=== PATIENT | male | born 1965 | race Caucasian/White ===

== ENCOUNTER 2024-03-28 07:55 | Emergency (ER) | payer BC, SELFPAY ==
[2024-03-28] VITALS (11 sets, daily range): BP systolic 99–143; BP diastolic 53–82; BMI 23.9
--- NOTE | 2024-03-28 08:37 | ED.GENMED ---
History of Present Illness
General
Chief Complaint: Abnormal Lab Value
Source: patient
Time Seen by Provider: 03/28/24 08:06
History of Present Illness
History of Present Illness:
58yoM with a history of hyperlipidemia and tobacco use presenting for evaluation of an abnormal outpatient lab. Patient had routine blood work 2 weeks ago and was called by his PCP yesterday regarding abnormal findings. His hemoglobin was 6.8 and
he was told to go to the ED for a blood transfusion. Patient denies any history of anemia and has never required a blood transfusion before. He denies any hematochezia or melena. His only current complaint is mild fatigue which has been ongoing
for about 1 to 2 months. He denies any shortness of breath, dizziness, syncope. He smokes 1 pack/day and drinks 2 rum and cokes daily.
Past History
Past History
ED Past Medical History: None
ED Past Surgical History: None
Social History
Tobacco: Smoker
Alcohol: Daily
Drug: None
Personal:
Living: with family
Employment: Employed
Family History
Family History: Other (Noncontributory)
Phy Exam
General Physical Exam
General Presentation: well appearing and no apparent distress
General age: appears stated age
General Skin: warm and dry
General Habitus: normal
General Mental: alert
ENT Exam
ENT Exam: normocephalic
Cardiovascular Exam
Cardiovascular Exam: regular rate/rhythm and no murmur
Pulmonary Exam
Pulmonary Exam: lungs clear, no respiratory distress, no rales, no crackles and no rhonchi
Gastrointestinal Exam
Rectal Exam: other (Small amount of mucous obtained on digital rectal exam. Hemoccult negative. )
Neurological Exam
Neurological Exam: alert
Solon Coma Scale
Eye Opening: Spontaneous
Verbal Response: Oriented
Motor Response: Obeys Commands
GCS Total Score: 15
Skin Exam
Skin Exam: normal color and warm/dry
Psychiatric Exam
Psychiatric Exam: normal mood/affect
Course
Orders/Labs/Results
Orders:
Orders
03/28/24 08:43
Chest/Abd/Pelvis w Contrast CT [CT Chest/abd/pel W Iv Cont] Urgent
Comment:
Reason For Exam: Anemia, fatigue
03/28/24 08:45
Type+Screen Urgent
Complete Blood Count/With Diff Urgent
Comprehensive Metabolic Panel Urgent
Folate Urgent
Comment: ADD ON
Haptoglobin [S] Urgent
Comment: ADD ON
Iron Urgent
LDH Urgent
Manual Differential Urgent
PTT Urgent
Prothrombin Time Urgent
Reticulocyte Count Urgent
Comment: ADD ON
Total Iron Binding Urgent
Vitamin B12 Urgent
Comment: ADD ON
03/28/24 09:22
ABO2 Urgent
BBK Wristband Number:
Associate notified that ABO2 has been ordered: [id number]
Date: 03/28/24
Time: 09:01
Customer Support Consultant ID: [id number]
03/28/24 11:09
Blood Bank Products [* Blood Bank Products] Urgent
Blood Bank Products: *Packed RBC Leuko(PRBC's)
Quantity: 1
Transfuse Today: Yes
Reason: Anemia
03/28/24 11:18
Add On- LAB Urgent
Tests Added?: LDH, reticulocyte, MINH haptoglobin, B12, folate, iron panel
Abnormal Lab Results
03/28/24
08:45
WBC 2.1 L* 10^3/uL
(4.8-10.8)
RBC 2.12 L 10^6/uL
(4.70-6.10)
Hgb 7.1 L g/dL
(13.0-18.0)
Hct 21.5 L %
(39.0-52.0)
MCV 101.4 H fL
(80.0-94.0)
MCH 33.5 H pg
(27.0-31.0)
RDW 29.7 H %
(11.5-14.5)
Abs Neuts (Manual) 1.0 L 10^3/uL
(1.4-6.5)
Segmented Neutrophils 40 L %
(42-75)
Band Neutrophils 11 H %
(0-3)
PT 16.1 H Sec
(11.4-14.6)
BUN 8 L mg/dl
(9-20)
Creatinine 0.6 L mg/dL
(0.7-1.3)
Glucose 108 H mg/dl
(70-99)
Iron 261 H ug/dl
(49-181)
% Saturation 93 H %
(20-50)
Vitamin B12 975 H pg/ml
(239-931)
Folate > 20.0 H ng/ml
(2.76-20)
Crossmatch IS Only See Detail
03/28/24 08:45
03/28/24 08:45
Vital Signs
Initial and Last Documented VS:
Initial Vital Signs
Temp Pulse Resp BP Pulse Ox
98.6 F 83 16 143/70 100
03/28/24 07:57 03/28/24 07:57 03/28/24 07:57 03/28/24 07:57 03/28/24 07:57
Last Documented Vital Signs
Temp Pulse Resp BP Pulse Ox
98.4 F 64 14 119/67 99
03/28/24 12:46 03/28/24 12:46 03/28/24 12:46 03/28/24 12:46 03/28/24 12:46
MDM/Problems Addressed
Differential Diagnosis Includes:
58yoM here for anemia (hemoglobin 6.8) seen on outpatient labs 2 weeks ago. Last hemoglobin 11.4 in June 2021. He is mostly asymptomatic other than mild fatigue. No reported melena or hematochezia. VSS. He is well appearing in no distress. Small
amount of mucous obtained on STORM which is hemoccult negative. Differential diagnosis includes but is not limited to: GI bleed, MICHELL, malignancy, myelodysplastic syndrome, anemia of chronic disease
Initial ED plan: Check CBC, CMP, coags, and type and screen.
*Critical Care Note
Total Time (30-74mins, 75-104mins- exclusive of procedures): Not Applicable
Update Note
Update Note:
Hemoglobin today is 7.1. Leukopenia also noted on labs with a WBC of 2.1. Recommended admission for further workup which patient is refusing at this time due to family obligations. I reached out to the cosmetic sales assistant biofuels production technician to try to expedite
outpatient f/u. Hematology requests LDH, reticulocyte count, haptoglobin, B12/folate, and iron studies to be added on. Fortunately, patient was able to schedule in appt with hematology in 1 week. He was given 1 unit PRBC transfusion during ED stay
which he tolerated well. ED return precautions discussed. He left in stable condition. PCP made aware of plan.
ED Attending Note
-
Portions of this chart may have been created with voice recognition software.� Occasional wrong word or��sound alike� substitutions may have occurred due to the inherent limitations of voice recognition software.
Discharge Plan
Departure
Patient Disposition: Home (Routine Discharge)
Date of Disposition: 03/28/24
Time of Disposition: 13:58
Patient with high blood pressure during this ER visit?: No
Discharge Problem:
Anemia, Leukopenia
Instructions: Anemia, Possibly From Low Iron, Adult ED
Prescriptions:
No Action
No Current Medications
0
Referrals:
Kali Mead DO [Active] -
Renea Hagen PA [Family Provider] -
Activity Restrictions/Additional Instructions:
Please follow-up with your family doctor and hematology for further testing to find out the cause of your anemia.
Return to the ER immediately with any new or worsening symptoms.
Interventions
Interventions:
*Risk Screen - Suicide Last Done: 03/28/24 07:57
*General Assessment Last Done: 03/28/24 07:57
*Neglect/Abuse Screening Last Done: 03/28/24 07:57
ED- Fall Risk Assessment Last Done: 03/28/24 08:50
*ED COVID-19 Vaccine History Last Done: 03/28/24 07:57
Discharge Date and Time
Discharge Date/Time: 03/28/24 14:39
Print Language: DUTCH
[2024-03-28 09:09] LABS: INR 1.24; PT 16.1 Sec (11.4-14.6)
[2024-03-28 09:10] LABS: APTT 33.5 Sec (23.4-35.0)
[2024-03-28 09:22] LABS: ALT (SGPT) 32 U/L (0-50); AST (SGOT) 41 U/L (17-59); Albumin 4.3 g/dl (3.5-5.0); Alkaline Phosphatase 68 U/L (38-126); Blood Urea Nitrogen 8 mg/dl (9-20); Calcium 9.4 mg/dl (8.4-10.2); Carbon Dioxide 29 mmol/L (22-30); Chloride 101 mmol/L (98-107); Estimated Creatinine Clearance > 125 ml/min; Glucose 108 mg/dl (70-99); Potassium 4.3 mmol/L (3.5-5.1); Sodium 138 mmol/L (135-145); Total Bilirubin 1.3 mg/dl (0.2-1.3); Total Protein 6.4 g/dl (6.3-8.2); eGFR > 60.00
[2024-03-28 09:32] LABS: Hematocrit 21.5 % (39.0-52.0); Hemoglobin 7.1 g/dL (13.0-18.0); Mean Corpuscular Hgb 33.5 pg (27.0-31.0); Mean Corpuscular Volume 101.4 fL (80.0-94.0); Mean Platelet Volume 10.1 fL (7.4-10.4); Platelet Count 340 10^3/uL (130-400); Red Blood Cell Count 2.12 10^6/uL (4.70-6.10); Red Cell Dist. Width 29.7 % (11.5-14.5); White Blood Cell Count 2.1 10^3/uL (4.8-10.8)
[2024-03-28 09:33] LABS: Eosinophils 4 % (0-6); Lymphocytes 41 % (20-51); Monocytes 4 % (2-9); Segmented Neutrophils 40 % (42-75)
[2024-03-28 09:34] LABS: Band Neutrophils 11 % (0-3); Normal RBC Morphology No; Platelets Checked Yes
[2024-03-28 09:35] LABS: Acanthocytes Slight; Anisocytosis 2+; Hypochromasia 2+; Macrocytosis Slight; Ovalocytes 1+; Poikilocytosis Slight; Polychromasia Slight; Total Cells Counted 100
[2024-03-28 11:50] LABS: Reticulocyte Count 0.6 % (0.4-2.8)
[2024-03-28 12:06] LABS: Iron 261 ug/dl (49-181); LDH 214 U/L (120-246)
[2024-03-28 12:16] LABS: Percent Saturation 93 % (20-50); Total Iron Binding Capacity 280 ug/dl (261-462)
[2024-03-28 13:50] LABS: Folate > 20.0 ng/ml (2.76-20); Vitamin B12 975 pg/ml (239-931)
[2024-03-30 00:43] LABS: Haptoglobin 96 mg/dL (30-200)
== END 2024-03-28 14:39 | disposition home or self-care (01) ==
LOC: EMR 07:55
PROVIDERS: Physician Assistant; EMERGENCY PHYSICIAN Emergency Medicine; FAMILY PHYSICIAN Physician Assistant Medical
DX: D64.9 Anemia, unspecified (principal); D72.819 Decreased white blood cell count, unspecified; E78.00 Pure hypercholesterolemia, unspecified; I25.10 Atherosclerotic heart disease of native coronary artery without angina pectoris; F17.210 Nicotine dependence, cigarettes, uncomplicated; Z90.49 Acquired absence of other specified parts of digestive tract
CPT/HCPCS: 99284; 71260; 74177; 80053; 82607; 82746; 83010; 83540; 83550; 83615; 85025; 85045; 85610; 85730; 86850; 86900; 86901; 86920; P9016; Q9967

== ENCOUNTER → 2024-04-19 13:02 | Outpatient (REF) | payer BC, SELFPAY | LOC: PAVMRI 13:02 | PROVIDERS: ATTENDING PHYSICIAN Internal Medicine Hematology & Oncology; FAMILY PHYSICIAN Physician Assistant Medical | DX: D61.818 Other pancytopenia (principal); E83.110 Hereditary hemochromatosis | CPT/HCPCS: 74183; A9575 ==

== ENCOUNTER → 2024-04-25 09:03 | Outpatient (REF) | payer BC, SELFPAY ==
[2024-04-25 09:31] VITALS: BP 141/69; BP_SYST 78
[2024-04-25 09:48] LABS: Hematocrit 25.3 % (39.0-52.0); Hemoglobin 8.5 g/dL (13.0-18.0); Mean Corp Hgb Conc. 33.6 g/dL (33.0-37.0); Mean Corpuscular Hgb 34.1 pg (27.0-31.0); Mean Corpuscular Volume 101.6 fL (80.0-94.0); Mean Platelet Volume 10.6 fL (7.4-10.4); Platelet Count 315 10^3/uL (130-400); Red Blood Cell Count 2.49 10^6/uL (4.70-6.10); Red Cell Dist. Width 27.4 % (11.5-14.5)
[2024-04-25] MEDS: ATIVAN 0.5 MG IV (10:15)
[2024-04-25] MEDS: NSS (PRESERVATIVE FREE) 0.25 ML IV (10:15)
[2024-04-25 10:59] LABS: Anisocytosis 2+; Band Neutrophils 2 % (0-3); Eosinophils 2 % (0-6); Hypochromasia 3+; Lymphocytes 61 % (20-51); Monocytes 2 % (2-9); Normal RBC Morphology No; Nucleated Red Blood Cells 1 (-); Platelets Checked Yes; Polychromasia 1+; Segmented Neutrophils 33 % (42-75)
[2024-04-25 11:00] LABS: Ovalocytes 1+; Target Cells FEW
[2024-04-25 11:01] LABS: Total Cells Counted 100
[2024-04-25 11:06] LABS: Absolute Neutrophils -Man Diff 0.7 10^3/uL (1.4-6.5); White Blood Cell Count 2.2 10^3/uL (4.8-10.8)
[2024-04-25 11:11] VITALS: BP 125/77; BP_SYST 82
[2024-04-25 11:27] VITALS: BP 118/84
== END ==
LOC: RADI 09:03
PROVIDERS: ATTENDING PHYSICIAN Physician Assistant; FAMILY PHYSICIAN Physician Assistant Medical; REFERRING PHYSICIAN Internal Medicine Hematology & Oncology
DX: E83.110 Hereditary hemochromatosis (principal); D46.9 Myelodysplastic syndrome, unspecified; Z01.812 Encounter for preprocedural laboratory examination; Z01.818 Encounter for other preprocedural examination
CPT/HCPCS: 88305; 88311; 88312; 36415; 38221; 77012; 85025; 88313

== ENCOUNTER 2024-05-16 09:00 | Outpatient (RCR) | payer BC, SELFPAY ==
[2024-05-16] VITALS (7 sets, daily range): BP systolic 106–124; BP diastolic 51–64
== END 2024-05-21 23:59 | disposition home or self-care (01) ==
LOC: OID 09:00
PROVIDERS: ATTENDING PHYSICIAN Internal Medicine Hematology & Oncology; FAMILY PHYSICIAN Physician Assistant Medical
DX: D61.818 Other pancytopenia (principal); E83.110 Hereditary hemochromatosis; Z77.090 Contact with and (suspected) exposure to asbestos
CPT/HCPCS: 36415; 36430; 86850; 86900; 86901; 86920; P9016

== ENCOUNTER 2024-09-18 14:50 | Outpatient (RCR) | payer BC, SELFPAY ==
[2024-09-18 15:07] LABS: % Basophils 6.4 % (0-2); % Lymphocytes 63.6 % (20.5-51.1); Absolute Basophils 0.1 10^3/uL (0-0.2); Absolute Eosinophils 0.1 10^3/uL (0-0.7); Absolute Lymphocytes 0.9 10^3/uL (1.2-3.4); Absolute Monocytes 0.1 10^3/uL (0.1-0.6); Hemoglobin 8.4 g/dL (13.0-18.0); Mean Corp Hgb Conc. 32.3 g/dL (33.0-37.0); Mean Corpuscular Hgb 33.2 pg (27.0-31.0); Mean Corpuscular Volume 102.8 fL (80.0-94.0); Mean Platelet Volume 9.8 fL (7.4-10.4); Platelet Count 324 10^3/uL (130-400); Red Blood Cell Count 2.53 10^6/uL (4.70-6.10); Red Cell Dist. Width 26.7 % (11.5-14.5)
[2024-09-18 15:10] LABS: White Blood Cell Count 1.4 10^3/uL (4.8-10.8)
[2024-09-18 15:11] LABS: Absolute Neutrophils 0.3 10^3/uL (1.4-6.5)
== END 2024-09-18 23:59 | disposition home or self-care (01) ==
LOC: OID 14:50
PROVIDERS: ATTENDING PHYSICIAN Internal Medicine Hematology & Oncology; FAMILY PHYSICIAN Physician Assistant Medical
DX: D61.818 Other pancytopenia (principal); D46.9 Myelodysplastic syndrome, unspecified (principal); E83.110 Hereditary hemochromatosis; Z77.090 Contact with and (suspected) exposure to asbestos
CPT/HCPCS: 85025

== ENCOUNTER 2024-12-05 08:16 | Outpatient (RCR) | payer BC, SELFPAY ==
[2024-11-29] VITALS (7 sets, daily range): BP systolic 93–108; BP diastolic 42–53
[2024-11-29] MEDS: TYLENOL 650 MG PO (13:31)
--- NOTE | 2024-11-29 13:39 | PTCARENOTE ---
Pt at the end of his second unit of Packed Red blood cells and his temp 99.1. Stated he feels fine. Tylenol 650 mg po given as ordered. will recheck before pt is discharged.
--- NOTE | 2024-11-29 13:55 | PTCARENOTE ---
Pt oral temp rechecked. He is now 98.6 still states he feels fine. Instructed to call MD or 911 if he has any signs or symptoms of fever, Pt verbalized understanding.
[2024-12-04 15:20] LABS: Hematocrit 22.2 % (39.0-52.0); Hemoglobin 7.1 g/dL (13.0-18.0); Mean Corp Hgb Conc. 32.0 g/dL (33.0-37.0); Mean Corpuscular Volume 94.9 fL (80.0-94.0); Nucleated Red Blood Cells % 4.9 % (-); Platelet Count 110 10^3/uL (130-400); Red Cell Dist. Width 21.9 % (11.5-14.5)
[2024-12-05 08:54] VITALS: BP 107/53
[2024-12-05 09:00] VITALS: BP 107/53
[2024-12-05 09:15] VITALS: BP 110/57
[2024-12-05 11:25] VITALS: BP 110/57
== END 2024-12-19 23:59 | disposition home or self-care (01) ==
LOC: OID 08:16
PROVIDERS: ATTENDING PHYSICIAN Internal Medicine Hematology & Oncology; FAMILY PHYSICIAN Physician Assistant Medical
DX: D46.9 Myelodysplastic syndrome, unspecified (principal)
CPT/HCPCS: 36415; 36430; 85025; 86850; 86900; 86901; 86920; P9058

== ENCOUNTER 2024-12-18 00:21 | Inpatient (IN) | payer BC, SELFPAY ==
[2024-12-17] VITALS (7 sets, daily range): BP systolic 119–144; BP diastolic 57–78; PULSE 2; BMI 21.0
[2024-12-17 19:29] LABS: Hematocrit 23.4 % (39.0-52.0); Hemoglobin 7.5 g/dL (13.0-18.0); Mean Corp Hgb Conc. 32.1 g/dL (33.0-37.0); Mean Corpuscular Volume 90.0 fL (80.0-94.0); Platelet Count 111 10^3/uL (130-400); Red Cell Dist. Width 20.7 % (11.5-14.5)
[2024-12-17 19:41] LABS: ALT (SGPT) 29 U/L (0-50); AST (SGOT) 21 U/L (17-59); Albumin 3.2 g/dl (3.5-5.0); Alkaline Phosphatase 58 U/L (38-126); Blood Urea Nitrogen 10 mg/dl (9-20); Calcium 8.3 mg/dl (8.4-10.2); Carbon Dioxide 30 mmol/L (22-30); Chloride 96 mmol/L (98-107); Glucose 127 mg/dl (70-99); Potassium 4.1 mmol/L (3.5-5.1); Sodium 128 mmol/L (135-145); Total Protein 6.3 g/dl (6.3-8.2); eGFR > 60.00
[2024-12-17 19:52] LABS: Troponin I < 0.012 ng/ml
[2024-12-17 19:56] LABS: Nucleated Red Blood Cells % 5.1 % (-)
[2024-12-17] MEDS: LASIX 40 MG IV (21:25)
--- NOTE | 2024-12-17 22:27 | ED.GENMED ---
History of Present Illness
General
Chief Complaint: Breathing Problem
Source: patient
Exam Limitations: none
Time Seen by Provider: 12/17/24 21:03
Nursing documentation reviewed up to this point in time: agreed with
History of Present Illness
History of Present Illness:
Patient with history MDS, currently receiving treatment, presents to ED secondary to sudden onset of shortness of breath, after he returned from his oncologist office. During the day, patient received injection in his stomach to boost his white
blood cell count, along with new medication called Venclexta at 11 AM. At 1:30 PM, patient received scheduled 1 unit blood transfusion. At 5 PM, patient returned to horticultural services supervisor office for scheduled blood draw. When he returned home around 6:30
PM, he became short of breath all of a sudden. Denies chest pain. Denies chest palpitations. Denies fever or chills. Denies nausea or vomiting. Denies dizziness. Denies previous history of similar symptoms.
Past History
Past History
ED Past Medical History: None
ED Past Surgical History: None
Social History
Tobacco: Smoker
Alcohol: Daily
Drug: None
Personal:
Living: with family
Employment: Employed
Family History
Family History: Other (Noncontributory)
Review of Systems
Review of Systems
Allergies reviewed?: Yes
All Other Systems: ROS reviewed and negative except as documented in HPI and ROS
Constitutional: Reports no symptoms
Respiratory: Reports cough and trouble breathing
Cardiac: Denies chest pain or palpitations
ABD/GI: Reports no symptoms
Musculoskeletal: Reports no symptoms
Skin: Reports no symptoms
Neurological: Reports no symptoms
Phy Exam
Physical Exam
Physical Exam:
Physical Exam
General: mild respiratory distress, not acutely ill. afebrile
Head: nc/at. eomi
Neck: supple. normal range of motion. no jvd
Heart: s1/s2 regular rate and rhythm
Lungs: no acute respiratory distress. diminished breath sounds bilaterally
Abdomen: normal bowel sounds. not tender.
Neuro: alert and oriented x 3. no focal neurological deficits
Skin: no rash
Psychiatric: well kept. interactive and cooperative
Extremities: no edema. no calf tenderness.
Scores
Heart Failure Risk
Heart Failure Risk Score: Not Applicable
Course
Orders/Labs/Results
Orders:
Orders
12/17/24 19:07
CR Chest - 2 Views Urgent
Comment:
Reason For Exam: shortness of breath
12/17/24 19:13
Complete Blood Count/With Diff Urgent
Comprehensive Metabolic Panel Urgent
NT-proBNP Urgent
Comment: ADD ON
Troponin I Urgent
12/17/24 21:10
Add On- LAB Urgent
Tests Added?: proBNP
12/17/24 21:11
Furosemide [Lasix] 40 mg IV NOW STA
12/17/24 21:29
CT Chest PE Study Urgent
Comment:
Reason For Exam: sob w hx MDS
12/17/24 22:22
Dexamethasone Sod Phosphate [Decadron] 10 mg IV NOW STA
12/17/24 23:21
LevoFLOXacin 500 MG/100 ML [Levaquin] 500 mg in 100 ml IV NOW
12/17/24 23:30
Apixaban [Eliquis] 5 mg PO BID
12/17/24 23:46
Lactate Level [Lactic Acid] Urgent
Blood Culture Q30M
SWAPNA Source: Blood/Venous
Specimen Description:
12/18/24 00:09
Admit/Transfer Patient As Directed
Co-Sign Provider:
Level of Care: Inpatient admission
Assign to:: Telemetry
Physician / Group: Morro
Diagnosis: Pneumonia, Neutropenia, AML, Pulmonary Lesions
Reason for Telemetry: Arrhythmia
Date to Stop Telemetry: 12/21/24
Time to Stop Telemetry: 11:00
Reason for Hospitalization: Pneumonia, Neutropenia, AML, Pulmonary Lesions
Expected length of stay greater than two midnights?: Yes
ELOS- Estimated Length of Stay in days: 3
I certify the patient meets the requirements for IP care: Yes
12/18/24 00:10
PRN Pain Medication Management As Directed
May give lesser potent ordered pain med per pt: Yes
preference::
Protocol:: Medication orders for pain may be administered in a
manner that supports deferring to patient preference
when the pt is:
- Requesting an ordered lesser potent pain medication.
Least to most potent pain medications are defined
as: acetaminophen < NSAID < tramadol < opioids
(morphine, oxycodone, hydromorphone).
- Requesting a lesser dose of the same medication IF
ORDERED.
- Requesting a less intrusive route of administration
if both routes are prescribed by the provider (PO <
IV).
12/18/24 00:11
Code Status As Directed
Resuscitation Status: Full Code
12/18/24 02:45
0.9% Sodium Chloride 1000 ml [Nss] 1,000 ml IV 100 mls/hr
Acetaminophen [Tylenol] 650 mg PO Q4HPRN PRN
Albuterol Nebs [Ventolin Nebules] 2.5 mg INH R Q4HPRN PRN
Ondansetron Injectable [Zofran] 4 mg IV Q6HPRN PRN
VANCOMYCIN Pharmacy to Dose [VANCOCIN Pharmacy to Dose] 1 each Pharmacy To Prepare [Call Pharmacy To Prepare] 0 ml IV PER PROTOCOL
12/18/24 02:45
Consult Notification Routine
Specialty to Notify: Oncology
Date consulting provider notified: 12/18/24
Time consulting provider notified: 07:36
Notified:: Provider
Comment: tt
Consult Notification Routine
Specialty to Notify: Pulmonary
Date consulting provider notified: 12/18/24
Time consulting provider notified: 07:34
Notified:: Provider
Comment: tt
ONCOLOGY CONSULT Routine
Consulting Provider: Ibrahima Magdaleno
Was physician already notified: No
Reason for consult: AML, Pneumonia
PULMONARY CONSULT Routine
Consulting Provider: Ernestina Grayson
Was physician already notified: No
Reason for consult: Pulmonary Mass Lesions
Activity As Directed
Activity Level: Ambulate
With Assistance
Bladder Scan As Directed
Follow Bladder Retention/Intermittent Cath Algorithm?: Yes
PRN if no void in __ hours: 6
Frequency: Per Retention Algorithm
If Bladder Scan Result >: 400
then:: Straight cath
I/O [Intake/ Output] As Directed
Frequency: Per unit guidelines
Precautions As Directed
Type of Precautions: Neutropenic
Straight Cath As Directed
Frequency: Per Retention Algorithm
Additional Instructions: straight cath as needed per acute urinary retention algorithm for 24 hrs
Additional Instructions: for bladder scan greater than 400 mL
Vital Signs As Directed
Frequency: Per unit guidelines
Weight As Directed
Frequency: Daily
Oxygen Therapy [O2 Therapy] [RESP] Routine
Titrate/Wean O2 to maintain O2 sat greater than (%): 94
DX Deep Vein Thrombosis Video Routine
12/18/24 03:00
Cefepime HCl [Maxipime] 2,000 mg IV Q8@0200,1000,1800
12/18/24 04:22
Basic Metabolic Panel IN AM
Complete Blood Count/No Diff IN AM
TSH Reflex To Free T4 Routine
Blood Culture Q30M
SWAPNA Source: Blood/Venous
Specimen Description:
12/18/24 Breakfast
Regular
At Your Request: Full Participation
Does patient need a safe tray?: No
12/18/24 08:00
Acyclovir [Zovirax] 400 mg PO BID
Atorvastatin [Lipitor] 10 mg PO DAILY
Pantoprazole [Protonix IV] 40 mg IV DAILY
Abnormal Lab Results
12/17/24
19:13
WBC 1.2 L* 10^3/uL
(4.8-10.8)
RBC 2.60 L 10^6/uL
(4.70-6.10)
Hgb 7.5 L g/dL
(13.0-18.0)
Hct 23.4 L %
(39.0-52.0)
MCHC 32.1 L g/dL
(33.0-37.0)
RDW 20.7 H %
(11.5-14.5)
Plt Count 111 L 10^3/uL
(130-400)
Absolute Neuts (auto) 0.4 L* 10^3/uL
(1.4-6.5)
Absolute Lymphs (auto) 0.5 L 10^3/uL
(1.2-3.4)
Immature Gran % 2.5 H %
(0-0.5)
Neutrophils % 34.0 L %
(42.2-75.2)
Monocytes % 16.1 H %
(1.7-9.3)
Sodium 128 L mmol/L
(135-145)
Chloride 96 L mmol/L
(98-107)
Creatinine 0.6 L mg/dL
(0.7-1.3)
Glucose 127 H mg/dl
(70-99)
Calcium 8.3 L mg/dl
(8.4-10.2)
Total Bilirubin 1.5 H mg/dl
(0.2-1.3)
Albumin 3.2 L g/dl
(3.5-5.0)
07/29/25 19:13
12/17/24 19:13
Vital Signs
Initial and Last Documented VS:
Initial Vital Signs
Temp Pulse Resp BP Pulse Ox
99.5 F 98 16 129/61 88
12/17/24 19:00 12/17/24 19:00 12/17/24 19:00 12/17/24 19:00 12/17/24 19:00
Last Documented Vital Signs
Temp Pulse Resp BP Pulse Ox
97.6 F 81 18 111/63 95
12/18/24 12:00 12/18/24 12:00 12/18/24 12:00 12/18/24 12:00 12/18/24 07:00
MDM/Problems Addressed
MDM/Problems Addressed:
Upon initial evaluation along with x-ray, concern for flash pulmonary edema, secondary to either drug reaction versus blood transfusion reaction. As such, patient given 40 mg Lasix and placed on BiPAP short-term, with improvement. However, in
light of sudden nature of symptoms along with underlying MDS history, decision made to obtain CT chest. CT chest reveals PE along with multifocal pneumonia. Patient remains hemodynamically stable. Patient will be started on Eliquis along with
antibiotics.
*Pulse Oximetry
SaO2: 97
Nasal Cannula flow liters per minute: 1
Oxygen Mode of Delivery: Room air
Patient hypoxic: no
*Critical Care Note
Total Time (30-74mins, 75-104mins- exclusive of procedures): Not Applicable
ED Attending Note
-
Portions of this chart may have been created with voice recognition software.� Occasional wrong word or��sound alike� substitutions may have occurred due to the inherent limitations of voice recognition software.
Discharge Plan
Departure
Patient Disposition: Admit
Date of Disposition: 12/17/24
Time of Disposition: 23:25
Admit to: Telemetry
Presentation/result/management discussed w/ accepting MD/DO: Hospitalist
Discharge Problem:
Pulmonary embolism, Pneumonia
Interventions
Interventions:
*Risk Screen - Suicide Last Done: 12/18/24 02:45
*General Assessment Last Done: 12/17/24 19:46
*Neglect/Abuse Screening Last Done: 12/17/24 19:46
*ED- Fall Risk Assessment Last Done: 12/17/24 19:46
*ED COVID-19 Vaccine History Last Done: 12/18/24 02:45
*Nursing Disposition Last Done: 12/18/24 02:38
ED-Skin Assessment Last Done: 12/17/24 19:46
ED- Pulmonary Assessment Last Done: 12/17/24 19:46
ED-EENT Assessment Last Done: 12/17/24 19:53
ED- Cardiac Assessment Last Done: 12/17/24 19:46
Discharge Date and Time
Discharge Date/Time: 12/18/24 02:38
[2024-12-17] MEDS: DECADRON 10 MG IV (22:35)
[2024-12-17] MEDS: LEVAQUIN 100 IV (23:44)
[2024-12-17] MEDS: ELIQUIS 5 MG PO (23:44)
[2024-12-18] VITALS (9 sets, daily range): BP systolic 108–126; BP diastolic 61–88; BMI 20.4
--- NOTE | 2024-12-18 00:17 | HPS.HSE ---
Family Physician
-
Family Physician: Renea Hagen
Chief Complaint
-
SOB, Chest Pain
History of Present Illness
Patient is a 59y M with PMH significant for asbestos exposure and MDS with recent transformation to AML who presents to ED complaining of chest pain and SOB. History obtained from patient and family at the bedside. Patient was reportedly
feeling fairly well yesterday. Today he was seen at the infusion center where he received two injections (azacitidine and some other). He also received a blood transfusion (? type). Patient returned home around 6 PM and then noted R lower chest
discomfort that increased and extended across his anterior chest. He complained of SOB. He presented to the ED for further evaluation.
notes that patient has had a hacking, non-productive cough for about 4-5 days. No fevers / chills. No known sick contacts.
He was found to have leukemic transformation of his MDS about one week ago. He took his first new injectable chemo and one dose of Venclexta today.
Medical History
Past Medical History
Past Medical History: Reports Other
Additional Past Medical History:
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
Asbestosis
? Prior Granulomatous Disease
Dyslipidemia
Past Surgical History: Reports Other
Additional Past Surgical History:
Appendectomy
Bone Marrow Biopsy
Social History
Tobacco: Former Smoker (Quit smoking 9 months ago. > 40 pack years total use.)
Alcohol: Former (Quit drinking 9 months ago. Prior daily use.)
Drug: None
Family History
Family History: Not pertinent
Allergies / Home Medications
Allergies reflects when Allergies were last updated in [facility].
Home Medications with original date entered in [facility]
Allergy/Medication List:
Allergies
Allergy/AdvReac Type Severity Reaction Status Date / Time
Penicillins Allergy Unknown Verified 12/17/24 19:04
Home Medications
atorvastatin 10 mg tablet 10 mg PO DAILY 04/24/24
acyclovir 400 mg tablet 400 mg PO BID 11/29/24
ondansetron HCl 4 mg tablet 4 mg PO Q8H PRN nausea 11/29/24
azacitidine 12/18/24
venetoclax 100 mg tablet (Venclexta) 400 mg PO DAILY 12/18/24
Review of Systems
-
History Source: Patient
A 12 point ROS was completed and negative except as noted: Yes
Constitutional: Reports Fever, Fatigue and Chills
EENT: Denies Sore Throat
Respiratory: Reports Cough and Trouble Breathing
Cardiac: Reports Chest Pain; Denies Diaphoresis or Palpitations
Abdomen/GI: Denies Abdominal Pain, Nausea, Vomiting or Diarrhea
: Denies Dysuria or Frequency
Musculoskeletal: Denies Joint Pain or Edema
Neurological: Denies Dizzy or Headache
Psych: Denies Depression or Anxiety
Physical Exam
Vital Signs
Vital Signs
Temp Pulse Resp BP Pulse Ox
99.9 F 95 18 123/73 97
12/17/24 23:00 12/18/24 00:00 12/18/24 00:00 12/18/24 00:00 12/17/24 22:30
Physical Exam
General: Other (Thin / cachectic 59y M in mild distress due to pain.)
HEENT: Other (Dry MM. Neck supple.)
Respiratory: Other (Coarse breath sounds anteriorly over the R lung. Decreased breath sounds posteriorly. No wheezing.)
Cardiac: S1/S2 and Regular Rhythm; No Murmur
GI: Soft, Non Tender, Non Distended and Normal Bowel Sounds
Musculoskeletal: No Clubbing, No Cyanosis and No Edema
Neuro: AO x 3
Laboratory Results
-
12/17/24 19:13
12/17/24 19:13
Laboratory Results
Lactic Acid 0.9 mmol/L (0.7-2.0) 12/17/24 23:46
Total Bilirubin 1.5 mg/dl (0.2-1.3) H 12/17/24 19:13
AST 21 U/L (17-59) 12/17/24 19:13
ALT 29 U/L (0-50) 12/17/24 19:13
Alkaline Phosphatase 58 U/L (38-126) 12/17/24 19:13
Troponin I < 0.012 ng/ml 12/17/24 19:13
Impression/Plan
-
A/P: Patient is a 59y M with PMH significant for MDS-AML who presents to ED complaining of chest pain and SOB.
RLL Pneumonia
Sepsis secondary to the above
- Admit for further evaluation and treatment.
- Patient presents with fever, leukopenia, tachycardia and tachypnea - imaging evidence for R base +/- multifocal pneumonia.
- Cover with empiric vancomycin / cefepime given neutropenia (chronic).
- Follow fever curve and monitor for clinical improvement.
- IVF support, nebs, O2, etc.
Multifocal Pulmonary Lesions
- CT done in the ED today shows numerous, bilateral, upper and lower lob pulmonary lesions.
- Lesions described as mass-like and at least one with central necrosis.
- ? atypical pneumonia appearance versus malignancy versus other.
- Pulmonary evaluation for additional recommendations.
- ? IR biopsy for further evaluation / tissue diagnosis.
Small SUZIE Pulmonary Embolism
- Doubt this is contributing overmuch to his current symptoms.
- Given initial dose of Eliquis in the ED.
- Would hold further Eliquis pending potential intervention / biopsy / etc.
- Begin IV heparin infusion without bolus in the AM - can then interrupt infusion as needed for procedures, bleeding, etc.
Hyponatremia
- ? secondary to sepsis / hypovolemia versus ADH from pulmonary process versus other.
- Check urine studies.
- IVF for sepsis overnight and follow for changes in Na level.
AML
Pancytopenia secondary to the above
- Patient with history of iron overload then MDS and now AML.
- ANC today is 400.
- Follow cell counts and transfuse if needed (CMV negative, irradiated, leukoreduced).
- Hematology / Oncology evaluation for additional recommendations.
- Hold newly initiated Venclexta for now.
DVT Prophylaxis: Eliquis +/- heparin infusion
Code Status: Full
--- NOTE | 2024-12-18 03:00 | PTCARENOTE ---
pt transferred to 4W. Pt able to stand on scale and walk to bed. Pt AAOx3, able to make needs known, safety measures in place, call fernandez within reach.
[2024-12-18] MEDS: NSS 1000 IV ×2 (03:18→18:35)
[2024-12-18] MEDS: VANCOCIN 530 MG IV (03:20)
[2024-12-18] MEDS: MAXIPIME 2000 MG IV ×3 (03:29→18:07)
[2024-12-18] MEDS: STERILE WATER FOR INJECTION 10 ML IV ×3 (03:29→18:07)
[2024-12-18 04:59] LABS: Hematocrit 21.7 % (39.0-52.0); Hemoglobin 6.9 g/dL (13.0-18.0); Mean Corp Hgb Conc. 31.8 g/dL (33.0-37.0); Mean Corpuscular Volume 88.9 fL (80.0-94.0); Platelet Count 94 10^3/uL (130-400); Red Cell Dist. Width 20.6 % (11.5-14.5)
[2024-12-18 05:02] LABS: Blood Urea Nitrogen 9 mg/dl (9-20); Calcium 8.3 mg/dl (8.4-10.2); Carbon Dioxide 29 mmol/L (22-30); Chloride 96 mmol/L (98-107); Estimated Creatinine Clearance 120 ml/min; Glucose 137 mg/dl (70-99); Potassium 4.0 mmol/L (3.5-5.1); Sodium 129 mmol/L (135-145); eGFR > 60.00
--- NOTE | 2024-12-18 05:09 | PTCARENOTE ---
Lab reported critical WBC of 0.7 and Hgb 6.9. Sales Branch Manager notified, VS obtained BP 119/62, 18, 98.2, 98% 2L O2, HR 74. PT currently resting in bed, no s/s of distress noted. Safety measures in place, call fernandez within reach.
--- NOTE | 2024-12-18 05:48 | W.PN.UPDATE ---
Update Note
Progress Note Update
Critical labs received: WBC 0.7, Hgb 6.9. Spoke with patient regarding labs and need for blood transfusion, explained risks and benefits. Patient states he has received blood before and is in agreement with receiving blood. Written consent obtained
and in chart. Ordered type and screen. Will order 1 unit PRBC (CMV negative, irradiated, leukoreduced). Repeat H&H 2 hours after transfusion completed. Oncology previously consulted.
[2024-12-18] MEDS: ZOVIRAX 400 MG PO ×2 (07:43→20:26)
[2024-12-18] MEDS: LIPITOR 10 MG PO (07:44)
[2024-12-18] MEDS: PROTONIX IV 40 MG IV (07:45)
[2024-12-18] MEDS: NSS (PRESERVATIVE FREE) 10 ML IV (07:46)
--- NOTE | 2024-12-18 08:45 | PHA.VAN.IN ---
Addendum entered and electronically signed by Stella Torres RPH 12/18/24 10:05:
MRSA screen ordered per protocol
Addendum entered and electronically signed by Stella Torres RPH 12/18/24 10:04:
Evaluated patient in conjunction with resident. Agree with assessment and plan below.
Original Note:
Assessment
- Assessment
Renal Function: Appears similar to baseline
Concomitant Antimicrobials: cefepime
AUC Dosing Plan
- Dosing Variables
Dosing Weight (kg): 65
Dosing CrCl (ml/min): 120
Vd coefficient (L/kg): 0.7
- Empiric Dosing
Initial / Loading Dose: received 1500mg load 12/18 at 0315
Maintenance Regimen: vancomycin 1250mg q12h, starting at 1800 tonight
Estimated AUC (mcg*h/mL): 573
Estimated Peak (mcg*h/mL): 38.8
Estimated Trough (mcg/ml): 13.0
Estimated Half Life (H): 6.7
due to history of AML, may have higher clearance than population-based PK model
- Monitoring
No levels ordered at this time: consider in the next few days
Pharmacokinetics Vancomycin I
- -
Patient Age: 59
Patient Sex: Male
Vancomycin Day #: 1
Indication: Neutropenic Fever
Requesting Provider: Dr. Hooker
Pertinent Antimicrobial Allergies:
penicillins -- reaction and age of onset unknown
Height / Weight:
Height 5 ft 10 in
Actual Weight 64.609 kg
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
- Vital Signs / Lab Results
Temp Pulse Resp BP Pulse Ox
98.2 F 74 18 119/62 98
12/18/24 05:12 12/18/24 05:12 12/18/24 05:12 12/18/24 05:12 12/18/24 05:12
Lab Results - Hematology
12/17/24 12/18/24
19:13 04:22
WBC 1.2 L* 0.7 L*
Lab Results - Chemistry
12/17/24 12/18/24
19:13 04:22
BUN 10 9
Creatinine 0.6 L 0.5 L
Estimated Creat Clear 120
Albumin 3.2 L
12/17/24
23:46
Lactic Acid 0.9
--- NOTE | 2024-12-18 09:11 | CON.ONC ---
Consultation
-
Date Consultation Requested: 12/18/24
Date Consultation Performed: 12/18/24
Requesting Provider: Rachael
Performing Provider: ILA
Reason for Consultation: AML
Impression
Impression
Right lower lobe/multifocal pneumonia
Multiple pulmonary lesions
Small left upper lobe pulmonary embolism
AML with pancytopenia
Plan
Plan
Supportive care with antibiotic therapy as you are doing. Agree with obtaining pulmonary consultation (currently pending) with atypical pulmonary findings which is less likely to be metastatic disease and more likely to be multifocal pneumonia.
Agree with transfusion for Hgb <7 or plt <10 K. CMV negative leukoreduced products if possible. Hold Venclexta while inpatient and also obviously hold parenteral Vidaza pending clinical improvement.
Patient History
History of Present Illness
CC: SOB, Chest Pain
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 He was treated with Vidaza and Venclexta and a few hours later at home noted R lower chest discomfort and SOB. He presented to the ED for
further evaluation. There was an associated dry, hacking nonproductive cough without fevers and chills. He received a PRBC transfusion this week as well. A blood transfusion is being ordered for later today for Hgb = 6.9. In ER imaging evidence
for R base +/- multifocal pneumonia as well as numerous, bilateral, upper and lower lob pulmonary lesions.
Past-Medical/Surgical History
PMH:
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
Asbestosis
? Prior Granulomatous Disease
Dyslipidemia
PSH:
Appendectomy
Social History
Tobacco: Former Smoker (Quit smoking 9 months ago. > 40 pack years total use.)
Alcohol: Former (Quit drinking 9 months ago. Prior daily use.)
Drug: None
Family History
Family History: Not pertinent
Patient Medication
�Medication �Instructions �Recorded �Confirmed �Last Taken �Type
atorvastatin 10 mg tablet 10 mg PO DAILY 04/24/24 12/18/24 12/05/24 History
acyclovir 400 mg tablet 400 mg PO BID 11/29/24 12/18/24 12/05/24 History
ondansetron HCl 4 mg tablet 4 mg PO Q8H PRN nausea 11/29/24 12/18/24 Unknown History
azacitidine 12/18/24 Unknown History
venetoclax 100 mg tablet 400 mg PO DAILY 12/18/24 12/18/24 Unknown History
(Venclexta)
Active Medications
Generic Name Dose Route Start Last Admin
Trade Name Freq PRN Reason Stop Dose Admin
Acetaminophen 650 mg 12/18/24 02:45
Acetaminophen 325 Mg Tablet PO 01/15/25 02:44
Q4HPRN PRN
Mild Pain / Temp > 101
Acyclovir Sodium 400 mg 12/18/24 08:00 12/18/24 07:43
Acyclovir Sodium 200 Mg Capsule PO 01/15/25 07:59 400 mg
BID VALERIA Administration
Albuterol Sulfate 2.5 mg 12/18/24 02:45
Albuterol Nebs 2.5 Mg/3 Ml Ampul INH
R Q4HPRN PRN
SOB
Protocol
Atorvastatin Calcium 10 mg 12/18/24 08:00 12/18/24 07:44
Atorvastatin (Lipitor) 10 Mg Tablet PO 01/15/25 07:59 10 mg
DAILY VALERIA Administration
Cefepime HCl 2,000 mg 12/18/24 03:00 12/18/24 03:29
Cefepime Hcl 2,000 Mg/12.5 Ml Vial IV 2,000 mg
Q8@0200,1000,1800 VALERIA Administration
Vancomycin HCl 1 each/ Device 0 mls @ 0 mls/hr 12/18/24 02:45
IV
PER PROTOCOL VALERIA
As Directed
Sodium Chloride 1,000 mls @ 100 mls/hr 12/18/24 02:45 12/18/24 03:18
Nss IV 1,000 mls
.Q10H VALERIA Administration
Ondansetron HCl 4 mg 12/18/24 02:45
Ondansetron 4 Mg/2 Ml Vial IV 01/15/25 02:44
Q6HPRN PRN
nausea and vomiting
Pantoprazole Sodium 40 mg 12/18/24 08:00 12/18/24 07:45
Pantoprazole Sodium 40 Mg/10 Ml Vial IV 01/15/25 07:59 40 mg
DAILY VALERIA Administration
Sodium Chloride 0 flush 12/18/24 03:00
Sodium Chloride 0.9% (Flush) Syringe IV 01/15/25 02:59
PER PROTOCOL VALERIA
Sodium Chloride 10 ml 12/18/24 08:00 12/18/24 07:46
Sodium Chloride 0.9% (Preservative Free) 10 Ml Vial IV 01/15/25 07:59 10 ml
DAILY VALERIA Administration
Sterile Water 10 ml 12/18/24 03:00 12/18/24 03:29
Sterile Water For Injection 10 Ml Vial IV 01/15/25 02:59 10 ml
Q8@0200,1000,1800 VALERIA Administration
Physical Exam
-
General: Well Developed, Well Nourished and No Apparent Distress
HEENT: Negative Jaundice
Cardiology: Normal Sinus Rhythm, S1 and S2
Pulmonary: Clear
GI: Soft
Extremities: No C/C/E
Hematologic / Lymphatic: No Lymphadenopathy
Labs
Lab Results
WBC 0.7 10^3/uL (4.8-10.8) L* 12/18/24 04:22
RBC 2.44 10^6/uL (4.70-6.10) L 12/18/24 04:22
Hgb 6.9 g/dL (13.0-18.0) L* 12/18/24 04:22
Hct 21.7 % (39.0-52.0) L 12/18/24 04:22
MCV 88.9 fL (80.0-94.0) 12/18/24 04:22
MCH 28.3 pg (27.0-31.0) 12/18/24 04:22
MCHC 31.8 g/dL (33.0-37.0) L 12/18/24 04:22
RDW 20.6 % (11.5-14.5) H 12/18/24 04:22
Plt Count 94 10^3/uL (130-400) L 12/18/24 04:22
MPV Not Reportable 12/18/24 04:22
Abs Immat Gran (auto) 0.0 10^3/uL (0-0.05) 12/17/24 19:13
Absolute Neuts (auto) 0.4 10^3/uL (1.4-6.5) L* 12/17/24 19:13
Absolute Lymphs (auto) 0.5 10^3/uL (1.2-3.4) L 12/17/24 19:13
Absolute Monos (auto) 0.2 10^3/uL (0.1-0.6) 12/17/24 19:13
Absolute Eos (auto) 0.1 10^3/uL (0-0.7) 12/17/24 19:13
Absolute Basos (auto) 0.0 10^3/uL (0-0.2) 12/17/24 19:13
Immature Gran % 2.5 % (0-0.5) H 12/17/24 19:13
Neutrophils % 34.0 % (42.2-75.2) L 12/17/24 19:13
Lymphocytes % 40.7 % (20.5-51.1) 12/17/24 19:13
Monocytes % 16.1 % (1.7-9.3) H 12/17/24 19:13
Eosinophils % 5.9 % (0-6) 12/17/24 19:13
Basophils % 0.8 % (0-2) 12/17/24 19:13
Creatinine 0.5 mg/dL (0.7-1.3) L 12/18/24 04:22
Vital Signs
Vital Signs
Temp Pulse Resp BP Pulse Ox
98.2 F 74 18 119/62 98
12/18/24 05:12 12/18/24 05:12 12/18/24 05:12 12/18/24 05:12 12/18/24 05:12
--- NOTE | 2024-12-18 14:09 | CON.PUL ---
Consultation
Consultation Request
Date/Time Consultation Requested: 12/18/2024
Date/Time Consultation Performed: 12/18/2024
Requesting Provider: Dr. Hooker
Performing Provider: Dr. Janes Feng
Reason for Consultation: Abnormal CT chest
Medical History
-
History of Present Illness:
59-year-old man with past medical history significant for asbestos exposure, MDS with transformation to AML presented with chest pain and shortness of breath.
Currently on Azacitidine infusions. Last infusion prior to admission. Presented to the emergency room complaining of right lower chest discomfort radiated to the anterior chest. Complain also shortness of breath.
Apparently also has been having nonproductive hacking cough for the last 4 to 5 days. No reports of fevers or chills. No hemoptysis. No sick contacts.
His MDS converted to AML in the last few weeks.
Past Medical History
Past Medical History: Other ( See assessment and plan)
Social History
Tobacco: Former Smoker (Quit smoking 9 months ago 40+ pack year history)
Alcohol: Former (Quit drinking 9 months ago, prior daily use.)
Drug: None
Family History
Family History: Reviewed & Not Pertinent
Allergies / Home Medications
Allergies
Allergy/AdvReac Type Severity Reaction Status Date / Time
Penicillins Allergy Unknown Verified 12/17/24 19:04
Home Medications
�Medication �Instructions �Recorded �Confirmed �Last Taken �Type
atorvastatin 10 mg tablet 10 mg PO DAILY 04/24/24 12/18/24 12/05/24 History
acyclovir 400 mg tablet 400 mg PO BID 11/29/24 12/18/24 12/05/24 History
ondansetron HCl 4 mg tablet 4 mg PO Q8H PRN nausea 11/29/24 12/18/24 Unknown History
azacitidine 12/18/24 Unknown History
venetoclax 100 mg tablet 400 mg PO DAILY 12/18/24 12/18/24 Unknown History
(Venclexta)
Review of Systems
-
History Source: Patient
All other systems: Negative unless noted
Vitals / Labs / Diagnostic Testing
Vital Signs
Temp Pulse Resp BP Pulse Ox
97.6 F 81 18 111/63 95
12/18/24 12:00 12/18/24 12:00 12/18/24 12:00 12/18/24 12:00 12/18/24 07:00
Lab Data
12/18/24 04:22
12/18/24 04:22
Microbiology
12/18/24 11:39 Sputum Respiratory Culture - Final
12/18/24 11:39 Sputum Gram Stain - Final
12/18/24 10:35 Nose Nasal Screen MRSA (PCR) - Final
MRSA not detected - performed by PCR methodology.
Diagnostic Testing:
Physical Exam
-
HEENT: Normocephalic
Cardiovascular: S1/S2
Respiratory: Non-Labored Respirations
GI: Soft and Non Distended
Neurology: Awake and AO x 3
Skin: Warm
General: Comfortable
Assessment
-
59-year-old man with past medical history noted. Admitted with chest pain not feeling well for the last several days. Patient reported cough with minimal phlegm production, 20 pound weight loss over the last several weeks due to poor appetite.
Developed mucositis with chemotherapy. CT chest demonstrated multifocal masslike opacities. We were consulted for evaluation of abnormal CT chest.
Abnormal CT chest:
CT chest reviewed 12/18/2024: bilateral masslike opacities-small pleural effusions. No mediastinal lymph nodes.
Changes are new compared to March 2024.
MDS with AML conversion
Pancytopenia ANC less than 500
Small left upper lobe pulmonary embolism-unclear significance.
Conditions present prior admission:
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
Newly initiated Venclexta for now.
History of asbestos exposure
Possible prior granulomatous disease
Dyslipidemia
Former smoker
Former daily drinker-40+ pack year history of smoking
Assessment and plan:
Imaging of the chest reviewed in detail: patient had multifocal pneumonia which are new compared to March 2025.
At that time there is no evidence for pulmonary nodules only pleural plaques suggestive of prior asbestos exposure.
Patient is immunosuppressed with pancytopenia/neutropenia-s/p recent chemorx.
Suspect infectious etiology, lesions were not present back in March 2024.Less likely malignant.
Including bacterial/fungal(such Aspergillus).
-
Sputum culture was contaminant, will repeat
Patient is at risk for Aspergillus infection-will obtain serology Fungitell-jesúsed
Broad-spectrum antibiotic cefepime/vancomycin
Follow cultures
-
Agree with heparin drip for now, hold on biopsy given risk of bleeding.
If there is no improvement with antibiotics may need to consider percutaneous biopsy of one of the lung lesions.
This will be an ongoing discussion
Infectious disease may be helpful if all cultures remain negative
-
Pancytopenia:
Immunosuppression on hold
Follow CBC
Transfuse as necessary
-
Started on heparin drip for tiny pulmonary embolism. Suspect clinically insignificant-suspect unrelated to clinical situation.
Follow PTT
Monitor for bleeding
-
Weight loss-20 pounds over the last several weeks. Patient stated he developed mucositis on chemotherapy.
-
High risk situation.
Will follow
--- NOTE | 2024-12-18 14:29 | CON.ID ---
Consultation
-
Date/Time Consultation Requested: December 18, 2024 1351
Date/Time Consultation Performed: December 18, 2024 1430
Requesting Provider: Dr. Bushra Patel
Performing Provider: Dr. Yulissa Campos
Reason for Consultation: Neutropenic fever
Chief Complaint / Past History
Chief Complaint
Chest pain and shortness of breath
History of Present Illness
59-year-old male with history of MDS which recently transformed to AML who presented to the ED yesterday due to shortness of breath and lower chest pain after chemo transfusion. Patient was diagnosed with MDS by bone marrow biopsy in April
2023, and he was placed on Vidaza. However patient developed persistent neutropenia again and recently diagnosed with AML transformation from MDS about a week ago. In preparation for stem cell transplant at [facility], he received venetoclax along with
Vidaza yesterday. However few hours later, he developed acute shortness of breath and lower chest pain which brought him to the ER. He reports no fevers or chills at home. He does have dry cough for the past 5 days. The ER temperature 100.7,
absolute neutrophil count 400. Chest x-ray showed bilateral multi focal parenchymal opacities. Chest CT showed very small embolism in the left upper lobe, bilateral multi focal round masslike opacities both in the upper and lower lobes, 1 lesions
in the right lower lobe has central lucency suggestive of central necrosis. He is currently on cefepime and vancomycin. Shortness of breath improving today. He submitted sputum sample yesterday which was not acceptable. Patient reports weight
loss from poor appetite. No diarrhea. He tends to be constipated. No urine symptoms. No rash. Denies aspiration. He wears dentures. 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 Denies history of pneumonia
or lung disease in the past. He quit smoking and drinking approximately 9 months ago when diagnosed with MDS.
Past History
Additional Past Medical History:
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
Dyslipidemia
Asbestosis
Hx of tobacco and alcohol use disorder
Appendectomy
Allergy History:
Penicillins Allergy (Verified 12/17/24 19:04)
Unknown
Medications Reviewed: Yes
Current Antibiotics:
Vancomycin
Cefepime
Social History
Tobacco: Former Smoker (Quit 9 months ago)
Alcohol: Former (Quit 9 months ago)
Drug: None
Family History
Family History: Not Pertinent
Review of Systems
Review of Systems
General: Change in Appetite; Negative Fever or Chills
HEENT: Negative Sinus Problems or Headache
Cardiovascular: Negative Edema
Respiratory: Dyspnea and Cough; Negative Sputum Production
Gasteroenterology: Weight Loss; Negative Nausea, Vomiting or Diarrhea
Genital / Urological: Negative Dysuria or Flank Pain
Endocrine: Weakness
Skin / Hair / Nails: Negative Rash
Neurological: Negative Dizziness
All systems: All other systems were reviewed and were negative
Vital Signs
Temp Pulse Resp BP Pulse Ox
97.6 F 81 18 111/63 95
12/18/24 12:00 12/18/24 12:00 12/18/24 12:00 12/18/24 12:00 12/18/24 07:00
Selected Entries
12/17/24
19:54
Temp 100.7 F H
Physical Exam
Physical Exam
Constitutional: Comfortable
Head: Other (No frontal or maxillary sinus tenderness)
Eyes: No Conjunctival Hemorrhage and Sclera Anicteric
Oral: Other (Upper and lower dentures in place)
Cardiovascular: Regular Rate and S1/S2
Pulmonary: Clear and Non Labored
Gastrointestinal: Soft, Non Tender, Non Distended and Normal Bowel Sounds
Genito-Urinary: Negative CVA Tenderness
Extremities: Negative Edema
Neurological: AO x 3
Lab / Diagnostic Study Results
12/18/24 04:22
12/18/24 04:22
Abs Immat Gran (auto) 0.0 10^3/uL (0-0.05) 12/17/24 19:13
Absolute Neuts (auto) 0.4 10^3/uL (1.4-6.5) L* 12/17/24 19:13
Absolute Lymphs (auto) 0.5 10^3/uL (1.2-3.4) L 12/17/24 19:13
Absolute Monos (auto) 0.2 10^3/uL (0.1-0.6) 12/17/24 19:13
Absolute Basos (auto) 0.0 10^3/uL (0-0.2) 12/17/24 19:13
Immature Gran % 2.5 % (0-0.5) H 12/17/24 19:13
Neutrophils % 34.0 % (42.2-75.2) L 12/17/24 19:13
Lymphocytes % 40.7 % (20.5-51.1) 12/17/24 19:13
Monocytes % 16.1 % (1.7-9.3) H 12/17/24 19:13
Eosinophils % 5.9 % (0-6) 12/17/24 19:13
Basophils % 0.8 % (0-2) 12/17/24 19:13
Lactic Acid 0.9 mmol/L (0.7-2.0) 12/17/24 23:46
Microbiology Results
Micro:
12/18/24 11:39 Respiratory Culture - Final
Sputum Gram Stain - Final
12/18/24 10:35 Nasal Screen MRSA (PCR) - Final
Nose MRSA not detected - performed by PCR methodology.
12/18/24 04:22 Blood Culture - Pending
Blood/Venous
12/17/24 23:46 Blood Culture - Pending
Blood/Venous
12/17/[address]: Small embolism in the left upper lobe proximal apical segmental pulmonary artery. No evidence of right ventricular heart strain. Posterior right costophrenic angle pneumonia and atelectasis. Multifocal rounded masslike opacities
are demonstrated in the upper and lower lobes, bilaterally. Differential includes metastatic disease versus multifocal pneumonia. One of the lesions in the right lower lobe has central lucency, suggesting central necrosis.
12/17/24 CXR: Bilateral multifocal indistinct localized and confluent parenchymal opacities. Possible considerations include multifocal pneumonia versus indistinct pulmonary masses, such as metastatic disease. No pneumothorax. No pleural effusion
appreciated. Calcified pleural plaque at diaphragmatic margins. Normal heart size. No vascular congestion or congestive heart failure.
Assessment / Plan
# Multifocal pulmonary mass-like opacities, 1 with central necrosis
# Fever x 1
# Prolonged neutropenia
# Recent dx AML transformation from MDS
# Previous granulomatous disease in lungs, by CT
- Suspect fungal pneumonia - likely Aspergillosis
- Pulm holding off on bronchoscopy due to high risk bleeding.
- Ordered serum Aspergillus galactomannan antigen - although low sensitivity and specificity for aspergillus
- Pulm ordered beta-d glucan assay (fungitell) - even lower sensitivity and specificity for aspergillus
- Can try sputum culture again.
- Can continue cefepime for now.
- MRSA screen neg. Can dc Vancomycin.
- No need for anaerobic coverage as suspicion for abscess is zero, especially pt is edentulous.
Lung lesions can cavitate in setting of aspergillosis as well as certain bacterial infections (Staph, Pseudomonas), other than TB.
- Ideally, prefer definitive diagnosis of invasive aspergillosis or other fungus to optimize antifungal therapy. Antifungal treatment is prolonged over 4-6 months plus multiple side effects and drug-drug interactions.
--- NOTE | 2024-12-18 16:18 | CM ---
Patient seen at bedside with physicians on and patient . Patient stated that he lives in a 2 story home with no DME. Patient indicated that patient was [facility] and needed slow questions due to inability to comprehend quickly. Patient PCP
is Dr. Renea Hagen and he uses the [facility] on [address] in [place]. Patient is off of O2 at this time and stated that he has no DME at home. Patient indicated that he has concerns about his bills but his indicated that they do not have a
computer. CM offered phone number and patient indicated that he would follow up with it. Patient for further work up per physicians. Current discharge needs pending medical treatment plan. CM will continue to follow for discharge planning needs.
Plan;SNF vs home with VN; following medical treatment plan/ watch for therapy needs.
--- NOTE | 2024-12-18 16:30 | W.PN.HOSP.TC ---
Addendum entered and electronically signed by Darlene Cano MD 12/18/24 19:18:
I saw and evaluated the patient independently. I reviewed the resident�s note and agree with findings and plan as documented by Dr. Patel.
GENERAL: well developed, well nourished, male in no apparent distress
HEENT: NC/AT
HEART: regular rate and rhythm, +S1, +S2
LUNGS : rhonchi clears with coughing bilaterally
ABDOM: soft, nontender, nondistended, + bowel sounds
EXT: no cyanosis, clubbing, or edema
NEUROLOGIC: grossly intact
Sepsis secondary to right lower lobe pneumonia with pancytopenia--Chest CT revealed multifocal round masslike opacities in upper and lower lobes. 1 in the right lower lobe has a small central lucent focus suspicious for central necrosis. Mild
bilateral pleural thickening and mild scattered calcified pleural plaque noted as well--follow cultures--cont cefepime/acyclovir--apprec ID--suspicion for aspergillosis--Beta D glucan assay pending
Small left upper lobe pulmonary embolism--would hold on Eliquis--start IV heparin--Heparin drip per heme/onc and pulm okay for anti-coagulation considering possible upcoming procedure
Multifocal pulmonary lesions--IR and pulm consult for possible biopsy--Pulm suspects infx etiology rather than malignant and opts for medical management. If no improvement will consider biopsy.
Hyponatremia--128>129 on NS--Cont fluids
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
chemo infusion as well)
Mild gaseous thickening along esophagus--Mild esophageal wall thickening on CT--Consider GI consult --Pantoprazole 40mg IV
HLD--Cont statin
code status--Full Code
DVT - heparin drip
Original Note:
Today's Communication/Plan
-
Heparin ggt
1 unit packed RBC
Cont cefepime, cultures pending
Assessment / Plan
Assessment / Plan
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
Sepsis secondary to right lower lobe pneumonia
-- Febrile, leukopenia, tachycardia and tachypnea
--Chest CT revealed multifocal round masslike opacities in upper and lower lobes. 1 in the right lower lobe has a small central lucent focus suspicious for central necrosis. Mild bilateral pleural thickening and mild scattered calcified pleural
plaque noted as well.
-- Status post 1 dose Levaquin and 1 dose vancomycin in ED later transition to cefepime
-- Infectious disease consulted and they suspect fungal pneumonia, likely aspergillosis
-- Sputum culture (-), Beta D glucan assay pending, blood cultures pending
-- Continue cefepime per ID and acyclovir (prophylactic outpatient med)
-- Preference for definitive diagnosis of aspergillosis or other fungus before starting antifungal per ID
--Fluids
Small left upper lobe pulmonary embolism
--s/p 1 dose of 5mg Eliquis
--Heparin drip per heme/onc and pulm okay for anti-coagulation considering possible upcoming procedure
Multifocal pulmonary lesions
--IR and pulm consult for possible biopsy
--Pulm suspects infx etiology rather than malignant and opts for medical management. If no improvement will consider biopsy.
Hyponatremia
-128>129 on NS
--Cont fluids
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
Pancytopenia
Neutropenia
--Heme/onc appreciated
--Cont to hold chemotherapy meds
--Transfuse for hg <7 and plt < 10 unless active bleeding then for <50
--s/p 1 unit Blood (one day of admission during outpatient chemo infusion as well)
--No clinical signs of active bleed
--Monitor CBC
Mild gaseous thickening along esophagus
Mild esophageal wall thickening on CT
--Consider GI consult
--Pantoprazole 40mg IV
HLD
--Cont statin
Full Code
DVT - heparin drip
Anticipated Discharge: > 48 hours
Subjective/Interval History
-
Date of Service: December 18, 2024
Overall feeling okay. Has a slight cough with some phlegm.
Objective Data
-
Labs:
Laboratory Results
12/18/24 12/18/24
04:22 16:30
WBC 0.7 L* Pending
Hgb 6.9 L* Pending
Hct 21.7 L Pending
Plt Count 94 L Pending
Sodium 129 L
Potassium 4.0
Chloride 96 L
Carbon Dioxide 29
BUN 9
Creatinine 0.5 L
Glucose 137 H
Calcium 8.3 L
Vital Signs:
Vital Signs
Temp Pulse Resp BP Pulse Ox
98.2 F 79 18 116/61 95
12/18/24 15:17 12/18/24 15:17 12/18/24 15:17 12/18/24 15:17 12/18/24 15:17
I&O
12/17/24 12/18/24 12/19/24
06:59 06:59 06:59
Intake Total 480 / 480
Output Total 900 / 900
Balance -420 / -420
Review of Systems
-
History Source: Patient
Constitutional: Reports Fever (Last night)
Respiratory: Reports Cough and Pleurisy
Cardiac: Reports No Symptoms
Abdomen/GI: Reports No Symptoms
Genitourinary: Reports No Symptoms
Skin: Reports No Symptoms
Neuro: Reports No Symptoms
Allergy / Immunology: Reports No Symptoms
Physical Exam
-
General: No Apparent Distress, Comfortable and Appears Chronically Ill
HEENT: Normocephalic
Respiratory: Rhonchi and Crackles (Bilateral bases)
Cardiac: Regular Rhythm and S1/S2
GI: Soft, Nontender, Nondistended and Normal Bowel Sounds
Musculoskeletal: No Cyanosis and No Edema
Skin: Warm and Dry
Neuro: AO x 3
Psych: Calm
--- NOTE | 2024-12-18 16:31 | CM ---
atient seen at bedside with physicians on and patient . Patient stated that they live in a 2 story home with no DME. Patient PCP is Dr. Renea Hagen and he uses [facility] on [address] in [place]. Patient is off of O2 at this time and
stated that he has no DME at home. Patient for further work up per physicians. Current discharge needs pending medical treatment plan. CM will continue to follow for discharge planning needs.
Plan;SNF vs home with VN; following medical treatment plan/ watch for therapy needs.
[2024-12-18 17:48] LABS: APTT 56.4 Sec (23.4-35.0)
[2024-12-18] MEDS: HEPARIN 25000 UNITS/250 ML IV (18:18)
[2024-12-18 18:23] LABS: Hematocrit 24.9 % (39.0-52.0); Hemoglobin 7.9 g/dL (13.0-18.0); Mean Corp Hgb Conc. 31.7 g/dL (33.0-37.0); Mean Corpuscular Volume 89.9 fL (80.0-94.0); Nucleated Red Blood Cells % 6.3 % (-); Platelet Count 103 10^3/uL (130-400); Red Cell Dist. Width 19.2 % (11.5-14.5)
[2024-12-18 19:46] LABS: LDH 335 U/L (120-246)
[2024-12-18 21:03] LABS: Urine Character Clear (Clear)
[2024-12-19 00:42] LABS: APTT 91.4 Sec (23.4-35.0)
[2024-12-19] MEDS: STERILE WATER FOR INJECTION 10 ML IV ×3 (02:05→17:17)
[2024-12-19] MEDS: MAXIPIME 2000 MG IV ×3 (02:05→17:17)
[2024-12-19 03:10] VITALS: BP 122/58
[2024-12-19] MEDS: NSS 1000 IV ×2 (04:46→10:54)
[2024-12-19 06:00] VITALS: BMI 21.2
[2024-12-19 07:00] VITALS: BP 120/63
[2024-12-19 07:54] LABS: APTT 84.9 Sec (23.4-35.0)
[2024-12-19 08:28] LABS: Hematocrit 26.0 % (39.0-52.0); Hemoglobin 8.4 g/dL (13.0-18.0); Mean Corp Hgb Conc. 32.3 g/dL (33.0-37.0); Mean Corpuscular Volume 90.3 fL (80.0-94.0); Platelet Count 90 10^3/uL (130-400); Red Cell Dist. Width 19.1 % (11.5-14.5)
[2024-12-19] MEDS: ZOVIRAX 400 MG PO ×2 (08:31→19:39)
[2024-12-19] MEDS: PROTONIX IV 40 MG IV (08:32)
[2024-12-19] MEDS: LIPITOR 10 MG PO (08:32)
[2024-12-19] MEDS: NSS (PRESERVATIVE FREE) 10 ML IV (08:32)
--- NOTE | 2024-12-19 08:32 | W.PN.ONC2 ---
Addendum entered and electronically signed by FLORI Wlilingham 12/19/24 15:44:
Discussed case with ROQUE Miller heme malignancy and Dr. Magdaleno-will continue induction therapy for AML while concurrently treating infections and provide transfusion support prn for cytopenias with curative intent and eventual transplant
Venetoclax ramp up 100mg day 1 (pt took at home prior to admission), 200mg day 2 (ordered today), 400mg daily day 3-21
Vidaza 75mg/m2 138mg subcutaneously daily x 7 days -Day 1&2 administered outpatient 12/16-12/17, day 3-7 ordered for inpatient administration through [facility] once chemotherapy nurse is staffed
Discussed with primary service, pharmacy and nursing pharmaceutical compounding supervisor via tiger text.
Original Note:
Documented by User: FLORI Willingham 12/19/24 11:17
Today's Communication / Plan
-
transfuse prn, CMV, irradiated products
neutropenic precautions
ID to consider antifungal to treat suspected aspirgillus
DOAC at discharge
I will reach out to ROQUE Miller to coordinate AML management
Impression
Impression
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
pancytopenia secondary to leukemia
PNA-neutropenic
bilateral masslike opacities-small pleural effusions -new compared to Mar 2024 -former smoker, asbestos exposure
Small left upper lobe pulmonary embolism
Plan
Plan
heparin gtt to DOAC at discharge
transfuse platelets <10, <20 if febrile, <50 if bleeding or pre-procedure
CMV negative, irradiated products since transplant candidate
Pt may benefit from continued Venclexta/ Vidaza induction for new AML while hospitalized and treat infections concurrently. High risk fungal infection due to AML, consider at least vori/posi ppx while awaiting galactomannan, Beta-D glucan. If vori
is started, I will dose reduce Venclexta with interaction
continue viral ppx
trend uric acid/LDH
f/u galactomannan, Beta-D glucan
on cefepime and IV vanco
ID and pulmonary following
Subjective/Objective
Subjective
no new complaints
afebrile
Vital Signs:
Vital Signs
Temp Pulse Resp BP Pulse Ox
98.5 F 75 16 120/63 96
12/19/24 07:00 12/19/24 07:00 12/19/24 07:00 12/19/24 07:00 12/19/24 07:00
Lab Results:
Laboratory Data
WBC 1.0 10^3/uL (4.8-10.8) L* 12/19/24 07:24
Hgb 8.4 g/dL (13.0-18.0) L 12/19/24 07:24
Plt Count 90 10^3/uL (130-400) L 12/19/24 07:24
APTT 84.9 Sec (23.4-35.0) H 12/19/24 07:24
eGFR > 60.00 12/18/24 04:22
Physical Exam
HEENT: Moist Mucous Membranes; No Jaundice
Pulmonary: Other (unlabored)
GI: Soft
Extremities: Pulses Present
Neuro: Non Focal

Documented by User: Ibrahima Magdaleno MD 12/19/24 12:03
Plan
Plan
heparin gtt to DOAC at discharge
transfuse platelets <10, <20 if febrile, <50 if bleeding or pre-procedure
CMV negative, irradiated products since transplant candidate
Pt may benefit from continued Venclexta/ Vidaza induction for new AML while hospitalized and treat infections concurrently. High risk fungal infection due to AML, consider at least vori/posi ppx while awaiting galactomannan, Beta-D glucan. If vori
is started, I will dose reduce Venclexta with interaction
continue viral ppx
trend uric acid/LDH
f/u galactomannan, Beta-D glucan
on cefepime and IV vanco
ID and pulmonary following
Hematology Addendum:
Patient seen and evaluated and agree w/ PULMONOLOGY TECHNICIAN note and plan as outlined
-AML - vidaza/ venclexta as per Dr. Mead and Dr. Lopez at [facility]
-pancytopenia - counts stable today
-pneumonia - antibiotics as per pulmonary and ID following
-pulmonary opacities - unclear etiology - fungal? - will defer to pulmonary/ ID as to potential role for addition of anti-fungal therapy
Will continue to follow with you
[2024-12-19 09:54] LABS: Anisocytosis 1+; Hypochromasia 1+; Normal RBC Morphology No; Ovalocytes Slight; Platelets Checked Yes; Polychromasia Slight; Total Cells Counted 100
[2024-12-19 09:55] LABS: Absolute Neutrophils -Man Diff 0.3 10^3/uL (1.4-6.5)
[2024-12-19 10:02] LABS: ALT (SGPT) 38 U/L (0-50); AST (SGOT) 40 U/L (17-59); Albumin 2.8 g/dl (3.5-5.0); Alkaline Phosphatase 75 U/L (38-126); Blood Urea Nitrogen 9 mg/dl (9-20); Calcium 7.9 mg/dl (8.4-10.2); Carbon Dioxide 29 mmol/L (22-30); Chloride 104 mmol/L (98-107); Estimated Creatinine Clearance 124 ml/min; Glucose 99 mg/dl (70-99); Potassium 4.7 mmol/L (3.5-5.1); Sodium 134 mmol/L (135-145); Total Protein 5.7 g/dl (6.3-8.2); eGFR > 60.00
[2024-12-19 10:12] LABS: LDH 405 U/L (120-246)
--- NOTE | 2024-12-19 10:41 | W.PN.HOSP.TC ---
Addendum entered and electronically signed by Darlene Cano MD 12/19/24 14:08:
I saw and evaluated the patient independently. I reviewed the resident�s note and agree with findings and plan as documented by Dr. Patel.
GENERAL: well developed, well nourished, male in no apparent distress
HEENT: NC/AT
HEART: regular rate and rhythm, +S1, +S2
LUNGS : rhonchi clears with coughing bilaterally
ABDOM: soft, nontender, nondistended, + bowel sounds
EXT: no cyanosis, clubbing, or edema
NEUROLOGIC: grossly intact
Sepsis secondary to right lower lobe pneumonia with pancytopenia (concern for fungal PNA per ID)--Chest CT revealed multifocal round masslike opacities in upper and lower lobes. 1 in the right lower lobe has a small central lucent focus suspicious
for central necrosis. Mild bilateral pleural thickening and mild scattered calcified pleural plaque noted as well--follow cultures--cont cefepime/acyclovir--apprec ID--Beta D glucan assay pending
Small left upper lobe pulmonary embolism--would hold on Eliquis (CM will need to starr)--cont IV heparin--Heparin drip per heme/onc and pulm okay for anti-coagulation considering possible upcoming procedure
Multifocal pulmonary lesions--IR and pulm consult for possible biopsy--Pulm suspects infx etiology rather than malignant and opts for medical management. If no improvement will consider biopsy.
Hyponatremia--128>129 on NS--Cont fluids --improved to 134
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
chemo infusion as well)
Mild gaseous thickening along esophagus--Mild esophageal wall thickening on CT--Consider GI consult --Pantoprazole 40mg IV
HLD--Cont statin
code status--Full Code
DVT - heparin drip
Original Note:
Today's Communication/Plan
-
Cont antibiotics
await ID and pulm recommendations
Assessment / Plan
Assessment / Plan
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
Sepsis secondary to right lower lobe pneumonia
-- Febrile, leukopenia, tachycardia and tachypnea
--Chest CT revealed multifocal round masslike opacities in upper and lower lobes. 1 in the right lower lobe has a small central lucent focus suspicious for central necrosis. Mild bilateral pleural thickening and mild scattered calcified pleural
plaque noted as well.
-- Status post 1 dose Levaquin and 1 dose vancomycin in ED later transition to cefepime
-- Infectious disease consulted and they suspect fungal pneumonia, likely aspergillosis
-- Sputum culture (-), Prelim blood cultures (-), Beta D glucan assay pending
-- Continue cefepime per ID and acyclovir (prophylactic outpatient med)
-- Preference for definitive diagnosis of aspergillosis or other fungus before starting antifungal per ID
-- Fluids
Small left upper lobe pulmonary embolism
--s/p 1 dose of 5mg Eliquis
--Heparin drip per heme/onc and pulm okay for anti-coagulation considering possible upcoming procedure
--Once decided there will be no procedures, heme/onc okay with transition to eliquis upon discharge
Multifocal pulmonary lesions
--IR and pulm consult for possible biopsy
--Pulm suspects infx etiology rather than malignant and opts for medical management. If no improvement will consider biopsy.
Hyponatremia
-128>129 >134 on NS
--Cont fluids
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
Pancytopenia
Severe neutropenia (ab neut 0.3)
--Heme/onc appreciated
--Cont to hold chemotherapy meds
--Transfuse for hg <7 and plt < 10 unless active bleeding then for <50
--s/p 1 unit Blood (one day of admission during outpatient chemo infusion as well)
--No clinical signs of active bleed - indirect bilirubin low making hemolysis unlikely
--Monitor CBC
Mild gaseous thickening along esophagus
Mild esophageal wall thickening on CT
--Likely secondary to mucositis which he endorsed having prior to hospitalization
--Currently denies any hx GERD, difficulties swallowing, pain with swallowing, oral ulcers he is away of, btu does have a lot of mucous production secondary to infx vs mucositis?
--Pantoprazole 40mg IV
HLD
--Cont statin
Full Code
DVT - heparin drip
Anticipated Discharge: > 48 hours
Subjective/Interval History
-
Date of Service: December 19, 2024
Continuation of slight cough producing white phlegm. Fatigued, but otherwise no complaints.
Objective Data
-
Labs:
Laboratory Results
12/19/24 12/19/24
00:23 07:24
WBC 1.0 L*
Hgb 8.4 L
Hct 26.0 L
Plt Count 90 L
APTT 91.4 H 84.9 H
Sodium 134 L
Potassium 4.7
Chloride 104
Carbon Dioxide 29
BUN 9
Creatinine 0.5 L
Glucose 99
Calcium 7.9 L
Total Bilirubin 0.5 D
AST 40
ALT 38
Alkaline Phosphatase 75
Vital Signs:
Vital Signs
Temp Pulse Resp BP Pulse Ox
98.5 F 75 16 120/63 96
12/19/24 07:00 12/19/24 07:00 12/19/24 07:00 12/19/24 07:00 12/19/24 09:12
I&O
07/3012/19/24 12/20/24
06:59 06:59 06:59
Intake Total 480 / 480 3060 / 3060
Output Total 900 / 900
Balance -420 / -420 0 / 306
Review of Systems
-
History Source: Patient
Constitutional: Reports No Symptoms
Respiratory: Reports Cough and Pleurisy
Cardiac: Reports No Symptoms
Abdomen/GI: Reports No Symptoms
Genitourinary: Reports No Symptoms
Neuro: Reports No Symptoms
Physical Exam
-
General: No Apparent Distress and Comfortable
HEENT: Normocephalic
Respiratory: Rhonchi
Cardiac: Regular Rhythm and S1/S2
GI: Soft, Nontender, Nondistended and Normal Bowel Sounds
Musculoskeletal: No Cyanosis and No Edema
Skin: Warm and Dry
Neuro: AO x 3
Psych: Calm
--- NOTE | 2024-12-19 12:29 | W.PN.ID1 ---
Date of Service
Date of Service: December 19, 2024
Today's Communication
Check procalcitonin in am.
Assessment / Plan
# Multifocal pulmonary mass-like opacities, 1 with central necrosis
# Fever x 1, resolved
# Prolonged neutropenia
# Recent dx AML transformation from MDS
# Previous granulomatous disease in lungs, by CT
- Suspect fungal pneumonia - likely Aspergillosis
- Pulm holding off on bronchoscopy due to high risk bleeding.
- serum Aspergillus galactomannan antigen pending - although low sensitivity and specificity for aspergillus
- beta-d glucan assay ([employer]) pending- even lower sensitivity and specificity for aspergillus
- Ideally, prefer definitive diagnosis of pulmonary masses - which may impact stem cell transplant candidacy.
- Check procalcitonin in am to rule out bacterial PNA.
- Can continue cefepime for now.
Chief Complaint
-: Pneumonia
Subjective / Review of Systems
Cough stable - unable to produce sputum.
SOB resolved. Pleuritic pain better.
Vital Signs / Physical Exam
Vital Signs
Vital Signs
Temp Pulse Resp BP Pulse Ox
98.5 F 75 16 120/63 96
12/19/24 07:00 12/19/24 07:00 12/19/24 07:00 12/19/24 07:00 12/19/24 09:12
Physical Exam
Constitutional: No Acute Distress
Cardiovascular: Regular Rate and S1/S2
Pulmonary: Clear
Gastrointestinal: Soft, Non Tender and Non Distended
Neurological: AO x 3
Objective Data
Lab Data
Lab Results
12/19/24 07:24
12/19/24 07:24
APTT 84.9 Sec (23.4-35.0) H 12/19/24 07:24
Estimated Creat Clear 124 ml/min 12/19/24 07:24
Lactic Acid 0.9 mmol/L (0.7-2.0) 12/17/24 23:46
Total Bilirubin 0.5 mg/dl (0.2-1.3) D 12/19/24 07:24
AST 40 U/L (17-59) 12/19/24 07:24
ALT 38 U/L (0-50) 12/19/24 07:24
Alkaline Phosphatase 75 U/L (38-126) 12/19/24 07:24
Most recent labs reviewed.
Micro Results:
12/18/24 04:22 Blood Culture - Preliminary
Blood/Venous No Growth in 24 hours- Final report to follow
12/17/24 23:46 Blood Culture - Preliminary
Blood/Venous No Growth in 24 hours- Final report to follow
12/18/24 11:39 Respiratory Culture - Final
Sputum Gram Stain - Final
12/18/24 10:35 Nasal Screen MRSA (PCR) - Final
Nose MRSA not detected - performed by PCR methodology.
12/17/[address]: Small embolism in the left upper lobe proximal apical segmental pulmonary artery. No evidence of right ventricular heart strain. Posterior right costophrenic angle pneumonia and atelectasis. Multifocal rounded masslike opacities
are demonstrated in the upper and lower lobes, bilaterally. Differential includes metastatic disease versus multifocal pneumonia. One of the lesions in the right lower lobe has central lucency, suggesting central necrosis.
12/17/24 CXR: Bilateral multifocal indistinct localized and confluent parenchymal opacities. Possible considerations include multifocal pneumonia versus indistinct pulmonary masses, such as metastatic disease. No pneumothorax. No pleural effusion
appreciated. Calcified pleural plaque at diaphragmatic margins. Normal heart size. No vascular congestion or congestive heart failure.
--- NOTE | 2024-12-19 14:39 | W.PN.PUL3 ---
Today's Communication / Plan
-
Interventional radiology consultation for possibly percutaneous biopsy rule out fungal pneumonia
Continue cefepime
Follow cultures.
Assessment
-
59-year-old man with past medical history noted. Admitted with chest pain not feeling well for the last several days. Patient reported cough with minimal phlegm production, 20 pound weight loss over the last several weeks due to poor appetite.
Developed mucositis with chemotherapy. CT chest demonstrated multifocal masslike opacities. We were consulted for evaluation of abnormal CT chest.
Abnormal CT chest:
CT chest reviewed 12/18/2024: bilateral masslike opacities-small pleural effusions. No mediastinal lymph nodes.
Changes are new compared to March 2024.
MDS with AML conversion
Pancytopenia ANC less than 500
Small left upper lobe pulmonary embolism-unclear significance.
Conditions present prior admission:
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
Newly initiated Venclexta for now.
History of asbestos exposure
Possible prior granulomatous disease
Dyslipidemia
Former smoker
Former daily drinker-40+ pack year history of smoking
Assessment and plan:
Imaging of the chest reviewed in detail: patient had multifocal pneumonia which are new compared to March 2024.
At that time there is no evidence for pulmonary nodules only pleural plaques suggestive of prior asbestos exposure.
Patient is immunosuppressed with pancytopenia/neutropenia-s/p recent chemorx.
Suspect infectious etiology, lesions were not present back in March 2024.Less likely malignant.
Including bacterial/fungal(such Aspergillus).
-
Sputum culture was contaminant, will repeat
Patient is at risk for Aspergillus infection-will obtain serology [id number].
Broad-spectrum antibiotic cefepime
Vancomycin discontinued.
Follow cultures
Infectious disease consulted. Also suspect opportunistic infection such as fungal/Aspergillus.
Platelet has been stable.
For definitive diagnosis recommend percutaneous biopsy. Will consult interventional radiology.
-
Agree with heparin drip for now-small pulmonary embolism.
Given small burden pulmonary embolism okay to have interruption of anticoagulation for biopsy if necessary.
-
Pancytopenia:
Immunosuppression on hold
Follow CBC platelet count 90,000. Stable..
Transfuse as necessary
-
Started on heparin drip for tiny pulmonary embolism. Suspect clinically insignificant-suspect unrelated to clinical situation.
Follow PTT
Monitor for bleeding
-
Weight loss-20 pounds over the last several weeks. Patient stated he developed mucositis on chemotherapy.
-
High risk situation.
updated by Dr. Feng at the bedside 12/19/2024
Will follow
Subjective Data
-
Date of Service:
Date of Service: December 19, 2024
Chief Complaint: Pulmonary Follow Up (Bilateral pneumonia)
Subjective:
Patient offers no new complaints
Denies hemoptysis or significant phlegm production
Review of Systems
General: Fever (n)
Cardiopulmonary: Dyspnea (None at rest), Cough and Sputum Production (No significant)
GI: Abdominal Pain (n) and Nausea (n)
Neuro: Headache (n)
Objective Data
Data Reviewed
Vital Signs / I&O / Oxygen:
Vital Signs
Temp Pulse Resp BP Pulse Ox
98.5 F 75 16 120/63 96
12/19/24 07:00 12/19/24 07:00 12/19/24 07:00 12/19/24 07:00 12/19/24 09:12
Intake and Output
12/18/24 12/19/24 12/20/24
06:59 06:59 06:59
Intake Total 480 / 480 3060 / 3060
Output Total 900 / 900
Balance -420 / -420 3060 / 3060
SaO2 96
Nasal Cannula flow liters per 2
minute
Physical Exam
General: Comfortable
HEENT: Normocephalic
Cardiovascular: S1-S2
Respiratory: Clear and Non-Labored Respirations
GI: Soft and Non Distended
Skin: Warm
Labs/Micro/Reports
Lab Data
12/19/24 07:24
12/19/24 07:24
Laboratory Results
12/18/24 12/19/24 12/19/24
17:28 00:23 07:24
APTT 56.4 H 91.4 H 84.9 H
Microbiology
12/18/24 04:22 Blood/Venous Blood Culture - Preliminary
No Growth in 24 hours- Final report to follow
12/17/24 23:46 Blood/Venous Blood Culture - Preliminary
No Growth in 24 hours- Final report to follow
12/18/24 11:39 Sputum Respiratory Culture - Final
12/18/24 11:39 Sputum Gram Stain - Final
12/18/24 10:35 Nose Nasal Screen MRSA (PCR) - Final
MRSA not detected - performed by PCR methodology.
[2024-12-19 15:10] VITALS: BP 122/58
[2024-12-19] MEDS: HEPARIN 25000 UNITS/250 ML IV (15:25)
--- NOTE | 2024-12-19 16:37 | CM ---
Patient seen at bedside with physician. Patient plan is home with no needs and no longer on O2. CM will continue to follow for discharge planning needs.
Plan; home with no needs; will starr eliquis
[2024-12-19] MEDS: NON-FORMULARY ITEM 200 MG PO (17:16)
[2024-12-19] MEDS: COLACE 100 MG PO (19:39)
[2024-12-19 23:00] VITALS: BP 123/61
[2024-12-20] MEDS: MAXIPIME 2000 MG IV (03:02)
[2024-12-20] MEDS: STERILE WATER FOR INJECTION 10 ML IV (03:03)
[2024-12-20 04:34] VITALS: BMI 20.8
[2024-12-20 07:00] VITALS: BP 111/57
[2024-12-20] MEDS: ZOFRAN 8 MG PO (08:30)
[2024-12-20] MEDS: COLACE 100 MG PO ×2 (08:30→20:39)
[2024-12-20] MEDS: PROTONIX IV 40 MG IV (08:30)
[2024-12-20] MEDS: MIRALAX 17 GRAMS PO (08:30)
[2024-12-20] MEDS: ZOVIRAX 400 MG PO ×2 (08:30→20:40)
[2024-12-20] MEDS: NSS (PRESERVATIVE FREE) 10 ML IV (08:30)
[2024-12-20] MEDS: LIPITOR 10 MG PO (08:30)
[2024-12-20] MEDS: VIDAZA 2.76 MG SC ×2 (09:00→09:03)
--- NOTE | 2024-12-20 09:15 | PTCARENOTE ---
Vidaza administered to patient. pt tolerated injections well, went over possible side effects. vss, chemotherapy precautions maintained, will continue to monitor.
[2024-12-20 09:22] LABS: Hematocrit 26.6 % (39.0-52.0); Hemoglobin 8.4 g/dL (13.0-18.0); Mean Corp Hgb Conc. 31.6 g/dL (33.0-37.0); Mean Corpuscular Volume 91.1 fL (80.0-94.0); Platelet Count 97 10^3/uL (130-400); Red Cell Dist. Width 18.8 % (11.5-14.5)
[2024-12-20 09:31] LABS: APTT 87.6 Sec (23.4-35.0)
[2024-12-20 09:45] LABS: Anisocytosis Slight; Normal RBC Morphology No; Platelets Checked Yes; Polychromasia Slight
[2024-12-20 09:46] LABS: Total Cells Counted 100
[2024-12-20 09:48] LABS: Absolute Neutrophils -Man Diff 0.2 10^3/uL (1.4-6.5)
[2024-12-20 09:56] LABS: Procalcitonin 0.09 ng/ml (0.0-0.25)
[2024-12-20 10:11] LABS: Blood Urea Nitrogen 10 mg/dl (9-20); Calcium 8.4 mg/dl (8.4-10.2); Carbon Dioxide 30 mmol/L (22-30); Chloride 98 mmol/L (98-107); Estimated Creatinine Clearance 122 ml/min; Glucose 120 mg/dl (70-99); LDH 413 U/L (120-246); Potassium 3.9 mmol/L (3.5-5.1); Sodium 132 mmol/L (135-145); Uric Acid 2.8 mg/dl (3.5-8.5); eGFR > 60.00
[2024-12-20] MEDS: MAXIPIME IV (10:29)
[2024-12-20] MEDS: STERILE WATER FOR INJECTION IV (11:11)
[2024-12-20] MEDS: HEPARIN 25000 UNITS/250 ML IV (12:26)
--- NOTE | 2024-12-20 12:28 | W.PN.ONC ---
Today's Communication / Plan
-
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 John NEVAREZ oncologist
high risk for fungal infection due to AML - pulmonary and ID following
follow CBC - transfuse prn
Impression
Impression
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
pancytopenia secondary to leukemia
PNA-neutropenic
bilateral masslike opacities-small pleural effusions -new compared to Mar 2024 -former smoker, asbestos exposure
Small left upper lobe pulmonary embolism
Plan
Plan
heparin gtt to DOAC at discharge
transfuse platelets <10, <20 if febrile, <50 if bleeding or pre-procedure
CMV negative, irradiated products since transplant candidate
will continue Venclexta/ Vidaza induction for new AML while hospitalized and treat infections concurrently - as per Dr. John NEVAREZ oncologist
high risk for fungal infection due to AML - pulmonary and ID following
if vori is started -Venclexta will need to be dose reduced with interaction
continue viral ppx
trend uric acid/LDH
allopurinol
f/u galactomannan, Beta-D glucan
on cefepime and IV vanco
Will continue to follow with you
Subjective/Objective
Subjective/Objective
afebrile, feels slightly better, no SOB or chest pain
Vital Signs:
Vital Signs
Temp Pulse Resp BP Pulse Ox
97.7 F 80 20 111/57 96
12/20/24 07:00 12/20/24 07:00 12/20/24 07:00 12/20/24 07:00 12/20/24 07:00
Lab Results:
Laboratory Data
WBC 0.9 10^3/uL (4.8-10.8) L* 12/20/24 09:03
Hgb 8.4 g/dL (13.0-18.0) L 12/20/24 09:03
Plt Count 97 10^3/uL (130-400) L 12/20/24 09:
APTT 87.6 Sec (23.4-35.0) H 12/20/24 09:03
eGFR > 60.00 12/20/24 09:03
Exam: unchagned
--- NOTE | 2024-12-20 13:16 | W.PN.PUL3 ---
Today's Communication / Plan
-
Percutaneous by for percutaneous lung biopsy
Daily CBC
Per oncology induction chemotherapy will continue while hospitalized and treating infection
Continue antibiotics
Follow cultures
Assessment
-
59-year-old man with past medical history noted. Admitted with chest pain not feeling well for the last several days. Patient reported cough with minimal phlegm production, 20 pound weight loss over the last several weeks due to poor appetite.
Developed mucositis with chemotherapy. CT chest demonstrated multifocal masslike opacities. We were consulted for evaluation of abnormal CT chest.
Abnormal CT chest:
CT chest reviewed 12/18/2024: bilateral masslike opacities-small pleural effusions. No mediastinal lymph nodes.
Changes are new compared to March 2024.
MDS with AML conversion
Pancytopenia ANC less than 500
Small left upper lobe pulmonary embolism-unclear significance.
Conditions present prior admission:
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
Newly initiated Venclexta for now.
History of asbestos exposure
Possible prior granulomatous disease
Dyslipidemia
Former smoker
Former daily drinker-40+ pack year history of smoking
Assessment and plan:
Imaging of the chest reviewed in detail: patient had multifocal pneumonia which are new compared to March 2024.
At that time there is no evidence for pulmonary nodules only pleural plaques suggestive of prior asbestos exposure.
Patient is immunosuppressed with pancytopenia/neutropenia-s/p recent chemorx.
Suspect infectious etiology, lesions were not present back in March 2024.Less likely malignant.
Including bacterial/fungal(such Aspergillus).
-
Sputum culture was contaminant, will repeat-pending.
Patient is at risk for Aspergillus infection-will obtain serology [id number].
Broad-spectrum antibiotic cefepime
Vancomycin discontinued.
Follow cultures
Infectious disease consulted. Also suspect opportunistic infection such as fungal/Aspergillus.
Platelet has been stable.
I consulted interventional radiology. Case discussed. Percutaneous biopsy pending. Rule out invasive fungal infection.
-
Agree with heparin drip for now-small pulmonary embolism.
Follow-up PTT.
-
Oncology correspondence reviewed: Venclexta/ Vidaza induction for new AML while hospitalized and treat infections concurrently - as per Dr. John NEVAREZ oncologist
Pancytopenia:
Immunosuppression on hold
Follow CBC platelet count 90,000.
Transfuse as necessary
-
Weight loss-20 pounds over the last several weeks. Patient stated he developed mucositis on chemotherapy.
-
High risk situation.
updated by Dr. Feng at the bedside 12/19/2024
Will follow
Subjective Data
-
Date of Service:
Date of Service: December 20, 2024
Chief Complaint: Pulmonary Follow Up (Bilateral pneumonia)
Subjective:
No new complaints
Continues to have poor appetite
Denies hemoptysis or phlegm production
Denies chest pain
Review of Systems
Cardiopulmonary: Dyspnea (n)
GI: Abdominal Pain (n)
Objective Data
Data Reviewed
Vital Signs / I&O / Oxygen:
Vital Signs
Temp Pulse Resp BP Pulse Ox
97.7 F 80 20 111/57 96
12/20/24 07:00 12/20/24 07:00 12/20/24 07:00 12/20/24 07:00 12/20/24 07:00
Intake and Output
12/19/24 12/20/24 12/21/24
06:59 06:59 06:59
Intake Total 3060 / 3060 880 / 880
Output Total 400 / 400
Balance 3060 / 3060 480 / 480
SaO2 96
Nasal Cannula flow liters per 2
minute
Physical Exam
General: Comfortable
HEENT: Normocephalic
Cardiovascular: S1-S2
Respiratory: Clear and Non-Labored Respirations
GI: Soft and Non Distended
Skin: Warm
Labs/Micro/Reports
Lab Data
12/20/24 09:03
12/20/24 09:03
Laboratory Results
12/20/24
09:03
APTT 87.6 H
Microbiology
12/18/24 04:22 Blood/Venous Blood Culture - Preliminary
No Growth in 48 hours- Final report to follow
12/17/24 23:46 Blood/Venous Blood Culture - Preliminary
No Growth in 48 hours- Final report to follow
12/18/24 11:39 Sputum Respiratory Culture - Final
12/18/24 11:39 Sputum Gram Stain - Final
12/18/24 10:35 Nose Nasal Screen MRSA (PCR) - Final
MRSA not detected - performed by PCR methodology.
--- NOTE | 2024-12-20 13:50 | W.PN.ID1 ---
Date of Service
Date of Service: December 20, 2024
Today's Communication
Dc cefepime. Lung biopsy.
Assessment / Plan
# Multifocal pulmonary mass-like opacities, 1 with central necrosis
# Fever x 1, resolved
# Prolonged neutropenia
# Recent dx AML transformation from MDS
# Previous granulomatous disease in lungs, by CT
- Procalcitonin normal -> rules out bacterial PNA -> dc cefepime.
- Suspect fungal pneumonia - likely Aspergillosis
- serum Aspergillus galactomannan antigen pending - although low sensitivity and specificity for aspergillus
- beta-d glucan assay ([employer]) pending- even lower sensitivity and specificity for aspergillus
- For IR lung biopsy today.
I placed orders for fungal smear/cx, AFB s,ear/cx, tissue aerobic culture and cytology.
- After biopsy, can start empiric Voriconazole 200mg po bid
Chief Complaint
-: Pneumonia
Subjective / Review of Systems
Waiting for lung biopsy. No new complaints.
Vital Signs / Physical Exam
Vital Signs
Vital Signs
Temp Pulse Resp BP Pulse Ox
97.7 F 80 20 111/57 96
12/20/24 07:00 12/20/24 07:00 12/20/24 07:00 12/20/24 07:00 12/20/24 07:00
Physical Exam
Constitutional: No Acute Distress
Cardiovascular: Regular Rate and S1/S2
Pulmonary: Clear
Gastrointestinal: Soft, Non Tender and Non Distended
Neurological: AO x 3
Objective Data
Lab Data
Lab Results
12/20/24 09:03
12/20/24 09:03
APTT 87.6 Sec (23.4-35.0) H 12/20/24 09:03
Estimated Creat Clear 122 ml/min 12/20/24 09:03
Lactic Acid 0.9 mmol/L (0.7-2.0) 12/17/24 23:46
Total Bilirubin 0.5 mg/dl (0.2-1.3) D 12/19/24 07:24
AST 40 U/L (17-59) 12/19/24 07:24
ALT 38 U/L (0-50) 12/19/24 07:24
Alkaline Phosphatase 75 U/L (38-126) 12/19/24 07:24
Most recent labs reviewed.
Micro Results:
12/18/24 04:22 Blood Culture - Preliminary
Blood/Venous No Growth in 48 hours- Final report to follow
12/17/24 23:46 Blood Culture - Preliminary
Blood/Venous No Growth in 48 hours- Final report to follow
12/18/24 11:39 Respiratory Culture - Final
Sputum Gram Stain - Final
12/18/24 10:35 Nasal Screen MRSA (PCR) - Final
Nose MRSA not detected - performed by PCR methodology.
12/17/[address]: Small embolism in the left upper lobe proximal apical segmental pulmonary artery. No evidence of right ventricular heart strain. Posterior right costophrenic angle pneumonia and atelectasis. Multifocal rounded masslike opacities
are demonstrated in the upper and lower lobes, bilaterally. Differential includes metastatic disease versus multifocal pneumonia. One of the lesions in the right lower lobe has central lucency, suggesting central necrosis.
12/17/24 CXR: Bilateral multifocal indistinct localized and confluent parenchymal opacities. Possible considerations include multifocal pneumonia versus indistinct pulmonary masses, such as metastatic disease. No pneumothorax. No pleural effusion
appreciated. Calcified pleural plaque at diaphragmatic margins. Normal heart size. No vascular congestion or congestive heart failure.
Care Review
Plan reviewed with: Physician (Dr. Feng)
--- NOTE | 2024-12-20 14:25 | W.PN.HOSP.TC ---
Addendum entered and electronically signed by Darlene Cano MD 12/20/24 15:51:
I saw and evaluated the patient independently. I reviewed the resident�s note and agree with findings and plan as documented by Dr. Patel.
GENERAL: well developed, well nourished, male in no apparent distress
HEENT: NC/AT
HEART: regular rate and rhythm, +S1, +S2
LUNGS : rhonchi clears with coughing bilaterally
ABDOM: soft, nontender, nondistended, + bowel sounds
EXT: no cyanosis, clubbing, or edema
NEUROLOGIC: grossly intact
Sepsis secondary to right lower lobe pneumonia with pancytopenia (concern for fungal PNA per ID)--Chest CT revealed multifocal round masslike opacities in upper and lower lobes. One in the right lower lobe has a small central lucent focus
suspicious for central necrosis. Mild bilateral pleural thickening and mild scattered calcified pleural plaque noted as well--follow cultures--cont cefepime/acyclovir--apprec ID--Beta D glucan assay pending --cefepime d/c'd since procal neg
Small left upper lobe pulmonary embolism--would hold on Eliquis (CM will need to starr)--cont IV heparin--Heparin drip per heme/onc and pulm okay for anti-coagulation considering possible upcoming procedure
Multifocal pulmonary lesions--IR and pulm consult for biopsy--Pulm suspects infx etiology rather than malignant and opts for medical management. If no improvement will consider biopsy.
Hyponatremia--128>129 on NS--Cont fluids --improved to 134
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
chemo infusion as well)--starting allopurinol to prevent tumor lysis--trend uric acid and LDH
Mild gaseous thickening along esophagus--Mild esophageal wall thickening on CT--stopped Pantoprazole
HLD--Cont statin
code status--Full Code
DVT - heparin drip
Original Note:
Today's Communication/Plan
-
IR biopsy pending to rule out fungal infx
d/c cefepime per ID as procal (-)
start chemo per heme/onc trending uric acid and LDH for tumor lysis syndrome
start allopurinole
Assessment / Plan
Assessment / Plan
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
Pancytopenia
Severe neutropenia (ab neut 0.3)
--Heme/onc appreciated
--Decided to start Venclexta/Vidaza induction for new AML while hospitalized and treat infections concurrently per Dr. John NEVAREZ oncologist in hopes of future curative transplant
--Trend uric acid and LDH monitoring for tumor lysis syndrome
--Start allopurinol
--Transfuse for hg <7 and plt < 10 unless active bleeding then for <50
--s/p 1 unit Blood (one day of admission during outpatient chemo infusion as well)
--No clinical signs of active bleed
--Monitor CBC
Sepsis secondary to right lower lobe pneumonia
-- Febrile, leukopenia, tachycardia and tachypnea
--Chest CT revealed multifocal round masslike opacities in upper and lower lobes. 1 in the right lower lobe has a small central lucent focus suspicious for central necrosis. Mild bilateral pleural thickening and mild scattered calcified pleural
plaque noted as well.
-- Status post 1 dose Levaquin and 1 dose vancomycin in ED later transition to cefepime
-- Infectious disease consulted and they suspect fungal pneumonia, likely aspergillosis - procal (-) so d/c cefepime as likely not bacterial
-- fungal smear/cx, AFB s,ear/cx, tissue aerobic culture and cytology pending
-- Sputum culture (-), Prelim blood cultures (-), Beta D glucan assay pending
-- Can start voriconazole 200mg BID after biopsy
Small left upper lobe pulmonary embolism
--s/p 1 dose of 5mg Eliquis
--Heparin drip per heme/onc and pulm okay for anti-coagulation considering possible upcoming procedure
Multifocal pulmonary lesions
--IR and pulm consult for possible biopsy
--Pulm suspects infx etiology rather than malignant and opts for medical management -> Plan for biopsy today per IR to rule out invasive fungal infection
Hyponatremia
--today 132
--Monitor
Mucositis
--Mild gaseous thickening along esophagus, Mild esophageal wall thickening on CT
--As needed Magic mouthwash
HLD
--Cont statin
Full Code
DVT - heparin drip
Anticipated Discharge: > 48 hours
Subjective/Interval History
-
Date of Service: December 20, 2024
Feels like his chest discomfort with deep breaths is improving. Less phlegm production.
Objective Data
-
Labs:
Laboratory Results
12/20/24
09:03
WBC 0.9 L*
Hgb 8.4 L
Hct 26.6 L
Plt Count 97 L
APTT 87.6 H
Sodium 132 L
Potassium 3.9
Chloride 98
Carbon Dioxide 30
BUN 10
Creatinine 0.5 L
Glucose 120 H
Calcium 8.4
Vital Signs:
Vital Signs
Temp Pulse Resp BP Pulse Ox
97.7 F 80 20 111/57 96
12/20/24 07:00 12/20/24 07:00 12/20/24 07:00 12/20/24 07:00 12/20/24 07:00
I&O
12/19/24 12/20/24 12/21/24
06:59 06:59 06:59
Intake Total 3060 / 3060 880 / 880
Output Total 400 / 400
Balance 3060 / 3060 480 / 480
Review of Systems
-
History Source: Patient
Respiratory: Reports Cough and Pleurisy
Cardiac: Reports No Symptoms
Abdomen/GI: Reports No Symptoms
Genitourinary: Reports No Symptoms
Neuro: Reports No Symptoms
Physical Exam
-
General: No Apparent Distress and Comfortable
HEENT: Normocephalic and Other (Mucositis)
Respiratory: Rhonchi
Cardiac: Regular Rhythm and S1/S2
GI: Soft, Nontender, Nondistended and Normal Bowel Sounds
Musculoskeletal: No Cyanosis and No Edema
Skin: Warm and Dry
Neuro: AO x 3
Psych: Calm
[2024-12-20 15:00] VITALS: BP 122/63
--- NOTE | 2024-12-20 15:01 | CM ---
Patient seen at bedside with physicians on . Patient is for treatment through weekend. Patient plan is for discharge home with VN. CM will continue to follow for discharge planning needs.
Plan; patient will need cost of eliquis and referral for VN pending patient functional needs at time of d/c
[2024-12-20] MEDS: ZYLOPRIM 300 MG PO (15:34)
[2024-12-20] MEDS: MAGIC OR MIRACLE MOUTHWASH 5 ML PO (15:35)
[2024-12-20] MEDS: NON-FORMULARY ITEM 400 MG PO (17:32)
[2024-12-20 19:00] VITALS: BP 116/67
[2024-12-20 23:00] VITALS: BP 123/60
[2024-12-21 03:00] VITALS: BP 126/65
[2024-12-21 04:02] VITALS: BMI 20.7
[2024-12-21 07:00] VITALS: BP 107/54
[2024-12-21] MEDS: ZOVIRAX 400 MG PO ×2 (08:46→20:31)
[2024-12-21] MEDS: COLACE 100 MG PO ×2 (08:46→20:31)
[2024-12-21] MEDS: LIPITOR 10 MG PO (08:46)
[2024-12-21] MEDS: ZYLOPRIM 300 MG PO (08:47)
[2024-12-21] MEDS: MIRALAX 17 GRAMS PO (08:47)
[2024-12-21] MEDS: NSS (PRESERVATIVE FREE) IV (08:48)
[2024-12-21] MEDS: ZOFRAN 8 MG PO (09:08)
[2024-12-21] MEDS: HEPARIN 25000 UNITS/250 ML IV (09:12)
[2024-12-21 09:27] LABS: APTT 116.8 Sec (23.4-35.0)
[2024-12-21 09:49] LABS: Blood Urea Nitrogen 9 mg/dl (9-20); Calcium 8.6 mg/dl (8.4-10.2); Carbon Dioxide 33 mmol/L (22-30); Chloride 97 mmol/L (98-107); Estimated Creatinine Clearance 121 ml/min; Glucose 98 mg/dl (70-99); LDH 434 U/L (120-246); Potassium 4.0 mmol/L (3.5-5.1); Sodium 131 mmol/L (135-145); Uric Acid 2.1 mg/dl (3.5-8.5); eGFR > 60.00
[2024-12-21] MEDS: VIDAZA 2.76 MG SC ×2 (10:05→10:08)
[2024-12-21 12:02] LABS: Hematocrit 25.9 % (39.0-52.0); Hemoglobin 8.2 g/dL (13.0-18.0); Mean Corp Hgb Conc. 31.7 g/dL (33.0-37.0); Mean Corpuscular Volume 90.9 fL (80.0-94.0); Nucleated Red Blood Cells % 2.5 % (-); Platelet Count 94 10^3/uL (130-400); Red Cell Dist. Width 18.5 % (11.5-14.5)
[2024-12-21 12:06] LABS: Absolute Neutrophils -Man Diff 0.2 10^3/uL (1.4-6.5); Platelets Checked Yes
[2024-12-21 12:07] LABS: Anisocytosis Slight; Normal RBC Morphology No; Total Cells Counted 100
--- NOTE | 2024-12-21 12:18 | W.PN.PUL3 ---
Addendum entered and electronically signed by Ernestina Grayson DO 12/21/24 14:57:
Total time spent on this consultation/encounter __50__ minutes which includes review of history, physical exam, medications, laboratory data, personal review of imaging, extensive review of outpatient records, discussion with care team and
respiratory therapy.
Original Note:
Today's Communication / Plan
-
Biopsy delayed until Monday
Repeat CT chest in AM to see if any nodules have changed/planning for Monday
ID following, continue on/off treatment
No sputum production, last submission was inadequate
Continue supportive care for now
Assessment
-
59-year-old man with past medical history noted. Admitted with chest pain not feeling well for the last several days. Patient reported cough with minimal phlegm production, 20 pound weight loss over the last several weeks due to poor appetite.
Developed mucositis with chemotherapy. CT chest demonstrated multifocal masslike opacities. We were consulted for evaluation of abnormal CT chest.
Abnormal CT chest
Bilateral masslike opacities
Small pleural effusions
MDS with AML conversion
Pancytopenia ANC less than 500
Small left upper lobe pulmonary embolism-unclear significance.
Conditions present prior admission:
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
Newly initiated Venclexta for now.
History of asbestos exposure
Possible prior granulomatous disease
Dyslipidemia
Former smoker
Former daily drinker-40+ pack year history of smoking
Assessment and plan:
Stable on RA
No respiratory complaints of SOB/cough
Imaging of the chest reviewed in detail: patient had multifocal pneumonia which are new compared to March 2024.
At that time there is no evidence for pulmonary nodules only pleural plaques suggestive of prior asbestos exposure.
Patient is immunosuppressed with pancytopenia/neutropenia-s/p recent chemorx.
Suspect infectious etiology, lesions were not present back in March 2024.Less likely malignant.
Including bacterial/fungal(such Aspergillus).
-
Sputum culture was contaminant, will repeat-pending.
Patient is at risk for Aspergillus infection-will obtain fvymfhwm-[id number].
Broad-spectrum antibiotic cefepime
Vancomycin discontinued.
Follow cultures
Infectious disease consulted. Also suspect opportunistic infection such as fungal/Aspergillus.
Platelet has been stable.
I consulted interventional radiology. Case discussed.
Percutaneous biopsy pending. Rule out invasive fungal infection.
Likely to be monday
Given time frame, will obtain repeat CT in AM
-
Agree with heparin drip for now-small pulmonary embolism.
Follow-up PTT.
-
Oncology correspondence reviewed: Venclexta/ Vidaza induction for new AML while hospitalized and treat infections concurrently - as per Dr. John NEVAREZ oncologist
Pancytopenia: Immunosuppression on hold
Follow CBC platelet count 90,000.
Transfuse as necessary
-
Weight loss-20 pounds over the last several weeks. Patient stated he developed mucositis on chemotherapy.
-
High risk situation.
updated by Dr. Feng at the bedside 12/19/2024
Will follow
Subjective Data
-
Date of Service:
Date of Service: December 21, 2024
Chief Complaint: Pulmonary Follow Up (Bilateral pneumonia)
Subjective:
Stable, no acute events ON
No new complaints
Ambulating, no issues
Objective Data
Data Reviewed
Vital Signs / I&O / Oxygen:
Vital Signs
Temp Pulse Resp BP Pulse Ox
97.9 F 74 20 107/54 94
12/21/24 07:00 12/21/24 07:00 12/21/24 07:00 12/21/24 07:00 12/21/24 07:00
Intake and Output
12/20/24 12/21/24 12/22/24
06:59 06:59 06:59
Intake Total 880 / 880 150 / 150
Output Total 400 / 400 400 / 400
Balance 480 / 480 -250 / -250
SaO2 94
Nasal Cannula flow liters per 2
minute
Physical Exam
General: Comfortable, Good Appetite and Other (Thin appearing)
HEENT: Normocephalic, Anicteric and Moist Mucous Membranes
Cardiovascular: S1-S2 and Regular Rhythm
Respiratory: Clear and Non-Labored Respirations
GI: Soft, Non Distended and Non Tender
Neurology: Awake, Alert, Oriented and No Motor Deficits
Skin: Warm, Dry and Good Color
Labs/Micro/Reports
Lab Data
12/21/24 08:43
12/21/24 08:43
Laboratory Results
12/21/24
08:43
APTT 116.8 H
Microbiology
12/18/24 04:22 Blood/Venous Blood Culture - Preliminary
No Growth in 72 hours- Final report to follow
12/17/24 23:46 Blood/Venous Blood Culture - Preliminary
No Growth in 72 hours- Final report to follow
12/18/24 11:39 Sputum Respiratory Culture - Final
12/18/24 11:39 Sputum Gram Stain - Final
12/18/24 10:35 Nose Nasal Screen MRSA (PCR) - Final
MRSA not detected - performed by PCR methodology.
--- NOTE | 2024-12-21 12:23 | W.PN.HOSP.TC ---
Addendum entered and electronically signed by Darlene Cano MD 12/21/24 12:37:
I saw and evaluated the patient independently. I reviewed the resident�s note and agree with findings and plan as documented by Dr. Patel.
GENERAL: well developed, well nourished, male in no apparent distress
HEENT: NC/AT
HEART: regular rate and rhythm, +S1, +S2
LUNGS : rhonchi clears with coughing bilaterally
ABDOM: soft, nontender, nondistended, + bowel sounds
EXT: no cyanosis, clubbing, or edema
NEUROLOGIC: grossly intact
Sepsis secondary to right lower lobe pneumonia with pancytopenia (concern for fungal PNA per ID)--Chest CT revealed multifocal round masslike opacities in upper and lower lobes. One in the right lower lobe has a small central lucent focus
suspicious for central necrosis. Mild bilateral pleural thickening and mild scattered calcified pleural plaque noted as well--follow cultures--cont acyclovir--apprec ID--Beta D glucan assay pending --cefepime d/c'd since procal neg
Small left upper lobe pulmonary embolism--would hold on Eliquis (CM will need to starr)--cont IV heparin--Heparin drip per heme/onc and pulm okay for anti-coagulation considering possible upcoming procedure
Multifocal pulmonary lesions--had group text with pulm, heme/onc, ID, and IR in regards to lung biopsy--despite order, IR had no knowledge and cannot do until Monday--cont IV heparin until then and cannot start voriconazole until after biopsy
Hyponatremia--128>129 on NS--Cont fluids --improved to 134 but drifting down again--back to 131
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
outpatient chemo infusion as well)--starting allopurinol to prevent tumor lysis--trend uric acid and LDH
Mild gaseous thickening along esophagus--Mild esophageal wall thickening on CT--stopped Pantoprazole
HLD--Cont statin
code status--Full Code
DVT - heparin drip
Original Note:
Today's Communication/Plan
-
Plan for biopsy on Monday
Continue heparin drip and acyclovir
d/c tele
Assessment / Plan
Assessment / Plan
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
Pancytopenia
Severe neutropenia (ab neut 0.3)
--Heme/onc appreciated
--Decided to start venetoclax and azacitidine induction for new AML while hospitalized and treat infections concurrently per Dr. Jonh NEVAREZ oncologist in hopes of future curative transplant
--Trend uric acid and LDH monitoring for tumor lysis syndrome - currently stable
--Start allopurinol
--Transfuse for hg <7 and plt < 10 unless active bleeding then for <50
--s/p 1 unit Blood (one day of admission during outpatient chemo infusion as well)
--No clinical signs of active bleed
--Monitor CBC
Sepsis secondary to right lower lobe pneumonia
-- Febrile, leukopenia, tachycardia and tachypnea
--Chest CT revealed multifocal round masslike opacities in upper and lower lobes. 1 in the right lower lobe has a small central lucent focus suspicious for central necrosis. Mild bilateral pleural thickening and mild scattered calcified pleural
plaque noted as well.
-- Infectious disease consulted and they suspect fungal pneumonia, likely aspergillosis - procal (-) so d/c cefepime as likely not bacterial
-- fungal smear/cx, AFB s,ear/cx, tissue aerobic culture and cytology pending
-- Sputum culture (-), Prelim blood cultures (-), Beta D glucan assay pending
-- Can start voriconazole 200mg BID after biopsy
Small left upper lobe pulmonary embolism
--s/p 1 dose of 5mg Eliquis
--Heparin drip per heme/onc and pulm okay for anti-coagulation, Transition to Eliquis after biopsy.
--d/c tele
Multifocal pulmonary lesions
--IR and pulm consult for possible biopsy
--Pulm suspects infx etiology rather than malignant and opts for medical management -> Plan for biopsy 12/23
Hyponatremia
--today 131
--Monitor
Mucositis
--Mild gaseous thickening along esophagus, Mild esophageal wall thickening on CT
--As needed Magic mouthwash
HLD
--Cont statin
Full Code
DVT - heparin drip
Anticipated Discharge: > 48 hours
Subjective/Interval History
-
Date of Service: December 21, 2024
No new complaints. Had a BM yesterday.
Objective Data
-
Labs:
Laboratory Results
12/21/24 12/21/24
08:43 15:00
WBC 0.8 L*
Hgb 8.2 L
Hct 25.9 L
Plt Count 94 L
APTT 116.8 H Pending
Sodium 131 L
Potassium 4.0
Chloride 97 L
Carbon Dioxide 33 H
BUN 9
Creatinine 0.5 L
Glucose 98
Calcium 8.6
Vital Signs:
Vital Signs
Temp Pulse Resp BP Pulse Ox
97.9 F 74 20 107/54 94
12/21/24 07:00 12/21/24 07:00 12/21/24 07:00 12/21/24 07:00 12/21/24 07:00
I&O
12/20/24 12/21/24 12/22/24
06:59 06:59 06:59
Intake Total 880 / 880 150 / 150
Output Total 400 / 400 400 / 400
Balance 480 / 480 -250 / -250
Review of Systems
-
History Source: Patient
Constitutional: Reports No Symptoms
EENT: Reports No Symptoms Reported
Respiratory: Reports Cough and Pleurisy
Cardiac: Reports No Symptoms
Abdomen/GI: Reports No Symptoms
Neuro: Reports No Symptoms
Physical Exam
-
General: No Apparent Distress and Comfortable
HEENT: Normocephalic
Respiratory: Rhonchi
Cardiac: Regular Rhythm and S1/S2
GI: Soft, Nontender, Nondistended and Normal Bowel Sounds
Musculoskeletal: No Cyanosis and No Edema
Skin: Warm and Dry
Neuro: AO x 3
Psych: Calm
--- NOTE | 2024-12-21 13:31 | W.PN.ONC ---
Today's Communication / Plan
-
vidaza/venclexta induction
follow CBC
lung lesions - w/u as per ID/ pulmonary - for percutaneous biopsy to evaluate for possible fungal etiology
antimicrobial therapy as per ID
Impression
Impression
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
pancytopenia secondary to leukemia
PNA-neutropenic
bilateral masslike opacities-small pleural effusions -new compared to Mar 2024 -former smoker, asbestos exposure
Small left upper lobe pulmonary embolism
Plan
Plan
heparin gtt to DOAC at discharge
transfuse platelets <10, <20 if febrile, <50 if bleeding or pre-procedure
CMV negative, irradiated products since transplant candidate
will continue Venclexta/ Vidaza induction for new AML while hospitalized and treat infections concurrently - as per Dr. Lopez - [facility] oncologist
high risk for fungal infection due to AML - pulmonary and ID following - considering percutaneous biopsy
if vori is started -Venclexta will need to be dose reduced with interaction
continue viral ppx
trend uric acid/LDH
allopurinol
f/u galactomannan, Beta-D glucan
antibiotics as per ID
Will continue to follow with you
Subjective/Objective
Subjective/Objective
feels decent, no fevers, no SOB at rest
Vital Signs:
Vital Signs
Temp Pulse Resp BP Pulse Ox
97.9 F 74 20 107/54 94
12/21/24 07:00 12/21/24 07:00 12/21/24 07:00 12/21/24 07:00 12/21/24 07:00
Lab Results:
Laboratory Data
WBC 0.8 10^3/uL (4.8-10.8) L* 12/21/24 08:43
Hgb 8.2 g/dL (13.0-18.0) L 12/21/24 08:43
Plt Count 94 10^3/uL (130-400) L 12/21/24 08:43
APTT 116.8 Sec (23.4-35.0) H 12/21/24 08:43
eGFR > 60.00 12/21/24 08:43
Exam: unchanged
[2024-12-21 15:00] VITALS: BP 110/63
[2024-12-21 15:46] LABS: APTT 103.4 Sec (23.4-35.0)
[2024-12-21] MEDS: NON-FORMULARY ITEM 400 MG PO (17:42)
[2024-12-21 21:44] LABS: APTT 94.9 Sec (23.4-35.0)
[2024-12-21 23:00] VITALS: BP 111/63
[2024-12-22 04:24] VITALS: BMI 20.4
[2024-12-22 07:00] VITALS: BP 111/54
[2024-12-22] MEDS: MIRALAX 17 GRAMS PO (08:10)
[2024-12-22] MEDS: ZOVIRAX 400 MG PO ×2 (08:10→19:59)
[2024-12-22] MEDS: ZYLOPRIM 300 MG PO (08:10)
[2024-12-22] MEDS: COLACE 100 MG PO ×2 (08:10→19:59)
[2024-12-22] MEDS: LIPITOR 10 MG PO (08:10)
[2024-12-22] MEDS: ZOFRAN 8 MG PO (08:11)
[2024-12-22] MEDS: NSS (PRESERVATIVE FREE) IV (08:13)
[2024-12-22 08:55] LABS: APTT 106.7 Sec (23.4-35.0)
[2024-12-22 09:06] LABS: Blood Urea Nitrogen 9 mg/dl (9-20); Calcium 8.7 mg/dl (8.4-10.2); Carbon Dioxide 29 mmol/L (22-30); Chloride 97 mmol/L (98-107); Estimated Creatinine Clearance 119 ml/min; Glucose 96 mg/dl (70-99); Hematocrit 23.4 % (39.0-52.0); Hemoglobin 7.4 g/dL (13.0-18.0); LDH 414 U/L (120-246); Mean Corp Hgb Conc. 31.6 g/dL (33.0-37.0); Mean Corpuscular Volume 90.7 fL (80.0-94.0); Nucleated Red Blood Cells % 3.8 % (-); Platelet Count 78 10^3/uL (130-400); Potassium 3.9 mmol/L (3.5-5.1); Red Cell Dist. Width 18.2 % (11.5-14.5); Sodium 131 mmol/L (135-145); Uric Acid 1.9 mg/dl (3.5-8.5); eGFR > 60.00
[2024-12-22] MEDS: VIDAZA 2.76 MG SC ×2 (09:09→09:10)
[2024-12-22] MEDS: HEPARIN 25000 UNITS/250 ML IV (09:20)
[2024-12-22] MEDS: MAGIC OR MIRACLE MOUTHWASH 5 ML PO (10:55)
--- NOTE | 2024-12-22 13:43 | W.PN.PUL3 ---
Today's Communication / Plan
-
Remains stable on RA, no new complaints
Repeat CT showing some nodules are diminishing in size, central cavitation noted in some
Proceed with IR biopsy tomorrow 12/23
NPO after MN, hold heparin
Assessment
-
59-year-old man with past medical history noted. Admitted with chest pain not feeling well for the last several days. Patient reported cough with minimal phlegm production, 20 pound weight loss over the last several weeks due to poor appetite.
Developed mucositis with chemotherapy. CT chest demonstrated multifocal masslike opacities. We were consulted for evaluation of abnormal CT chest.
Abnormal CT chest
Bilateral masslike opacities
Small pleural effusions
MDS with AML conversion
Pancytopenia ANC less than 500
Small left upper lobe pulmonary embolism-unclear significance.
Conditions present prior admission:
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
Newly initiated Venclexta for now.
History of asbestos exposure
Possible prior granulomatous disease
Dyslipidemia
Former smoker
Former daily drinker-40+ pack year history of smoking
Assessment and plan:
Stable on RA
No respiratory complaints of SOB/cough
Imaging of the chest reviewed in detail: patient had multifocal pneumonia which are new compared to March 2024.
At that time there is no evidence for pulmonary nodules only pleural plaques suggestive of prior asbestos exposure.
Patient is immunosuppressed with pancytopenia/neutropenia-s/p recent chemorx.
Suspect infectious etiology, lesions were not present back in March 2024.Less likely malignant.
Including bacterial/fungal(such Aspergillus).
Sputum culture was contaminant, not productive
Patient is at risk for/suspect opportunistic infection such as fungal/Aspergillus.
Broad-spectrum antibiotic cefepime
Vancomycin discontinued.
Infectious disease consulted.
Platelet has been stable.
I consulted interventional radiology. Case discussed.
Percutaneous biopsy pending. Rule out invasive fungal infection.
Given time frame, will obtain repeat CT-- 12/22 obtained, most lesions are diminishing in size
Some lower lobe lesions have more central cavitations--would still pursue biopsy 12/23 given findings
-
Agree with heparin drip for now-small pulmonary embolism.
Follow-up PTT.
-
Oncology correspondence reviewed: Venclexta/ Vidaza induction for new AML while hospitalized and treat infections concurrently - as per Dr. John NEVAREZ oncologist
Pancytopenia: Immunosuppression on hold
Follow CBC platelet count 90,000.
Transfuse as necessary
-
Weight loss-20 pounds over the last several weeks. Patient stated he developed mucositis on chemotherapy.
-
High risk situation.
updated by Dr. Feng at the bedside 12/19/2024
Will follow
Total time spent on this consultation/encounter __50__ minutes which includes review of history, physical exam, medications, laboratory data, personal review of imaging, extensive review of outpatient records, discussion with care team and
respiratory therapy.
Subjective Data
-
Date of Service:
Date of Service: December 22, 2024
Chief Complaint: Pulmonary Follow Up (Bilateral pneumonia)
Subjective:
No new complaints, stable on RA
Objective Data
Data Reviewed
Vital Signs / I&O / Oxygen:
Vital Signs
Temp Pulse Resp BP Pulse Ox
98.1 F 82 12 111/54 100
12/22/24 07:00 12/22/24 07:00 12/22/24 07:00 12/22/24 07:00 12/22/24 07:00
Intake and Output
12/21/24 12/22/24 12/23/24
06:59 06:59 06:59
Intake Total 150 / 150 375 / 375
Output Total 400 / 400
Balance -250 / -250 375 / 375
SaO2 100
Nasal Cannula flow liters per 2
minute
Physical Exam
General: Comfortable, Good Appetite and Other (Thin appearing)
HEENT: Normocephalic, Anicteric and Moist Mucous Membranes
Cardiovascular: S1-S2 and Regular Rhythm
Respiratory: Clear and Non-Labored Respirations
GI: Soft, Non Distended and Non Tender
Neurology: Awake, Alert, Oriented and No Motor Deficits
Skin: Warm, Dry and Good Color
Labs/Micro/Reports
Lab Data
12/22/24 07:49
12/22/24 07:49
Laboratory Results
12/21/24 12/21/24 12/22/24
15:27 21:25 07:49
APTT 103.4 H 94.9 H 106.7 H
Microbiology
12/18/24 04:22 Blood/Venous Blood Culture - Preliminary
No Growth in 4 days- Final report to follow
12/17/24 23:46 Blood/Venous Blood Culture - Preliminary
No Growth in 4 days- Final report to follow
[2024-12-22] MEDS: MYCELEX TROCHE 10 MG PO ×3 (14:17→22:02)
--- NOTE | 2024-12-22 14:56 | W.PN.HOSP.TC ---
Addendum entered and electronically signed by Darlene Cano MD 12/22/24 15:34:
I saw and evaluated the patient independently. I reviewed the resident�s note and agree with findings and plan as documented by Dr. Patel.
GENERAL: well developed, well nourished, male in no apparent distress
HEENT: NC/AT-- + thrush noted on soft palate, posterior throat
HEART: regular rate and rhythm, +S1, +S2
LUNGS : rhonchi clears with coughing bilaterally
ABDOM: soft, nontender, nondistended, + bowel sounds
EXT: no cyanosis, clubbing, or edema
NEUROLOGIC: grossly intact
Sepsis secondary to right lower lobe pneumonia with pancytopenia (concern for fungal PNA per ID)--Chest CT revealed multifocal round masslike opacities in upper and lower lobes. One in the right lower lobe has a small central lucent focus
suspicious for central necrosis. Mild bilateral pleural thickening and mild scattered calcified pleural plaque noted as well--follow cultures--cont acyclovir--apprec ID--Beta D glucan assay pending --cefepime d/c'd since procal neg
Small left upper lobe pulmonary embolism--would hold on Eliquis (CM will need to starr)--cont IV heparin--Heparin drip per heme/onc and pulm okay for anti-coagulation considering possible upcoming procedure--hold IV heparin prior to lung nodule
biopsy
Multifocal pulmonary lesions--had group text with pulm, heme/onc, ID, and IR in regards to lung biopsy--despite order, IR had no knowledge and cannot do until Monday--cont IV heparin until then and cannot start voriconazole until after biopsy
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
infusion as well)--starting allopurinol to prevent tumor lysis--trend uric acid and LDH
Mild gaseous thickening along esophagus--Mild esophageal wall thickening on CT--stopped Pantoprazole
HLD--Cont statin
code status--Full Code
DVT - heparin drip
Original Note:
Today's Communication/Plan
-
Continue chemotherapy treatment per heme-onc
Repeat CT today
Start Mycelex for thrush
Assessment / Plan
Assessment / Plan
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
Pancytopenia
Severe neutropenia (ab neut 0.2)
--Heme/onc appreciated
--Decided to start venetoclax and azacitidine induction for new AML while hospitalized and treat infections concurrently per Dr. John NEVAREZ oncologist in hopes of future curative transplant
--Trend uric acid and LDH monitoring for tumor lysis syndrome - currently stable - on allopurinol
--Hemoglobin and platelets are downtrending
--Transfuse for hg <7 and plt < 10 unless active bleeding then for <50
--s/p 1 unit Blood (one day of admission during outpatient chemo infusion as well)
--No clinical signs of active bleed
--Monitor CBC
Sepsis secondary to right lower lobe pneumonia
-- Febrile, leukopenia, tachycardia and tachypnea
--Chest CT revealed multifocal round masslike opacities in upper and lower lobes. 1 in the right lower lobe has a small central lucent focus suspicious for central necrosis. Mild bilateral pleural thickening and mild scattered calcified pleural
plaque noted as well.
-- Infectious disease consulted and they suspect fungal pneumonia, likely aspergillosis
-- fungal smear/cx, AFB s,ear/cx, tissue aerobic culture and cytology pending
-- Sputum culture (-), Prelim blood cultures (-), Beta D glucan assay pending
-- Can start voriconazole 200mg BID after biopsy
Small left upper lobe pulmonary embolism
--s/p 1 dose of 5mg Eliquis
--Heparin drip per heme/onc and pulm okay for anti-coagulation, Transition to Eliquis after biopsy.
--d/c tele
Multifocal pulmonary lesions
--IR and pulm consult for possible biopsy
--Pulm suspects infx etiology rather than malignant and opts for medical management -> Plan for biopsy 12/23
--repeat chest CT today for updated imaging for biopsy
Hyponatremia
--today 131
--Monitor
Mucositis
--Mild gaseous thickening along esophagus, Mild esophageal wall thickening on CT
--As needed Magic mouthwash
Thrush
--mycelex
HLD
--Cont statin
Full Code
DVT - heparin drip
Anticipated Discharge: > 48 hours
Subjective/Interval History
-
Date of Service: December 22, 2024
Increased sore throat from yesterday. Oral thrush noted on physical exam.
Objective Data
-
Labs:
Laboratory Results
12/22/24
07:49
WBC 0.5 L*
Hgb 7.4 L
Hct 23.4 L
Plt Count 78 L
APTT 106.7 H
Sodium 131 L
Potassium 3.9
Chloride 97 L
Carbon Dioxide 29
BUN 9
Creatinine 0.5 L
Glucose 96
Calcium 8.7
Vital Signs:
Vital Signs
Temp Pulse Resp BP Pulse Ox
98.1 F 82 12 111/54 100
12/22/24 07:00 12/22/24 07:00 12/22/24 07:00 12/22/24 07:00 12/22/24 07:00
I&O
12/21/24 12/22/24 12/23/24
06:59 06:59 06:59
Intake Total 150 / 150 375 / 375
Output Total 400 / 400
Balance -250 / -250 375 / 375
Review of Systems
-
History Source: Patient
EENT: Reports Sore Throat
Respiratory: Reports Cough and Pleurisy
Cardiac: Reports No Symptoms
Abdomen/GI: Reports No Symptoms and Other (Pain at injection sites)
Skin: Reports No Symptoms
Neuro: Reports No Symptoms
Physical Exam
-
General: No Apparent Distress and Comfortable
HEENT: Normocephalic and Thrush
Respiratory: Rhonchi
Cardiac: Regular Rhythm and S1/S2
GI: Soft, Nondistended, Normal Bowel Sounds and Tender (Tender at injection sites, but otherwise nontender)
Musculoskeletal: No Cyanosis and No Edema
Skin: Warm and Dry
Neuro: AO x 3
Psych: Calm
[2024-12-22 15:00] VITALS: BP 112/60
--- NOTE | 2024-12-22 15:26 | CM ---
CM reviewed chart, consult received for starr check of Eliquis. CM spoke with patients pharmacy- Eliquis covered fully. CM will continue to follow for all discharge planing.
Plan; home, watch for VN needs
[2024-12-22] MEDS: NON-FORMULARY ITEM 400 MG PO (16:51)
[2024-12-22 23:23] VITALS: BP 112/62
[2024-12-23] VITALS (12 sets, daily range): BP systolic 83–129; BP diastolic 58–70; BMI 20.1
[2024-12-23 06:45] LABS: APTT 57.7 Sec (23.4-35.0)
--- NOTE | 2024-12-23 06:48 | W.PN.ONC2 ---
Today's Communication / Plan
-
daily CBC with diff
neutropenic precautions
transfuse prn
continue Venclexta
Impression
Impression
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
pancytopenia secondary to leukemia
PNA-neutropenic
bilateral masslike opacities-small pleural effusions -new compared to Mar 2024 -former smoker, asbestos exposure
Small left upper lobe pulmonary embolism
Plan
Plan
heparin gtt to DOAC at discharge
transfuse platelets <10, <20 if febrile, <50 if bleeding or pre-procedure
CMV negative, irradiated products since transplant candidate
will continue Venclexta/ Vidaza induction for new AML while hospitalized and treat infections concurrently - as per Dr. Lopez - [facility] oncologist
symptoms support with antiemetics prn
bowel regimen prn constipation
high risk for fungal infection due to AML - pulmonary and ID following - considering percutaneous biopsy
if vori is started -Venclexta will need to be dose reduced with interaction
continue viral ppx
trend uric acid/LDH, allopurinol -no evidence TLS
f/u galactomannan, Beta-D glucan
antibiotics as per ID
hyponatremia
Will continue to follow with you
Subjective/Objective
Subjective
sore throat, using lozenges
Tmax 100.2F 12/21
denies pain or bleeding
ambulating
Vital Signs:
Vital Signs
Temp Pulse Resp BP Pulse Ox
97.8 F 87 18 112/62 100
12/22/24 23:23 12/22/24 23:23 12/22/24 23:23 12/22/24 23:23 12/22/24 23:23
Lab Results:
Laboratory Data
WBC 0.5 10^3/uL (4.8-10.8) L* 12/22/24 07:49
Hgb 7.4 g/dL (13.0-18.0) L 12/22/24 07:49
Plt Count 78 10^3/uL (130-400) L 12/22/24 07:49
APTT 106.7 Sec (23.4-35.0) H 12/22/24 07:49
eGFR > 60.00 12/22/24 07:49
Physical Exam
HEENT: Moist Mucous Membranes; No Jaundice
Pulmonary: Other (unlabored)
GI: Soft and Other (tender to palpate at ab injection sites)
Extremities: Pulses Present; No Edema
Orders
Orders
Orders From Last 24 Hours
12/22/24 07:49
BMP [Basic Metabolic Panel] IN AM
CBC/With Diff [Complete Blood Count/With Diff] IN AM
LDH IN AM
Uric Acid IN AM
12/22/24 08:30
Ondansetron HCl [Zofran] 8 mg PO ONCE ONE
12/22/24 09:00
Azacitidine [Vidaza] 69 mg Syringe [Syringe Non-Pump] 0 ml SC Q5M
12/23/24 06:23
CBC/With Diff [Complete Blood Count/With Diff] IN AM
Comprehensive Metabolic Panel Routine
Direct Bilirubin Routine
LDH IN AM
Uric Acid IN AM
12/24/24 06:00
BMP [Basic Metabolic Panel] IN AM
CBC/With Diff [Complete Blood Count/With Diff] IN AM
LDH IN AM
Uric Acid IN AM
12/25/24 06:00
BMP [Basic Metabolic Panel] IN AM
CBC/With Diff [Complete Blood Count/With Diff] IN AM
LDH IN AM
Uric Acid IN AM
[2024-12-23 06:53] LABS: Hematocrit 22.3 % (39.0-52.0); Hemoglobin 7.0 g/dL (13.0-18.0); Mean Corp Hgb Conc. 31.4 g/dL (33.0-37.0); Mean Corpuscular Volume 91.0 fL (80.0-94.0); Platelet Count 72 10^3/uL (130-400); Red Cell Dist. Width 18.2 % (11.5-14.5)
[2024-12-23 06:59] LABS: ALT (SGPT) 25 U/L (0-50); AST (SGOT) 20 U/L (17-59); Albumin 3.0 g/dl (3.5-5.0); Alkaline Phosphatase 66 U/L (38-126); Blood Urea Nitrogen 9 mg/dl (9-20); Calcium 8.8 mg/dl (8.4-10.2); Carbon Dioxide 29 mmol/L (22-30); Chloride 98 mmol/L (98-107); Estimated Creatinine Clearance 119 ml/min; Glucose 99 mg/dl (70-99); LDH 363 U/L (120-246); Potassium 4.4 mmol/L (3.5-5.1); Sodium 130 mmol/L (135-145); Total Protein 6.1 g/dl (6.3-8.2); Uric Acid 1.5 mg/dl (3.5-8.5); eGFR > 60.00
[2024-12-23] MEDS: ZOVIRAX 400 MG PO ×2 (07:23→20:16)
[2024-12-23] MEDS: ZYLOPRIM 300 MG PO (07:23)
[2024-12-23] MEDS: MIRALAX 17 GRAMS PO (07:23)
[2024-12-23] MEDS: NSS (PRESERVATIVE FREE) 10 ML IV (07:24)
[2024-12-23] MEDS: LIPITOR 10 MG PO (07:24)
[2024-12-23] MEDS: MYCELEX TROCHE 10 MG PO ×4 (07:24→22:12)
[2024-12-23] MEDS: COLACE 100 MG PO ×2 (07:24→20:16)
[2024-12-23] MEDS: MAGIC OR MIRACLE MOUTHWASH 5 ML PO ×2 (07:25→11:27)
[2024-12-23 07:51] LABS: Anisocytosis 1+; Hypochromasia 1+; Normal RBC Morphology No; Ovalocytes 1+; Platelets Checked Yes; Polychromasia 1+
[2024-12-23 07:52] LABS: Total Cells Counted 100
[2024-12-23 07:53] LABS: Absolute Neutrophils -Man Diff 0.2 10^3/uL (1.4-6.5)
[2024-12-23] MEDS: ZOFRAN 8 MG PO (08:59)
[2024-12-23] MEDS: VIDAZA 2.76 MG SC ×2 (09:12)
--- NOTE | 2024-12-23 09:41 | W.PN.PUL.V3 ---
Today's Communication / Plan
-
IR biopsy
Antibiotics/antifungals, etc. per infectious disease and depending on biopsy results
Assessment
-
59-year-old man with past medical history noted. Admitted with chest pain not feeling well for the last several days. Patient reported cough with minimal phlegm production, 20 pound weight loss over the last several weeks due to poor appetite.
Developed mucositis with chemotherapy. CT chest demonstrated multifocal masslike opacities. We were consulted for evaluation of abnormal CT chest.
Abnormal CT chest
Bilateral masslike opacities
Small pleural effusions
MDS with AML conversion
Pancytopenia ANC less than 500
Small left upper lobe pulmonary embolism-unclear significance.
Conditions present prior admission:
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
Newly initiated Venclexta for now.
History of asbestos exposure
Possible prior granulomatous disease
Dyslipidemia
Former smoker
Former daily drinker-40+ pack year history of smoking
Plan
Respiratory status relatively stable
Supplemental oxygen weaned to room air
Nebulizers if needed-currently not bronchospastic
Aspiration precautions
CT chest 12/22/2024-bilateral nodular pulmonary parenchymal opacifications at least 3 of which show increased central cavitation compared to CT 12/17/2024, with differential including septic pulmonary emboli, atypical infections, Bandar's, and less
likely cavitary metastatic disease-abnormalities are new compared to March 2024
Patient is immunosuppressed with pancytopenia/neutropenia-s/p recent chemorx.
Suspect infectious etiology, lesions were not present back in March 2024.Less likely malignant.
Including bacterial/fungal(such Aspergillus).
Sputum culture was contaminant, not productive
Patient is at risk for/suspect opportunistic infection such as fungal/Aspergillus.
Initially on broad-spectrum antibiotics vancomycin and cefepime-both had been discontinued-observe off antibiotics
Infectious disease following-correspondence reviewed
Platelet has been stable.
Pulmonary consulted interventional radiology and the case was discussed
Percutaneous biopsy pending. Rule out invasive fungal infection.
Given time frame, will obtain repeat CT-- 12/22 obtained, most lesions are diminishing in size
Some lower lobe lesions have more central cavitations--would still pursue biopsy 12/23 given findings
Heparin drip continues for small pulmonary emboli
Follow-up PTT.
Oncology correspondence reviewed: Venclexta/ Vidaza induction for new AML while hospitalized and treat infections concurrently - as per Dr. John NEVAREZ oncologist
Pancytopenia: Immunosuppression on hold
Follow CBC platelet count 90,000.
Transfuse as necessary
Weight loss-20 pounds over the last several weeks. Patient stated he developed mucositis on chemotherapy.
DVT prophylaxis on heparin
Nutrition
Early mobilization
Outpatient pulmonary [facility]. Jimenez
Subjective Data
-
Date of Service:
Date of Service: December 23, 2024
Chief Complaint: Pulmonary Follow Up (Bilateral pneumonia) and Dyspnea Follow Up
Subjective:
Overall feels significantly improved, no shortness of breath, nonproductive cough, no chest pain, hemoptysis, abdominal pain, decreased appetite reported
Review of Systems
General: Other (Per HPI)
Objective Data
Data Reviewed
Vital Signs / I&O:
Vital Signs
Temp Pulse Resp BP Pulse Ox
98.2 F 84 18 113/67 99
12/23/24 07:00 12/23/24 07:00 12/23/24 07:00 12/23/24 07:00 12/23/24 07:00
Intake and Output
12/22/24 12/23/24 12/24/24
06:59 06:59 06:59
Intake Total 375 / 375 480 / 480 480 / 480
Output Total 450 / 450
Balance 375 / 375 30 / 30 480 / 480
SaO2: 99
Nasal Cannula flow liters per minute: 2
Physical Exam
General: Respiratory Distress (n), Comfortable, Good Appetite and Other (Thin appearing)
HEENT: Normocephalic, Anicteric and Moist Mucous Membranes
Cardiovascular: Regular Rhythm
Respiratory: Wheeze (n), Crackles ( rare basilar greater than right), Non-Labored Respirations, Accessory Resp Muscle Use (n) and Stridor
GI: Soft, Non Distended and Non Tender
Neurology: Awake, Alert and No Motor Deficits
Skin: Warm, Good Color, Cyanosis (n), Jaundice (n) and Rash (n)
Labs/Micro/Reports
Lab Data
12/23/24 06:23
12/23/24 06:23
Laboratory Results
12/23/24 12/23/24
09:31
PT Cancelled
INR Cancelled
APTT 57.7 H
Microbiology
12/18/24 04:22 Blood/Venous Blood Culture - Final
No Growth - Final Report
12/17/24 23:46 Blood/Venous Blood Culture - Final
No Growth - Final Report
[2024-12-23 09:56] LABS: INR 1.30; PT 16.4 Sec (11.4-14.6)
--- NOTE | 2024-12-23 11:54 | W.PN.ID1 ---
Date of Service
Date of Service: December 23, 2024
Today's Communication
Lung biopsy today.
Assessment / Plan
# Multifocal pulmonary mass-like opacities, 1 with central necrosis
# Fever x 1, resolved
# Prolonged neutropenia
# Recent dx AML transformation from MDS
# Previous granulomatous disease in lungs, by CT
- Procalcitonin normal -> rules out bacterial PNA -> dc'd cefepime.
- Suspect fungal pneumonia - likely Aspergillosis
- serum Aspergillus galactomannan antigen: negative (sensitivity low)
- beta-d glucan assay (fungitell): negative (sensitivity low)
- For IR lung biopsy today.
Placed orders for fungal smear/cx, AFB s,ear/cx, tissue aerobic culture and cytology.
- After biopsy, can start empiric Voriconazole 200mg po bid pending data.
Chief Complaint
-: Pneumonia
Subjective / Review of Systems
Feels hungry, npo for lung biopsy.
No cough today.
Vital Signs / Physical Exam
Vital Signs
Vital Signs
Temp Pulse Resp BP Pulse Ox
98.2 F 84 18 113/67 99
12/23/24 07:00 12/23/24 07:00 12/23/24 07:00 12/23/24 07:00 12/23/24 09:41
Physical Exam
Constitutional: No Acute Distress
Cardiovascular: Regular Rate and S1/S2
Pulmonary: Clear
Gastrointestinal: Soft, Non Tender and Non Distended
Neurological: AO x 3
Objective Data
Lab Data
Lab Results
12/23/24 06:23
12/23/24 06:23
PT Cancelled 12/23/24 09:31
INR Cancelled 12/23/24 09:31
APTT 57.7 Sec (23.4-35.0) H 12/23/24 06:23
Estimated Creat Clear 119 ml/min 12/23/24 06:23
Lactic Acid 0.9 mmol/L (0.7-2.0) 12/17/24 23:46
Total Bilirubin 1.0 mg/dl (0.2-1.3) 12/23/24 06:23
AST 20 U/L (17-59) 12/23/24 06:23
ALT 25 U/L (0-50) 12/23/24 06:23
Alkaline Phosphatase 66 U/L (38-126) 12/23/24 06:23
Most recent labs reviewed.
Micro Results:
12/18/24 04:22 Blood Culture - Final
Blood/Venous No Growth - Final Report
12/17/24 23:46 Blood Culture - Final
Blood/Venous No Growth - Final Report
12/18/24 11:39 Respiratory Culture - Final
Sputum Gram Stain - Final
12/18/24 10:35 Nasal Screen MRSA (PCR) - Final
Nose MRSA not detected - performed by PCR methodology.
12/17/[address]: Small embolism in the left upper lobe proximal apical segmental pulmonary artery. No evidence of right ventricular heart strain. Posterior right costophrenic angle pneumonia and atelectasis. Multifocal rounded masslike opacities
are demonstrated in the upper and lower lobes, bilaterally. Differential includes metastatic disease versus multifocal pneumonia. One of the lesions in the right lower lobe has central lucency, suggesting central necrosis.
12/17/24 CXR: Bilateral multifocal indistinct localized and confluent parenchymal opacities. Possible considerations include multifocal pneumonia versus indistinct pulmonary masses, such as metastatic disease. No pneumothorax. No pleural effusion
appreciated. Calcified pleural plaque at diaphragmatic margins. Normal heart size. No vascular congestion or congestive heart failure.
--- NOTE | 2024-12-23 12:05 | W.PN.HOSP.TC ---
Today's Communication/Plan
-
- awaiting lung biopsy
Assessment / Plan
Assessment / Plan
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
Pancytopenia
Severe neutropenia (ab neut 0.2)
-Heme/onc following
-continue venetoclax and azacitidine induction for new AML while hospitalized as per Dr. John NEVAREZ oncologist in hopes of future curative transplant
-Uric acid level 1.5 downtrending from 1.9, continue allopurinol
-Hemoglobin is 7.0 today, 1 unit cmv negative irradiated blood given, no clinical signs of active bleed
-Transfuse for hg <7 and plt < 10 unless active bleeding then for <50
-Monitor CBC
- continue on acyclovir to prevent opportunistic infections
2. Sepsis secondary to right lower lobe pneumonia (resolved)
Multifocal pulmonary lesions
-Febrile, leukopenia, tachycardia and tachypnea on admission
-Chest CT revealed multifocal round masslike opacities in upper and lower lobes. 1 in the right lower lobe has a small central lucent focus suspicious for central necrosis. Mild bilateral pleural thickening and mild scattered calcified pleural
plaque noted as well.
-Infectious disease consulted and they suspect fungal pneumonia, likely aspergillosis
-fungal smear/cx, AFB s,ear/cx, tissue aerobic culture and cytology pending
-Sputum culture (-), Prelim blood cultures (-), Beta D glucan assay pending
- Scheduled for lung biopsy today via IR
-Can start voriconazole 200mg BID after biopsy
3. left upper lobe pulmonary embolism
-Heparin drip per heme/onc and pulm okay for anti-coagulation, Transition to Eliquis after biopsy.
4. Hyponatremia
-today 130, trending down from 131 yesterday, patient is currently on fluids
- urine sodium less than 20, urine osmolality more than 100, and serum sodium of 130 indicate hypovolemic hyponatremia
-Monitor
5. Mucositis
- As needed Magic mouthwash
6. Thrush
-mycelex
7. HLD
- continue on atorvastatin 10 mg
Full Code
DVT - heparin drip
Anticipated Discharge: 24 - 48 hours
Subjective/Interval History
-
Date of Service: December 23, 2024
Patient is a 59-year-old male, with a history of myelodysplastic syndrome with transformation to AML currently receiving treatment with Venclexta and azacitidine, presents to the emergency department with shortness of breath/chest pain/nonproductive
cough/weight loss. Initial labs showed hemoglobin of 7.5 and (then on the second of admission showed 6.9 for which she received 1 unit of blood), WBC of 1.2. Patient also met sepsis criteria on admission, source of infection was suspected
suspected to be right lower lobe pneumonia, cefepime was started however Pro-Shiraz was negative so decided is not a bacterial cause and discontinued. Initial imaging included chest x-ray which showed possible multifocal pneumonia versus pulmonary
masses which could be metastatic disease. Chest CT revealed multifocal round masslike opacities 1 in the right lower lobe with small central lucent focus suspicious for central necrosis. Pulmonology and infectious disease were both consulted and
think it is an infectious disease most likely aspergillosis. Planning to get tissue culture via biopsy by interventional radiology, we will do it today.
Oncology consulted and decided to start Venclexta and azacitidine induction for new AML as per Dr. Viveros suggestion who is an oncologist at [facility] in hopes of future curative transplant.
Small left upper lobe pulmonary embolism detected so heparin drip was started per heme-onc.
Today no fever/chills/nausea/vomiting/dizziness/palpitations/syncope/shortness of breath.
Objective Data
-
Labs:
Laboratory Results
12/23/24 12/23/24
06:23 09:31
WBC 0.5 L*
Hgb 7.0 L
Hct 22.3 L
Plt Count 72 L
PT 16.4 H Cancelled
INR 1.30 Cancelled
APTT 57.7 H
Sodium 130 L
Potassium 4.4
Chloride 98
Carbon Dioxide 29
BUN 9
Creatinine 0.5 L
Glucose 99
Calcium 8.8
Total Bilirubin 1.0
AST 20
ALT 25
Alkaline Phosphatase 66
Vital Signs:
Vital Signs
Temp Pulse Resp BP Pulse Ox
98.2 F 84 18 113/67 99
12/23/24 07:00 12/23/24 07:00 12/23/24 07:00 12/23/24 07:00 12/23/24 09:41
I&O
12/22/24 12/23/24 12/24/24
06:59 06:59 06:59
Intake Total 375 / 375 480 / 480 480 / 480
Output Total 450 / 450
Balance 375 / 375 30 / 30 480 / 480
Review of Systems
-
History Source: Patient
EENT: Reports No Symptoms Reported
Respiratory: Reports Cough and Pleurisy
Cardiac: Reports No Symptoms
Abdomen/GI: Reports No Symptoms and Other (Pain at injection sites)
Skin: Reports No Symptoms
Neuro: Reports No Symptoms
Physical Exam
-
General: No Apparent Distress and Comfortable
HEENT: Normocephalic
Respiratory: Rhonchi (heard bilaterally)
Cardiac: Regular Rhythm and S1/S2
GI: Soft, Nondistended, Normal Bowel Sounds and Tender (Tender at injection sites, but otherwise nontender)
Musculoskeletal: No Clubbing, No Cyanosis and No Edema
Skin: Warm and Dry
Neuro: Awake, Alert, Oriented and AO x 3
Psych: Calm
Data Reviewed
-
CT Scan: Report Reviewed by me and Discussed with Physician
Labs: Labs Reviewed by me and Discussed with Physician
--- NOTE | 2024-12-23 12:25 | W.PN.UPDATE ---
Update Note
Progress Note Update
I saw and evaluated the patient. I reviewed the resident�s note and agree with findings and plan as documented in the resident�s note.
No new complaints.
Gen: NAD, Awake and alert
Eyes: EOMI, PERRLA, no scleral icterus.
Neck: supple.
CV: RRR, +S1/S2, no m/r/g.
Resp: CTAB, no rales, wheezes, or rhonchi.
Abd: +BS, soft, NT, ND
Skin: No rashes.
Neuro: CN 2-12 intact, non-focal.
Psych: Normal mood and affect.
CT chest 12/22/24: Bilateral nodular pulmonary parenchymal opacities, at least 3 of which show increased central cavitation compared to the chest CT from 12/17/2024. Potential considerations would include septic pulmonary emboli, atypical infection,
Bandar's granulomatosis, probably less likely cavitary metastases but not excluded.
Sepsis:
-due to RLL PNA
-procal NEG, bacterial PNA has been ruled out (Cefepime stopped)
-serum Aspergillus galactomannan antigen and Beta-D glucan assay both NEG (but both with low sensitivity)
-concern for fungal pneumonia as per ID, for lung Bx today (fungal smear/Cx, AFB smear/Cx, tissue aerobic culture, and cytology ordered by ID) followed by initiation of Voriconazole 200mg PO BID
MDS s/p transformation to AML:
-ONC following
-with pancytopenia/neutropenia
-cont inpt chemo with Venclexta/Vidaza
-cont Acyclovir
Small SUZIE PE:
-cont heparin gtt
-will resume Eliquis post-lung Bx
Hyponatremia:
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
-initiate FR
Other problems:
Mild gaseous thickening along esophagus: PPI stopped
HLD: cont statin
FULL/heparin gtt
[2024-12-23] MEDS: MYCELEX TROCHE PO (16:17)
[2024-12-23] MEDS: NON-FORMULARY ITEM 400 MG PO (19:27)
--- NOTE | 2024-12-23 19:35 | W.PN.UPDATE ---
Update Note
Progress Note Update
started patient on voriconazole 200 mg bid Empiric treatment as per ID recc. Also started patient on eliquis 10 mg bid for 7 days, as patients heparin drip was dc'd today.
[2024-12-23] MEDS: VFEND 200 MG PO (20:16)
[2024-12-23] MEDS: ELIQUIS 10 MG PO (20:16)
[2024-12-24 06:00] VITALS: BMI 20.1
[2024-12-24] MEDS: MYCELEX TROCHE 10 MG PO ×5 (07:35→20:04)
[2024-12-24] MEDS: COLACE 100 MG PO ×2 (07:35→20:04)
[2024-12-24] MEDS: ELIQUIS 10 MG PO (07:35)
[2024-12-24] MEDS: ZOVIRAX 400 MG PO ×2 (07:35→20:04)
[2024-12-24] MEDS: ZYLOPRIM 300 MG PO (07:35)
[2024-12-24] MEDS: MIRALAX 17 GRAMS PO (07:35)
[2024-12-24] MEDS: LIPITOR 10 MG PO (07:36)
[2024-12-24 07:49] LABS: Hematocrit 26.5 % (39.0-52.0); Hemoglobin 8.4 g/dL (13.0-18.0); Mean Corp Hgb Conc. 31.7 g/dL (33.0-37.0); Mean Corpuscular Volume 91.1 fL (80.0-94.0); Nucleated Red Blood Cells % 0 % (-); Platelet Count 75 10^3/uL (130-400); Red Cell Dist. Width 17.7 % (11.5-14.5)
[2024-12-24 07:56] VITALS: BP 115/66
--- NOTE | 2024-12-24 08:20 | W.PN.ONC2 ---
Today's Communication / Plan
-
daily CBC with diff
neutropenic precautions
transfuse prn
continue Venclexta
follow lung cultures
Impression
Impression
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
pancytopenia secondary to leukemia
PNA, galactomannan, Beta-D glucan. S/P lung bx 12/20
bilateral masslike opacities-small pleural effusions -new compared to Mar 2024 -former smoker, asbestos exposure
Small left upper lobe pulmonary embolism
Plan
Plan
heparin gtt to DOAC at discharge
transfuse platelets <10, <20 if febrile, <50 if bleeding or pre-procedure
CMV negative, irradiated products since transplant candidate
will continue Venclexta/ Vidaza induction for new AML while hospitalized and treat infections concurrently - as per Dr. Lopez [facility] oncologist
symptoms support with antiemetics prn
if vori is started -Venclexta will need to be dose reduced with interaction
continue viral ppx
trend uric acid/LDH, allopurinol -no evidence TLS
antibiotics as per ID
follow lung cultures
hyponatremia
Will continue to follow with you
Subjective/Objective
Subjective
no new complaints
denies bleeding
Vital Signs:
Vital Signs
Temp Pulse Resp BP Pulse Ox
98.5 F 83 18 115/66 98
12/24/24 07:56 12/24/24 07:56 12/24/24 07:56 12/24/24 07:56 12/24/24 07:56
Lab Results:
Laboratory Data
WBC 0.4 10^3/uL (4.8-10.8) L* 12/24/24 07:09
Hgb 8.4 g/dL (13.0-18.0) L 12/24/24 07:09
Plt Count 75 10^3/uL (130-400) L 12/24/24 07:09
PT Cancelled 12/23/24 09:31
INR Cancelled 12/23/24 09:31
APTT 57.7 Sec (23.4-35.0) H 12/23/24 06:23
eGFR > 60.00 12/23/24 06:23
Physical Exam
HEENT: No Jaundice
Pulmonary: Other (unlabored)
GI: Soft
Extremities: Pulses Present
Orders
Orders
Orders From Last 24 Hours
12/23/24 08:30
Ondansetron HCl [Zofran] 8 mg PO ONCE ONE
12/23/24 09:00
Azacitidine [Vidaza] 69 mg Syringe [Syringe Non-Pump] 0 ml SC Q5M
12/24/24 07:09
BMP [Basic Metabolic Panel] IN AM
CBC/With Diff [Complete Blood Count/With Diff] IN AM
LDH IN AM
Uric Acid IN AM
12/24/24 08:30
Ondansetron HCl [Zofran] 8 mg PO ONCE ONE
12/24/24 09:00
Azacitidine [Vidaza] 69 mg Syringe [Syringe Non-Pump] 0 ml SC Q5M
12/25/24 06:00
BMP [Basic Metabolic Panel] IN AM
CBC/With Diff [Complete Blood Count/With Diff] IN AM
LDH IN AM
Uric Acid IN AM
[2024-12-24 08:23] LABS: Blood Urea Nitrogen 10 mg/dl (9-20); Calcium 8.8 mg/dl (8.4-10.2); Carbon Dioxide 30 mmol/L (22-30); Chloride 98 mmol/L (98-107); Estimated Creatinine Clearance 118 ml/min; Glucose 99 mg/dl (70-99); LDH 380 U/L (120-246); Potassium 4.4 mmol/L (3.5-5.1); Sodium 130 mmol/L (135-145); Uric Acid 1.7 mg/dl (3.5-8.5); eGFR > 60.00
--- NOTE | 2024-12-24 08:58 | W.PN.PUL.V3 ---
Today's Communication / Plan
-
Heparin converted to Eliquis
Await CT needle biopsy results
Empiric voriconazole initiated
Outpatient radiographic follow-up
Outpatient pulmonary follow-up
Assessment
-
59-year-old man with past medical history noted. Admitted with chest pain not feeling well for the last several days. Patient reported cough with minimal phlegm production, 20 pound weight loss over the last several weeks due to poor appetite.
Developed mucositis with chemotherapy. CT chest demonstrated multifocal masslike opacities. We were consulted for evaluation of abnormal CT chest.
Abnormal CT chest
Bilateral masslike opacities
Status post CT needle lung biopsy-right upper lobe
Small pleural effusions
MDS with AML conversion-venetoclax and azacitidine induction for new AML while hospitalized as per Dr. John NEVAREZ oncologist in hopes of future curative transplant
Pancytopenia ANC less than 500
Small left upper lobe pulmonary embolism-unclear significance.
Conditions present prior admission:
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
Newly initiated Venclexta for now.
History of asbestos exposure
Possible prior granulomatous disease
Dyslipidemia
Former smoker
Former daily drinker-40+ pack year history of smoking
Plan
Respiratory status relatively stable
Supplemental oxygen weaned to room air
Nebulizers if needed-currently not bronchospastic
Aspiration precautions
CT chest 12/22/2024-bilateral nodular pulmonary parenchymal opacifications at least 3 of which show increased central cavitation compared to CT 12/17/2024, with differential including septic pulmonary emboli, atypical infections, Bandar's, and less
likely cavitary metastatic disease-abnormalities are new compared to March 2024
Patient is immunosuppressed with pancytopenia/neutropenia-s/p recent chemorx.
Suspect infectious etiology, lesions were not present back in March 2024.Less likely malignant.
Including bacterial/fungal(such Aspergillus).
Sputum culture was contaminant, not productive
Patient is at risk for/suspect opportunistic infection such as fungal/Aspergillus.
Initially on broad-spectrum antibiotics vancomycin and cefepime-both had been discontinued-observe off antibiotics
Infectious disease following-correspondence reviewed
Serum Aspergillus galactomannan antigen and Beta-D glucan assay both negative-negative but both with low sensitivity
Voriconazole rems once daily empirically start by infectious disease
Platelet has been stable.
Pulmonary consulted interventional radiology and the case was discussed
Percutaneous biopsy 12/23/2024 [id number]-[id number]-ovri out invasive fungal infection.
Repeat CT chest 12/22/2024 -some lower lobe lesions have more central cavitations--would still pursue biopsy 12/23 given findings
Heparin drip continues for small pulmonary emboli-convert to Eliquis-started 12/23/24
Follow-up PTT.
Oncology correspondence reviewed: Venclexta/ Vidaza induction for new AML while hospitalized and treat infections concurrently - as per Dr. Lopez - [facility] oncologist
Pancytopenia: Immunosuppression on hold
Follow CBC platelet count 90,000.
Transfuse as necessary
Weight loss-20 pounds over the last several weeks. Patient stated he developed mucositis on chemotherapy.
DVT prophylaxis on heparin
Nutrition
Early mobilization
Outpatient pulmonary typxnm-xd-Hg. Jimenez
Subjective Data
-
Date of Service:
Date of Service: December 24, 2024
Chief Complaint: Pulmonary Follow Up (Bilateral pneumonia) and Dyspnea Follow Up
Subjective:
No complaints of worsening shortness of breath, has a nonproductive cough, no chest pain or abdominal pain
Review of Systems
General: Other (Per HPI)
Objective Data
Data Reviewed
Vital Signs / I&O:
Vital Signs
Temp Pulse Resp BP Pulse Ox
98.5 F 83 18 115/66 98
12/24/24 07:56 12/24/24 07:56 12/24/24 07:56 12/24/24 07:56 12/24/24 07:56
Intake and Output
12/23/24 12/24/24 12/25/24
06:59 06:59 06:59
Intake Total 480 / 480 1829
Output Total 450 / 450
Balance 1829
SaO2: 98
Nasal Cannula flow liters per minute: 2
Physical Exam
General: Respiratory Distress (n), Comfortable, Good Appetite and Other (Thin appearing)
HEENT: Normocephalic, Anicteric and Moist Mucous Membranes
Cardiovascular: Regular Rhythm
Respiratory: Wheeze (n), Crackles ( rare basilar greater than right), Non-Labored Respirations, Accessory Resp Muscle Use (n) and Stridor
GI: Soft, Non Distended and Non Tender
Neurology: Awake, Alert and No Motor Deficits
Skin: Warm, Good Color, Cyanosis (n), Jaundice (n) and Rash (n)
Labs/Micro/Reports
Lab Data
12/24/24 07:09
12/24/24 07:09
Laboratory Results
12/23/24 12/23/24
06:23 09:31
PT 16.4 H Cancelled
INR 1.30 Cancelled
Microbiology
12/23/24 12:29 Lung - Right Gram Stain - Preliminary
12/23/24 12:27 Lung - Right Fungal Culture - Preliminary
Culture in progress.
Positive cultures are reported as soon as detected.
Final report to follow in four to five weeks.
12/18/24 04:22 Blood/Venous Blood Culture - Final
No Growth - Final Report
12/17/24 23:46 Blood/Venous Blood Culture - Final
No Growth - Final Report
[2024-12-24] MEDS: ZOFRAN 8 MG PO (09:28)
[2024-12-24] MEDS: VIDAZA 2.76 MG SC ×2 (09:29→09:30)
--- NOTE | 2024-12-24 10:22 | W.PN.UPDATE ---
Update Note
Progress Note Update
I saw and evaluated the patient. I reviewed the resident�s note and agree with findings and plan as documented in the resident�s note.
No new complaints. Denies CP/SOB.
Gen: NAD, Awake and alert
Eyes: EOMI, PERRLA, no scleral icterus.
Neck: supple.
CV: remains RRR, +S1/S2, no m/r/g.
Resp: CTAB anteriorly, no rales, wheezes, or rhonchi.
Abd: remains +BS, soft, NT, ND
Skin: No rashes.
Neuro: CN 2-12 intact, non-focal.
Psych: Normal mood and affect.
12/23/24 12:29 Lung - Right Gram Stain - Preliminary
12/23/24 12:27 Lung - Right Fungal Culture - Preliminary
Culture in progress.
Positive cultures are reported as soon as detected.
Final report to follow in four to five weeks.
12/18/24 04:22 Blood/Venous Blood Culture - Final
No Growth - Final Report
12/17/24 23:46 Blood/Venous Blood Culture - Final
No Growth - Final Report
12/18/24 11:39 Sputum Respiratory Culture - Final
12/18/24 11:39 Sputum Gram Stain - Final
12/18/24 10:35 Nose Nasal Screen MRSA (PCR) - Final
MRSA not detected - performed by PCR methodology.
CT chest 12/22/24: Bilateral nodular pulmonary parenchymal opacities, at least 3 of which show increased central cavitation compared to the chest CT from 12/17/2024. Potential considerations would include septic pulmonary emboli, atypical infection,
Bandar's granulomatosis, probably less likely cavitary metastases but not excluded.
Sepsis:
-due to RLL PNA
-procal NEG, bacterial PNA has been ruled out (Cefepime stopped)
-serum Aspergillus galactomannan antigen and Beta-D glucan assay both NEG (but both with low sensitivity)
-concern for fungal pneumonia as per ID, s/p R lung Bx 12/23/24 (fungal smear/Cx, AFB smear/Cx, tissue aerobic culture, and cytology ordered by ID, follow)
-empiric Voriconazole 200mg PO BID started 12/23/24PM
MDS s/p transformation to AML:
-ONC following
-with pancytopenia/neutropenia
-cont inpt chemo with Venclexta/Vidaza
-cont Acyclovir
-afebrile
Small SUZIE PE:
-was on heparin gtt, now transitioned to Eliquis
Hyponatremia:
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
-initiate FR
Other problems:
Mild gaseous thickening along esophagus: PPI stopped
HLD: cont statin
FULL/eliquis
--- NOTE | 2024-12-24 10:23 | W.PN.HOSP.TC ---
Today's Communication/Plan
-
- await results of tissue biopsy
Assessment / Plan
Assessment / Plan
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
Pancytopenia
Severe neutropenia (ab neut 0.2)
-Heme/onc following
-continue venetoclax and azacitidine induction for new AML while hospitalized as per Dr. John NEVAREZ oncologist in hopes of future curative transplant
-Uric acid level 1.7, continue allopurinol
-Hemoglobin is 8.4 today, s/p 1 unit of cmv negative irradiated blood, no clinical signs of an acute bleed
-Transfuse for hg <7 and plt < 10 unless active bleeding then for <50
-Monitor CBC
- continue on acyclovir to prevent opportunistic infections
- Today patients absolute neutrophil count is 0.1, he is afebrile/no signs of early infection/ on chemotherapy, already on acyclovir for ppx, so continue to observe but start antibiotics if patients temperature goes above 100.4.
2. Sepsis secondary to right lower lobe pneumonia (resolved)
Multifocal pulmonary lesions
-Febrile, leukopenia, tachycardia and tachypnea on admission
-Chest CT revealed multifocal round masslike opacities in upper and lower lobes. 1 in the right lower lobe has a small central lucent focus suspicious for central necrosis. Mild bilateral pleural thickening and mild scattered calcified pleural
plaque noted as well.
-Infectious disease consulted and they suspect fungal pneumonia, likely aspergillosis
-fungal smear/cx, AFB s,ear/cx, tissue aerobic culture and cytology pending
-Sputum culture (-), Prelim blood cultures (-), Beta D glucan assay pending
- Lung biopsy done yesterday, results pending
-Started on empiric voriconazole 200mg BID after biopsy
3. left upper lobe pulmonary embolism
-Heparin drip dc'd, patient started on Eliquis 10 mg BID for 7 days, then 5 mg bid daily thereafter
4. Hyponatremia
-today 130, trending down from 131 yesterday, patient is currently on fluids
- urine sodium less than 20, urine osmolality more than 100, and serum sodium of 130 indicate hypovolemic hyponatremia
-Monitor
5. Mucositis
- As needed Magic mouthwash
6. Thrush
-mycelex
7. HLD
- continue on atorvastatin 10 mg
Full Code
DVT - heparin drip
Anticipated Discharge: 24 - 48 hours
Subjective/Interval History
-
Date of Service: December 24, 2024
overnight events- Changed patients heparin to 10 mg eliquid BID for 7 days, then 5 mg bid thereafter daily. Also started patient on voriconazole as per ID's recc.
No fatigue, fever, chills, nausea, vomiting, diarrhea, abdominal pain.
Objective Data
-
Labs:
Laboratory Results
12/24/24
07:09
WBC 0.4 L*
Hgb 8.4 L
Hct 26.5 L
Plt Count 75 L
Sodium 130 L
Potassium 4.4
Chloride 98
Carbon Dioxide 30
BUN 10
Creatinine 0.6 L
Glucose 99
Calcium 8.8
Vital Signs:
Vital Signs
Temp Pulse Resp BP Pulse Ox
98.5 F 83 18 115/66 98
12/24/24 07:56 12/24/24 07:56 12/24/24 07:56 12/24/24 07:56 12/24/24 08:58
I&O
12/23/24 12/24/24 12/25/24
06:59 06:59 06:59
Intake Total 480 / 480 1829
Output Total 450 / 450
Balance 1829
Review of Systems
-
History Source: Patient
EENT: Reports No Symptoms Reported
Respiratory: Reports Cough and Pleurisy
Cardiac: Reports No Symptoms
Abdomen/GI: Reports No Symptoms and Other (Pain at injection sites)
Skin: Reports No Symptoms
Neuro: Reports No Symptoms
Physical Exam
-
General: No Apparent Distress and Comfortable
HEENT: Normocephalic
Respiratory: Clear to Auscultation
Cardiac: Regular Rhythm and S1/S2
GI: Soft, Nondistended, Normal Bowel Sounds and Tender (Tender at injection sites, but otherwise nontender)
Musculoskeletal: No Clubbing, No Cyanosis and No Edema
Skin: Warm and Dry
Neuro: Awake, Alert, Oriented and AO x 3
Psych: Calm
Data Reviewed
-
Labs: Labs Reviewed by me and Discussed with Physician
[2024-12-24] MEDS: VFEND 200 MG PO ×2 (11:02→20:04)
--- NOTE | 2024-12-24 11:32 | W.PN.ID1 ---
Date of Service
Date of Service: December 24, 2024
Today's Communication
See below.
Assessment / Plan
# Multifocal pulmonary mass-like opacities, 1 with central necrosis
# Fever x 1, resolved
# Prolonged neutropenia
# Recent dx AML transformation from MDS
# Previous granulomatous disease in lungs, by CT
- Procalcitonin normal -> rules out bacterial PNA -> dc'd cefepime.
- Suspect fungal pneumonia - likely Aspergillosis
- serum Aspergillus galactomannan antigen: negative (sensitivity low)
- beta-d glucan assay (fungitell): negative (sensitivity low)
- 12/23/24 s/p IR lung biopsy
- Fungal smear/cx, AFB s,ear/cx, tissue aerobic culture and cytology all pending
- Continue empiric Voriconazole 200mg po bid.
- From ID standpoint can dc home with 1 months supply of Voriconazole while awaiting results. If fungal cx neg, will dc antifungal.
Discussed potential side effects with voriconazole.
- Consider prophylactic levofloxacin due to prolonged neutropenia.
Chief Complaint
-: Pneumonia
Subjective / Review of Systems
Feels well today. Tolerating voriconazole.
Vital Signs / Physical Exam
Vital Signs
Vital Signs
Temp Pulse Resp BP Pulse Ox
98.5 F 83 18 115/66 98
12/24/24 07:56 12/24/24 07:56 12/24/24 07:56 12/24/24 07:56 12/24/24 08:58
Physical Exam
Constitutional: No Acute Distress and Comfortable
Pulmonary: Clear
Gastrointestinal: Soft, Non Tender, Non Distended and Normal Bowel Sounds
Extremities: Negative Edema
Neurological: AO x 3
Objective Data
Lab Data
Lab Results
12/24/24 07:09
12/24/24 07:09
PT Cancelled 12/23/24 09:31
INR Cancelled 12/23/24 09:31
APTT 57.7 Sec (23.4-35.0) H 12/23/24 06:23
Estimated Creat Clear 118 ml/min 12/24/24 07:09
Lactic Acid 0.9 mmol/L (0.7-2.0) 12/17/24 23:46
Total Bilirubin 1.0 mg/dl (0.2-1.3) 12/23/24 06:23
AST 20 U/L (17-59) 12/23/24 06:23
ALT 25 U/L (0-50) 12/23/24 06:23
Alkaline Phosphatase 66 U/L (38-126) 12/23/24 06:23
Most recent labs reviewed.
Micro Results:
12/23/24 12:29 Tissue Culture - Preliminary
Lung - Right No Growth After 18-24 Hours
Gram Stain - Preliminary
12/23/24 12:27 Fungal Smear - Pending
Lung - Right Fungal Culture - Preliminary
Culture in progress.
Positive cultures are reported as soon as detected.
Final report to follow in four to five weeks.
12/20/24 12:28 Acid Fast Bacilli Smear - Pending
Lung - Right Acid Fast Bacilli Culture - Pending
12/18/24 04:22 Blood Culture - Final
Blood/Venous No Growth - Final Report
12/17/24 23:46 Blood Culture - Final
Blood/Venous No Growth - Final Report
12/18/24 11:39 Respiratory Culture - Final
Sputum Gram Stain - Final
12/18/24 10:35 Nasal Screen MRSA (PCR) - Final
Nose MRSA not detected - performed by PCR methodology.
12/17/[address]: Small embolism in the left upper lobe proximal apical segmental pulmonary artery. No evidence of right ventricular heart strain. Posterior right costophrenic angle pneumonia and atelectasis. Multifocal rounded masslike opacities
are demonstrated in the upper and lower lobes, bilaterally. Differential includes metastatic disease versus multifocal pneumonia. One of the lesions in the right lower lobe has central lucency, suggesting central necrosis.
12/17/24 CXR: Bilateral multifocal indistinct localized and confluent parenchymal opacities. Possible considerations include multifocal pneumonia versus indistinct pulmonary masses, such as metastatic disease. No pneumothorax. No pleural effusion
appreciated. Calcified pleural plaque at diaphragmatic margins. Normal heart size. No vascular congestion or congestive heart failure.
[2024-12-24 15:38] VITALS: BP 114/62
[2024-12-24] MEDS: NON-FORMULARY ITEM 400 MG PO (16:51)
[2024-12-24] MEDS: ELIQUIS PO ×2 (20:04→20:18)
--- NOTE | 2024-12-24 20:20 | PTCARENOTE ---
Pt states he bit the inside of his mouth on the R side and has gone through multiple gauze pads to try and control the bleeding. Approx 10 bloody gauze pads noted in trash. Jhonny RACECOURSE BARRIER ATTENDANT made aware and also made aware that pt is on eliquis and is due for
a dose at this time. Jhonny PANTOJA states to hold eliquis dose, have pt place gauze and not remove it, keep HOB elevated, and place ice to side of pt's face.
--- NOTE | 2024-12-24 22:21 | W.PN.UPDATE ---
Update Note
Progress Note Update
Patient found to have bitten his cheek earlier this shift with profuse bleeding noted. Held Eliquis, HOB elevated, Ice pack applied, gauze pads in mouth to hold pressure. Bleeding has slowed considerably. Downgraded diet to clear liquids for now.
[2024-12-24 23:05] VITALS: BP 111/63
[2024-12-25 06:00] VITALS: BMI 19.4
[2024-12-25 07:48] VITALS: BP 109/62
[2024-12-25] MEDS: COLACE 100 MG PO (07:55)
[2024-12-25] MEDS: LIPITOR 10 MG PO (07:56)
[2024-12-25] MEDS: MYCELEX TROCHE 10 MG PO ×2 (07:56→12:01)
[2024-12-25] MEDS: ZYLOPRIM 300 MG PO (07:56)
[2024-12-25] MEDS: MIRALAX 17 GRAMS PO (07:57)
[2024-12-25] MEDS: ZOVIRAX 400 MG PO (07:57)
[2024-12-25] MEDS: VFEND 200 MG PO (07:57)
--- NOTE | 2024-12-25 08:26 | W.PN.PUL.V3 ---
Today's Communication / Plan
-
.
Oxygen weaning.
Increase activity.
Antibiotics and antifungals per infectious disease.
CT needle lung biopsy- micro and pathology-pending
Stable for proposed discharge from a pulmonary perspective.
Reviewed with nursing
Assessment
-
59-year-old man with past medical history noted. Admitted with chest pain not feeling well for the last several days. Patient reported cough with minimal phlegm production, 20 pound weight loss over the last several weeks due to poor appetite.
Developed mucositis with chemotherapy. CT chest demonstrated multifocal masslike opacities. We were consulted for evaluation of abnormal CT chest.
Abnormal CT chest
Bilateral masslike opacities
Status post CT needle lung biopsy-right upper lobe
Small pleural effusions
MDS with AML conversion-venetoclax and azacitidine induction for new AML while hospitalized as per Dr. John NEVAREZ oncologist in hopes of future curative transplant
Pancytopenia ANC less than 500
Small left upper lobe pulmonary embolism-unclear significance.
Conditions present prior admission:
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
Newly initiated Venclexta for now.
History of asbestos exposure
Possible prior granulomatous disease
Dyslipidemia
Former smoker
Former daily drinker-40+ pack year history of smoking
Plan
Respiratory status continues to be stable
Supplemental oxygen weaned to room air now
Nebulizers if needed-currently not bronchospastic
Aspiration precautions
CT chest 12/22/2024-bilateral nodular pulmonary parenchymal opacifications at least 3 of which show increased central cavitation compared to CT 12/17/2024, with differential including septic pulmonary emboli, atypical infections, Bandar's, and less
likely cavitary metastatic disease-abnormalities are new compared to March 2024
Patient is immunosuppressed with pancytopenia/neutropenia-s/p recent chemorx.
Suspect infectious etiology, lesions were not present back in March 2024.Less likely malignant.
Including bacterial/fungal(such Aspergillus).
Sputum culture was contaminant, not productive
Patient is at risk for/suspect opportunistic infection such as fungal/Aspergillus..
Needle biopsy of the lungs-AFB, fungal stains and cultures pending, tissue, no growth after 48 hours, pathology pending
Initially on broad-spectrum antibiotics vancomycin and cefepime-both had been discontinued-observe off antibiotics
Infectious disease following-correspondence reviewed
Serum Aspergillus galactomannan antigen and Beta-D glucan assay both negative-negative but both with low sensitivity
Voriconazole rems once daily empirically start by infectious disease
Platelet has been stable.
Pulmonary consulted interventional radiology and the case was discussed
Percutaneous biopsy 12/23/2024 glvrhlocl-spihtps-noks out invasive fungal infection.
Repeat CT chest 12/22/2024 -some lower lobe lesions have more central cavitations--would still pursue biopsy 12/23 given findings
Heparin drip continues for small pulmonary emboli-convert to Eliquis-started 12/23/24
Follow-up PTT.
Oncology correspondence reviewed: Venclexta/ Vidaza induction for new AML while hospitalized and treat infections concurrently - as per Dr. John NEVAREZ oncologist
Pancytopenia: Immunosuppression on hold
Follow CBC platelet count 90,000.
Transfuse as necessary
Weight loss-20 pounds over the last several weeks. Patient stated he developed mucositis on chemotherapy.
DVT prophylaxis on heparin
Nutrition
Early mobilization..
Reviewed with nursing
Stable for discharge from a pulmonary perspective
Outpatient pulmonary uzayat-ii-Xn. Jimenez
Subjective Data
-
Date of Service:
Date of Service: December 25, 2024
Chief Complaint: Pulmonary Follow Up (Bilateral pneumonia) and Dyspnea Follow Up
Subjective:
No complaints shortness of breath, productive cough, chest congestion, anxious for discharge
Review of Systems
General: Other ( per HPI)
Objective Data
Data Reviewed
Vital Signs / I&O:
Vital Signs
Temp Pulse Resp BP Pulse Ox
98.9 F 76 16 109/62 99
12/25/24 07:48 12/25/24 07:48 12/25/24 07:48 12/25/24 07:48 12/25/24 07:48
Intake and Output
12/24/24 12/25/24 12/26/24
06:59 06:59 06:59
Intake Total 0 / 0 960 / 960 480 / 480
Output Total 375 / 375
Balance 1830 / 1830 960 / 960 105 / 105
SaO2: 99
Nasal Cannula flow liters per minute: 2
Physical Exam
General: Respiratory Distress (n), Comfortable, Good Appetite and Other (Thin appearing)
HEENT: Normocephalic, Anicteric and Moist Mucous Membranes
Cardiovascular: Regular Rhythm
Respiratory: Wheeze (n), Crackles ( rare basilar greater than right), Non-Labored Respirations, Accessory Resp Muscle Use (n) and Stridor
GI: Soft, Non Distended and Non Tender
Neurology: Awake, Alert and No Motor Deficits
Skin: Warm, Good Color, Cyanosis (n), Jaundice (n) and Rash (n)
Labs/Micro/Reports
Microbiology
12/23/24 12:29 Lung - Right Tissue Culture - Preliminary
No Growth After 18-24 Hours
12/23/24 12:29 Lung - Right Gram Stain - Preliminary
12/23/24 12:27 Lung - Right Fungal Culture - Preliminary
Culture in progress.
Positive cultures are reported as soon as detected.
Final report to follow in four to five weeks.
12/18/24 04:22 Blood/Venous Blood Culture - Final
No Growth - Final Report
12/17/24 23:46 Blood/Venous Blood Culture - Final
No Growth - Final Report
--- NOTE | 2024-12-25 08:58 | W.PN.ONC2 ---
Today's Communication / Plan
-
discharge planning
anti-infectives per ID
continue Venclexta dose reduced while on vori reviewed with pt and daughter at bedside
Updates provided and questions answered to daughter at bedside
Impression
Impression
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
pancytopenia secondary to leukemia
PNA, galactomannan, Beta-D glucan. S/P lung bx 12/20
bilateral masslike opacities-small pleural effusions -new compared to Mar 2024 -former smoker, asbestos exposure
Small left upper lobe pulmonary embolism
Plan
Plan
heparin gtt transitioned to DOAC 12/24
transfuse platelets <10, <20 if febrile, <50 if bleeding or pre-procedure
CMV negative, irradiated products since transplant candidate
will continue Venclexta/ Vidaza induction for new AML while hospitalized and treat infections concurrently - as per Dr. Lopez - [facility] oncologist -vidaza C3D1-7 completed 12/24
Venclexta dose reduced to 100mg daily due to strong CYP3A inhibitor when given concurrently with voriconazole. 21 day cycle started 12/16- discussed dosing & duration with pharmacy via [employer]
follow lung cultures -voriconazole started 12/23
continue viral ppx
trend uric acid/LDH, allopurinol -no evidence TLS
antibiotics as per ID
Subjective/Objective
Subjective
no new complaints
using ondansetron for nausea
using mirlax daily
ambulating
eager for discharge
Vital Signs:
Vital Signs
Temp Pulse Resp BP Pulse Ox
98.9 F 76 16 109/62 99
12/25/24 07:48 12/25/24 07:48 12/25/24 07:48 12/25/24 07:48 12/25/24 08:26
Lab Results:
Laboratory Data
WBC 0.4 10^3/uL (4.8-10.8) L* 12/24/24 07:09
Hgb 8.4 g/dL (13.0-18.0) L 12/24/24 07:09
Plt Count 75 10^3/uL (130-400) L 12/24/24 07:09
PT Cancelled 12/23/24 09:31
INR Cancelled 12/23/24 09:31
APTT 57.7 Sec (23.4-35.0) H 12/23/24 06:23
eGFR > 60.00 12/24/24 07:09
Physical Exam
HEENT: Moist Mucous Membranes; No Jaundice
Cardiology: Normal Sinus Rhythm
Pulmonary: Other (unlabored)
GI: Soft
Extremities: Pulses Present; No Edema
Orders
Orders
Orders From Last 24 Hours
12/24/24 08:30
Ondansetron HCl [Zofran] 8 mg PO ONCE ONE
12/24/24 09:00
Azacitidine [Vidaza] 69 mg Syringe [Syringe Non-Pump] 0 ml SC Q5M
12/25/24 08:10
BMP [Basic Metabolic Panel] IN AM
CBC/With Diff [Complete Blood Count/With Diff] IN AM
LDH IN AM
Uric Acid IN AM
[2024-12-25 09:00] LABS: Blood Urea Nitrogen 8 mg/dl (9-20); Calcium 8.7 mg/dl (8.4-10.2); Carbon Dioxide 28 mmol/L (22-30); Chloride 97 mmol/L (98-107); Estimated Creatinine Clearance 114 ml/min; Glucose 95 mg/dl (70-99); Potassium 4.2 mmol/L (3.5-5.1); Sodium 131 mmol/L (135-145); eGFR > 60.00
[2024-12-25 09:01] LABS: Hematocrit 26.4 % (39.0-52.0); Hemoglobin 8.2 g/dL (13.0-18.0); Mean Corp Hgb Conc. 31.1 g/dL (33.0-37.0); Mean Corpuscular Volume 92.0 fL (80.0-94.0); Nucleated Red Blood Cells % 5.0 % (-); Red Cell Dist. Width 17.7 % (11.5-14.5)
[2024-12-25 09:09] LABS: Platelet Count 87 10^3/uL (130-400)
[2024-12-25 09:25] LABS: LDH 385 U/L (120-246); Uric Acid 1.9 mg/dl (3.5-8.5)
--- NOTE | 2024-12-25 10:21 | W.PN.UPDATE ---
Addendum entered and electronically signed by Walter Juárez MD 12/25/24 11:20:
Total time spent on d/c = 33 min. This included today's physical exam, progress note, review of laboratory and diagnostic data, preparation of discharge documents and prescriptions, and discussions about the pt's hospital course and discharge plan
with the patient and other medical technologist involved in the patient's care.
Original Note:
Update Note
Progress Note Update
I saw and evaluated the patient. I reviewed the resident�s note and agree with findings and plan as documented in the resident�s note.
No new complaints. Denies CP/SOB.
Gen: NAD, Awake and alert
Eyes: EOMI, PERRLA, no scleral icterus.
ENMT: R check with 0.5cm area of dried blood c/w mucosal trauma due to bite
Neck: supple.
CV: continues to remain RRR, +S1/S2, no m/r/g.
Resp: CTAB, no rales, wheezes, or rhonchi.
Abd: continues to remain +BS, soft, NT, ND
Skin: No rashes.
Neuro: CN 2-12 intact, non-focal.
Psych: Normal mood and affect.
12/23/24 12:29 Lung - Right Tissue Culture - Preliminary
No Growth After 18-24 Hours
12/23/24 12:29 Lung - Right Gram Stain - Preliminary
12/23/24 12:27 Lung - Right Fungal Culture - Preliminary
Culture in progress.
Positive cultures are reported as soon as detected.
Final report to follow in four to five weeks.
12/18/24 04:22 Blood/Venous Blood Culture - Final
No Growth - Final Report
12/17/24 23:46 Blood/Venous Blood Culture - Final
No Growth - Final Report
12/18/24 11:39 Sputum Respiratory Culture - Final
12/18/24 11:39 Sputum Gram Stain - Final
12/18/24 10:35 Nose Nasal Screen MRSA (PCR) - Final
MRSA not detected - performed by PCR methodology.
CT chest 12/22/24: Bilateral nodular pulmonary parenchymal opacities, at least 3 of which show increased central cavitation compared to the chest CT from 12/17/2024. Potential considerations would include septic pulmonary emboli, atypical infection,
Bandar's granulomatosis, probably less likely cavitary metastases but not excluded.
Sepsis:
-due to RLL PNA
-procal NEG, bacterial PNA has been ruled out (Cefepime stopped)
-serum Aspergillus galactomannan antigen and Beta-D glucan assay both NEG (but both with low sensitivity)
-concern for fungal pneumonia as per ID, s/p R lung Bx 12/23/24 (fungal smear/Cx, AFB smear/Cx, tissue aerobic culture, and cytology ordered by ID, follow)
-empiric Voriconazole 200mg PO BID started 12/23/24PM
MDS s/p transformation to AML:
-ONC following
-with pancytopenia/neutropenia
-s/p inpt chemo with Venclexta/Vidaza
-cont Acyclovir
-afebrile
-with prolonged neutropenia the question was raised about prophylactic Levaquin with Dr. Campos over [employer] this AM. Dr. Campos is deferring to ONC considering the voriconazole and Levaquin together can cause QTc prolongation.. Personally,
considering the patient is afebrile and without evidence of systemic bacterial infection, I would avoid prophylactic Levaquin at this time due to the risk of QTc prolongation.
Small SUZIE PE:
-was on heparin gtt, now transitioned to Eliquis
-Eliquis held last night as pt bit his R cheek which was bleeding. Resume Eliquis this AM.
Hyponatremia:
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
-cont FR
Other problems:
Mild gaseous thickening along esophagus: PPI stopped
HLD: cont statin
FULL/eliquis
Total time spent on d/c = 34 min. This included today's physical exam, progress note, review of laboratory and diagnostic data, preparation of discharge documents and prescriptions, and discussions about the pt's hospital course and discharge plan
with the patient and other medical technologist involved in the patient's care.
--- NOTE | 2024-12-25 11:11 | W.PN.ID1 ---
Date of Service
Date of Service: December 25, 2024
Today's Communication
From ID standpoint, OK dc home.
See below.
Assessment / Plan
# Multifocal pulmonary mass-like opacities, 1 with central necrosis
# Fever x 1, resolved
# Prolonged neutropenia
# Recent dx AML transformation from MDS
# Previous granulomatous disease in lungs, by CT
- Procalcitonin normal -> rules out bacterial PNA -> dc'd cefepime.
- Suspect fungal pneumonia - likely Aspergillosis
- serum Aspergillus galactomannan antigen: negative (sensitivity low)
- beta-d glucan assay (fungitell): negative (sensitivity low)
- 12/23/24 s/p IR lung biopsy
- Aerobic cx neg to date
- Fungal smear/cx, AFB smear/cx, and cytology all pending
- Continue empiric Voriconazole 200mg po bid.
- From ID standpoint can dc home with prescription for 1 month supply of Voriconazole while awaiting results. If fungal cx neg, will dc antifungal.
Discussed potential side effects with voriconazole.
- Continue ppx acyclovir.
- Discussed with Hem/Onc, no need for levofloxacin ppx at this time.
Chief Complaint
-: Pneumonia
Subjective / Review of Systems
Feels well. Wants to go home.
Vital Signs / Physical Exam
Vital Signs
Vital Signs
Temp Pulse Resp BP Pulse Ox
98.9 F 76 16 109/62 99
12/25/24 07:48 12/25/24 07:48 12/25/24 07:48 12/25/24 07:48 12/25/24 08:26
Physical Exam
Constitutional: No Acute Distress and Comfortable
Cardiovascular: Regular Rate and S1/S2
Pulmonary: Clear
Gastrointestinal: Soft, Non Tender, Non Distended and Normal Bowel Sounds
Extremities: Negative Edema
Neurological: AO x 3
Objective Data
Lab Data
Lab Results
12/25/24 08:10
12/25/24 08:10
PT Cancelled 12/23/24 09:31
INR Cancelled 12/23/24 09:31
APTT 57.7 Sec (23.4-35.0) H 12/23/24 06:23
Estimated Creat Clear 114 ml/min 12/25/24 08:10
Lactic Acid 0.9 mmol/L (0.7-2.0) 12/17/24 23:46
Total Bilirubin 1.0 mg/dl (0.2-1.3) 12/23/24 06:23
AST 20 U/L (17-59) 12/23/24 06:23
ALT 25 U/L (0-50) 12/23/24 06:23
Alkaline Phosphatase 66 U/L (38-126) 12/23/24 06:23
Most recent labs reviewed.
Micro Results:
12/23/24 12:29 Tissue Culture - Preliminary
Lung - Right No Growth After 18-24 Hours
Gram Stain - Preliminary
12/23/24 12:27 Fungal Smear - Pending
Lung - Right Fungal Culture - Preliminary
Culture in progress.
Positive cultures are reported as soon as detected.
Final report to follow in four to five weeks.
12/20/24 12:28 Acid Fast Bacilli Smear - Pending
Lung - Right Acid Fast Bacilli Culture - Pending
12/18/24 04:22 Blood Culture - Final
Blood/Venous No Growth - Final Report
12/17/24 23:46 Blood Culture - Final
Blood/Venous No Growth - Final Report
12/18/24 11:39 Respiratory Culture - Final
Sputum Gram Stain - Final
12/18/24 10:35 Nasal Screen MRSA (PCR) - Final
Nose MRSA not detected - performed by PCR methodology.
7/29/[address]: Small embolism in the left upper lobe proximal apical segmental pulmonary artery. No evidence of right ventricular heart strain. Posterior right costophrenic angle pneumonia and atelectasis. Multifocal rounded masslike opacities
are demonstrated in the upper and lower lobes, bilaterally. Differential includes metastatic disease versus multifocal pneumonia. One of the lesions in the right lower lobe has central lucency, suggesting central necrosis.
12/17/24 CXR: Bilateral multifocal indistinct localized and confluent parenchymal opacities. Possible considerations include multifocal pneumonia versus indistinct pulmonary masses, such as metastatic disease. No pneumothorax. No pleural effusion
appreciated. Calcified pleural plaque at diaphragmatic margins. Normal heart size. No vascular congestion or congestive heart failure.
Care Review
Plan reviewed with: Physician (Paris Daniel) and Other Provider
Total Time Spent with Patient (in minutes): FLORI Kee
[2024-12-25 12:00] VITALS: BP 105/63
[2024-12-25] MEDS: ELIQUIS 10 MG PO (12:01)
--- NOTE | 2024-12-25 12:21 | CM ---
Addendum entered by Yolis Mane 12/25/24 13:31:
per nursing, patient's daughter provided transport home; no needs
Addendum entered by Yolis Mane 12/25/24 13:21:
Patient was discharged home by nursing.
CM contacted the pharmacy and requested that they attempt to obtain the voriconazole from another pharmacy.
Original Note:
Resident requested cost of prescription, voriconazole; Parish Nurse spoke with pharmacy; they reported that there is no out of pocket cost for the patient; however, the drug is a special order and they will not be able to dispense until tomorrow
after 6:00 PM. Physician was notified
--- NOTE | 2024-12-25 12:37 | W.DCSUMMARY ---
Discharge Summary
Discharge Data
Date of Admission: 12/18/24
Date of Discharge: 12/25/24
-
Pending Results: Yes
Additional Pending Results:
Patient's fungal culture lung biopsy results
Other pending tests include AFB smear and culture, tissue aerobic culture, cytology.
Hospital Course
Discharging Physician : Dr. Walter Juárez and Dr.Jitesh Toledo
Disposition : Home
Primary care physician : Dr. Renea Hagen
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
mucositis, thrush
Chronic Discharge diagnosis : Hyperlipidemia
Hospital Course : 59-year-old man with past medical history noted. Admitted with chest pain not feeling well for the last several days. Patient reported cough with minimal phlegm production, 20 pound weight loss over the last several weeks due to
poor appetite. Developed mucositis with chemotherapy. CT chest demonstrated multifocal masslike opacities.
Problem #1---> sepsis due to right lower lung pneumonia:
- Patient presented to the ED with sepsis criteria which included being febrile, leukopenia, tachycardia and tachypneic. Chest x-ray showed multifocal pneumonia versus pulmonary masses which could be metastatic disease. Chest CT revealed
multifocal round masslike opacities in the upper and lower lobes. 1 in the right lower lobe has a small central lucent focus suspicious for central necrosis. Mild bilateral pleural thickening and mild scattered calcified pleural plaque.
Procalcitonin was negative so bacterial cause of right lower lung pneumonia was ruled out. Blood cultures were negative. Pulmonology was consulted along with infectious disease, they believe source of sepsis is a fungal etiology most likely
aspergillosis. Patient then had a lung biopsy on 12/23/24 with fungal cultures are still pending. Serum Aspergillus galactomannan antigen and beta D glucan assay both negative however these are low sensitivity infectious disease also added in
voriconazole 200 mg twice daily as empiric therapy before fungal culture results return, to be taken on discharge for period of 1 month. Patient is advised to continue home acyclovir prophylaxis on discharge to prevent opportunistic infection.
Other pending tests include AFB smear and culture, tissue aerobic culture, cytology. patient is stable on discharge with normal vitals. CBC in 1 week with PCP.
Problem #2---> myelodysplastic syndrome transformation to acute myeloid leukemia:
- on treatment with home doses of Venclexta and azacitidine and presented to the emergency department with shortness of breath, chest pain, nonproductive cough, weight loss. Initial labs showed hemoglobin of 7.5 which trended down to 6.9 on the
second day for which she received a unit of blood. Hemoglobin on discharge was 8.2. And he had a WBC of 1.2 which on discharge was 0.4. His absolute neutrophil count on admission was 0.2 and on discharge 0.1. Physical examination revealed no
abnormalities. Oncology was consulted and decided to continue the patient's at home dosage of Venclexta and azacitidine (which was later discontinued). They also decided to continue acyclovir for viral prophylaxis due to his immunocompromise
state. Later on in the course of the hospital stay, his Venclexta was reduced from 400 mg to 100 mg as the original of Venclexta could potentially interact with voriconazole 200 mg twice daily that was prescribed for by infectious disease for
potential Aspergillus infection of the lung. He has a follow-up with Dr. Mead his oncologist on 12/31/2024, who will further evaluate his medication management.
Problem #3 ---> small left upper lobe pulmonary embolism:
- Patient is stable and vitals are normal. Patient was transitioned off heparin after his biopsy and placed on Eliquis 10 Mg twice daily for 7 days and then 5 Mg twice daily thereafter for 3 months to be continued on discharge.
Problem #4---> hyponatremia:
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 Continue fluid restriction. Instructions given to patient. Sodium on discharge was 131 and patient was asymptomatic. CMP in 1 week with PCP.
Problem #5---> hyperlipidemia:
- Continue atorvastatin 10 mg on discharge.
Problem #6----> mucositis/thrush:
- Resolved. Used Magic mouthwash and Mycelex during course of hospital stay.
Problem #7---> hyperuricemia:
- Continue on allopurinol. Uric acid level on discharge is 1.9. Most likely from high cell turnover from acute myeloid leukemia. No flank pain, no decreased urine output, no elevated creatinine, no arrhythmias, no muscle cramps. CMP with PCP in
1 week
Important imaging findings :
12/17/2024 chest x-ray:
FINDINGS/impression:
Bilateral multifocal indistinct localized and confluent parenchymal opacities. Possible considerations include multifocal pneumonia versus indistinct pulmonary masses, such as metastatic disease. No pneumothorax. No pleural effusion appreciated.
Calcified pleural plaque at diaphragmatic margins. Normal heart size. No vascular congestion or congestive heart failure.
Chest CT 12/17/2024:
IMPRESSION:
Small embolism in the left upper lobe proximal apical segmental pulmonary artery. No evidence of right ventricular heart strain.
Significant respiratory motion degradation in the left lower lobe beyond the lobar pulmonary artery; nondiagnostic beyond the left lower lobe lobar pulmonary artery.
Pulmonary artery branching order level of the most proximal pulmonary embolism: Left upper lobe proximal apical segmental pulmonary artery.
Hilar and mediastinal adenopathy.
Trace right pleural effusion. Pleural thickening and calcified pleural plaque formation.
Posterior right costophrenic angle pneumonia and atelectasis. Minor atelectasis in the dependent posterior left costophrenic angle.
Multifocal rounded masslike opacities are demonstrated in the upper and lower lobes, bilaterally. Differential includes metastatic disease versus multifocal pneumonia. One of the lesions in the right lower lobe has central lucency, suggesting
central necrosis.
Incidental note is made of mild gaseous distention along the entire course of the thoracic esophagus. There is also the suggestion of diffuse mild esophageal wall thickening. Clinical correlation recommended to determine esophageal dysmotility
and/or infectious or inflammatory process.
Chest CT 12/22/2024:
IMPRESSION:
Bilateral nodular pulmonary parenchymal opacities, at least 3 of which show increased central cavitation compared to the chest CT from 12/17/2024. Potential considerations would include septic pulmonary emboli, atypical infection, Bandar's
granulomatosis, probably less likely cavitary metastases but not excluded.
Chest x-ray 12/23/24:
IMPRESSION:
Prior right-sided lung biopsy without evidence of pneumothorax.
Stable appearance of the multifocal opacities.
Procedure findings :
Lung biopsy CT 12/23/24:
IMPRESSION: Technically successful CT guided biopsy right upper lobe nodule as described.
Discharge Plan
-
Patient Disposition: Home (Routine Discharge)
Discharge Diagnosis/Procedures: MDS s/p transformation to AML, Small left upper lobe PE, Hyponatremia, sepsis (resolved), oral thrush (resolved), hyperlipidemia
Condition: Fair
Diet: Regular
Activity: As tolerated
Driving Restrictions: As prior to admission
Bathing Restrictions: None
Blood Work: CMP in 1 week with PCP
CBC in 1 week with PCP
Others Tests: Lung biopsy fungal culture results still pending
Referrals:
Kali Mead DO [Active, Hematology / Oncology] - in less than 1 week
Renea Hagen PA [Family Provider, Family Practice] - in less than 1 week
Janes Grace MD [Active, Pulmonary Medicine] - in one to two weeks
Yulissa Campos MD [Active, Infectious Diseases] - in three to four weeks
Additional Discharge Medication Instructions: Eliquis - Take 10 mg (two tablets) BID (twice a day) for the next 6 days. Then 5 mg ( one tablet) BID ( twice a day) for 3 months.
Voriconazole 200 mg ( 1 tablet) twice a day
He is to take 100 mg once a day of venetoclax rather than 400 mg which he is previously taking. This was done because of potential interaction with voriconazole. Has oncologist appointment with Dr eMad on 12/31/24.
Did not continue Azacytidine and Venetoclax ( he has medications at home). will see Dr. Mead his oncologist on 12/31/24, who will decide on further medication management.
Prescriptions:
New
allopurinol 300 mg Tablet
300 mg PO DAILY Qty: 30 0RF
voriconazole 200 mg Tablet
200 mg PO BID Qty: 60 0RF
Eliquis 5 mg tablet
5 mg PO BID Qty: 73 0RF
Rx Instructions:
10mg BID for 13 doses then 5mg BID thereafter
Continued
atorvastatin 10 mg Tablet
10 mg PO DAILY
ondansetron HCl 4 mg Tablet
4 mg PO Q8H PRN (Reason: nausea)
acyclovir 400 mg Tablet
400 mg PO BID
Held
Venclexta 100 mg Tablet
400 mg PO DAILY
Hold Instructions: Resume on 12/31/24. Has a follow up with Dr. Mead, his oncologist who will prescribe his cancer medications.
azacitidine
Hold Instructions: Resume on 12/31/24. Patient has an appointment with Dr. Mead, oncologist who will decide on further medical management.
Discharge Orders:
Discharge Patient (As Directed); Ordered 12/25/24
Ordered By: Walter Juárez
Discharge Date and Time
Discharge Date/Time: 12/25/24 13:10
Print Language: DANISH
--- NOTE | 2024-12-25 12:43 | W.PN.HOSP.TC ---
Today's Communication/Plan
-
- follow up dr black oncologist on 12/31/24
- Follow up culture results from biopsy
Assessment / Plan
Assessment / Plan
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
Pancytopenia
Severe neutropenia (ab neut 0.2)
-Heme/onc following
-continue venetoclax iinduction for new AML while hospitalized as per Dr. John NEVAREZ oncologist in hopes of future curative transplant
-Uric acid level 1.9, continue allopurinol
-Hemoglobin is 8.2 today, s/p 1 unit of cmv negative irradiated blood, no clinical signs of an acute bleed
-Transfuse for hg <7 and plt < 10 unless active bleeding then for <50
-Monitor CBC
- continue on acyclovir to prevent opportunistic infections
- Today patients absolute neutrophil count is 0.1, he is afebrile/no signs of early infection/ on chemotherapy, already on acyclovir for ppx, so continue to observe but start antibiotics if patients temperature goes above 100.4.
2. Sepsis secondary to right lower lobe pneumonia (resolved)
Multifocal pulmonary lesions
-Febrile, leukopenia, tachycardia and tachypnea on admission
-Chest CT revealed multifocal round masslike opacities in upper and lower lobes. 1 in the right lower lobe has a small central lucent focus suspicious for central necrosis. Mild bilateral pleural thickening and mild scattered calcified pleural
plaque noted as well.
-Infectious disease consulted and they suspect fungal pneumonia, likely aspergillosis
-fungal smear/cx, AFB s,ear/cx, tissue aerobic culture and cytology pending
-Sputum culture (-), Prelim blood cultures (-), Beta D glucan assay pending
- Lung biopsy fungal cultures pending
-Started on empiric voriconazole 200mg BID after biopsy
- Will avoid ppx levaquin as it could interact with voriconazole.
3. left upper lobe pulmonary embolism
-patient re-started on Eliquis 10 mg BID for 7 days, then 5 mg bid daily thereafter
4. Hyponatremia
-today 130, trending down from 131 yesterday, patient is currently on fluids
- urine sodium less than 20, urine osmolality more than 100, and serum sodium of 130 indicate hypovolemic hyponatremia
-Monitor
5. Mucositis
- As needed Magic mouthwash
6. Thrush
-mycelex
7. HLD
- continue on atorvastatin 10 mg
Full Code
DVT - heparin drip
Anticipated Discharge: 24 - 48 hours
Subjective/Interval History
-
Date of Service: December 25, 2024
Patient had a mild bleed for accidentally biting his cheek. overnight team held [employer].
Today there is a small healed wound on right cheek with no bleeding.
No fatigue, fever, chills, nausea, vomiting, diarrhea, abdominal pain.
Objective Data
-
Labs:
Laboratory Results
12/25/24
08:10
WBC 0.4 L*
Hgb 8.2 L
Hct 26.4 L
Plt Count 87 L
Sodium 131 L
Potassium 4.2
Chloride 97 L
Carbon Dioxide 28
BUN 8 L
Creatinine 0.6 L
Glucose 95
Calcium 8.7
Vital Signs:
Vital Signs
Temp Pulse Resp BP Pulse Ox
98.9 F 76 16 109/62 99
12/25/24 07:48 12/25/24 07:48 12/25/24 07:48 12/25/24 07:48 12/25/24 08:26
I&O
12/24/24 12/25/24 12/26/24
06:59 06:59 06:59
Intake Total 1829 960 / 960 480 / 480
Output Total 375 / 375
Balance 1829 960 / 960 105 / 105
Review of Systems
-
History Source: Patient
EENT: Reports No Symptoms Reported
Respiratory: Reports Cough and Pleurisy
Cardiac: Reports No Symptoms
Abdomen/GI: Reports No Symptoms and Other (Pain at injection sites)
Skin: Reports No Symptoms
Neuro: Reports No Symptoms
Physical Exam
-
General: No Apparent Distress and Comfortable
HEENT: Normocephalic
Respiratory: Clear to Auscultation
Cardiac: Regular Rhythm and S1/S2
GI: Soft, Nondistended, Normal Bowel Sounds and Tender (Tender at injection sites, but otherwise nontender)
Musculoskeletal: No Clubbing, No Cyanosis and No Edema
Skin: Warm and Dry
Neuro: Awake, Alert, Oriented and AO x 3
Psych: Calm
Data Reviewed
-
Labs: Labs Reviewed by me and Discussed with Physician
== END 2024-12-25 13:10 | disposition home or self-care (01) | DRG 871 ==
LOC: 4 WEST ACU 00:21
PROVIDERS: Emergency Medicine; Internal Medicine; Nurse Practitioner Acute Care; Radiology Vascular & Interventional Radiology; ADMITTING PHYSICIAN Hospitalist; ATTENDING PHYSICIAN Internal Medicine; CONSULT PHYSICIAN Internal Medicine Infectious Disease; EMERGENCY PHYSICIAN Emergency Medicine; FAMILY PHYSICIAN Physician Assistant Medical; OTHER PHYSICIAN Internal Medicine Critical Care Medicine; OTHER PHYSICIAN Internal Medicine Hematology & Oncology
PROC: 5A09357 Assistance with Respiratory Ventilation, Less than 24 Consecutive Hours, Continuous Positive Airway Pressure (ICD-10-PCS; 2024-12-17)
PROC: 30233N1 Transfusion of Nonautologous Red Blood Cells into Peripheral Vein, Percutaneous Approach (ICD-10-PCS; 2024-12-18)
PROC: 0BBC3ZX Excision of Right Upper Lung Lobe, Percutaneous Approach, Diagnostic (ICD-10-PCS; 2024-12-23)
DX: A41.9 Sepsis, unspecified organism (principal); I26.99 Other pulmonary embolism without acute cor pulmonale; J18.9 Pneumonia, unspecified organism; C92.00 Acute myeloblastic leukemia, not having achieved remission; D61.818 Other pancytopenia; E22.2 Syndrome of inappropriate secretion of antidiuretic hormone; D84.9 Immunodeficiency, unspecified; J98.11 Atelectasis; B37.0 Candidal stomatitis; D70.9 Neutropenia, unspecified; K12.30 Oral mucositis (ulcerative), unspecified; B37.9 Candidiasis, unspecified; E78.5 Hyperlipidemia, unspecified; Z79.01 Long term (current) use of anticoagulants; Z77.090 Contact with and (suspected) exposure to asbestos; Z87.891 Personal history of nicotine dependence; R50.81 Fever presenting with conditions classified elsewhere; Z79.899 Other long term (current) drug therapy
CPT/HCPCS: 32408; 71045; 71046; 71250; 71275; 80048; 80053; 81003; 82248; 83605; 83615; 83880; 83935; 84100; 84145; 84300; 84443; 84484; 84550; 85025; 85027; 85610; 85730; 86850; 86900; 86901; 86920; 87015; 87040; 87070; 87102; 87116; 87176; 87205; 87206; 87641; 88305; 88333; 88341; 88342; 94660; 96365; 96375; 99152; 99153; 99285; P9058; Q9967

== ENCOUNTER 2025-01-01 10:38 | Inpatient (IN) | payer BC, SELFPAY ==
[2025-01-01] VITALS (49 sets, daily range): BP systolic 82–138; BP diastolic 43–103; BMI 20.6; BMI 20.5
--- NOTE | 2025-01-01 08:19 | ED.GENMED ---
History of Present Illness
General
Chief Complaint: Change in Mental Status
Source: patient, records, family and ambulance crew
Exam Limitations: none
Time Seen by Provider: 01/01/25 08:09
Nursing documentation reviewed up to this point in time: agreed with
History of Present Illness
History of Present Illness:
59-year-old male with a past medical history of AML, recently diagnosed PE on Eliquis who presents to the emergency department via EMS from home for evaluation of a change in mental status. Patient was notably just admitted to this hospital 12/18
until 12/25�was admitted for sepsis secondary to right lower lung pneumonia and during that hospitalization was also noted to have small PE and started on Eliquis. He was seen by infectious disease and there was a question of whether his pneumonia
could be fungal and he was discharged on antifungal (fungal cultures pending but thus far negative). He had his medications adjusted by oncology (Venclexta and azacitidine). Patient is moderately confused and a very poor historian on initial
presentation�while he is attempting to answer questions frequently making confused statements and reliability is unclear. According to his who I spoke to he had been at his mental baseline since discharge. Yesterday had an appointment with
Dr. Mead for follow-up and seems to be doing well. He has been complaining of some calf pain for the past few days initially in the left and now in both calves and was supposed to get an ultrasound apparently to evaluate for DVT. She says that
last night patient had a low-grade fever which she treated with Tylenol. He had a restless night and around 5 AM noted that patient was confused and EMS was ultimately called to bring him to the hospital. On ROS with she notes that he did
have an episode of loose stools and vomiting yesterday, has had some sores in his mouth that have been oozing blood since discharge which she attributed to Eliquis. He has had a mild consistent cough but this is not unusual for him, has smoking
history. On arrival here patient denies any specific symptoms although again he does seem to be markedly confused. He had a bowel movement shortly after arrival noted to have bright red blood mixed in�when asked about rectal bleeding says
that he does occasionally have bleeding from hemorrhoids.
Past History
Past History
ED Past Medical History: None
ED Past Surgical History: None
Social History
Tobacco: Smoker
Alcohol: Daily
Drug: None
Personal:
Living: with family
Employment: Employed
Family History
Family History: Other (Noncontributory)
Review of Systems
Review of Systems
Unable to obtain full review of systems at this time due to: other (Mental status changes)
Other source history: family
All Other Systems: Not applicable
Phy Exam
Physical Exam
Physical Exam:
General: Awake, alert, confused but attempts to answer questions
Head: Normocephalic, atraumatic
Eyes: Conjunctiva normal, EOMI, pupils equal round reactive to light bilaterally
Throat: Airway intact, somewhat dry mucous membranes
Neck: Trachea midline, supple without meningismus
Lungs: Clear to auscultation bilaterally, no wheezing, rales, rhonchi
Heart: Tachycardia with regular rhythm, no murmurs, gallops, or rubs
Abd: Soft, non distended, no apparent tenderness
Neuro: Cranial nerves grossly intact, moving all extremities equally without gross motor or sensory deficit
Skin: no rash, very warm to the touch, no rash noted
Extremities: Warm and well-perfused with good pulses throughout
Scores
Heart Failure Risk
Heart Failure Risk Score: Not Applicable
Heart Score for Chest Pain Patients
STEMI patient?: Not applicable
Withdrawal Assessment of Alcohol
Withdrawal Assessment Completed?: Not applicable
Sepsis
Sepsis Screening
Sepsis Assessment: Sepsis
Sepsis Screen
Sepsis Screen: Sepsis
Date: 01/01/25
Time: 09:12
Course
Orders/Labs/Results
Orders:
Orders
01/01/25 08:10
Electrocardiogram (*1) Urgent
Reason for Study: Tachycardia
CT Head W/o Iv Contrast Urgent
Comment:
Reason For Exam: confusion
EKG- Treatment ONCE
01/01/25 08:11
0.9% Sodium Chloride 1000 ml [Nss] 1,000 ml IV BOLUS
Acetaminophen [Tylenol/Feverall] 650 mg RECTAL NOW STA
CR Chest Portable - 1 View Urgent
Comment:
Reason For Exam: fever
Reason Study Needs to be Portable: Unable to Transport
01/01/25 08:16
CPK [Creatine Phosphokinase] Urgent
Complete Blood Count/With Diff Urgent
Comprehensive Metabolic Panel Urgent
Lipase Urgent
PTT Urgent
Prothrombin Time Urgent
TSH Reflex To Free T4 Urgent
Blood Culture Q30M
SWAPNA Source: Blood/Venous
Specimen Description:
01/01/25 08:17
Type+Screen Urgent
COVID-19 Antigen Urgent
Source: Nasal Swab
Lactate Level [Lactic Acid] Urgent
Blood Culture Q30M
SWAPNA Source: Blood/Venous
Specimen Description:
Influenza A+B Rapid Molecular Urgent
SWAPNA Source: Nasal Swab
Specimen Description:
Acetaminophen 1000MG/100Ml [Ofirmev] 1,000 mg in 100 ml IV ONCE
Acetaminophen IV Indication:: ED Narcotic Naive Pt-ONCE
01/01/25 08:23
CT Chest/abd/pel W Iv Cont Urgent
Reason For Exam: sepsis,cough
US Periph Venous LOWER Ext Je Urgent
Comment:
Reason For Exam: b/l calf pain, recent PE
01/01/25 08:30
Cefepime HCl [Maxipime] 2,000 mg IV NOW STA
01/01/25 08:31
Urinalysis Reflex To Culture Urgent
Date Specimen was Collected: 01/01/25
Time Specimen was Collected: 08:29
Urine Microscopic Reflex Cult Urgent
01/01/25 08:48
Sputum Culture [Respiratory Culture/Gram Stain] Urgent
SWAPNA Source: Sputum
Specimen Description:
Urine Culture Urgent
SWAPNA Source: Urine
Specimen Description:
01/01/25 08:55
0.9% Sodium Chloride 1000 ml [Nss] 1,000 ml IV BOLUS
01/01/25 08:57
[facility] Hostler Consult Urgent
Consulting Provider: Jose Luis Leone
Was physician already notified: Yes
01/01/25 09:03
INFECTIOUS DISEASE CONSULT Urgent
Consulting Provider: Yulissa Campos
Was physician already notified: Yes
01/01/25 09:04
Vancomycin [Vancocin] 1,500 mg 0.9% Sodium Chloride 500 ml [Nss] 500 ml IV NOW
01/01/25 09:08
Blood Bank Products [* Blood Bank Products] Urgent
Blood Bank Products: RBC Leuko CMV Neg Irr
Quantity: 1
Transfuse Today: Yes
Reason: Anemia
Abnormal Lab Results
01/01/25 01/01/25 01/01/25
08:16 08:17 08:31
WBC 0.3 L* 10^3/uL
(4.8-10.8)
RBC 2.31 L 10^6/uL
(4.70-6.10)
Hgb 6.6 L* g/dL
(13.0-18.0)
Hct 20.1 L* %
(39.0-52.0)
MCHC 32.8 L g/dL
(33.0-37.0)
RDW 17.5 H %
(11.5-14.5)
Plt Count 63 L 10^3/uL
(130-400)
Absolute Neuts (auto) 0.1 L* 10^3/uL
(1.4-6.5)
Absolute Lymphs (auto) 0.1 L 10^3/uL
(1.2-3.4)
Immature Gran % 11.1 H %
(0-0.5)
Neutrophils % 26.0 L %
(42.2-75.2)
Monocytes % 18.5 H %
(1.7-9.3)
PT 31.5 H Sec
(11.4-14.6)
APTT 50.4 H Sec
(23.4-35.0)
BUN 21 H mg/dl
(9-20)
Lactic Acid 4.8 H* mmol/L
(0.7-2.0)
Total Bilirubin 2.0 H mg/dl
(0.2-1.3)
AST 229 H U/L
(17-59)
Total Protein 5.6 L g/dl
(6.3-8.2)
Albumin 2.8 L g/dl
(3.5-5.0)
Ur Occult Blood Reflex 4+ A
(Negative)
Urine Urobilinogen 3+ A
(Neg - 1+)
Urine Albumin (Reflex) 3+ A
(Neg - Trace)
01/01/25 08:16
01/01/25 08:16
Vital Signs
Initial and Last Documented VS:
Initial Vital Signs
Temp Pulse Resp BP Pulse Ox
40.9 C H 147 22 133/73 96
01/01/25 07:42 01/01/25 07:42 01/01/25 07:42 01/01/25 07:42 01/01/25 07:42
Last Documented Vital Signs
Temp Pulse Resp BP Pulse Ox
40.9 C H 127 37 138/88 96
01/01/25 07:42 01/01/25 09:00 01/01/25 09:00 01/01/25 08:10 01/01/25 08:23
MDM/Problems Addressed
Differential Diagnosis Includes:
Pneumonia, UTI, intra-abdominal infection, bacteremia, fungemia, meningitis, viral infection
MDM/Problems Addressed:
59-year-old male with pancytopenia in the setting of AML, recent admission for pneumonia and PE returns to the emergency room with a change in mental status. On arrival noted to have very high fever greater than 105 �F, marked tachycardia, mild to
moderate tachypnea. Normotensive, no hypoxia. Physical exam as above. Placed bilateral large-bore IVs labs sent off including CBC, CMP, CPK, thyroid studies, lactate and blood cultures, coags and type and screen (blood noted in stool on arrival).
Will obtain an EKG. Stat portable chest x-ray. Plan to send for CT head, chest/abdomen/pelvis. Initiate fluid resuscitation. Empiric broad-spectrum antibiotics. Fever control with Tylenol. Plan for admission pending initial evaluation and
resuscitation. Discussed with ID for consultation regarding initiation of antifungals or antivirals given recent admission with sepsis and at least some concern for fungal pneumonia during prior hospitalization.
Case reviewed with infectious disease�continue broad-spectrum antibiotics but no need for further antifungals/antivirals for now. Awaiting rest of workup.
Initial labs reviewed: CBC shows pancytopenia with neutropenia ANC 100, anemia hemoglobin 6.6, thrombocytopenia platelet count 63; renal function acceptable�sending for CT chest/abdomen/pelvis. Broad-spectrum antimicrobials already initiated and
cultures sent off. Will transfuse PRBCs due to anemia. Difficult case as with acute on chronic anemia in the setting of AML and pancytopenia and some blood noted in his stool on arrival while on Eliquis question whether he should be reversed on
anticoagulation but given his recent PE would likely hold off on full reversal of his anticoagulant given only small amount of blood noted in stool. Will hold anticoagulant for now, transfuse PRBCs if increased bleeding noted will proceed with
anticoagulant reversal. I did discuss with the hotel receptionist to consult on this patient--agreed on holding off on anticoagulation reversal for now.
Lab called back patient's lactate at 4.8. Blood pressure remains in normal range but he does have altered mentation. 30 cc/kg bolus of fluids ordered (2 L ordered, patient is 65 kg). Continue to monitor. Did discuss case with hospitalist to
facilitate admission pending imaging.
Chronic conditions affecting care:
AML
*Radiology
Radiology exam reviewed: preliminary read by ED provider
*Pulse Oximetry
SaO2: 96
Oxygen Mode of Delivery: Room air
Patient hypoxic: no (96%)
*EKG
Interpreted by ED Provider?: Yes
Heart Rate: 137
Rate: tachycardiac
Rhythm: sinus
[place]: normal axis
Interval: normal interval
QRS Pattern: normal QRS
Ischemia: non-specific ST changes
*Critical Care Note
Total Time (30-74mins, 75-104mins- exclusive of procedures): 34
comment:
Critical care statement: A total of 34 minutes of critical care time was provided for this patient. This includes management of unstable vital signs, evaluation of the patient at bedside, frequent reassessment, discussion with
consultants/hospitalist, and review of pertinent medical records. This time was separate from time utilized to perform any aforementioned documented procedures
Data Reviewed
Review of Other/Old Records Reveals: Labs, Records and Discharge Summary
Source: patient, records, family and ambulance crew
Prescriptions/Medications Considered But Not Given:
Considered anticoagulant reversal
Patient Management
Discussion with other providers: Hospitalist (Discussed with hospitalist) and Care Navigator (Discussed with infectious disease, discussed with hotel receptionist)
Escalation/DeEscalation of care consider admission/obs:
Admission indicated
ED Attending Note
-
Portions of this chart may have been created with voice recognition software.� Occasional wrong word or��sound alike� substitutions may have occurred due to the inherent limitations of voice recognition software.
Discharge Plan
Departure
Patient Disposition: Admit
Date of Disposition: 01/01/25
Time of Disposition: 09:10
Admit to doctor: Rachael
Presentation/result/management discussed w/ accepting MD/DO: Hospitalist
Discharge Problem:
Neutropenic fever, Sepsis, GI bleeding, Acute on chronic anemia
Prescriptions:
No Action
atorvastatin 10 mg Tablet
10 mg PO QPM
ondansetron HCl 4 mg Tablet
4 mg PO Q8HPRN PRN (Reason: nausea)
acyclovir 400 mg Tablet
400 mg PO BID
allopurinol 300 mg Tablet
300 mg PO DAILY Qty: 30 0RF
voriconazole 200 mg Tablet
200 mg PO BID Qty: 60 0RF
Eliquis 5 mg tablet
5 mg PO BID Qty: 73 0RF
Rx Instructions:
10mg BID for 13 doses unit 12/31/24 then 5mg BID thereafter
acetaminophen [Tylenol] 325 mg Tablet
650 mg PO Q6HPRN PRN (Reason: fever)
Venclexta 100 mg Tablet
100 mg PO DAILY
Interventions
Interventions:
*Risk Screen - Suicide Last Done: 01/01/25 07:42
*General Assessment Last Done: 01/01/25 07:42
*Neglect/Abuse Screening Last Done: 01/01/25 07:42
*ED- Fall Risk Assessment Last Done: 01/01/25 07:42
*ED COVID-19 Vaccine History Last Done: 01/01/25 07:42
ED- Neurological Assessment Last Done: 01/01/25 07:42
ED- Cardiac Assessment Last Done: 01/01/25 07:42
ED Swallowing Screen Last Done: 01/01/25 09:08
Discharge Date and Time
Print Language: LATVIAN
[2025-01-01] MEDS: NSS 1000 IV ×5 (08:23→23:24)
[2025-01-01] MEDS: OFIRMEV 100 IV ×2 (08:24→12:32)
[2025-01-01 08:38] LABS: INR 3.00; PT 31.5 Sec (11.4-14.6)
[2025-01-01 08:39] LABS: APTT 50.4 Sec (23.4-35.0)
[2025-01-01 08:44] LABS: COVID-19 Antigen Negative (Negative)
[2025-01-01 08:48] LABS: AST (SGOT) 229 U/L (17-59); Albumin 2.8 g/dl (3.5-5.0); Blood Urea Nitrogen 21 mg/dl (9-20); Carbon Dioxide 22 mmol/L (22-30); Estimated Creatinine Clearance 90 ml/min; Total Protein 5.6 g/dl (6.3-8.2); eGFR > 60.00
[2025-01-01 08:49] LABS: Hematocrit 20.1 % (39.0-52.0); Hemoglobin 6.6 g/dL (13.0-18.0); Mean Corp Hgb Conc. 32.8 g/dL (33.0-37.0); Mean Corpuscular Volume 87.0 fL (80.0-94.0); Nucleated Red Blood Cells % 14.8 % (-); Platelet Count 63 10^3/uL (130-400); Red Cell Dist. Width 17.5 % (11.5-14.5)
[2025-01-01 09:03] LABS: Urine Character Clear (Clear)
[2025-01-01 09:07] LABS: Urine Squamous Cell 0-2 /LPF (Few)
[2025-01-01 09:11] LABS: Urine Red Blood Cell 0-2 /HPF (0-2)
[2025-01-01] MEDS: MAXIPIME 2000 MG IV (09:30)
[2025-01-01] MEDS: VANCOCIN 530 MG IV (09:48)
[2025-01-01 10:06] LABS: ALT (SGPT) 53 U/L (0-50); Alkaline Phosphatase 55 U/L (38-126); Calcium 7.1 mg/dl (8.4-10.2); Chloride 88 mmol/L (98-107); Glucose 103 mg/dl (70-99); Lipase 38 U/L (23-300); Potassium 4.4 mmol/L (3.5-5.1); Sodium 118 mmol/L (135-145)
[2025-01-01 10:38] LABS: Magnesium 1.9 mg/dl (1.6-2.3)
--- NOTE | 2025-01-01 11:19 | PHA.VAN.IN ---
Assessment
- Assessment
Renal Function: Appears similar to baseline (SCR slightly elevated)
AUC Dosing Plan
- Dosing Variables
Dosing Weight (kg): 65
Dosing CrCl (ml/min): 90
Vd coefficient (L/kg): 0.7
- Empiric Dosing
Initial / Loading Dose: 1500mg - 01/01 09:48
Maintenance Regimen: Vanc 1000mg Q12H starting at 1800
Estimated AUC (mcg*h/mL): 578
Estimated Peak (mcg*h/mL): 36
Estimated Trough (mcg/ml): 15
Estimated Half Life (H): 8.8
Initiating with regimen that predicts on higher side because expect SCR to decrease / CrCl to increase based on prior admission
Additionally, patients with cancer may have increased vancomycin clearance (Pharmacotherapy. 2019;40(12):5092-9451)
- Monitoring
No levels ordered at this time: consider levels in next few days; follow renal function
MRSA Screen: Ordered per protocol
Pharmacokinetics Vancomycin I
- -
Patient Age: 59
Patient Sex: Male
Vancomycin Day #: 1
Indication: Neutropenic Fever
Requesting Provider: Dr. Adeline Toledo (resident)
Pertinent Antimicrobial Allergies:
penicillins - unknown
Height / Weight:
Height 5 ft 10 in
Actual Weight 64.7 kg
Pertinent Past Medical History: AML
- Vital Signs / Lab Results
Temp Pulse Resp BP Pulse Ox
98.7 F 126 24 106/57 98
01/01/25 11:18 01/01/25 10:30 01/01/25 10:30 01/01/25 10:21 01/01/25 10:15
Lab Results - Hematology
01/01/25
08:16
WBC 0.3 L*
Lab Results - Chemistry
01/01/25
08:16
BUN 21 H
Creatinine 0.8
Estimated Creat Clear 90
Albumin 2.8 L
01/01/25
08:17
Lactic Acid 4.8 H*
Lab Results - Urine
01/01/25
08:31
Urine Nitrite (Reflex) Negative
Leukocyte Esterase Rfl Negative
Urine WBC (Reflex) 3-5
Ur Squamous Epith Cells 0-2
Microbiology Results
01/01/25 08:17 Influenza Types A & B (ISIAH) - Final
Nasal Swab Negative for Influenza A & B, NAAT
Negative results must be combined with clinical observations
and patient history.
Nucleic Acid Amplification test (NAAT)performed on the
[employer] platform.
--- NOTE | 2025-01-01 11:30 | W.CON.NEPH ---
Consultation
-
Date/Time Consultation Requested: 01/01/25 1025
Date/Time Consultation Performed: 01/01/25 1330
Requesting Provider: Darlene Mayen
Performing Provider: Caty Moralez
Reason for Consultation: Hyponatremia
Medical History
-
Chief Complaint: AMS, fever 105
History of Present Illness:
59-year-old gentleman with history of MDS, progressed to AML on Venetoclax, recent diagnosis of pulmonary embolism in November and started on Eliquis, also treated for ?fungal PNA on Voriconazole who presented to the emergency room for change in mental
status acutely. Per family pt since discharge was doing fine and had visit with Dr Mead Onc yesterday. After retuning pt had vomited once. He was irritable through the night and this morning found him completely altered and weak hence brought
to the hospital. Patient quite delirious during my evaluation and unable to provide any meaningful history. His temp noted 105.7 in ER and tachy, sepsis hence received 2lit of NS. Labs noted pancytopenia hb 6.6, WBC 0.3, plt 63. Sodium at 118, L
acid 4.8, CK 6417. his baseline was low 130 range. He supposed to be on FR however he reportedly not following according to the and his solute intake is poor too. does not report any cough, chills, diarrhea, chr cough no change. She
reports a known history of hemorrhoids and occasional small-volume blood per rectum. Patient has been on chemotherapy for AML and reportedly last dose about 2 weeks ago. Patient has prior history of alcoholism and heavy smoking which he stopped
about 8 to 9 months ago and currently not actively drinking per patient's . nephrology consulted for hyponatremia. Most of the history from chart and at bedside. CT head neg and CT chest/A/P still shows cavitary PNA.
Past Medical History
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
Asbestosis
? Prior Granulomatous Disease
Dyslipidemia
Past Surgical History: Other (Appendectomy Bone Marrow Biopsy)
Social History
Tobacco: Former Smoker (quit 9m ago)
Alcohol: Former (quit 9m ago)
Drug: None
Personal:
Living: With Family
Family History
Family History: Not Pertinent
Allergies / Home Medications
Allergy/AdvReac Type Severity Reaction Status Date / Time
Penicillins Allergy Unknown Verified 12/17/24 19:04
�Medication �Instructions �Recorded �Confirmed �Type
atorvastatin 10 mg tablet 10 mg PO QPM High Cholesterol 04/24/24 01/01/25 History
acyclovir 400 mg tablet 400 mg PO BID Infection 11/29/24 01/01/25 History
ondansetron HCl 4 mg tablet 4 mg PO Q8HPRN PRN nausea 11/29/24 01/01/25 History
allopurinol 300 mg tablet 300 mg PO DAILY elevated uric acid 12/25/24 01/01/25 Rx
#30 tabs
apixaban 5 mg tablet (Eliquis) 5 mg PO BID #73 tabs 12/25/24 01/01/25 Rx
voriconazole 200 mg tablet 200 mg PO BID anti fungal #60 tabs 12/25/24 01/01/25 Rx
acetaminophen 325 mg tablet 650 mg PO Q6HPRN PRN fever 01/01/25 01/01/25 History
(Tylenol)
venetoclax 100 mg tablet 100 mg PO DAILY 01/01/25 01/01/25 History
(Venclexta)
Review of Systems
-
Unable to obtain full review of systems at this time due to: Acuity
Physical Exam
Vital Signs
Vital Signs
Temp Pulse Resp BP Pulse Ox
98.7 F 126 24 106/57 98
01/01/25 11:18 01/01/25 10:30 01/01/25 10:30 01/01/25 10:21 01/01/25 10:15
Lab Results
WBC 0.3 10^3/uL (4.8-10.8) L* 01/01/25 08:16
RBC 2.31 10^6/uL (4.70-6.10) L 01/01/25 08:16
Hgb 6.6 g/dL (13.0-18.0) L* 01/01/25 08:16
Hct 20.1 % (39.0-52.0) L* 01/01/25 08:16
Plt Count 63 10^3/uL (130-400) L 01/01/25 08:16
eGFR > 60.00 01/01/25 08:16
Albumin 2.8 g/dl (3.5-5.0) L 01/01/25 08:16
Physical Exam
General: Awake, No Distress and Nontoxic
HEENT: Anicteric, Conjunctivae Clear and Neck Supple
Respiratory: Clear, Normal Excursion and Nonlabored Respirations
Cardiac: S1/S2 (tachy)
Breast: Deferred by me
Abdomen: Soft, Nontender and Nondistended
Musculoskeletal: No Cyanosis and No Edema
Skin: No Rash
Neuro: Nonfocal/Grossly Intact
Data Reviewed
-
Labs: Labs Reviewed by me and Discussed with Patient
Assessment/Plan
-
IMP:
Neutropenic fever with severe sepsis and lactic acidosis
Acute on chronic Hyponatremia
Acute metabolic encephalopathy/ delirium
Rhabdomyolysis
Pancytopenia
Bilateral pulmonary nodular opacities, some cavitary
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
SUZIE PE, diagnosed 11/2024
HLD
Hyponatremia
Elevated LFTs
Plan:
A/w AMS, fever-sepsis
Acute on chr hyponatremia-suspect multifactorial
underlying SIADH , high free water intake+sepsis
U osmo 449, U na low 13
given sepsis would lean towards isotonic fluids to stabilize hemodynamically
cont to follow sodium Q4h, goal of correction 6-8mes/day
strict FR when diet resumed
if sodium worsens likely add HTS, could try bolus 50cc if needed
Bp soft, pressors if needed
mild rhabdo-follow trend
cr seem stable at 0.8
abx per primary , pending cultures, neutropenic fever
transfusion for anemia
d/w at bedside and nursing
CC time spent 40min
[2025-01-01 11:50] LABS: B.E. -2.3 mmol/L; HCO3 19.9 mmol/L (21-28); O2 Saturation % 96.5 % (94-98); PCO2 25 mmHg (35-48); PO2 66 mmHg (83-108)
--- NOTE | 2025-01-01 12:00 | PTCARENOTE ---
Pt rec'd from ED in to ICU 3366, pulled over to bed, restless confused, picking at lines and wires, very difficult to reorient. Pt tachycardic in 130s, BPs stable, hyperthermic -see flowsheet. Plan discussed with Andres Navarro and [place].
arrived at bedside, admission questions answered with her assistance. Pt follows with Dr. Mead as well as oncologist at [facility]. Pt is on chemo- not sure of names of medication, states his last dose of the oral chemo was yesterday. She stated he
also takes and IV infusion weekly which was administered last Monday. Pt's lab results reviewed, neutropenia noted. Placed on chemo and neutropenic precautions. Labs and blood cultures drawn and sent, ABG sent. Orders received and carried out. See
flowsheet for further documentation. Safe environment / bed alarm continues.
[2025-01-01] MEDS: ATIVAN 1 MG IV (12:05)
[2025-01-01] MEDS: VALIUM INJECTION 2.5 MG IV (12:27)
[2025-01-01 12:37] LABS: Blood Urea Nitrogen 20 mg/dl (9-20); Calcium 6.7 mg/dl (8.4-10.2); Carbon Dioxide 22 mmol/L (22-30); Chloride 91 mmol/L (98-107); Estimated Creatinine Clearance 103 ml/min; Glucose 101 mg/dl (70-99); Magnesium 1.7 mg/dl (1.6-2.3); Potassium 4.1 mmol/L (3.5-5.1); Sodium 118 mmol/L (135-145); Uric Acid 2.7 mg/dl (3.5-8.5); eGFR > 60.00
--- NOTE | 2025-01-01 12:43 | PTCARENOTE ---
Per Dr. Leone, [facility] ordered and administered simutaneously with blood for temp 102.2 prior to starting transfusion.
--- NOTE | 2025-01-01 12:50 | CON.INTV ---
Addendum entered and electronically signed by Jose Luis Leone MD 01/01/25 13:20:
#. Elevated CK, Rhabdomyolysis.
- s/p 30 ml/kg IVF in ED
- Repeat Sodium unchanged at 118. Initiate aggressive hydration, NS @ 150 ml per hour
- BMP q4h
Original Note:
Consultation
Consultation Request
Date/Time Consultation Requested: 01/01/2025
Date/Time Consultation Performed: 01/01/2025
Medical History
-
Chief Complaint: Confusion, fever.
History of Present Illness:
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 Patient quite delirious during my
evaluation and unable to provide any meaningful history. Information mostly obtained from patient's at bedside as well as review of records. Reportedly over the last 24 hours patient has been slightly getting more confused and noted
fever last night and this morning he appeared to be very confused. She does not report any cough, chills, vomiting diarrhea, hemoptysis or hematemesis. She reports a known history of hemorrhoids and occasional small-volume blood per rectum. No
lucy bloody diarrhea reported. No sick contacts reported. Patient has been on chemotherapy for AML and reportedly last dose about 2 weeks ago. Patient has prior history of alcoholism and heavy smoking which he stopped about 8 to 9 months ago and
currently not actively drinking per patient's . In the emergency room patient was noted to be septic with elevated lactate, neutropenia, high-grade fever. Patient was given 30 mL/kg fluid resuscitation and was started on broad-spectrum
antibiotics. In view of tachycardia, encephalopathy, elevated lactate, patient was admitted to ICU and stone cleaner consultation was requested for further input.
Past Medical History
Past Medical History: Reports Other
Additional Past Medical History:
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
Asbestosis
? Prior Granulomatous Disease
Dyslipidemia
Past Surgical History: Reports Other
Additional Past Surgical History:
Appendectomy
Bone Marrow Biopsy
Social History
Tobacco: Former Smoker (Quit smoking 9 months ago. > 40 pack years total use.)
Alcohol: Former (Quit drinking 9 months ago. Prior daily use.)
Drug: None
Family History
Family History: Not pertinent
Allergies / Home Medications
Allergies / Home Medications
Allergies
Allergy/AdvReac Type Severity Reaction Status Date / Time
Penicillins Allergy Unknown Verified 12/17/24 19:04
Home Medications
�Medication �Instructions �Recorded �Confirmed �Last Taken �Type
atorvastatin 10 mg tablet 10 mg PO QPM High Cholesterol 04/24/24 01/01/25 12/31/24 History
acyclovir 400 mg tablet 400 mg PO BID Infection 11/29/24 01/01/25 12/31/24 History
ondansetron HCl 4 mg tablet 4 mg PO Q8HPRN PRN nausea 11/29/24 01/01/25 Unknown History
allopurinol 300 mg tablet 300 mg PO DAILY elevated uric acid 12/25/24 01/01/25 12/31/24 Rx
#30 tabs
apixaban 5 mg tablet (Eliquis) 5 mg PO BID #73 tabs 12/25/24 01/01/25 12/31/24 Rx
voriconazole 200 mg tablet 200 mg PO BID anti fungal #60 tabs 12/25/24 01/01/25 12/31/24 Rx
acetaminophen 325 mg tablet 650 mg PO Q6HPRN PRN fever 01/01/25 01/01/25 12/31/24 History
(Tylenol)
venetoclax 100 mg tablet 100 mg PO DAILY 01/01/25 01/01/25 12/31/24 History
(Venclexta)
Review of Systems
-
Unable to Obtain full review of systems at this time due to: Other (Patient quite confused)
Vitals / Labs / Diagnostic Testing
Vital Signs
Temp Pulse Resp BP Pulse Ox
102.2 F H 149 35 101/61 99
01/01/25 12:22 01/01/25 12:22 01/01/25 12:22 01/01/25 12:22 01/01/25 12:22
Lab Data
01/01/25 08:16
Laboratory Results
01/01/25 01/01/25
08:16 11:34
PT 31.5 H
INR 3.00
APTT 50.4 H
pH 7.51 H
pCO2 25 L
pO2 66 L
HCO3 19.9 L
O2 Delivery Level
Microbiology
01/01/25 08:17 Nasal Swab Influenza Types A & B (ISIAH) - Final
Negative for Influenza A & B, NAAT
Negative results must be combined with clinical observations
and patient history.
Nucleic Acid Amplification test (NAAT)performed on the
[employer] platform.
Diagnostic Testing:
Physical Exam
-
HEENT: Normocephalic
Cardiovascular: S1/S2
Respiratory: Clear
GI: Soft
Neurology: Awake, Alert and Other (Very confused, intermittently agitated, pulling on tubes and lines)
Skin: Warm
General: Comfortable
Assessment
-
#1. Neutropenic fever with severe sepsis and lactic acidosis
- 30 mL/kg IV fluid resuscitation in the emergency room
- Continue broad-spectrum antibiotics, vancomycin and cefepime. Resume acyclovir. Fungal cultures have stayed negative, may hold voriconazole, await ID service recommendations
- Infectious disease and oncology consultation
- CT chest abdomen pelvis reviewed no significant acute change compared to last imaging
- Check serial lactate
- ABG suggestive of respiratory alkalosis, related to patient's agitation and hyperventilation
- Admission lactate 4.8, improving with volume resuscitation, most recent 2.8
#2. Hyponatremia
- Suspect hypovolemic hyponatremia considering decreased chloride as well as urine sodium of 13
- Status post IV fluid resuscitation in the emergency room, hold off maintenance fluids for now
- BMP every 4 hours and adjust IV fluids accordingly
- Nephrology service has been consulted
#3. Acute metabolic encephalopathy/hyperactive delirium
- Patient quite agitated in the ICU pulling on tubes, required restraints.
- As needed Ativan stat given in view of excessive agitation, tachycardia and hyperventilation
- Likely multifactorial etiology, fever, sepsis, ICU admission likely all contributing. CT head otherwise unremarkable
- Patient is not lethargic rather has hyperactive delirious state. ?Medication induced.
- Prior history of alcoholism, reportedly sober since last many months. Empiric thiamine high-dose
- Presentation does not appear to be typical of meningitis however if workup stays negative, we will consider lumbar puncture. Patient has been on Eliquis so unable to perform lumbar puncture right now.
#4. Bilateral pulmonary nodular opacities, some cavitary
- Differential diagnosis include infection, inflammation like GPA versus malignancy
- S/p IR guided biopsy 12/2024, pathology results are pending
- Cultures have stayed negative in the past
- Continue broad-spectrum antibiotic, await final pathology results
- Check ANCA in a.m.
- Prior history of asbestos exposure however would not explain parenchymal nodules. Suspected prior granulomatous disease.
- History of [id number] smoking history, no formal diagnosis of COPD or asthma.
- Patient unlikely to tolerate bronchoscopy and BAL with conscious sedation. If however patient deteriorates will have a low threshold to proceed with bronchoscopy and BAL to rule out any infectious etiology.
#5. 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
- Has been on chemotherapy, follows up with [facility] and [facility]
- Oncology consult
#6. SUZIE PE, diagnosed 11/2024
- Hemodynamically stable, not hypoxic, no large PE noted on the CT with contrast performed today
- Patient has been anticoagulated with Eliquis, having some mild hemorrhoidal bleeding and also noted to be anemic, hold anticoagulation for now
- If patient stays stable overnight will start heparin drip and monitor for any signs symptom of bleeding. If unable to tolerate anticoagulation will need to consider IVC filter placement
Other medical diagnoses:
- Mucositis
- H/o Thrush
DVT prophylaxis, SCDs for now. Hold Eliquis in view of anemia and mild hematochezia.
Critical Care time 65 mins -- The patient is admitted for acute critical illness for the treatment of vital organ failure and/or prevention of further life-threatening conditions. Total care includes time spent in review of history, physical exam,
medications, hemodynamic/ventilator parameters, laboratory data, imaging and discussion with house staff, pharmacy, respiratory therapy, turret lathe machinist, and nursing.
Discussed with patient's .
Data:
US LE 12/2024: No DVT noted
CT C/A/P 12/2024: Bilateral pulmonary nodular parenchymal opacities again seen some of which with central cavitation and overall prominence of the pulmonary interstitium again seen, somewhat similar to prior study with at least one new subcentimeter
opacity in the right upper lobe. Again, some of several differential diagnostic possibilities again include atypical infection, septic pulmonary emboli, Bandar's granulomatosis and less likely metastases.
Small anterior pericardial effusion.
Fluid-filled dilated stomach and fluid-filled thoracic esophagus.
Fluid-filled loops of small bowel, nonspecific, cannot exclude enteritis.
--- NOTE | 2025-01-01 13:33 | CON.ID ---
Consultation
-
Date/Time Consultation Requested: January 01, 2025 0903
Date/Time Consultation Performed: January 01, 2025 1335
Requesting Provider: Dr. Ryne Smith
Performing Provider: Dr. Yulissa Campos
Reason for Consultation: Neutropenic fever
Chief Complaint / Past History
Chief Complaint
Change in mental status
History of Present Illness
History obtained from patient's at bedside. 59-year-old male with history of MDS which recently transformed to AML on tx, who presented to the ED today due to change in mental status. He was recently hospitalized 12/18 - 12/25 with SOB and
cough. CT showed small PE and bilateral nodular pulmonary opacities, some with cavitation. Procalcitonin negative. Aspergillosis suspected. On December 22, he underwent CT-guided lung biopsy, started empiric voriconazole while awaiting results.
Venetoclax dose decreased while on Voriconazole. DC'd home on 12/25. Per he was doing well at home, eating, no significant cough except for his smokers chronic cough. On Monday he was complaining of left calf pain then subsequently right calf
pain. No leg swelling. His oncologist ordered venous ultrasound. Last night patient had low-grade fever for which she gave him Tylenol. He had 1 episode of vomiting. No significant diarrhea. Last night he was thirsty and drank a lot of fluid.
During the night patient was very restless. His then noted patient was confused. She therefore brought him to the ER this morning. Temperature was 105.7. ANC 100. Sodium 118, lactic acid 4.8, LFT's slightly elevated, CK 10,144. CT C/A/P
stable lung findings of bilateral nodular pulm opacities. He is currently on Vanco, cefepime. Per , no JIN/neck stiffness. No ill contacts. He stayed home most of the time.
Past History
Additional Past Medical History:
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
Dyslipidemia
Asbestosis
Hx of tobacco and alcohol use disorder
Appendectomy
Allergy History:
Penicillins Allergy (Verified 12/17/24 19:04)
Unknown
Medications Reviewed: Yes
Current Antibiotics:
Vancomycin
Cefepime
Social History
Tobacco: Former Smoker (Quit 9 months ago)
Alcohol: Former (Quit 9 months ago)
Drug: None
Personal:
Family History
Family History: Not Pertinent
Review of Systems
Review of Systems
Unable to obtain due to change in mental status
Vital Signs
Temp Pulse Resp BP Pulse Ox
102.2 F H 141 38 104/85 100
01/01/25 12:22 01/01/25 13:00 01/01/25 13:00 01/01/25 13:00 01/01/25 12:45
Selected Entries
01/01/25
07:42
Temp 105.7 F H
Physical Exam
Physical Exam
Constitutional: Acutely Ill
Head: Other (No frontal or maxillary sinus tenderness)
Eyes: No Conjunctival Hemorrhage and Other (Sclera mild icterus)
Cardiovascular: S1/S2 (Tachycardia)
Pulmonary: Clear
Gastrointestinal: Soft, Non Tender, Non Distended and Normal Bowel Sounds
Extremities: Other (Left calf tenderness without erythema or induration); Negative Edema or Erythema
Skin: Negative Rash
Neurological: Negative Meningeal Signs
Psychological: Confused
Lab / Diagnostic Study Results
01/01/25 08:16
Abs Immat Gran (auto) 0.0 10^3/uL (0-0.05) 01/01/25 08:16
Absolute Neuts (auto) 0.1 10^3/uL (1.4-6.5) L* 01/01/25 08:16
Absolute Lymphs (auto) 0.1 10^3/uL (1.2-3.4) L 01/01/25 08:16
Absolute Monos (auto) 0.1 10^3/uL (0.1-0.6) 01/01/25 08:16
Absolute Basos (auto) 0.0 10^3/uL (0-0.2) 01/01/25 08:16
Immature Gran % 11.1 % (0-0.5) H 01/01/25 08:16
Neutrophils % 26.0 % (42.2-75.2) L 01/01/25 08:16
Lymphocytes % 44.4 % (20.5-51.1) 01/01/25 08:16
Monocytes % 18.5 % (1.7-9.3) H 01/01/25 08:16
Eosinophils % 0.0 % (0-6) 01/01/25 08:16
Basophils % 0.0 % (0-2) 01/01/25 08:16
PT 31.5 Sec (11.4-14.6) H 01/01/25 08:16
INR 3.00 01/01/25 08:16
Lactic Acid 2.8 mmol/L (0.7-2.0) H 01/01/25 11:26
Ur Squamous Epith Cells 0-2 /LPF (Few) 01/01/25 08:31
Microbiology Results
Micro:
01/01/25 12:41 Blood Culture - Pending
Blood/Venous
01/01/25 11:44 Blood Culture - Pending
Blood/Venous
01/01/25 08:31 Urine Culture - Pending
Urine
01/01/25 08:17 Influenza Types A & B (ISIAH) - Final
Nasal Swab Negative for Influenza A & B, NAAT
Negative results must be combined with clinical observations
and patient history.
Nucleic Acid Amplification test (NAAT)performed on the
[employer] platform.
01/01/25 08:17 Blood Culture - Pending
Blood/Venous
01/01/25 08:16 Blood Culture - Pending
Blood/Venous
01/01/25 CT C/A/P: Bilateral pulmonary nodular parenchymal opacities again seen some of which with central cavitation and overall prominence of the pulmonary interstitium again seen, somewhat similar to prior study with at least one new
subcentimeter opacity in the right upper lobe. Again, some of several differential diagnostic possibilities again include atypical infection, septic pulmonary emboli, Bandar's granulomatosis and less likely metastases. Small anterior pericardial
effusion. Fluid-filled dilated stomach and fluid-filled thoracic esophagus. Fluid-filled loops of small bowel, nonspecific, cannot exclude enteritis.
01/01/[address]: No acute intracranial abnormality.
Assessment / Plan
# Severe rhabdomyolysis
# Calf pain
# Severe hyponatremia
# Lactic acidosis
# Change in mental status, due to rhabo and hyponatremia
# Fever
# Bilateral pulm nodular opacities
# Prolonged neutropenia adn pancytopenia from AML
# AML, currently on Venetoclax
- Suspect rhabdomyolysis due to recent voriconazole/atorvastatin combo
- Discontinue further voriconazole. Hold statin.
- Appreciate nephrology managing rhabdomyolysis and hyponatremia.
- Fever possibly due to rhabdo. However need infectious disease workup.
Await blood cultures.
Replace cefepime with meropenem. Continue IV vancomycin for now.
- Spoke to pathology regarding December 22 lung biopsy result. Specimen has been sent to [place].
Lung biopsy cultures negative for bacteria; AFB and fungal cultures negative to date.
- Trend temperature, CK, electrolytes.
- Patient critically ill in ICU.
Care Review
Plan reviewed with: Physician (Drs. Smith, Paris)
--- NOTE | 2025-01-01 14:29 | HPS.HSE ---
Addendum entered and electronically signed by Darlene Cano MD 01/01/25 15:56:
I personally performed a history and physical exam of the patient and discussed management with the resident. I reviewed the resident's note and agree with the documented findings and plan of care HPI/CC.
GENERAL: critically ill male restless, confused
HEENT: NC/AT--dry mucus membranes--no signs of thrush
HEART: regular rate and rhythm, +S1, +S2, tachycardic
LUNGS : clear to auscultation bilaterally
ABDOM: soft, nontender, nondistended, + bowel sounds
EXT: no cyanosis, clubbing, or edema--very tender to touch calves bilaterally
NEUROLOGIC: fidgety
Severe sepsis due to neutropenic fever with confusion and lactic acidosis--was here last admission with presumed fungal PNA--still neutropenic--would vann culture--must keep in mind possibility of meningitis/encephalitis with severe
immunosuppression--apprec ID, straight cutter machine--ABG shows resp compensation for metabolic acidosis--trending lactates--s/p 300ml/kg sepsis fluid bolus dosing--cont IVF--agree with broad coverage of vanco/cefepime--ID to further delineated ABX--acyclovir
added for prophylaxis (CT chest abdomen pelvis reviewed no significant acute change compared to last imaging. Chest xray showed Widespread bilateral prominence of the pulmonary interstitium and some minimal bilateral nodular opacities similar to
findings on recent Chest CT)--low threshold to start pressors if needed
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
irradiated, leukocyte reduced pRBC--eliquis on hold
Rhabdomyolysis (CPK 10, 144)--Elevated CPK most likely due to statin/voriconazole combo--bilateral leg tenderness--trend CPK--apprec renal--consideration for bicarb but will defer to renal
Severe hypovolemic Hyponatremia (level 118)--SIADH with increased free water intake per pt , plus sepsis--apprec renal--may need 3% NaCL--frequent BMP
Hypocalcemia--would replete
Tumor lysis prevention (not hyperuricemia, in fact, uric acid has been low all along)--cont allopurinol--trend LDH and uric acid--on most recent discharge, patients uric acid level was 1.9, today his uric acid level is 2.7.
Recent left upper lobe PE--hold on Eliquis for now--ronn if MS does not improve and LP or other procedure needed
Hyperlipidemia-- Hold statins due to increased AST/ALT
code status--Full code
DVT proph --SCD's as US neg for DVT
Total Critical Care Time 60 minutes. I was immediately available to the patient and staff. I personally examined, reviewed labs, diagnostic images/reports, interpretations, treatment plans, discussed patient care with other providers and family
or caregivers (if patient is unable to make decisions), entered orders as appropriate and documented the medical record.
Original Note:
Family Physician
-
Family Physician: Renea Hagen
Chief Complaint
-
Lethargy, weakness, altered mental status
History of Present Illness
Patient is a 59-year-old gentleman with history of MDS, progressed to AML, recent diagnosis of pulmonary embolism about a month ago on Eliquis , hyperlipidemia, hyperuricemia secondary to tumour lysis syndrome who presented to the emergency room for
an acute change in mental status, fever, chills, confusion since 5 am this morning. Since his discharge from the hospital on last admission, he has been at baseline. She does not report any cough vomiting diarrhea, hemoptysis or hematemesis. No
lucy bloody diarrhea reported. No sick contacts reported.
Patient has been on Venclexta and azacitidine therapy for AML and reportedly last dose about 2 weeks ago. Patient last saw Dr. Mead his oncologist yesterday who suggested he stay on same dose of Venclexta that he was discharged on from previous
admission.
Patient has prior history of alcoholism and heavy smoking which he stopped about 8 to 9 months ago and currently not actively drinking per patient's .
In the emergency room patient vitals were HR- 125, RR- 30, Temp- 105, and BP 131/74. His labs on admission were wbc of 0.2, hemoglobin of 6.6, absolute neutrophil count of 0.1, platelet count of 63, sodium 118, lactic acid of 4.8, creatinine of 0.8.
Chest CT, head CT, xray, and EKG ordered. Cultures ordered and fluid with lactated ringers started. IV push Cefepime ordered as well.
Medical History
Past Medical History
Past Medical History: Reports Other
Additional Past Medical History:
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
Asbestosis
Dyslipidemia
Past Surgical History: Reports Other
Additional Past Surgical History:
Appendectomy
Bone Marrow Biopsy
Social History
Tobacco: Former Smoker (Quit smoking 9 months ago. > 40 pack years total use.)
Alcohol: Former (Quit drinking 9 months ago. Prior daily use.)
Drug: None
Personal:
Living: With Family
Family History
Family History: Not pertinent
Allergies / Home Medications
Allergies reflects when Allergies were last updated in [facility].
Home Medications with original date entered in [facility]
Allergy/Medication List:
Allergies
Allergy/AdvReac Type Severity Reaction Status Date / Time
Penicillins Allergy Unknown Verified 12/17/24 19:04
Home Medications
atorvastatin 10 mg tablet 10 mg PO QPM High Cholesterol 04/24/24
acyclovir 400 mg tablet 400 mg PO BID Infection 11/29/24
ondansetron HCl 4 mg tablet 4 mg PO Q8HPRN PRN nausea 11/29/24
allopurinol 300 mg tablet 300 mg PO DAILY elevated uric acid #30 tabs 12/25/24
apixaban 5 mg tablet (Eliquis) 5 mg PO BID #73 tabs 08/06/25
voriconazole 200 mg tablet 200 mg PO BID anti fungal #60 tabs 12/25/24
acetaminophen 325 mg tablet (Tylenol) 650 mg PO Q6HPRN PRN fever 01/01/25
venetoclax 100 mg tablet (Venclexta) 100 mg PO DAILY 01/01/25
Review of Systems
-
History Source: Patient
Constitutional: Reports Fever and Fatigue
Abdomen/GI: Reports Nausea
Neurological: Reports Dizzy and Headache
Physical Exam
Vital Signs
Vital Signs
Temp Pulse Resp BP Pulse Ox
102.2 F H 136 44 90/74 99
01/01/25 12:22 01/01/25 14:16 01/01/25 14:16 01/01/25 14:16 01/01/25 14:16
Physical Exam
General: Appears Chronically Ill
Respiratory: Clear
Cardiac: Tachycardia
GI: Soft, Non Tender, Non Distended and Normal Bowel Sounds
Musculoskeletal: No Clubbing, No Edema and Other (Bilateral lower extremity calf tenderness)
Neuro: Awake and Alert
Psych: Confused
Laboratory Results
-
01/01/25 08:16
Laboratory Results
PT 31.5 Sec (11.4-14.6) H 01/01/25 08:16
INR 3.00 01/01/25 08:16
APTT 50.4 Sec (23.4-35.0) H 01/01/25 08:16
pH 7.51 (7.35-7.45) H 01/01/25 11:34
pCO2 25 mmHg (35-48) L 01/01/25 11:34
pO2 66 mmHg (83-108) L 01/01/25 11:34
HCO3 19.9 mmol/L (21-28) L 01/01/25 11:34
Lactic Acid 2.8 mmol/L (0.7-2.0) H 01/01/25 11:26
Total Bilirubin 2.0 mg/dl (0.2-1.3) H 01/01/25 08:16
AST 229 U/L (17-59) H 01/01/25 08:16
ALT 53 U/L (0-50) H 01/01/25 08:16
Alkaline Phosphatase 55 U/L (38-126) 01/01/25 08:16
Lipase 38 U/L (23-300) 01/01/25 08:16
Data Reviewed
-
Diagnostic Radiology: Report Reviewed by me and Discussed with Physician
CT Scan: Report Reviewed by me and Discussed with Physician
Lab Data: Labs Reviewed by me and Discussed with Physician
Impression/Plan
-
Severe sepsis due to neutropenic fever:
- patient is acutely confused, lethargic, weak, with fever and chills
- 2 of the 4 sepsis criteria were met on SIRS.
- Lactate on admission was 4.8 trending down to 2.8 most recent. Continue IV infusion.
- Infectious disease and oncology were consulted
- 30 mL/kg IV fluid resuscitation in the emergency room, then normal saline continuous infusion.
- Blood cultures and urine cultures ordered to check for the source of infection.
- Continue vancomycin and Empiric cefepime IV until cultures result.
- Continued Acyclovir as per ID recommendations. Awaiting ID's recc on continuing his Voriconazole.
- CT chest abdomen pelvis reviewed no significant acute change compared to last imaging. Chest xray showed Widespread bilateral prominence of the pulmonary interstitium and some minimal bilateral nodular opacities similar to findings on recent Chest
CT.
- ABG suggestive of respiratory alkalosis
- Neurochecks ordered
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
Acute anemia in the setting on his AML
Pancytopenia:
- Oncology consulted
- held patients Venclexta for now, awaiting recc from oncology
- continue patient on empiric antibiotics, and status post 1 unit of blood.
- Patient hgb is 6.6, ordered typing/screening, transfused 1 unit of Leukocyte reduced CMV irradiated blood, trend CBC.
- Held eliquis
Elevated CPK most likely due to rhabdomyolysis caused by sepsis:
- CPK is >10,000 ( 5x the upper limit of normal)
- on physical exam, patient states he has bilateral lower extremity muscle tenderness in his legs. Tenderness to palpation on physical examination.
- Urine analysis positive for blood but not RBC's.
- Initiated aggressive fluid therapy.
Severe hypovolemic Hyponatremia (level 118):
- Consulted nephrology
- patient is confused, disoriented, and weak.
- Multifactorial due to underlying SIADH, high free water intake and sepsis.
- Suspect hypovolemic hyponatremia with urine sodium of 13 and normal urine osmololaity
- Trend BMP every 4 hours and adjust IV fluids accordingly
Hyperuricemia possibly due to tumour lysis syndrome:
- on most recent discharge, patients uric acid level was 1.9, today his uric acid level is 2.7.
- Potential causes could be tumour lysis syndrome vs cell breakdown in sepsis/rhabdo
- Currently on aggressive treatment with IV fluids
- Will trend uric acid level. if it keeps increasing will consider the use of rasburicase.
SUZIE PE:
- Diagnosed on previous admission and patient was started on heparin 5 mg bid
- Patients vitals are stable, CT chest with contrast negative for PE
- Holding Eliquis due to bleeding risk
- Placed on SCD's as DVT ppx in the ICU
Hyperlipidemia:
- Hold statins due to increased AST/ALT
Full code
DVT ppx: SCD's
--- NOTE | 2025-01-01 14:47 | PTCARENOTE ---
Addendum entered by Marylu Mtz RN 01/01/25 19:34:
Pt had not voided independently despite feeling fullness in bladder, unable to urinate in urinal or condom catheter. Bladder scanned for >[address] Leone notified, orders rec'd to place garcia.
Original Note:
16 fr garcia placed for critical I+O's . Pt tolerated well. Immediate return of 600 ml mary alice urine.
[2025-01-01] MEDS: OFIRMEV 50 IV (15:27)
--- NOTE | 2025-01-01 15:32 | PTCARENOTE ---
Temp rising to 104....IV Acetaminophen ordered, per Dr. Leone, give half dose. See MAR for documentation. Cooling blanket ordered-goal temp of 100.4 ordered.
--- NOTE | 2025-01-01 15:37 | PTCARENOTE ---
Addendum entered by Marylu Mtz RN 01/01/25 19:36:
3% NaCl administered at 17:17.
Original Note:
IVF increased to 200 ml/hr, 3% NaCl ordered per Dr. Montez at this time.
--- NOTE | 2025-01-01 16:09 | PTCARENOTE ---
Pt placed on cooling blanket -core temp initially 104.6 measured by thermister garcia.
[2025-01-01 16:28] LABS: Blood Urea Nitrogen 22 mg/dl (9-20); Calcium 6.6 mg/dl (8.4-10.2); Carbon Dioxide 22 mmol/L (22-30); Chloride 92 mmol/L (98-107); Estimated Creatinine Clearance 72 ml/min; Glucose 92 mg/dl (70-99); Potassium 4.2 mmol/L (3.5-5.1); Sodium 119 mmol/L (135-145); eGFR > 60.00
--- NOTE | 2025-01-01 16:37 | CM ---
Patient seen at bedside in ED with physicians and patient . Patient stated that they live in a 2 story home with no DME. Patient PCP is Dr. Renea Hagen and he uses the [facility] on [address] in [place]. Patient is off of O2 at this time and stated
that he has a walker now at home. Patient for further work up per physicians. Current discharge needs pending medical treatment plan. CM will continue to follow for discharge planning needs.
Plan;SNF vs home with VN; following medical treatment plan/ watch for therapy needs.
[2025-01-01] MEDS: SODIUM CHLORIDE 3% 100 IV (17:17)
[2025-01-01] MEDS: THIAMINE INJECTION 255 MG IV ×2 (17:47→23:13)
[2025-01-01] MEDS: STERILE WATER FOR INJECTION 10 ML IV ×2 (17:49→23:13)
[2025-01-01] MEDS: MERREM 500 MG IV ×2 (17:49→23:13)
[2025-01-01] MEDS: VANCOCIN 200 IV (17:55)
--- NOTE | 2025-01-01 20:00 | PTCARENOTE ---
assumed care, pt disoriented x3, confused and restless, not following commands, PERRLA 5, BOO, B/L wrist restraints, Sinus tach 140's, weak radials, doppler pedals, lungs clear, Tachypneic SpO2 95%, BSx4 NPO, thermistor garcia mary alice output, Cooling
blanket per worklist pt febrile, LE mottled and cool, 18GLAC, 20G L wrist, 20G RFA, NS 200ml, labs sent, safe environment maintained, bed alarm applied, otherwise refer to documentation.
[2025-01-01] MEDS: VALIUM INJECTION 5 MG IV (20:16)
[2025-01-01 20:21] LABS: Urine Character Slightly Cloudy (Clear)
[2025-01-01 20:27] LABS: Hematocrit 18.7 % (39.0-52.0); Hemoglobin 6.4 g/dL (13.0-18.0); Mean Corp Hgb Conc. 34.2 g/dL (33.0-37.0); Mean Corpuscular Volume 83.5 fL (80.0-94.0); Platelet Count 17 10^3/uL (130-400); Red Cell Dist. Width 17.2 % (11.5-14.5)
[2025-01-01 20:36] LABS: Urine Squamous Cell 0-2 /LPF (Few)
[2025-01-01 21:08] LABS: Blood Urea Nitrogen 23 mg/dl (9-20); Calcium 5.9 mg/dl (8.4-10.2); Carbon Dioxide 19 mmol/L (22-30); Chloride 99 mmol/L (98-107); Estimated Creatinine Clearance 72 ml/min; Glucose 79 mg/dl (70-99); Potassium 4.1 mmol/L (3.5-5.1); Sodium 121 mmol/L (135-145); eGFR > 60.00
[2025-01-01] MEDS: CALCIUM GLUCONATE 290 MG IV (21:43)
[2025-01-01 22:09] LABS: B.E. -5.5 mmol/L; HCO3 20.1 mmol/L (21-28); O2 Saturation % 12.5 % (94-98); PCO2 39 mmHg (35-48)
[2025-01-01 22:11] LABS: PO2 10 mmHg (83-108)
[2025-01-02] VITALS (68 sets, daily range): BP systolic 76–118; BP diastolic 52–81; BMI 22.4
[2025-01-02] MEDS: FLEXBUMIN 100 IV (00:42)
--- NOTE | 2025-01-02 01:05 | PTCARENOTE ---
systems reviewed, received Valium pt became increasingly restless, pt lifting both arms in restraints, when called he favors his right side, grunting and not following commands, STEAM TENDER made aware no new orders at this time, Hgb 6.4 1 unit of blood
given, pt received albumin and calcium was repleted, pt remains tachycardic and tachypneic, BP's have become soft and STEAM TENDER made aware, other blackwood refer to documentation.
[2025-01-02] MEDS: MORPHINE SULFATE 1 MG IV (01:36)
[2025-01-02 02:57] LABS: Venous Blood Gas B.E. -9.3 mmol/L (-4 to +4); Venous Blood Gas O2 Sat % 99.1 %
[2025-01-02 03:36] LABS: ALT (SGPT) 61 U/L (0-50); AST (SGOT) 375 U/L (17-59); Albumin 1.9 g/dl (3.5-5.0); Alkaline Phosphatase 32 U/L (38-126); Blood Urea Nitrogen 17 mg/dl (9-20); Calcium 5.7 mg/dl (8.4-10.2); Carbon Dioxide 18 mmol/L (22-30); Chloride 106 mmol/L (98-107); Estimated Creatinine Clearance 90 ml/min; Glucose 60 mg/dl (70-99); Potassium 3.1 mmol/L (3.5-5.1); Sodium 129 mmol/L (135-145); Total Protein 4.0 g/dl (6.3-8.2); eGFR > 60.00
[2025-01-02 03:46] LABS: Hematocrit 17.8 % (39.0-52.0); Hemoglobin 6.1 g/dL (13.0-18.0); Mean Corp Hgb Conc. 34.3 g/dL (33.0-37.0); Mean Corpuscular Volume 84.4 fL (80.0-94.0); Nucleated Red Blood Cells % 0 % (-); Platelet Count 11 10^3/uL (130-400); Red Cell Dist. Width 16.5 % (11.5-14.5)
[2025-01-02] MEDS: DEXTROSE 50% SYRINGE 25 GRAMS IV (03:59)
[2025-01-02 04:14] LABS: INR 2.85; PT 30.3 Sec (11.4-14.6)
[2025-01-02 04:15] LABS: APTT 54.2 Sec (23.4-35.0)
[2025-01-02] MEDS: KCL 270 MEQ IV (04:16)
[2025-01-02] MEDS: CALCIUM GLUCONATE 290 MG IV (04:16)
[2025-01-02 04:43] LABS: Glucose - Point of Care 77 mg/dl (70-99)
--- NOTE | 2025-01-02 05:32 | PTCARENOTE ---
systems reviewed, Hgb 6.4 2 units and 1 unit of FFP ordered, currently infusing the first unit, K and Ca2+ repleted, NRB on unable to obtained a accurate SpO2, GB 60 from morning labs, 1/2 amp of dextrose given, 15 min recheck BG 77, protocol
followed, otherwise refer to documentation
--- NOTE | 2025-01-02 05:39 | PTCARENOTE ---
systems reviewed, Hgb 6.1 2 units of PRBC and 1 unit of FFP ordered, currently infusing the first unit, K and Ca2+ repleted, NRB on unable to obtained a accurate SpO2, GB 60 from morning labs, 1/2 amp of dextrose given, 15 min recheck BG 77,
protocol followed, otherwise refer to documentation
[2025-01-02] MEDS: NSS 1000 IV (05:49)
[2025-01-02 06:17] LABS: Fibrinogen 591 MG/DL (199-459)
[2025-01-02 06:37] LABS: Glucose - Point of Care 88 mg/dl (70-99)
[2025-01-02] MEDS: AQUAMEPHYTON 51 MG IV (06:39)
[2025-01-02] MEDS: VANCOCIN 200 IV ×2 (06:39→18:13)
[2025-01-02] MEDS: STERILE WATER FOR INJECTION 10 ML IV (06:40)
[2025-01-02] MEDS: MERREM 500 MG IV (06:40)
--- NOTE | 2025-01-02 07:15 | PTCARENOTE ---
Pt rec'd from nightshift RN at change of shift, unit of FFP finished by night RN on walking rounds, platelets requested from blood bank and administered- please see TAR for all documentation. Pt remains unresponsive, minimal w/d to pain. Afebrile
per temp sensing garcia catheter at this time. Pt tachypneic in the 40s, unable to obtain consistent pleth at this time, pt's legs mottled up to thighs. Tachycardic in 130s, BPs remain soft but stable with MAP>65. Dr. Leone arrived to bedside,
hospitalist and resident also in room, decision made to intubate pt immediately for airway protection. Pt intubated with 8.0 endotracheal tube; after xray, adjusted to 24 -placement was confirmed. After platelet infusion was completed, Dr. Leone
placed right subclavian triple lumen central line, (confirmed by xray) as well as right radial arterial line. Central line leveled and zeroed, all ports patent and secured, labs drawn and sent per orders. Plan discussed with all members of care
team, pts was called to room and updated by physicians. Safe environment continues, b/l soft wrist restraints in place for safety. Emotional support provided to , questions answered.
--- NOTE | 2025-01-02 08:21 | CON.ONC ---
Consultation
-
Date Consultation Requested: 01/01/25
Date Consultation Performed: 01/02/25
Requesting Provider: Dr.Jitesh Toledo
Performing Provider: Dr.Mitchell Mead
Reason for Consultation: MDS
Impression
Impression
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
Neutropenic fever with sepsis and lactic acidosis
Rhabdomyolysis
Recent PE
Severe hyponatremia
Bilateral pulmonary nodular opacities
Plan
Plan
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
#Neutropenic fever with sepsis and lactic acidosis
#Acute metabolic encephalopathy
#Hyponatremia
- CT Chest/Abd/Pelvis: Bilateral pulmonary nodular parenchymal opacities again seen, Fluid-filled loops of small bowel, nonspecific, limited study as a result of lack of oral contrast
- Continue supportive, ventilator care
- Blood cx with strep pneumoniae, antibiotics as per ID
- S/p IR guided biopsy 12/2024, pathology results are pending
- If further transfusions need, advise CMV neg, irradiated and leukocyte reduced as transplant candidate
- follow CBC and temperature curve
- Resume Venetoclex 100mg once able to tolerate PO
Patient History
History of Present Illness
This is a 59-year-old male patient with past medical history of secondary AML transformed from previous MDS presented to ED for concerns of fever and AMS. History obtained mainly from chart review and nursing as patient with altered mental
status. He had a recent admission to the hospital from 12/18-12/25/24 for shortness of breath and suspected fungal pneumonia. His states that he has been doing well since discharge until yesterday when she had noticed that he had started to
have a low-grade fever. She had given him Tylenol and during the night, she had noticed he started to appear very confused. She therefore had brought him to the ER where he was found to be septic with tachycardia, a fever of 105.7, ANC 800, CK
10,144 hello and sodium 118. Due to hypoxic respiratory failure, patient is currently connected to ventilator in the ICU. He also has received CMV neg, irradiated leukocyte reduced pRBC due to acute anemia.
He has been receiving Venetoclax and Vidaza outpatient for MDS and AML.
Past-Medical/Surgical History
PMH:
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
Asbestosis
Dyslipidemia
PSH:
Appendectomy
Social History:
Tobacco: Former Smoker (Quit smoking 9 months ago. > 40 pack years total use.)
Alcohol: Former (Quit drinking 9 months ago. Prior daily use.)
Family History: Not pertinent
Patient Medication
�Medication �Instructions �Recorded �Confirmed �Last Taken �Type
atorvastatin 10 mg tablet 10 mg PO QPM High Cholesterol 04/24/24 01/01/25 12/31/24 History
acyclovir 400 mg tablet 400 mg PO BID Infection 11/29/24 01/01/25 12/31/24 History
ondansetron HCl 4 mg tablet 4 mg PO Q8HPRN PRN nausea 11/29/24 01/01/25 Unknown History
allopurinol 300 mg tablet 300 mg PO DAILY elevated uric acid 12/25/24 01/01/25 12/31/24 Rx
#30 tabs
apixaban 5 mg tablet (Eliquis) 5 mg PO BID #73 tabs 12/25/24 01/01/25 12/31/24 Rx
voriconazole 200 mg tablet 200 mg PO BID anti fungal #60 tabs 12/25/24 01/01/25 12/31/24 Rx
acetaminophen 325 mg tablet 650 mg PO Q6HPRN PRN fever 01/01/25 01/01/25 12/31/24 History
(Tylenol)
venetoclax 100 mg tablet 100 mg PO DAILY Cancer 01/01/25 01/01/25 12/31/24 History
(Venclexta)
Active Medications
Generic Name Dose Route Start Last Admin
Trade Name Freq PRN Reason Stop Dose Admin
Acetaminophen 650 mg 01/01/25 10:57
Acetaminophen 325 Mg Tablet PO 01/29/25 10:56
Q6HPRN PRN
fever
Acyclovir Sodium 400 mg 01/01/25 12:00 01/01/25 20:16
Acyclovir Sodium 200 Mg Capsule PO 01/11/25 11:59 Not Given
BID VALERIA
Albuterol/Ipratropium 3 ml 01/01/25 13:12
Ipratropium 0.5/Albuterol 3 Mg (3 Ml Ampul) INH
R Q4HPRN PRN
Shortness of breath
Protocol
Fentanyl Citrate 50 mcg 01/02/25 07:52
Fentanyl (50 Mcg/Ml) 100 Mcg/2 Ml Ampul IV 01/16/25 07:51
[id number] PRN
see protocol
Protocol
Vancomycin HCl 1 gram in 200 mls @ 200 mls/hr 01/01/25 18:00 01/02/25 06:39
Vancocin IV 200 mls
Q12H VALERIA Administration
Protocol
Thiamine HCl 500 mg/ Sodium 255 mls @ 255 mls/hr 01/01/25 16:00 01/01/25 23:13
Chloride IV 01/29/25 15:59 255 mls
Q8 VALERIA Administration
Sodium Chloride 1,000 mls @ 200 mls/hr 01/01/25 13:30 01/02/25 05:49
Nss IV 1,000 mls
.Q5H VALERIA Administration
Acetaminophen 1,000 mg in 100 mls @ 400 mls/hr 01/01/25 15:22 01/01/25 15:27
Ofirmev IV 01/02/25 15:21 50 mls
Q6HPRN PRN Administration
Fever
Protocol
Phenylephrine HCl 50 mg in 250 mls @ 0 mls/hr 01/02/25 01:00
Isael-Synephrine IV
PER PROTOCOL VALERIA
Protocol
Per Protocol
Propofol 1,000,000 mcg in 100 mls @ 0 mls/hr 01/02/25 08:00
Diprivan IV
PER PROTOCOL VALERIA
Protocol
Per Protocol
Fentanyl Citrate 1,000 mcg in 100 mls @ 0 mls/hr 01/02/25 08:00
Sublimaze IV
PER PROTOCOL VALERIA
Protocol
Per Protocol
Meropenem 500 mg 01/01/25 18:00 01/02/25 06:40
Meropenem 500 Mg/10 Ml Vial IV 500 mg
Q6H VALERIA Administration
Morphine Sulfate 1 mg 01/02/25 01:22 01/02/25 01:36
Morphine 2 Mg/Ml Syringe IV 01/16/25 01:21 1 mg
Q4HPRN PRN Administration
moderate to severe pain/SOB
Polyethylene Glycol 17 grams 01/03/25 08:00
Polyethylene Glycol Powder 17 Grams Packet TUBE 01/31/25 07:59
DAILY VALERIA
Sterile Water 10 ml 01/01/25 18:00 01/02/25 06:40
Sterile Water For Injection 10 Ml Vial IV 01/29/25 17:59 10 ml
Q6H VALERIA Administration
Review of Systems
-
Unable to obtain full review of systems at this time due to: Patient Intubation
Physical Exam
-
General: Fever and Appears Chronically Ill
Cardiology: S1 and S2
Pulmonary: Clear
GI: Soft
Skin: Warm and Dry
Labs
Lab Results
WBC 0.1 10^3/uL (4.8-10.8) L* 01/02/25 02:44
RBC 2.11 10^6/uL (4.70-6.10) L 01/02/25 02:44
Hgb 6.1 g/dL (13.0-18.0) L* 01/02/25 02:44
Hct 17.8 % (39.0-52.0) L* 01/02/25 02:44
MCV 84.4 fL (80.0-94.0) 01/02/25 02:44
MCH 28.9 pg (27.0-31.0) 01/02/25 02:44
MCHC 34.3 g/dL (33.0-37.0) 01/02/25 02:44
RDW 16.5 % (11.5-14.5) H 01/02/25 02:44
Plt Count 11 10^3/uL (130-400) L* D 01/02/25 02:44
MPV fL (7.4-10.4) 01/02/25 02:44
Abs Immat Gran (auto) 0.0 10^3/uL (0-0.05) 01/02/25 02:44
Absolute Neuts (auto) 0.0 10^3/uL (1.4-6.5) L* 01/02/25 02:44
Absolute Lymphs (auto) 0.1 10^3/uL (1.2-3.4) L 01/02/25 02:44
Absolute Monos (auto) 0.0 10^3/uL (0.1-0.6) L 01/02/25 02:44
Absolute Eos (auto) 0.0 10^3/uL (0-0.7) 01/02/25 02:44
Absolute Basos (auto) 0.0 10^3/uL (0-0.2) 01/02/25 02:44
Immature Gran % 15.4 % (0-0.5) H 01/02/25 02:44
Neutrophils % 30.7 % (42.2-75.2) L 01/02/25 02:44
Lymphocytes % 38.5 % (20.5-51.1) 01/02/25 02:44
Monocytes % 15.4 % (1.7-9.3) H 01/02/25 02:44
Eosinophils % 0.0 % (0-6) 01/02/25 02:44
Basophils % 0.0 % (0-2) 01/02/25 02:44
Creatinine 0.8 mg/dL (0.7-1.3) 01/02/25 02:44
Creatinine Cancelled 01/02/25 02:44
Vital Signs
Vital Signs
Temp Pulse Resp BP Pulse Ox
100.5 F H 133 20 104/74 100
01/02/25 08:05 01/02/25 08:05 01/02/25 08:05 01/02/25 08:05 01/02/25 08:00
--- NOTE | 2025-01-02 08:49 | OR.RPT ---
Operative Report
Operative Report
Rapid sequence intubation
Indication. Hypoxic respiratory failure, shock. Patient saturating around 84% on nonrebreather. Obtunded, unable to protect airway
Pre-medications: None
Patient was placed in Supine position. Nonrebreather was used to preoxygenate, subsequently [id number] ventilation was applied. Patient cold with livedo reticularis, unable to get pulse oximetry readings reliably. 20 mg of Etomidate was given
as an induction agent followed by 70 mg of Rocuronium as paralytic. GlideScope was used, blade size #3, grade 1 view of vocal cords was obtained and ET tube, 8.0, was advanced under direct visualization without any difficulty. Color change was
confirmed and patient was bagged until saturations were 96%%. Subsequently patient was connected to ventilator. Bilateral good air entry noted. Tube was secured at 22 cm at the teeth, later advanced to 24 after reviewing CXR. Patient tolerated
the procedure well. Hemodynamically patient stayed stable throughout the procedure.
Time spent: 25 min
No. of attempts: 1
Complications: None
Date of Service: 01/02/2025
--- NOTE | 2025-01-02 08:50 | W.PN.ID1 ---
Addendum entered and electronically signed by Yulissa Campos MD 01/02/25 12:59:
Examined BLE. Violaceous livedo reticularis resolving. However, there is now maculopapular rash on right knee and left thigh.
Unlikely adverse reaction to antibiotics as he tolerated cephalosporin and Vanco in the past. Will continue to monitor for now.
Original Note:
Date of Service
Date of Service: January 02, 2025
Today's Communication
See below.
Assessment / Plan
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
# Invasive Strep pneumoniae bacteremia
# Severe sepsis.
.Fever persists
# Severe rhabdomyolysis
# Severe hyponatremia
# Change in mental status continues to decline
. 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
. 01/02 intubated for airway protection
# Recent findings of bilateral pulm nodular opacities, some with central cavitation
. 12/23 CT guided lung biopsy cultures negative for bacteria; AFB and fungal cultures negative to date.
Path pending - specimen has been sent to [facility] pathologist
- Now suspect rhabdomyolysis triggered by infection and less likely voriconazole/atorvastatin combo
- Replace meropenem with ceftriaxone 2g IV q12 and continue Vancomycin; covering for possible PLEATER HAND Strep pneumo infection.
Unsafe for LP with severe thrombocytopenia
- Follow repeat blood cx's.
- nephrology managing rhabdomyolysis and hyponatremia.
- Trend temperature, CK, electrolytes.
- Patient critically ill in ICU.
- Prognosis guarded
Chief Complaint
-: Clinical Sepsis and Bacteremia
Subjective / Review of Systems
Pt obtunded this am. Now intubated.
Vital Signs / Physical Exam
Vital Signs
Vital Signs
Temp Pulse Resp BP Pulse Ox
100.5 F H 133 20 104/74 100
01/02/25 08:05 01/02/25 08:05 01/02/25 08:05 01/02/25 08:05 01/02/25 08:00
Selected Entries
01/02/25
03:08
Temp 101.4 F H
Selected Entries
01/01/25
23:03
Temp 101.5 F H
Physical Exam
Constitutional: Acutely Ill
Eyes: Other (sclera mild icterus)
Cardiovascular: S1/S2 (tachycardic)
Pulmonary: Clear
Gastrointestinal: Soft, Non Tender, Non Distended and Normal Bowel Sounds
Extremities: Cyanosis (toes); Negative Edema
Skin: Other (Violaceous livedo reticularis bilateral LE to penis)
Neurological: Other (sedated)
Lines: Port (RCW no erythema)
Objective Data
Lab Data
PT 30.3 Sec (11.4-14.6) H 01/02/25 03:56
INR 2.85 01/02/25 03:56
APTT 54.2 Sec (23.4-35.0) H 01/02/25 03:56
Estimated Creat Clear 90 ml/min 01/02/25 02:44
Estimated Creat Clear Cancelled 01/02/25 02:44
Lactic Acid 1.8 mmol/L (0.7-2.0) 01/02/25 02:44
Total Bilirubin 2.3 mg/dl (0.2-1.3) H 01/02/25 02:44
AST 375 U/L (17-59) H 01/02/25 02:44
ALT 61 U/L (0-50) H 01/02/25 02:44
Alkaline Phosphatase 32 U/L (38-126) L 01/02/25 02:44
Most recent labs reviewed.
Micro Results:
01/01/25 08:17 Blood Culture - Preliminary
Blood/Venous Streptococcus pneumoniae
Gram Stain - Final
01/01/25 08:16 Blood Culture - Preliminary
Blood/Venous Positive culture in progress
Gram Stain - Final
01/01/25 20:00 Urine Culture - Pending
Urine
01/01/25 17:32 MRSA Screen - Pending
Nose
01/01/25 12:41 Blood Culture - Pending
Blood/Venous
01/01/25 11:44 Blood Culture - Pending
Blood/Venous
01/01/25 08:31 Urine Culture - Pending
Urine
01/01/25 08:17 Influenza Types A & B (ISIAH) - Final
Nasal Swab Negative for Influenza A & B, NAAT
Negative results must be combined with clinical observations
and patient history.
Nucleic Acid Amplification test (NAAT)performed on the
[employer] platform.
01/01/25 CT C/A/P: Bilateral pulmonary nodular parenchymal opacities again seen some of which with central cavitation and overall prominence of the pulmonary interstitium again seen, somewhat similar to prior study with at least one new
subcentimeter opacity in the right upper lobe. Again, some of several differential diagnostic possibilities again include atypical infection, septic pulmonary emboli, Bandar's granulomatosis and less likely metastases. Small anterior pericardial
effusion. Fluid-filled dilated stomach and fluid-filled thoracic esophagus. Fluid-filled loops of small bowel, nonspecific, cannot exclude enteritis.
01/01/[address]: No acute intracranial abnormality.
Care Review
Plan reviewed with: Nurse (Marylu) and Physician (Dr. Leone)
Total Time Spent with Patient (in minutes): 40
Critical care time.
--- NOTE | 2025-01-02 08:52 | OR.RPT ---
Operative Report
Operative Report
Right Radial Arterial catheter placement
Informed consent was obtained from patient's spouse via phonoe. Patient in septic shock on pressor therapy and needs invasive blood pressure monitoring, frequent blood draws for ABG.
Bedside ultrasound was used to confirm patency of right radial artery. Under sterile condition area was subsequently cleaned and a drape was placed. Under direct ultrasound visualization,, radial artery was cannulated. Once blood was noted in the
chamber guidewire was advanced. Arterial catheter was subsequently advanced over the guidewire, and then guidewire was removed. Pressure tubing was subsequently attached to the catheter and arterial waveform was noted on the monitor. Subsequently
a dressing was placed.
Complications: None
Blood loss: < 1 ml
Patient tolerated procedure well.
Date of service: 01/02/2025
--- NOTE | 2025-01-02 08:53 | OR.RPT ---
Operative Report
Operative Report
Right subclavian central venous catheter placement
Informed consent was obtained from patient's spouse via phone. Patient in septic shock on pressor therapy and needs central line access.
Bedside ultrasound was used to confirm patency of right subclavian vein. Under sterile condition area was subsequently cleaned and a full body drape was placed. 2 mL of lidocaine was injected locally for local anesthesia. Under sterile condition
and with an ultrasound probe in place, real-time long axis visualization and cannulation of subclavian vein was performed until blood was aspirated. Syringe was then detached and guidewire was advanced without any resistance. With guidewire in
place, needle was withdrawn. Ultrasound was used again to confirm positioning of guidewire inside the vein lumen. A small catrina was placed at the skin level and a dilator was placed to about 50% of its length. Dilator was removed and a central
line catheter was threaded over the guidewire. Once catheter inserted guidewire was removed. Caps were placed on all 3 ports of central line. Sterile flushes were used to confirm withdrawal of blood and easy flushing of all 3 ports. Central
catheter was then sutured to skin and dressing was placed. Normal lung sliding noted on POCUS.
Complications: None.
Blood loss: 1-2 ml
Patient tolerated procedure well.
Date of service: 01/02/2025
--- NOTE | 2025-01-02 08:53 | CM ---
Addendum entered by Chani Cavanaugh 01/02/25 14:01:
Patient seen at bedside and she is in process of contacting family at vacation in [place]. CM will continue to follow for discharge planning needs.
Original Note:
Patient moved to ICU and intubated per physicians this am. CM will continue to follow for discharge planning needs.
Plan; pending medical treatment plan
[2025-01-02] MEDS: THIAMINE INJECTION 255 MG IV ×3 (09:34→23:04)
[2025-01-02 09:41] LABS: B.E. -7.7 mmol/L; HCO3 19.6 mmol/L (21-28); O2 Saturation % 100.0 % (94-98); PCO2 48 mmHg (35-48); PO2 399 mmHg (83-108)
[2025-01-02 09:51] LABS: Hematocrit 23.2 % (39.0-52.0); Hemoglobin 7.8 g/dL (13.0-18.0); Mean Corp Hgb Conc. 33.6 g/dL (33.0-37.0); Mean Corpuscular Volume 85.3 fL (80.0-94.0); Nucleated Red Blood Cells % 0 % (-); Platelet Count 15 10^3/uL (130-400); Red Cell Dist. Width 16.4 % (11.5-14.5)
[2025-01-02 09:53] LABS: CKMB 8.7 ng/ml (0.0-3.4)
[2025-01-02 09:58] LABS: Triglycerides 93 mg/dl (10-149)
[2025-01-02] MEDS: SUBLIMAZE 50 MCG IV ×5 (10:07→23:48)
--- NOTE | 2025-01-02 10:09 | PTCARENOTE ---
PRN Fent bolus given for vent dysynchrony per orders.
[2025-01-02 10:11] LABS: ALT (SGPT) 78 U/L (0-50); AST (SGOT) 360 U/L (17-59); Albumin 2.4 g/dl (3.5-5.0); Alkaline Phosphatase 41 U/L (38-126); Blood Urea Nitrogen 16 mg/dl (9-20); Calcium 7.5 mg/dl (8.4-10.2); Carbon Dioxide 22 mmol/L (22-30); Chloride 103 mmol/L (98-107); Estimated Creatinine Clearance 112 ml/min; Glucose 104 mg/dl (70-99); Potassium 4.5 mmol/L (3.5-5.1); Sodium 128 mmol/L (135-145); Total Protein 4.7 g/dl (6.3-8.2); eGFR > 60.00
[2025-01-02 10:21] LABS: Blood Urea Nitrogen 17 mg/dl (9-20); Calcium 7.6 mg/dl (8.4-10.2); Carbon Dioxide 21 mmol/L (22-30); Chloride 104 mmol/L (98-107); Estimated Creatinine Clearance > 125 ml/min; Glucose 103 mg/dl (70-99); LDH 452 U/L (120-246); Potassium 4.5 mmol/L (3.5-5.1); Sodium 128 mmol/L (135-145); eGFR > 60.00
--- NOTE | 2025-01-02 10:27 | W.PN.NEPH.PH ---
Today's Communication / Plan
-
see plan
change IVF to D51/2NS
Assessment/Plan
-
IMP:
Neutropenic fever with severe sepsis and lactic acidosis
Acute on chronic Hyponatremia
Acute metabolic encephalopathy/ delirium
Rhabdomyolysis
Pancytopenia
Bilateral pulmonary nodular opacities, some cavitary
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
SUZIE PE, diagnosed 11/2024
HLD
Hyponatremia
Elevated LFTs
Plan:
A/w AMS, fever-sepsis
Acute on chr hyponatremia-suspect multifactorial
underlying SIADH , high free water intake+sepsis
U osmo 449, U na low 13
sodium at 128 this am -acceptable correction
to avoid rapid correction change iVF to 1/2 NS
cont to follow sodium Q4h, goal of correction 6-8meq/day
titrate pressors to keep MAP>65
mild rhabdo-improving
cr seem stable at 0.7
hypocalcemia-keep prn IV riders, check I marisol
mild hypoglycemia-ok to add D5 into IVF
now intubated this am as he remains obtunded
abx per ID- strep pneumo bacteremia, neutropenic fever
prn transfusion for anemia, monitor thrombocytopenia
d/w ICU and nursing
CC time spent 31min
-
-
Date of Service: January 02, 2025
CC / HPI / ROS
-
Chief Complaint:
Hypoantremia
History of Present Illness:
sodium at 128 this am
intubated this am for AMS and hypoxia
cr normal, k normal
marisol improving to 7.5
hb better at 7.8 post PRBC
plt low 15, WBC low 0.1
still with fever, now on phenylephrine for hypotension post intubation
Review of Systems:
intubated, not responding
non oliguric with garcia, wt is up
Labs
-
Labs:
WBC 0.1 10^3/uL (4.8-10.8) L* 01/02/25 09:22
RBC 2.72 10^6/uL (4.70-6.10) L 01/02/25 09:22
Hgb 7.8 g/dL (13.0-18.0) L D 01/02/25 09:22
Hct 23.2 % (39.0-52.0) L 01/02/25 09:22
Plt Count 15 10^3/uL (130-400) L* D 01/02/25 09:22
Sodium 128 mmol/L (135-145) L 01/02/25 09:23
Sodium 128 mmol/L (135-145) L 01/02/25 09:23
Potassium 4.5 mmol/L (3.5-5.1) 01/02/25 09:23
Potassium 4.5 mmol/L (3.5-5.1) D 01/02/25 09:23
Chloride 103 mmol/L (98-107) 01/02/25 09:23
Chloride 104 mmol/L (98-107) 01/02/25 09:23
Carbon Dioxide 21 mmol/L (22-30) L 01/02/25 09:23
Carbon Dioxide 22 mmol/L (22-30) 01/02/25 09:23
BUN 16 mg/dl (9-20) 01/02/25 09:23
BUN 17 mg/dl (9-20) 01/02/25 09:23
Creatinine 0.6 mg/dL (0.7-1.3) L 01/02/25 09:23
Creatinine 0.7 mg/dL (0.7-1.3) 01/02/25 09:23
eGFR > 60.00 01/02/25 09:23
eGFR > 60.00 01/02/25 09:23
Glucose 103 mg/dl (70-99) H 01/02/25 09:23
Glucose 104 mg/dl (70-99) H 01/02/25 09:23
Calcium 7.5 mg/dl (8.4-10.2) L 01/02/25 09:23
Calcium 7.6 mg/dl (8.4-10.2) L D 01/02/25 09:23
Phosphorus 2.6 mg/dl (2.5-4.5) 01/01/25 11:26
Albumin 2.4 g/dl (3.5-5.0) L 01/02/25 09:23
Physical Exam
-
Vital Signs:
Vital Signs
Temp Pulse Resp BP Pulse Ox
100.9 F H 128 21 99/64 100
01/02/25 09:00 01/02/25 09:30 01/02/25 09:30 01/02/25 09:30 01/02/25 10:06
Cardiovascular:: Regular rate and rhythm (tachy)
Respiratory:: Bilateral: Coarse
Lung Excursion:: Abnormal
Abdomen:: Nontender and Soft
Extremity Edema:: None: Bilateral:
Garcia Catheter: Yes
Other Findings::
livido reticularis noted in LEs
--- NOTE | 2025-01-02 10:31 | PHA.VAN.FU ---
Vancomycin Assessment / Plan
- Assessment
Renal Function: Stable
WBC's are: Stable
Neutropenia: ANC = 0
In the past 24 hrs, patient has been: Febrile
Concomitant Antimicrobials: ceftriaxone; chronic acyclovir
- Dosing Plan
Continue: Vanc 1000mg Q12H
- Monitoring Plan
No level(s) ordered at this time: consider levels in next few days
- Follow Up
Pharmacy will continue to follow.
Vancomycin Follow UP
- -
Patient Age: 59
Patient Sex: Male
Vancomycin Day #: 2
Indication: Neutropenic Fever
Requesting Provider: Dr. Adeline Toledo (resident)
Pertinent Antimicrobial Allergies:
penicillins - unknown
Height / Weight:
Height 5 ft 10 in
Actual Weight 70.7 kg
Pertinent Past Medical History: AML
- Vital Signs / Lab Results
Temp Pulse Resp BP Pulse Ox
100.9 F H 128 21 99/64 100
01/02/25 09:00 01/02/25 09:30 01/02/25 09:30 01/02/25 09:30 01/02/25 10:06
Lab Results - Hematology
01/01/25 01/01/25 01/02/25
08:16 20:00 02:44
WBC 0.3 L* 0.1 L* 0.1 L*
01/02/25
09:22
WBC 0.1 L*
Lab Results - Chemistry
01/01/25 01/01/25 01/01/25
08:16 11:26 15:57
BUN 21 H 20 22 H
Creatinine 0.8 0.7 1.0
Estimated Creat Clear 90 103 72
Albumin 2.8 L
01/01/25 01/02/25 01/02/25
20:00 02:44 02:44
BUN 23 H 17 Cancelled
Creatinine 1.0 0.8
Estimated Creat Clear 72
Albumin
01/02/25 01/02/25 01/02/25
02:44 02:44 09:23
BUN 17
Creatinine Cancelled
Estimated Creat Clear 90 Cancelled
Albumin 1.9 L
01/02/25 01/02/25 01/02/25
09:23 09:23 09:23
BUN 16
Creatinine 0.6 L 0.7
Estimated Creat Clear > 125 112
Albumin 2.4 L
01/01/25 01/01/25 01/01/25
08:17 11:26 15:57
Lactic Acid 4.8 H* 2.8 H 2.2 H
01/01/25 01/02/25
20:00 02:44
Lactic Acid 2.3 H 1.8
Lab Results - Urine
01/01/25
20:00
Urine Nitrite (Reflex) Negative
Leukocyte Esterase Rfl Negative
Ur Squamous Epith Cells 0-2
Microbiology Results
01/01/25 08:31 Urine Culture - Final
Urine NO GROWTH
01/01/25 08:17 Blood Culture - Preliminary
Blood/Venous Streptococcus pneumoniae
Gram Stain - Final
01/01/25 08:16 Blood Culture - Preliminary
Blood/Venous Positive culture in progress
Gram Stain - Final
01/01/25 08:17 Influenza Types A & B (ISIAH) - Final
Nasal Swab Negative for Influenza A & B, NAAT
Negative results must be combined with clinical observations
and patient history.
Nucleic Acid Amplification test (NAAT)performed on the
[employer] platform.
--- NOTE | 2025-01-02 11:13 | PTCARENOTE ---
Phenylephrine weaned down for MAP 97, please see flowsheet.
--- NOTE | 2025-01-02 11:23 | PTCARENOTE ---
IVF order changed to D5 1/2 NaCL @ 150/hr. No DDAVP to be given as per Dr. Montez. Per Dr. Leone, hold off on giving 2nd unit PRBCs at this time.
[2025-01-02] MEDS: D5/0.45%NACL 1000 IV (11:32)
[2025-01-02] MEDS: ROCEPHIN 2000 MG IV ×2 (11:33→22:18)
[2025-01-02] MEDS: STERILE WATER FOR INJECTION 20 ML IV ×2 (11:33→22:18)
[2025-01-02] MEDS: NSS IV (11:39)
--- NOTE | 2025-01-02 12:20 | W.PN.HOSP.TC ---
Addendum entered and electronically signed by Darlene Cano MD 01/02/25 14:34:
forgot to add critical care time
Total Critical Care Time 40 minutes. I was immediately available to the patient and staff. I personally examined, reviewed labs, diagnostic images/reports, interpretations, treatment plans, discussed patient care with other providers and family
or caregivers (if patient is unable to make decisions), entered orders as appropriate and documented the medical record.
Addendum entered and electronically signed by Darlene Cano MD 01/02/25 14:33:
I saw and evaluated the patient independently. I reviewed the resident�s note and agree with findings and plan as documented by Dr. Toledo.
GENERAL: critically ill male obtunded and now intubated
HEENT: NC/AT--intubated
HEART: regular rate and rhythm, +S1, +S2, tachycardic
LUNGS : clear to auscultation bilaterally
ABDOM: soft, nontender, nondistended, + bowel sounds
EXT: no cyanosis, clubbing, or edema--mottled LE edema
NEUROLOGIC: obtunded
: garcia
intubated 01/02
A-line 01/02
septic shock with Strep pneumoniae bacteremia due to neutropenic fever with toxic metabolic encephalopathy and lactic acidosis--was here last admission with presumed fungal PNA--still neutropenic---must keep in mind possibility of
meningitis/encephalitis with severe immunosuppression--apprec ID, staking technician---trending lactates--s/p 30ml/kg sepsis fluid bolus dosing--cont IVF, pressors started--agree with broad coverage of vanco/ceftriaxone/acyclovir (change to IV as no oral
access)--ID to further delineate ABX--urgent echo to eval for endocarditis--repeat blood cultures until clear
acute hypoxemic resp failure with toxic metabolic encephalopathy--intubated this AM--apprec staking technician--supportive care--head CT with evolving cerebellar CVA per radiology--consult neuro--urgent Echo to eval for endocarditis
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
irradiated, leukocyte reduced pRBC--eliquis on hold
Rhabdomyolysis (CPK 10,144 down to 8K)--Elevated CPK most likely due to statin/voriconazole combo--bilateral leg tenderness, US neg for DVT--trend CPK--apprec renal--IVF to D5 1/2 NSS per renal
Severe hypovolemic Hyponatremia (level 118)--SIADH with increased free water intake per pt , plus sepsis--apprec renal--IVF changing to D5 1/2NSS
Hypocalcemia--would replete
Tumor lysis prevention (not hyperuricemia, in fact, uric acid has been low all along)--cont allopurinol--trend LDH and uric acid--on most recent discharge, patients uric acid level was 1.9, today his uric acid level is 2.7.
Recent left upper lobe PE--hold on Eliquis for now--ronn if MS does not improve and LP or other procedure needed
Hyperlipidemia-- Hold statins due to increased AST/ALT
code status--Full code
DVT proph --SCD's as US neg for DVT
prognosis guarded at best--advised pt to notify family of critical situation
Original Note:
Today's Communication/Plan
-
- trend labs
- Await cultures
Assessment / Plan
Assessment / Plan
Septic shock due to strep pneumo bacteremia in the setting of neutropenic fever
Acute hypoxemic respiratory failure:
- patient is acutely confused, lethargic, weak, with fever and chills on admission, 2 of the 4 sepsis criteria were met on SIRS.30 mL/kg IV fluid resuscitation in the emergency room, then normal saline continuous infusion.
- Lactic acid on admission was 4.8 trending down to 1.8 most recent. Continue to trend lactic acid.
- Infectious disease and oncology were consulted
- Today patient was awake but not alert or oriented, tachypneic, tachycardic, febrile, and with mottling on bilateral lower extremities. He meets the 3 criteria for septic shock.
- patient was intubated today by staking technician with an arterial catheter. restraints were ordered.
- First blood culture shows streptococcus pneumoniae, and urine cultures negative ( less likely a genitourinary source of sepsis), tracheal culture this morning pending. Continue ceftriaxone to cover most gram positives and gram negatives, and
Vancomycin to be continued for MRSA
- Continued Acyclovir as per ID recommendations. Consulted ID regarding further medication management for a potential fungal source of sepsis. Was on meropenem but that dc'd.
- Continue Iv fluids
- Patient on propofol and fentanyl for sedation and pain control.
- echocardiogram ordered to check for a septic source from bacteria in the heart valves such as in bacterial endocarditis.
- Chest x rays ordered. Bilateral interstitial and possible alveolar opacities, edema versus pneumonia most likely. We are covering with both meropenem and vancomycin.
- Continue to trend lactic acid,
- Also suspect there could be a hemolytic components to his shock due to stagnant hemoglobin levels despite multiple blood tranfusions, a elevated bilirubin, and decreased platelet count. Have consulted with heme/onc. Ordered LDH levels.
- Will consider a lumbar puncture to rule out sepsis source from CSF. He is on empiric antibiotics. however, he is not hemodynamically stable yet and has altered consciousness.
- Head Ct ordered, shows crescentic area of decreased attenuation in the the right cerebellum, possibly non hemorrhagic evolving mass/ infarct. DD is septic emboli vs hypoperfusion from sepsis. will need MRI for better clarity
- Trend CPK, CMP, CBC, lactic acid, uric acid check LDH
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
Acute anemia in the setting on his AML
Pancytopenia:
- Oncology consulted
- held patients Venclexta for now, awaiting recc from oncology
- Patient has had 4 units of cmv negative irradiated leukoreduced blood
- Patient hgb is 7.8 today after 4 total units of blood since admission
- Held eliquis
Elevated CPK most likely due to rhabdomyolysis caused by sepsis:
- on physical exam, patient states he has bilateral lower extremity muscle tenderness in his legs. Tenderness to palpation on physical examination.
- Urine analysis positive for blood but not RBC's.
- Initiated aggressive fluid therapy.
- CPK is 8,800 trending down, continue iv fluid therapy
Severe hypovolemic Hyponatremia :
- Consulted nephrology
- patient is confused, disoriented, and weak.
- Multifactorial due to underlying SIADH, high free water intake and sepsis.
- Suspect hypovolemic hyponatremia with urine sodium of 13 and normal urine osmololaity
- Trend BMP every 4 hours and adjust IV fluids accordingly
- Today levels are 128, continue to trend BMP
Tumour lysis prevention:
- on most recent discharge, patients uric acid level was 1.9, today his uric acid level is 2.7.
- trend LDH and uric acid level
SUZIE PE:
- Diagnosed on previous admission and patient was started on heparin 5 mg bid
- Patients vitals are stable, CT chest with contrast negative for PE
- Holding Eliquis due to bleeding risk
- Placed on SCD's as DVT ppx in the ICU
Hyperlipidemia:
- Hold statins due to increased AST/ALT
Full code
DVT ppx: SCD's
Anticipated Discharge: 24 - 48 hours
Subjective/Interval History
-
Date of Service: January 02, 2025
On examination of patient today, he was not alert, oriented. Patient appeared confused. There was also skin mottling on bilateral lower extremities. Patient was then promptly intubated.
Objective Data
-
Labs:
Laboratory Results
01/02/25 01/02/25 01/02/25
02:44 02:44 02:44
WBC 0.1 L*
Hgb 6.1 L*
Hct 17.8 L*
Plt Count 11 L* D
PT
INR
APTT
HCO3
Sodium 129 L D Cancelled
Potassium 3.1 L Cancelled
Chloride 106
Carbon Dioxide
BUN
Creatinine
Glucose
Calcium
Total Bilirubin
AST
ALT
Alkaline Phosphatase
01/02/25 01/02/25 01/02/25
02:44 02:44 02:44
WBC
Hgb
Hct
Plt Count
PT
INR
APTT
HCO3
Sodium
Potassium
Chloride Cancelled
Carbon Dioxide 18 L Cancelled
BUN 17 Cancelled
Creatinine 0.8
Glucose
Calcium
Total Bilirubin
AST
ALT
Alkaline Phosphatase
01/02/25 01/02/25 01/02/25
02:44 02:44 02:44
WBC
Hgb
Hct
Plt Count
PT
INR
APTT
HCO3
Sodium
Potassium
Chloride
Carbon Dioxide
BUN
Creatinine Cancelled
Glucose 60 L Cancelled
Calcium 5.7 L* Cancelled
Total Bilirubin 2.3 H
AST 375 H
ALT 61 H
Alkaline Phosphatase 32 L
01/02/25 01/02/25 01/02/25
03:56 07:56 09:22
WBC 0.1 L*
Hgb 7.8 L D
Hct 23.2 L
Plt Count 15 L* D
PT 30.3 H
INR 2.85
APTT 54.2 H
HCO3 Pending 19.6 L
Sodium
Potassium
Chloride
Carbon Dioxide
BUN
Creatinine
Glucose
Calcium
Total Bilirubin
AST
ALT
Alkaline Phosphatase
01/02/25 01/02/25 01/02/25
09:23 09:23 09:23
WBC
Hgb
Hct
Plt Count
PT
INR
APTT
HCO3
Sodium 128 L 128 L
Potassium 4.5 D 4.5
Chloride 104
Carbon Dioxide
BUN
Creatinine
Glucose
Calcium
Total Bilirubin
AST
ALT
Alkaline Phosphatase
01/02/25 01/02/25 01/02/25
09:23 09:23 09:23
WBC
Hgb
Hct
Plt Count
PT
INR
APTT
HCO3
Sodium
Potassium
Chloride 103
Carbon Dioxide 21 L 22
BUN 17 16
Creatinine 0.6 L
Glucose
Calcium
Total Bilirubin
AST
ALT
Alkaline Phosphatase
01/02/25 01/02/25 01/02/25
09:23 09:23 09:23
WBC
Hgb
Hct
Plt Count
PT
INR
APTT
HCO3
Sodium
Potassium
Chloride
Carbon Dioxide
BUN
Creatinine 0.7
Glucose 103 H 104 H
Calcium 7.6 L D 7.5 L
Total Bilirubin 3.4 H
AST 360 H
ALT 78 H
Alkaline Phosphatase 41
01/02/25 01/02/25 01/02/25
13:00 13:30 13:30
WBC
Hgb
Hct
Plt Count
PT
INR
APTT
HCO3 Pending
Sodium Cancelled Cancelled Pending
Potassium Cancelled Cancelled
Chloride Cancelled
Carbon Dioxide Cancelled
BUN Cancelled
Creatinine Cancelled
Glucose Cancelled
Calcium Cancelled
Total Bilirubin
AST
ALT
Alkaline Phosphatase
01/02/25 01/02/25 01/02/25
13:30 13:30 13:30
WBC
Hgb
Hct
Plt Count
PT
INR
APTT
HCO3
Sodium
Potassium Pending
Chloride Cancelled Pending
Carbon Dioxide Cancelled Pending
BUN Cancelled
Creatinine
Glucose
Calcium
Total Bilirubin
AST
ALT
Alkaline Phosphatase
01/02/25 01/02/25 01/02/25
13:30 13:30 13:30
WBC
Hgb
Hct
Plt Count
PT
INR
APTT
HCO3
Sodium
Potassium
Chloride
Carbon Dioxide
BUN Pending
Creatinine Cancelled Pending
Glucose Cancelled Pending
Calcium Cancelled
Total Bilirubin
AST
ALT
Alkaline Phosphatase
01/02/25 01/02/25 01/02/25
13:30 16:00 17:00
WBC
Hgb
Hct
Plt Count
PT
INR
APTT
HCO3
Sodium Cancelled Cancelled
Potassium Cancelled Cancelled
Chloride Cancelled Cancelled
Carbon Dioxide Cancelled Cancelled
BUN Cancelled Cancelled
Creatinine Cancelled Cancelled
Glucose Cancelled Cancelled
Calcium Pending Cancelled Cancelled
Total Bilirubin
AST
ALT
Alkaline Phosphatase
01/02/25 01/02/25 01/02/25
17:30 20:00 21:00
WBC
Hgb
Hct
Plt Count
PT
INR
APTT
HCO3
Sodium Pending Cancelled Cancelled
Potassium Pending Cancelled Cancelled
Chloride Pending Cancelled Cancelled
Carbon Dioxide Pending Cancelled Cancelled
BUN Pending Cancelled Cancelled
Creatinine Pending Cancelled Cancelled
Glucose Pending Cancelled Cancelled
Calcium Pending Cancelled Cancelled
Total Bilirubin
AST
ALT
Alkaline Phosphatase
01/02/25
21:30
WBC
Hgb
Hct
Plt Count
PT
INR
APTT
HCO3
Sodium Pending
Potassium Pending
Chloride Pending
Carbon Dioxide Pending
BUN Pending
Creatinine Pending
Glucose Pending
Calcium Pending
Total Bilirubin
AST
ALT
Alkaline Phosphatase
Vital Signs:
Vital Signs
Temp Pulse Resp BP Pulse Ox
99.7 F 128 21 99/64 100
01/02/25 10:00 01/02/25 09:30 01/02/25 09:30 01/02/25 09:30 01/02/25 10:06
I&O
01/01/25 01/02/25 01/03/25
06:59 06:59 06:59
Intake Total 6070.0 / 6337.5 1554.0 / 1554.0
Output Total 2090 / 2315 655 / 655
Balance 3980.0 / 4022.5 899.0 / 899.0
Review of Systems
-
Unable to obtain full review of systems at this time due to: Patient Intubation
Physical Exam
-
General: Appears in Distress
Respiratory: Clear to Auscultation
Cardiac: Tachycardic
GI: Soft, Nontender, Nondistended and Normal Bowel Sounds
Genito-urinary: Garcia
Skin: Dry and Other (mottling is present on bilateral lower extremities)
Neuro: Awake
Data Reviewed
-
Diagnostic Radiology: Report Reviewed by me and Discussed with Physician
Labs: Labs Reviewed by me and Discussed with Physician
--- NOTE | 2025-01-02 13:35 | W.PN.INTV ---
Today's Communication / Plan
Recommendations
- Rapid sequence intubation, continue mechanical ventilation, change vent settings to 500/25/100%/5.
- Serial ABG
- Titrate pressors to keep MAP above 65
- Serial CBC, transfuse as needed to keep hemoglobin above 7, keep platelets above 10,000 unless signs of bleeding noted
- Neurology consult
- Guarded prognosis
Assessment
-
#1. Septic shock with gram-positive bacteremia with neutropenia and lactic acidosis
- 30 mL/kg IV fluid resuscitation in the emergency room
- Continue broad-spectrum antibiotics, vancomycin and cefepime. Resumed acyclovir. Fungal cultures have stayed negative, off voriconazole now
- Infectious disease and oncology consultation
- CT chest abdomen pelvis reviewed no significant acute change compared to last imaging
- Check serial lactate
- Continue maintenance IV fluids
- Continue phenylephrine to keep MAP above 65. Central line and arterial line placed.
#2. Acute respiratory failure with severe encephalopathy 01/02
- Patient noted to be agonal this morning, with severe encephalopathy essentially unresponsive
- 01/02, patient emergently intubated, rapid sequence intubation, mechanically ventilated
- CT head pursued, suggestive of possible stroke. Neurology consultation
- Patient has severe coagulopathy with thrombocytopenia, not a candidate for antiplatelet or antithrombotic therapy for now
- Continue telemetry monitoring, echocardiogram
- Await further neurology recommendations
#3. Rhabdomyolysis, severe.
- Suspect rhabdomyolysis related to voriconazole and Lipitor therapy together.
- Lipitor has been on hold, CK level went up to 10,000, subsequently declining
- Patient has been on normal saline at 200 mL an hour, now switched to D5 half-normal at 150 cc an hour, nephrology service on case
#4. Hyponatremia, likely symptomatic
- Suspect hypovolemic hyponatremia considering decreased chloride as well as urine sodium of 14
- Sodium responded well to saline resuscitation, fluids now switched to D5/half-normal, management per nephrology service
#5. Acute metabolic encephalopathy/hyperactive delirium
- Patient was quite agitated in the ICU pulling on tubes, required restraints on admission 01/02
- Progressively more encephalopathy, obtunded on 01/02, needed to be intubated for airway protection
- Await neurology recommendations
- Continue high-dose thiamine with prior history of alcoholism
-Eliquis has been placed on hold in case lumbar puncture needs to be pursued in future. Patient is very coagulopathic for safe lumbar puncture
#6. Bilateral pulmonary nodular opacities, some cavitary
- Differential diagnosis include infection, inflammation like GPA versus malignancy
- S/p IR guided biopsy 12/2024, pathology results are pending
- Cultures have stayed negative in the past
- Continue broad-spectrum antibiotic, await final pathology results
- Check ANCA
- Prior history of asbestos exposure however would not explain parenchymal nodules. Suspected prior granulomatous disease.
- History of [id number] smoking history, no formal diagnosis of COPD or asthma.
- Now that patient is intubated, send tracheal cultures. Hold off bronchoscopy and BAL for now, considering patient has positive blood cultures.
#7. 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
- Has been on chemotherapy, follows up with [facility] and [facility]
- Oncology consult
#8. SUZIE PE, diagnosed 11/2024
- Patient is very coagulopathic with severe thrombocytopenia requiring transfusions as well as elevated INR
- Continue to hold Eliquis, s/p vitamin K IV
- Lower extremity duplex this admission without any DVT. CT chest with contrast reviewed without any large central pulmonary embolism, can monitor off anticoagulation for now
- Depending upon clinical course, if unable to resume anticoagulation in near future, will need to consider placement of IVC filter
Other medical diagnoses:
- Mucositis
- H/o Thrush
DVT prophylaxis, SCDs for now. Hold Eliquis in view of anemia and mild hematochezia.
Critical Care time 68 mins -- The patient is admitted for acute critical illness for the treatment of vital organ failure and/or prevention of further life-threatening conditions. Total care includes time spent in review of history, physical exam,
medications, hemodynamic/ventilator parameters, laboratory data, imaging and discussion with house staff, pharmacy, respiratory therapy, bioprocess engineer, and nursing.
Discussed with patient's at bedside
Data:
US LE 12/2024: No DVT noted
CT C/A/P 12/2024: Bilateral pulmonary nodular parenchymal opacities again seen some of which with central cavitation and overall prominence of the pulmonary interstitium again seen, somewhat similar to prior study with at least one new subcentimeter
opacity in the right upper lobe. Again, some of several differential diagnostic possibilities again include atypical infection, septic pulmonary emboli, Bandar's granulomatosis and less likely metastases.
Small anterior pericardial effusion.
Fluid-filled dilated stomach and fluid-filled thoracic esophagus.
Fluid-filled loops of small bowel, nonspecific, cannot exclude enteritis.
Subjective Dataa
Subjective Data
Date of Service:
Date of Service: January 02, 2025
Subjective:
Patient noted to be agonal this morning, essentially unresponsive, cold, livedo reticularis noted to lower extremities. Subsequently intubated
Review of Systems
General: Unobtainable - Pat Unresp
Objective Data
Data Reviewed
Vital Signs / I&O / Oxygen:
Vital Signs
Temp Pulse Resp BP Pulse Ox
99.7 F 118 34 118/80 100
01/02/25 10:00 01/02/25 13:00 01/02/25 13:00 01/02/25 11:10 01/02/25 12:00
Intake and Output
01/01/25 01/02/25 01/03/25
06:59 06:59 06:59
Intake Total 6070.0 / 6337.5 1704.0 / 1704.0
Output Total 2090 / 2315 805 / 805
Balance 3980.0 / 4022.5 899.0 / 899.0
SaO2 [A/C] 100
SaO2 90
Nasal Cannula flow liters per 4
minute
Physical Exam
General: Respiratory Distress
HEENT: Normocephalic
Cardiovascular: S1-S2
Respiratory: Clear
GI: Soft and Non Distended
Neurology: Other (Responsive)
Skin: Other (Cold, elevated reticularis noted both lower extremities extending up to mid thighs)
Labs/Micro/Reports
Lab Data
01/02/25 09:22
Laboratory Results
01/01/25 01/02/25 01/02/25
22:02 03:56 09:22
PT 30.3 H
INR 2.85
APTT 54.2 H
pH 7.32 L 7.22 L
pCO2 39 48
pO2 10 L* 399 H
HCO3 20.1 L 19.6 L
O2 Delivery Level
Microbiology
01/01/25 12:41 Blood/Venous Blood Culture - Preliminary
No Growth in 24 hours- Final report to follow
01/01/25 08:17 Blood/Venous Blood Culture - Preliminary
Streptococcus pneumoniae
01/01/25 08:17 Blood/Venous Gram Stain - Final
01/01/25 11:44 Blood/Venous Blood Culture - Preliminary
No Growth in 24 hours- Final report to follow
01/01/25 08:31 Urine Urine Culture - Final
NO GROWTH
01/01/25 08:16 Blood/Venous Blood Culture - Preliminary
Positive culture in progress
01/01/25 08:16 Blood/Venous Gram Stain - Final
01/01/25 08:17 Nasal Swab Influenza Types A & B (ISIAH) - Final
Negative for Influenza A & B, NAAT
Negative results must be combined with clinical observations
and patient history.
Nucleic Acid Amplification test (NAAT)performed on the
[email or web address] platform.
--- NOTE | 2025-01-02 13:41 | CON.NEURO4 ---
Addendum entered and electronically signed by Ethan Nicholas MD 01/02/25 15:09:
Studies reviewed.
I have personally examined the patient. I reviewed and agree with the AGENCY APPOINTMENTS SUPERVISOR's Note.
My addenda:
Unresponsive. No acute distress.
Speech mute.
No response to verbal or physical stimulation. Passive eye opening leads to slow eye closure symmetrically bilaterally.
Extra-ocular movements mildly disconjugate at times.
Facial symmetry intact. Hearing unable to assess.
No spontaneous movements
Neck: full ROM.
Chest: no dyspnea
Heart: no JVD
Ext: (-) Clubbing, (-) Cyanosis, (-) Edema
IMPRESSIONS/RECOMMENDATIONS:
Abrupt onset of change in mental status
Most likely due to sepsis although the possibility of diffuse intracranial lesions is not eliminated by his unremarkable CT of head, it is more likely the patient has toxic metabolic encephalopathy producing symptomatology. The presence of a change
in the right cerebellum from January 01, 2025 is unlikely to be associated with current symptomatology.
Attempt to hold all sedative agents including morphine
Would not provide antiplatelet agent or blood thinning agents due to thrombocytopenia which puts the patient at increased risk for ischemic events
Agree with thiamine replacement
If no improvement in the next 24 hours, would consider EEG
Check MRI brain when possible
D/W nursing
All questions answered.
Will continue to follow patient.
Original Note:
Documented by User: Keisha Ramirez NP 01/02/25 14:49
Consultation - Neurology 4
-
CONSULTING PHYSICIAN: Ethan Nicholas MD
REFERRING PHYSICIAN: Hospitalists/Dr. Cano
DICTATED BY: FLORI Dickens
DATE/TIME OF REQUEST: 01/02/25
DATE/TIME OF CONSULTATION: 01/02/25
Reason for Consultation: Abnormal CT scan
History of Present Illness:
This is a 59-year-old male who has presented to the hospital on 01/01/25 with report of a change in mental status. Patient was recently hospitalized at [facility] from -12/25/24 for sepsis in the setting of suspected fungal pneumonia, anemia requiring
PRBC transfusion, and small pulmonary embolism (was placed on apixaban). Patient was noted to newly be confused and restless yesterday (01/01/25), prompting his to bring him to the ER for evaluation. Temperature on arrival was greater than 105
F, lactate 4.8, sodium 118, hgb 6.6, platelets 63. CT head was obtained and was read as unremarkable. Apixaban was held due to anemia. Today (01/02/25) he was noted to be unresponsive and he was emergently intubated. Repeat CT head was obtained and
is suggestive of decreased attenuation in the right cerebellum concerning for a nonhemorrhagic infarct vs less likely mass. He is not a candidate for TNK/IAT due to severely low platelet count, outside of time window. Patient is currently
unresponsive on fentanyl PRN for sedation.
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
Surgical History: Appendectomy.
Family History: Reviewed and noncontributory.
Social History: Former smoker. Former daily alcohol usage. No illicit drug use.
Allergies: Penicillins.
Home Medications: See below.
Review of Symptoms:
Per the HPI. I am unable to obtain a complete review of systems�because of patient's inability to provide history.
Physical Exam:
The patient is intubated, receiving PRN fentanyl boluses, afebrile, abdomen is nondistended, breathing is unlabored on mechanical ventilation, skin is cool and dry no edema.
NIH Stroke Scale:
I performed the NIH stroke scale on the patient on 01/02/25 at 1400. The patient scored 10 points on the NIH stroke scale assessment, which were assigned as follows: See below.
Neurologic Examination:
The patient is unresponsive, intubated, PRN fentanyl for sedation. He does not follow any commands. On cranial nerve assessment, pupils are 2 mm bilateral, round and minimally reactive to light and accommodation. Gaze is mildly dysconjugate.
Negative dolls eyes. ASHLIE visual ware. ASHLIE EOMs. ASHLIE tongue and palate. No apparent facial asymmetry. 0/5 in all extremities to painful stimuli. There is no involuntary movement noted. Deep tendon reflexes are 2+ bilateral upper and lower
extremities. Babinski is positive on the left. A sensation, double simultaneous, and coordination.
Lab Results: See below.
Neuro Imaging:
1. CT Head 01/01/25: No acute intracranial abnormality.
2. CT Head 01/02/25: Crescentic-shaped focus of decreased attenuation in the right cerebellum, cannot exclude evolving nonhemorrhagic infarct or less likely mass.
Differentials for the patient's presentation include:
1. Altered mental status likely due to septic shock, possible hypoxic injury. Right cerebellar abnormal CT head finding per Neurology's view is present on prior CT head imaging from 01/01/25; this is likely a subacute infarct but cannot entirely
exclude a mass. Possibly contributing to altered mental status.
2. Former daily alcohol usage.
Patient has the following risk factors for their symptoms: OAC held, septic shock
IV Tenecteplase/IAT candidacy: He is not a candidate for TNK/IAT due to severely low platelet count, outside of time window
Recommendations:
-MRI brain w/ and w/o contrast pending.
-Restart anticoagulation when able per hematology recommendation.
-Provide IV thiamine replacement.
-Goal normotension.
-If prognosis improves, would obtain CTA head/neck.
-If no improvement in mental status in the next 24 hours, will order an EEG.
-Would avoid sedation currently.
-Avoid cefepime usage as this can cause altered mental status.
-NIHSS and neurological checks per unit guidelines.
-Provide family with a stroke education packet.
-PT/OT/ST when able.
-DVT prophylaxis.
Discussed patient care with: Dr. Nicholas, nursing staff
Vital Signs and Labs
-
Vital Signs and Labs:
Vital Signs
Temp Pulse Resp BP Pulse Ox
99.7 F 118 34 118/80 100
01/02/25 10:00 01/02/25 13:00 01/02/25 13:00 01/02/25 11:10 01/02/25 12:00
Lab Results
01/02/25 09:22
PT 30.3 Sec (11.4-14.6) H 01/02/25 03:56
INR 2.85 01/02/25 03:56
APTT 54.2 Sec (23.4-35.0) H 01/02/25 03:56
Sodium Cancelled 01/02/25 21:00
Potassium Cancelled 01/02/25 21:00
BUN Cancelled 01/02/25 21:00
Glucose Cancelled 01/02/25 21:00
Calcium Cancelled 01/02/25 21:00
Phosphorus 2.6 mg/dl (2.5-4.5) 01/01/25 11:26
Medications
-
Active Medications
Generic Name Dose Route Start Last Admin
Trade Name Freq PRN Reason Stop Dose Admin
Acetaminophen 650 mg 01/01/25 10:57
Acetaminophen 325 Mg Tablet PO 01/29/25 10:56
Q6HPRN PRN
fever
Acyclovir Sodium 400 mg 01/01/25 12:00 01/02/25 09:34
Acyclovir Sodium 200 Mg Capsule PO 01/11/25 11:59 Not Given
BID VALERIA
Albuterol/Ipratropium 3 ml 01/01/25 13:12
Ipratropium 0.5/Albuterol 3 Mg (3 Ml Ampul) INH
R Q4HPRN PRN
Shortness of breath
Protocol
Ceftriaxone Sodium 2,000 mg 01/02/25 10:00 01/02/25 11:33
Ceftriaxone 2,000 Mg/20 Ml Vial IV 2,000 mg
Q12H VALERIA Administration
Fentanyl Citrate 50 mcg 01/02/25 07:52 01/02/25 13:46
Fentanyl (50 Mcg/Ml) 100 Mcg/2 Ml Ampul IV 01/16/25 07:51 50 mcg
On Hold: 01/02/25 14:06 [id number] PRN Administration
Resume: 01/05/25 15:00 see protocol
Protocol
Vancomycin HCl 1 gram in 200 mls @ 200 mls/hr 01/01/25 18:00 01/02/25 06:39
Vancocin IV 200 mls
Q12H VALERIA Administration
Protocol
Thiamine HCl 500 mg/ Sodium 255 mls @ 255 mls/hr 01/01/25 16:00 01/02/25 09:34
Chloride IV 01/29/25 15:59 255 mls
Q8 VALERIA Administration
Acetaminophen 1,000 mg in 100 mls @ 400 mls/hr 01/01/25 15:22 01/01/25 15:27
Ofirmev IV 01/02/25 15:21 50 mls
Q6HPRN PRN Administration
Fever
Protocol
Phenylephrine HCl 50 mg in 250 mls @ 0 mls/hr 01/02/25 01:00
Isael-Synephrine IV
PER PROTOCOL VALERIA
Protocol
Per Protocol
Propofol 1,000,000 mcg in 100 mls @ 0 mls/hr 01/02/25 08:00
Diprivan IV
On Hold: 01/02/25 14:05 PER PROTOCOL VALERIA
Resume: 01/06/25 09:00 Protocol
Per Protocol
Fentanyl Citrate 1,000 mcg in 100 mls @ 0 mls/hr 01/02/25 08:00
Sublimaze IV
PER PROTOCOL VALERIA
Protocol
Per Protocol
Dextrose/Sodium Chloride 1,000 mls @ 150 mls/hr 01/02/25 11:00 01/02/25 11:32
D5/0.45%Nacl IV 1,000 mls
.Q6H40M VALERIA Administration
Polyethylene Glycol 17 grams 01/03/25 08:00
Polyethylene Glycol Powder 17 Grams Packet TUBE 01/31/25 07:59
DAILY VALERIA
Sterile Water 20 ml 01/02/25 10:00 01/02/25 11:33
Sterile Water For Injection 20 Ml Vial IV 01/30/25 09:59 20 ml
Q12H VALERIA Administration
Home Medications
�Medication �Instructions �Recorded
atorvastatin 10 mg tablet 10 mg PO QPM High Cholesterol 04/24/24
acyclovir 400 mg tablet 400 mg PO BID Infection 11/29/24
ondansetron HCl 4 mg tablet 4 mg PO Q8HPRN PRN nausea 11/29/24
allopurinol 300 mg tablet 300 mg PO DAILY elevated uric acid 12/25/24
#30 tabs
apixaban 5 mg tablet (Eliquis) 5 mg PO BID #73 tabs 12/25/24
voriconazole 200 mg tablet 200 mg PO BID anti fungal #60 tabs 12/25/24
acetaminophen 325 mg tablet 650 mg PO Q6HPRN PRN fever 01/01/25
(Tylenol)
venetoclax 100 mg tablet 100 mg PO DAILY Cancer 01/01/25
(Venclexta)
NIH Stroke Score
Subsequent NIH Scale
Date of Subsequent NIH Scale: 01/02/25
Time of Subsequent NIH Scale: 14:00
NIH Stroke Score
Level of Consciousness: 3 - Totally unresponsive
LOC Questions: 2-Neither correct
LOC Commands: 2-Performs neither correctly
Best Horizontal Gaze: 0-Normal
Visual Ware: 0=Normal, no visual loss
Facial Palsy: 0=Normal, symmetrical
Motor - Right Arm: UN=Amputation/jointfusion
Motor - Left Arm: UN=Amputation/jointfusion
Motor - Right Leg: UN-Amputation/jointfusion
Motor - Left Leg: UN-Amputation/jointfusion
Limb Ataxia: UN-Amputation/jointfusion
Sensation: 0-Normal
Best Language: 3-Mute/global aphasia
Dysarthria: UN-Intubated, other
Extinction and Inattention: 0-No abnormality
NIH Total Score:: 10
Modified Mary (mRS) Score
Modified [place] Scale (mRS): Severe disability. Requires constant nursing care.
Score: 5
Alteplase Contraindication
Inclusion and Exclusion criteria reviewed: Yes
Reasons for NON-Tx with Thrombolytics ABSOLUTE Exclusions: Greater than 4.5 hrs from onset of sxs

Documented by User: Ethan Nicholas MD 01/02/25 14:59
NIH Stroke Score
NIH Stroke Score
NIH Total Score:: 10
Modified [place] (mRS) Score
Score: 5
[2025-01-02 14:16] LABS: B.E. -4.5 mmol/L; HCO3 19.0 mmol/L (21-28); O2 Saturation % 99.8 % (94-98); PCO2 30 mmHg (35-48); PO2 91 mmHg (83-108)
--- NOTE | 2025-01-02 14:32 | PTCARENOTE ---
Pt was weaned off phenylephrine, bps remain stable per arterial line. Pt was transported off unit with respiratory therapist and RN for CT head, results noted-MDs aware. Neurology consult placed. Stat echo ordered and completed. Cardiology consulted.
[2025-01-02 15:05] LABS: Blood Urea Nitrogen 15 mg/dl (9-20); Calcium 7.4 mg/dl (8.4-10.2); Carbon Dioxide 20 mmol/L (22-30); Chloride 103 mmol/L (98-107); Estimated Creatinine Clearance > 125 ml/min; Glucose 96 mg/dl (70-99); Magnesium 2.0 mg/dl (1.6-2.3); Potassium 3.7 mmol/L (3.5-5.1); Sodium 126 mmol/L (135-145); eGFR > 60.00
[2025-01-02] MEDS: D5/0.9% SODIUM CHLORIDE 1000 IV ×2 (16:52→22:22)
[2025-01-02 17:46] LABS: Blood Urea Nitrogen 15 mg/dl (9-20); Calcium 7.6 mg/dl (8.4-10.2); Carbon Dioxide 21 mmol/L (22-30); Chloride 102 mmol/L (98-107); Estimated Creatinine Clearance > 125 ml/min; Glucose 99 mg/dl (70-99); Potassium 3.5 mmol/L (3.5-5.1); Sodium 127 mmol/L (135-145); eGFR > 60.00
--- NOTE | 2025-01-02 18:06 | PTCARENOTE ---
Per Dr. Nicholas[facility]continue with [facility] checks Q4H as prior.
[2025-01-02 19:30] LABS: Hepatitis C Antibody Negative (Negative)
[2025-01-02] MEDS: KCL 50 IV (19:58)
[2025-01-02] MEDS: ZOVIRAX INJECTION 108 MG IV (19:58)
--- NOTE | 2025-01-02 20:00 | PTCARENOTE ---
assumed care, pt unresponsive, not following commands, wd to pain, + but weak corneal, gag and cough, no sedation, Sinus tach on the monitor, weak radials, + pedals, R rad A-line zeroed, lungs clear, ETT #8 24 @ lip, AC 500/25/5/40%, tachypneic,
overbreathing vent refer to [employer] made aware, Bsx4, thermistor garcia c orange output, cooling blanket per worklist, skin flushed, 20G L wrist, L subclavian TL, D5NS 150ml, safe environment maintained, otherwise refer to documentation.
[2025-01-02] MEDS: SUBLIMAZE 25 MCG IV (20:23)
[2025-01-02 23:15] LABS: Blood Urea Nitrogen 14 mg/dl (9-20); Calcium 7.1 mg/dl (8.4-10.2); Carbon Dioxide 20 mmol/L (22-30); Chloride 104 mmol/L (98-107); Estimated Creatinine Clearance > 125 ml/min; Glucose 117 mg/dl (70-99); Potassium 3.6 mmol/L (3.5-5.1); Sodium 126 mmol/L (135-145); eGFR > 60.00
[2025-01-02] MEDS: VERSED 2 MG IV (23:20)
[2025-01-02] MEDS: SUBLIMAZE 100 IV (23:48)
[2025-01-03] VITALS (7 sets, daily range): BP systolic 97–114; BP diastolic 47–54; BMI 22.7
--- NOTE | 2025-01-03 00:19 | PTCARENOTE ---
systems reviewed, CHG bath, when turned pt opened eyes and moving R arm, not following commands or tracking, overbreathing on the vent, [employer] made aware Fent bolus given and gtt started, pt BP dropped c MAPs in the 50's, Isael gtt started, after Fent
given and started RR went from 37 to 27, labs sent, otherwise refer to documentation
[2025-01-03 03:10] LABS: B.E. -3.8 mmol/L; HCO3 20.1 mmol/L (21-28); O2 Saturation % 100.0 % (94-98); PCO2 31 mmHg (35-48); PO2 184 mmHg (83-108)
[2025-01-03] MEDS: SUBLIMAZE 50 MCG IV ×2 (03:14→17:04)
[2025-01-03 03:41] LABS: ALT (SGPT) 57 U/L (0-50); AST (SGOT) 159 U/L (17-59); Albumin 2.1 g/dl (3.5-5.0); Alkaline Phosphatase 53 U/L (38-126); Blood Urea Nitrogen 13 mg/dl (9-20); Calcium 7.2 mg/dl (8.4-10.2); Carbon Dioxide 19 mmol/L (22-30); Chloride 107 mmol/L (98-107); Estimated Creatinine Clearance > 125 ml/min; Glucose 122 mg/dl (70-99); Iron 21 ug/dl (49-181); Magnesium 2.1 mg/dl (1.6-2.3); Potassium 3.4 mmol/L (3.5-5.1); Sodium 130 mmol/L (135-145); Total Protein 4.3 g/dl (6.3-8.2); Uric Acid 2.3 mg/dl (3.5-8.5); eGFR > 60.00
[2025-01-03 03:42] LABS: Hematocrit 20.7 % (39.0-52.0); Hemoglobin 7.3 g/dL (13.0-18.0); Mean Corp Hgb Conc. 35.3 g/dL (33.0-37.0); Mean Corpuscular Volume 81.8 fL (80.0-94.0); Nucleated Red Blood Cells % 0 % (-); Platelet Count 8 10^3/uL (130-400); Red Cell Dist. Width 16.6 % (11.5-14.5)
[2025-01-03 03:47] LABS: Total Iron Binding Capacity 130 ug/dl (261-462)
[2025-01-03] MEDS: NEO-SYNEPHRINE 250 IV ×3 (04:17→22:17)
[2025-01-03] MEDS: KCL 100 IV ×2 (04:58→22:20)
[2025-01-03] MEDS: D5/0.9% SODIUM CHLORIDE 1000 IV ×2 (05:40→16:13)
[2025-01-03 05:45] LABS: Ferritin 5240.0 ng/ml (17.9-464.0)
[2025-01-03] MEDS: VANCOCIN 200 IV (05:50)
[2025-01-03] MEDS: CALCIUM GLUCONATE 100 IV ×2 (05:50→14:15)
--- NOTE | 2025-01-03 07:56 | W.PN.NEPH.PH ---
Today's Communication / Plan
-
Potassium and calcium repletion
Maintain MAP at 65 or greater with pressor support
Will continue D5 normal saline at reduced rate as rhabdomyolysis improved and serum sodium level slowly normalizing
Assessment/Plan
-
IMP:
Neutropenic fever with severe sepsis and lactic acidosis
Gram-positive bacteremia in setting of neutropenia
Acute respiratory failure
Acute on chronic Hyponatremia
Acute metabolic encephalopathy/ delirium
Rhabdomyolysis
Pancytopenia
Bilateral pulmonary nodular opacities, some cavitary
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
SUZIE PE, diagnosed 11/2024
HLD
Hyponatremia
Elevated LFTs
Plan:
A/w AMS, fever-sepsis
Acute on chr hyponatremia-suspect multifactorial
underlying SIADH , high free water intake+sepsis
U osmo 449, U na low 13
sodium at 130 this am -acceptable correction , will reduce rate of IVFs, weights up, cpk less then 1000
Replete potassium
Metabolic acidosis persists
Maintaining D5 normal saline at this time
Nonoliguric via Garcia
Will follow-up electrolytes later this afternoon
titrate pressors to keep MAP>65
mild rhabdo-improving now down to 996
cr seem stable at 0.6
hypocalcemia-keep prn IV riders,
now intubated this am as he remains obtunded
Maintain pressor support to keep MAP at 65 or greater
abx per ID- strep pneumo bacteremia, neutropenic fever
prn transfusion for anemia, monitor thrombocytopenia
for MRI of head today
Patient critically ill on vent support for respiratory failure and pressor support in the setting of sepsis and hemodynamic instability
d/w ICU and nursing
CC time spent 31min
Total Time Spent with Patient (in minutes): 35
-
-
Date of Service: January 03, 2025
CC / HPI / ROS
-
Chief Complaint:
Hypoantremia
History of Present Illness:
sodium at 130 this am
intubated for AMS and hypoxia
cr normal, k left side
marisol improving to 7.2
Requiring pressor support in setting of hemodynamic instability
Review of Systems:
intubated, not responding
non oliguric with garcia, wt is up
Labs
-
Labs:
WBC 0.1 10^3/uL (4.8-10.8) L* 01/03/25 03:01
RBC 2.53 10^6/uL (4.70-6.10) L 01/03/25 03:01
Hgb 7.3 g/dL (13.0-18.0) L 01/03/25 03:01
Hct 20.7 % (39.0-52.0) L* 01/03/25 03:01
Plt Count 8 10^3/uL (130-400) L* D 01/03/25 03:01
eGFR > 60.00 01/03/25 03:01
Phosphorus 2.6 mg/dl (2.5-4.5) 01/01/25 11:26
Albumin 2.1 g/dl (3.5-5.0) L 01/03/25 03:01
Physical Exam
-
Vital Signs:
Vital Signs
Temp Pulse Resp BP Pulse Ox
99.9 F 108 28 95/64 100
01/03/25 07:18 01/03/25 07:00 01/03/25 07:00 01/02/25 19:52 01/03/25 07:00
Cardiovascular:: Regular rate and rhythm (tachy)
Respiratory:: Bilateral: Coarse
Lung Excursion:: Abnormal
Abdomen:: Nontender and Soft
Extremity Edema:: None: Bilateral:
Garcia Catheter: Yes
Other Findings::
livido reticularis noted in LEs
General: Intubated and poorly responsive
--- NOTE | 2025-01-03 08:00 | W.PN.ONC2 ---
Today's Communication / Plan
-
critical care management
neurology following
ID following
serial CBC, transfuse prn
Impression
Impression
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
Neutropenic fever with sepsis and lactic acidosis
Rhabdomyolysis
Recent PE
Severe hyponatremia
Bilateral pulmonary nodular opacities
Plan
Plan
- CT Chest/Abd/Pelvis: Bilateral pulmonary nodular parenchymal opacities again seen, Fluid-filled loops of small bowel, nonspecific, limited study as a result of lack of oral contrast
- Continue supportive, ventilator care
- Blood cx with strep pneumoniae, antibiotics as per ID
- S/p lung bx 12/23/2024, pathology results are pending, fungal cx NTD -consider fungal ppx discussed with ID
- If further transfusions need, advise CMV neg, irradiated and leukocyte reduced as transplant candidate
- hold Venetoclex 100mg once able to tolerate PO
Subjective/Objective
Subjective
platelet count 8000 was checked prior to platelet transfusion this morning
VDRF
Vital Signs:
Vital Signs
Temp Pulse Resp BP Pulse Ox
99.9 F 108 28 95/64 100
01/03/25 07:18 01/03/25 07:00 01/03/25 07:00 01/02/25 19:52 01/03/25 07:00
Lab Results:
Laboratory Data
WBC 0.1 10^3/uL (4.8-10.8) L* 01/03/25 03:01
Hgb 7.3 g/dL (13.0-18.0) L 01/03/25 03:01
Plt Count 8 10^3/uL (130-400) L* D 01/03/25 03:01
PT 30.3 Sec (11.4-14.6) H 01/02/25 03:56
INR 2.85 01/02/25 03:56
APTT 54.2 Sec (23.4-35.0) H 01/02/25 03:56
eGFR > 60.00 01/03/25 03:01
Physical Exam
HEENT: Moist Mucous Membranes; No Jaundice
Pulmonary: Other (VDRF)
GI: Soft
Extremities: Pulses Present
[2025-01-03] MEDS: MIRALAX TUBE (08:16)
[2025-01-03] MEDS: ZOVIRAX INJECTION 108 MG IV ×2 (08:18→19:47)
[2025-01-03] MEDS: THIAMINE INJECTION 255 MG IV ×3 (08:20→23:52)
--- NOTE | 2025-01-03 08:25 | PHA.VAN.FU ---
Addendum entered and electronically signed by Stella Torres Saskia 01/03/25 08:50:
Agree with assessment and plan
Original Note:
Vancomycin Assessment / Plan
- Assessment
Renal Function: Stable
WBC's are: Stable
Neutropenia: ANC = 0
In the past 24 hrs, patient has been: Febrile
Concomitant Antimicrobials: ceftriaxone, acyclovir (chronic home med)
- Dosing Plan
Continue: 1000mg q12h
- Monitoring Plan
No level(s) ordered at this time: consider obtaining P/T after 08 PM dose if prolonged course
- Follow Up
Pharmacy will continue to follow.
Vancomycin Follow UP
- -
Patient Age: 59
Patient Sex: Male
Vancomycin Day #: 3
Indication: Neutropenic Fever
Requesting Provider: Dr. Adeline Toledo (resident)
Pertinent Antimicrobial Allergies:
penicillins - unknown
Height / Weight:
Height 5 ft 10 in
Actual Weight 71.8 kg
Pertinent Past Medical History: AML
- Vital Signs / Lab Results
Temp Pulse Resp BP Pulse Ox
99.9 F 108 28 95/64 100
01/03/25 07:18 01/03/25 07:00 01/03/25 07:00 01/02/25 19:52 01/03/25 07:58
Lab Results - Hematology
01/01/25 01/01/25 01/02/25
08:16 20:00 02:44
WBC 0.3 L* 0.1 L* 0.1 L*
01/02/25 01/03/25
09:22 03:01
WBC 0.1 L* 0.1 L*
Lab Results - Chemistry
01/01/25 01/01/25 01/01/25
08:16 11:26 15:57
BUN 21 H 20 22 H
Creatinine 0.8 0.7 1.0
Estimated Creat Clear 90 103 72
Albumin 2.8 L
01/01/25 01/02/25 01/02/25
20:00 02:44 02:44
BUN 23 H 17 Cancelled
Creatinine 1.0 0.8
Estimated Creat Clear 72
Albumin
01/02/25 01/02/25 01/02/25
02:44 02:44 09:23
BUN 17
Creatinine Cancelled
Estimated Creat Clear 90 Cancelled
Albumin 1.9 L
01/02/25 01/02/25 01/02/25
09:23 09:23 09:23
BUN 16
Creatinine 0.6 L 0.7
Estimated Creat Clear > 125 112
Albumin 2.4 L
01/02/25 01/02/25 01/02/25
13:00 13:30 14:01
BUN Cancelled Cancelled 15
Creatinine Cancelled Cancelled 0.6 L
Estimated Creat Clear Cancelled Cancelled > 125
Albumin
01/02/25 01/02/25 01/02/25
16:00 17:00 17:08
BUN Cancelled Cancelled 15
Creatinine Cancelled Cancelled 0.6 L
Estimated Creat Clear Cancelled Cancelled > 125
Albumin
01/02/25 01/02/25 01/02/25
20:00 21:00 22:30
BUN Cancelled Cancelled 14
Creatinine Cancelled Cancelled 0.6 L
Estimated Creat Clear Cancelled Cancelled > 125
Albumin
01/03/25
03:01
BUN 13
Creatinine 0.6 L
Estimated Creat Clear > 125
Albumin 2.1 L
01/01/25 01/01/25 01/01/25
08:17 11:26 15:57
Lactic Acid 4.8 H* 2.8 H 2.2 H
01/01/25 01/02/25 01/02/25
20:00 02:44 09:22
Lactic Acid 2.3 H 1.8 Cancelled
01/03/25
03:01
Lactic Acid 1.6
Microbiology Results
01/01/25 12:41 Blood Culture - Preliminary
Blood/Venous No Growth in 24 hours- Final report to follow
01/01/25 08:17 Blood Culture - Preliminary
Blood/Venous Streptococcus pneumoniae
Gram Stain - Final
01/01/25 11:44 Blood Culture - Preliminary
Blood/Venous No Growth in 24 hours- Final report to follow
01/01/25 08:31 Urine Culture - Final
Urine NO GROWTH
01/01/25 08:16 Blood Culture - Preliminary
Blood/Venous Positive culture in progress
Gram Stain - Final
01/01/25 08:17 Influenza Types A & B (ISIAH) - Final
Nasal Swab Negative for Influenza A & B, NAAT
Negative results must be combined with clinical observations
and patient history.
Nucleic Acid Amplification test (NAAT)performed on the
[employer] platform.
--- NOTE | 2025-01-03 09:41 | W.PN.ID1 ---
Date of Service
Date of Service: January 03, 2025
Today's Communication
Continue ceftriaxone and Vancomycin.
Assessment / Plan
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
# Invasive Streptococcus pneumoniae bacteremia
# Severe sepsis.
.Fever - trending down
# Severe rhabdomyolysis
. Likely triggered by infection
# Severe hyponatremia - improving
# Change in mental status continues to decline
. 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
. Head CT: Crescentic-shaped lesion in the right cerebellum, cannot exclude evolving nonhemorrhagic infarct or less likely mass.
# VDRF - 01/02 intubated for airway protection
# Recent findings of bilateral pulm nodular opacities, some with central cavitation
. 12/23 CT guided lung biopsy cultures negative for bacteria; AFB and fungal cultures negative to date.
Path pending - specimen sent to [facility], per pathologist
- Unsafe for LP with severe thrombocytopenia
- repeat blood cx's neg to date.
- Ucx neg. Covid neg
- Sputum cx pending
- For brain MRI
- Continue ceftriaxone 2g IV q12 and Vancomycin, pending susceptibility of strep pneumo
- Trend temperature, CK, electrolytes.
- Patient critically ill in ICU.
- Prognosis guarded
Chief Complaint
-: Clinical Sepsis and Bacteremia
Subjective / Review of Systems
Minimal responsiveness
Vital Signs / Physical Exam
Vital Signs
Vital Signs
Temp Pulse Resp BP Pulse Ox
99.8 F 108 28 95/64 100
01/03/25 07:20 01/03/25 07:00 01/03/25 07:00 01/02/25 19:52 01/03/25 07:58
Selected Entries
01/02/25
19:00
Temp-max 100.8 F H
Physical Exam
Constitutional: Acutely Ill
Eyes: Other (mild icterus)
Cardiovascular: S1/S2 (tachycardic)
Pulmonary: Clear (anteriorly)
Gastrointestinal: Soft, Non Tender, Non Distended and Normal Bowel Sounds
Genito-Urinary: Nugent and Clear Urine
Extremities: Negative Edema
Skin: Rash (Right knee and left thigh stable)
Lines: Port (RCW no erythema)
Objective Data
Lab Data
Lab Results
01/03/25 03:01
PT 30.3 Sec (11.4-14.6) H 01/02/25 03:56
INR 2.85 01/02/25 03:56
APTT 54.2 Sec (23.4-35.0) H 01/02/25 03:56
Estimated Creat Clear > 125 ml/min 01/03/25 03:01
Lactic Acid 1.6 mmol/L (0.7-2.0) 01/03/25 03:01
Total Bilirubin 2.4 mg/dl (0.2-1.3) H 01/03/25 03:01
AST 159 U/L (17-59) H 01/03/25 03:01
ALT 57 U/L (0-50) H 01/03/25 03:01
Alkaline Phosphatase 53 U/L (38-126) 01/03/25 03:01
Most recent labs reviewed.
Micro Results:
01/01/25 08:17 Blood Culture - Preliminary
Blood/Venous Streptococcus pneumoniae
Gram Stain - Final
01/01/25 17:32 MRSA Screen - Final
Nose No Methicillin Resistant Staphylococcus aureus isolated.
01/03/25 03:51 Respiratory Culture - Pending
Sputum Gram Stain - Pending
01/02/25 17:08 Blood Culture - Pending
Blood/Venous
01/01/25 12:41 Blood Culture - Preliminary
Blood/Venous No Growth in 24 hours- Final report to follow
01/01/25 11:44 Blood Culture - Preliminary
Blood/Venous No Growth in 24 hours- Final report to follow
01/01/25 08:31 Urine Culture - Final
Urine NO GROWTH
01/01/25 08:16 Blood Culture - Preliminary
Blood/Venous Positive culture in progress
Gram Stain - Final
01/01/25 20:00 Urine Culture - Pending
Urine
01/01/25 08:17 Influenza Types A & B (ISIAH) - Final
Nasal Swab Negative for Influenza A & B, NAAT
Negative results must be combined with clinical observations
and patient history.
Nucleic Acid Amplification test (NAAT)performed on the
[employer] platform.
01/01/25 CT C/A/P: Bilateral pulmonary nodular parenchymal opacities again seen some of which with central cavitation and overall prominence of the pulmonary interstitium again seen, somewhat similar to prior study with at least one new
subcentimeter opacity in the right upper lobe. Again, some of several differential diagnostic possibilities again include atypical infection, septic pulmonary emboli, Bandar's granulomatosis and less likely metastases. Small anterior pericardial
effusion. Fluid-filled dilated stomach and fluid-filled thoracic esophagus. Fluid-filled loops of small bowel, nonspecific, cannot exclude enteritis.
01/02/[address]: Crescentic-shaped focus of decreased attenuation in the right cerebellum, cannot exclude evolving nonhemorrhagic infarct or less likely mass.
01/03/25 CXR: Redemonstration of fine reticular pulmonary opacities bilaterally along with superimposed heterogeneous opacities in the mid to upper right lung and upper left lung. Findings could represent pulmonary edema, hypersensitivity
pneumonitis, or severe viral pneumonia
--- NOTE | 2025-01-03 09:49 | CM ---
Patient seen at bedside in ICU. Patient currently on Ventilator and no family at bedside at this time. Patient family currently in [place] on vacation. Per patient they have been notified and is unsure of their plans to return as of 01/02/25. CM
will continue to follow for discharge planning needs.
Plan; TBD; watch for possible transfer pending medical treatment plan
--- NOTE | 2025-01-03 09:49 | W.PN.NEURO.1 ---
Today's Communication / Plan
-
Patient remains encephalopathic most likely secondary to toxic metabolic encephalopathy; however, unable to perform spinal tap to evaluate for meningoencephalitis due to profoundly low platelet count
Attempt to avoid sedation when possible
Continue to avoid use of anticoagulation and antiplatelet therapies at this time
Check EEG to ensure seizures not producing change in mental status
Eventual MRI of brain
Neuro Assessment/Plan
Assessment
Abrupt onset of change in mental status
Most likely due to sepsis although the possibility of diffuse intracranial lesions is not eliminated by his unremarkable CT of head, it is more likely the patient has toxic metabolic encephalopathy producing symptomatology. The presence of a change
in the right cerebellum from January 01, 2025 is unlikely to be associated with current symptomatology.
Patient minimally improved January 03, 2025
Plan
Patient remains encephalopathic most likely secondary to toxic metabolic encephalopathy; however, unable to perform spinal tap to evaluate for meningoencephalitis due to profoundly low platelet count
Attempt to avoid sedation when possible
Continue to avoid use of anticoagulation and antiplatelet therapies at this time
Check EEG to ensure seizures not producing change in mental status
Eventual MRI of brain
Will follow
Subjective/Objective
Subjective Data
Date of Service: January 03, 2025
Patient unable to provide his own medical history
Objective Data
Vital Signs
Temp Pulse Resp BP Pulse Ox
37.7 C 108 28 95/64 100
01/03/25 07:20 01/03/25 07:00 01/03/25 07:00 01/02/25 19:52 01/03/25 07:58
Lab Results
01/03/25 03:01
PT 30.3 Sec (11.4-14.6) H 01/02/25 03:56
INR 2.85 01/02/25 03:56
APTT 54.2 Sec (23.4-35.0) H 01/02/25 03:56
Sodium 130 mmol/L (135-145) L 01/03/25 03:01
Potassium 3.4 mmol/L (3.5-5.1) L 01/03/25 03:01
BUN 13 mg/dl (9-20) 01/03/25 03:01
Glucose 122 mg/dl (70-99) H 01/03/25 03:01
Calcium 7.2 mg/dl (8.4-10.2) L 01/03/25 03:01
Phosphorus 2.6 mg/dl (2.5-4.5) 01/01/25 11:26
Patient Allergies
Penicillins Allergy (Verified 12/17/24 19:04)
Unknown
Review of Systems
-
Unable to obtain full review of systems at this time due to: Patient Intubation and Other (Unresponsiveness)
History Source: Patient
All other systems: Reviewed and negative
Physical Exam
-
General: No Apparent Distress, Intubated and Appears Stated Age
Eyes: Able to visualize OU, Round OU and Adin Conjunctivae
HEENT: Anicteric and Moist Mucous Membranes
Neck: Full Range of Motion
Respiratory: No Dyspnea
Cardiac: No JVD
GI: Non-distended
Skin: Unremarkable
Extremities: No Clubbing, No Cyanosis and No Edema
Psych: Unable to Assess
Extended Neurological Exam
Mood & Affect: Unable to Assess
Attention Span & Concentration: Unresponsive to Verbal Stimuli; Negative Awake, Alert, Interactive or Unresponsive to Physical Stimuli (Minimal withdrawal to discomfort left leg and right leg)
Memory: Unable to Assess
Involuntary Movement: None
Speech: Unable to Assess
Cranial Nerve II: Left Eye: Pupillary Reactivity Unremarkable, Pupillary Size Unremarkable and Unable to Assess Visual Ware
Cranial Nerve II: Right Eye: Pupillary Reactivity Unremarkable, Pupillary Size Unremarkable and Unable to Assess Visual Ware
Cranial Nerves III, IV, : Extraocular Movement: Unable to Assess (Ptosis); Negative Absent Doll's Eyes
Cranial Nerve V: Facial Sensation: Unable to Assess
Cranial Nerve VII: Facial Symmetry: Normal Facial Symmetry
Cranial Nerves IX, X: Palate Movement: Unable to Assess
Cranial Nerve XI: Shoulder Shrug: Unable to Assess
Cranial Nerve XII: Tongue Protusion: Unable to Assess
Muscle Strength, Overall: Negative Spontaneously Moves
Muscle Bulk & Tone: Bulk Unremarkable and Tone Unremarkable
Pronator Drift: Unable to Assess
Cold Sensation: Unable to Assess
Vibration Sensation: Unable to Assess
Touch Sensation: Negative Withdrawal to Pain
Coordination: Unable to Assess
Gait & Station: Unable to Assess
Data Reviewed
-
CT Head: Report Reviewed
Labs: Report Reviewed
Reviewed with: Physician, Nurse and Nurse Practioner
Old Records: Summarized
Past History
Past History
ED Past Medical History: Other (Gout)
ED Past Surgical History: None
Social History
Tobacco: Smoker
Alcohol: Chronic alcoholic
Drug: None
Personal:
Living: with family
Employment: Employed
Family History
Family History: Other (Reviewed and noncontributory)
Medications
-
Medications:
Generic Name Dose Route Start Last Admin
Trade Name Freq PRN Reason Stop Dose Admin
Acetaminophen 650 mg 01/01/25 10:57
Acetaminophen 325 Mg Tablet PO 01/29/25 10:56
Q6HPRN PRN
fever
Albuterol/Ipratropium 3 ml 01/01/25 13:12
Ipratropium 0.5/Albuterol 3 Mg (3 Ml Ampul) INH
R Q4HPRN PRN
Shortness of breath
Protocol
Ceftriaxone Sodium 2,000 mg 01/02/25 10:00 01/02/25 22:18
Ceftriaxone 2,000 Mg/20 Ml Vial IV 2,000 mg
Q12H VALERIA Administration
Fentanyl Citrate 50 mcg 01/02/25 07:52 01/03/25 03:14
Fentanyl (50 Mcg/Ml) 100 Mcg/2 Ml Ampul IV 01/16/25 07:51 50 mcg
[id number] PRN Administration
see protocol
Protocol
Vancomycin HCl 1 gram in 200 mls @ 200 mls/hr 01/01/25 18:00 01/03/25 05:50
Vancocin IV 200 mls
Q12H VALERIA Administration
Protocol
Thiamine HCl 500 mg/ Sodium 255 mls @ 255 mls/hr 01/01/25 16:00 01/03/25 08:20
Chloride IV 01/29/25 15:59 255 mls
Q8 VALERIA Administration
Phenylephrine HCl 50 mg in 250 mls @ 0 mls/hr 01/02/25 01:00 01/03/25 04:17
Isael-Synephrine IV 250 mls
PER PROTOCOL VALERIA Administration
Protocol
Per Protocol
Propofol 1,000,000 mcg in 100 mls @ 0 mls/hr 01/02/25 08:00
Diprivan IV
On Hold: 01/02/25 14:05 PER PROTOCOL VALERIA
Resume: 01/06/25 09:00 Protocol
Per Protocol
Fentanyl Citrate 1,000 mcg in 100 mls @ 0 mls/hr 01/02/25 08:00 01/02/25 23:48
Sublimaze IV 100 mls
PER PROTOCOL VALERIA Administration
Protocol
Per Protocol
Acyclovir Sodium 400 mg/ 108 mls @ 100 mls/hr 01/02/25 20:00 01/03/25 08:18
Sodium Chloride IV 01/12/25 19:59 108 mls
Q12 VALERIA Administration
Dextrose/Sodium Chloride 1,000 mls @ 100 mls/hr 01/02/25 16:00 01/03/25 05:40
D5/0.9% Sodium Chloride IV 1,000 mls
.Q10H VALERIA Administration
Dexmedetomidine HCl 400 mcg in 100 mls @ 0 mls/hr 01/03/25 10:00
Precedex IV
PER PROTOCOL VALERIA
Protocol
Per Protocol
Polyethylene Glycol 17 grams 01/03/25 08:00 01/03/25 08:16
Polyethylene Glycol Powder 17 Grams Packet TUBE 01/31/25 07:59 Not Given
DAILY VALERIA
Polyethylene Glycol 17 grams 01/04/25 08:00
Polyethylene Glycol Powder 17 Grams Packet TUBE 02/01/25 07:59
DAILY VALERIA
Sodium Chloride 0 flush 01/02/25 20:00
Sodium Chloride 0.9% (Flush) Syringe IV 01/30/25 19:59
PER PROTOCOL VALERIA
Sterile Water 20 ml 01/02/25 10:00 01/02/25 22:18
Sterile Water For Injection 20 Ml Vial IV 01/30/25 09:59 20 ml
Q12H VALERIA Administration
[2025-01-03 09:58] LABS: Blood Urea Nitrogen 10 mg/dl (9-20); Calcium 6.7 mg/dl (8.4-10.2); Carbon Dioxide 20 mmol/L (22-30); Chloride 109 mmol/L (98-107); Estimated Creatinine Clearance > 125 ml/min; Glucose 117 mg/dl (70-99); Potassium 3.9 mmol/L (3.5-5.1); Sodium 132 mmol/L (135-145); eGFR > 60.00
--- NOTE | 2025-01-03 11:19 | PN.CDI ---
Addendum entered and electronically signed by Darlene Cano MD 01/03/25 18:23:
Documentation complete--due to statin/voriconazole combination--not traumatic
Original Note:
CDI
- -
CDI:
Physician Documentation Request
Admit Date: 01/01/25 10:38
Dear Doctor Paris,
Patient is being managed for sepsis/septic shock.
Progress notes include a diagnosis of Rhabdomyolysis.
Hospitalist states 'Elevated CPK most likely due to rhabdomyolysis caused by sepsis' and 'Elevated CPK most likely due to statin/voriconazole combo'
Please clarify the type of rhabdomyolysis:
non traumatic
Traumatic
Other
Use of terms such as suspected, likely, concern for, or probable (associated with a specific diagnosis that is being evaluated, monitored, or treated as if it exists) are acceptable and can be coded in the inpatient setting, when documented at the
time of discharge.
Thank you,
Rosy Chandra RN, BSN
CDI Specialist
tiger text
Please use your independent medical judgment in providing your response.
--- NOTE | 2025-01-03 11:24 | PN.CDI ---
Addendum entered and electronically signed by Darlene Cano MD 01/03/25 18:22:
Documentation complete
Original Note:
CDI
- -
CDI:
Physician Documentation Request
Admit Date: 01/01/25 10:38
Dear Doctor Paris,
Patient presented to ED for evaluation of change of mental status.
Laminating Machine Feeder and nephrology notes states 'acute metabolic encephalopathy'
Hospitalist and Neurology states 'toxic metabolic encephalopathy'
Please clarify the type of encephalopathy.
Metabolic
Toxic metabolic
Other
Use of terms such as suspected, likely, concern for, or probable (associated with a specific diagnosis that is being evaluated, monitored, or treated as if it exists) are acceptable and can be coded in the inpatient setting, when documented at the
time of discharge.
Thank you,
Rosy Chandra RN, BSN
CDI Specialist
tiger text
Please use your independent medical judgment in providing your response.
[2025-01-03] MEDS: NSS (PRESERVATIVE FREE) 10 ML IV (11:43)
[2025-01-03] MEDS: PROTONIX IV 40 MG IV (11:43)
[2025-01-03] MEDS: STERILE WATER FOR INJECTION 20 ML IV ×2 (11:43→22:20)
[2025-01-03] MEDS: ROCEPHIN 2000 MG IV ×2 (11:43→22:20)
--- NOTE | 2025-01-03 11:59 | W.PN.HOSP.TC ---
Addendum entered and electronically signed by Darlene Cano MD 01/03/25 17:56:
I saw and evaluated the patient independently. I reviewed the resident�s note and agree with findings and plan as documented by Dr. Toledo.
GENERAL: critically ill male obtunded and now intubated
HEENT: NC/AT--intubated
HEART: regular rate and rhythm, +S1, +S2, tachycardic
LUNGS : clear to auscultation bilaterally
ABDOM: soft, nontender, nondistended, + bowel sounds
EXT: no cyanosis, clubbing, or edema--mottling improved
NEUROLOGIC: obtunded
: garcia
intubated 01/02
A-line 01/02
septic shock with Strep pneumoniae bacteremia due to neutropenic fever with toxic metabolic encephalopathy and lactic acidosis--was here last admission with presumed fungal PNA--still neutropenic---must keep in mind possibility of
meningitis/encephalitis and endocarditis with severe immunosuppression--apprec ID, yard person---cont IVF, pressors started--agree with broad coverage of vanco/ceftriaxone/acyclovir (change to IV as no oral access)--ID to further delineate
ABX--urgent echo TTE neg for endocarditis--cannot do KELLIE as platelet count 5K, not anticoagulation or surgery candidate for valve replacement--cannot do LP for same reason--repeat blood cultures neg since 01/02
acute hypoxemic resp failure with toxic metabolic encephalopathy--intubated this AM--apprec yard person--supportive care--head CT with evolving cerebellar CVA per radiology, brain MRI positive for Multiple foci of restricted diffusion involving the
bifrontal white matter as well as the bilateral cerebellar hemispheres which likely represents acute/subacute infarctions--apprec neuro--cannot use antiplatelet agents, anticoagulation, do KELLIE or LP
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
hold
Rhabdomyolysis --Elevated CPK most likely due to statin/voriconazole combo--bilateral leg tenderness, US neg for DVT--trend CPK, improved--apprec renal--IVF to D5 1/2 NSS per renal
Severe hypovolemic Hyponatremia (level improved to 132)--SIADH with increased free water intake per pt , plus sepsis--apprec renal--IVF changing to D5 1/2NSS
Hypocalcemia--would replete
Tumor lysis prevention (not hyperuricemia, in fact, uric acid has been low all along)--cont allopurinol--trend LDH and uric acid
Recent left upper lobe PE--hold on Eliquis for now--ronn if MS does not improve and LP or other procedure needed
Hyperlipidemia-- Hold statins due to increased AST/ALT
code status--Full code
DVT proph --SCD's as US neg for DVT
prognosis guarded at best--advised pt to notify family of critical situation--updated 01/03 with MRI brain results and inability to diagnose or treat infarcts due to cell counts
Total Critical Care Time 35 minutes. I was immediately available to the patient and staff. I personally examined, reviewed labs, diagnostic images/reports, interpretations, treatment plans, discussed patient care with other providers and family
or caregivers (if patient is unable to make decisions), entered orders as appropriate and documented the medical record.
Original Note:
Today's Communication/Plan
-
- continue antibiotics, trend labs, tranfuse blood/ platelets as needed.
Assessment / Plan
Assessment / Plan
Septic shock due to strep pneumo bacteremia in the setting of neutropenic fever
Acute hypoxemic respiratory failure
Increased work of breathing tachypneic:
- patient is acutely confused, lethargic, weak, with fever and chills on admission, 2 of the 4 sepsis criteria were met on SIRS.30 mL/kg IV fluid resuscitation in the emergency room, then normal saline continuous infusion.
- Lactic acid on admission was 4.8 trending down to 1.6 most recent. Continue to trend lactic acid.
- Infectious disease, neurology, and oncology were consulted
- on 01/02 patient was awake but not alert or oriented, tachypneic, tachycardic, febrile, and with mottling on bilateral lower extremities. He meets the 3 criteria for septic shock.
- patient intubated
- First blood culture shows streptococcus pneumoniae repeat blood cultures , and urine cultures negative ( less likely a genitourinary source of sepsis), tracheal culture this morning pending. Continue ceftriaxone to cover most gram positives
and gram negatives, and Vancomycin to be continued for MRSA
- Continued Acyclovir as per ID recommendations. Consulted ID regarding further medication management for a potential fungal source of sepsis. Was on meropenem but that dc'd. fungal culture is still pending. Cant use voriconazole as it might
have interacted with statins and contributed to his rhabdomyolysis.
- Continue Iv fluids d5/NS
- continue on propofol and fentanyl for sedation and pain control.
- TTE echocardiogram ordered to check for a septic source from bacteria in the heart valves such as in bacterial endocarditis negative (01/02)
- Chest x rays ordered. Bilateral interstitial and possible alveolar opacities, edema versus pneumonia most likely. We are covering with both meropenem and vancomycin.
- Lactic acid 1.6 and normalized.
- Also suspect there could be a hemolytic components to his shock due to stagnant hemoglobin levels despite multiple blood tranfusions, a elevated bilirubin, and decreased platelet count. Have consulted with heme/onc. Ordered LDH levels.
- Will consider a lumbar puncture to rule out sepsis source from CSF. He is on empiric antibiotics. however, he is not hemodynamically stable yet and has altered consciousness, along with severely low platelet count.
- MRI shows Multiple foci of restricted diffusion involving the bifrontal white matter as well as the bilateral cerebellar hemispheres which likely represents acute/subacute infarctions. KELLIE recc to look for cardiac cause possible an emboli.
consulted cardiology in regards to performing procedure however due to the thrombocytopenia (<10), they did not want to attempt KELLIE
- Trend CPK, CMP, CBC, uric acid check LDH
- Will consider a potential transfer to another institution.
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
Acute anemia in the setting on his AML
Pancytopenia:
- Oncology consulted
- held patients Venclexta for now,
- Patient has had 4 units of cmv negative irradiated leukoreduced blood
- WBC is 0.1, hgb 6.9, platelet count is 5 ( no active signs of bleeding, 2 units platelets ordered today), absolute nuetrophils/ lymphs/ mono= 0, patient is on empiric antibiotic coverage and fungal coverage, temperature is 99.2.
- Patient hgb is 6.9 today after 4 total units of blood since admission, no active signs of bleeding.
- Held eliquis
Elevated CPK most likely due to rhabdomyolysis caused by sepsis:
- on physical exam, patient states he has bilateral lower extremity muscle tenderness in his legs. Tenderness to palpation on physical examination.
- Urine analysis positive for blood but not RBC's.
- Initiated aggressive fluid therapy.
- CPK is 996 trending down, continue iv fluid therapy
Severe hypovolemic Hyponatremia :
- Consulted nephrology
- patient is confused, disoriented, and weak.
- Multifactorial due to underlying SIADH, high free water intake and sepsis.
- Suspect hypovolemic hyponatremia with urine sodium of 13 and normal urine osmololaity
- Trend BMP every 4 hours and adjust IV fluids accordingly
- Today levels are 132, continue to trend BMP
Tumour lysis prevention:
- on most recent discharge, patients uric acid level was 1.9, today his uric acid level is 2.1.
- trend LDH and uric acid level
SUZIE PE:
- Diagnosed on previous admission and patient was started on eliquis 5 mg bid
- Patients vitals are stable, CT chest with contrast negative for PE
- Holding Eliquis due to bleeding risk
- Placed on SCD's as DVT ppx in the ICU
Hyperlipidemia:
- Hold statins due to increased AST/ALT
Full code
DVT ppx: SCD's
Anticipated Discharge: 24 - 48 hours
Subjective/Interval History
-
Date of Service: January 03, 2025
No acute overnight events.
Patient is intubated with phenylephrine, fentanyl, propofol, iv fluids
Objective Data
-
Labs:
Laboratory Results
01/03/25 01/03/25 01/03/25
03:01 09:02 11:58
WBC 0.1 L*
Hgb 7.3 L
Hct 20.7 L*
Plt Count 8 L* D
PT Pending
INR Pending
APTT Pending
HCO3 20.1 L
Sodium 130 L 132 L
Potassium 3.4 L 3.9
Chloride 107 109 H
Carbon Dioxide 19 L 20 L
BUN 13 10
Creatinine 0.6 L 0.6 L
Glucose 122 H 117 H
Calcium 7.2 L 6.7 L*
Total Bilirubin 2.4 H
AST 159 H
ALT 57 H
Alkaline Phosphatase 53
Vital Signs:
Vital Signs
Temp Pulse Resp BP Pulse Ox
99.8 F 108 28 95/64 100
01/03/25 07:20 01/03/25 07:00 01/03/25 07:00 01/02/25 19:52 01/03/25 07:58
I&O
01/02/25 01/03/25 01/04/25
06:59 06:59 06:59
Intake Total 6070.0 / 6337.5 5342.0 / 5533.0 1045 / 1045
Output Total 2090 / 2315 2270 / 2360 360 / 360
Balance 3980.0 / 4022.5 3072.0 / 3173.0 685 / 685
Review of Systems
-
Unable to obtain full review of systems at this time due to: Patient Intubation
Physical Exam
-
General: Intubated
Respiratory: Clear to Auscultation
Cardiac: Tachycardic
GI: Soft, Nontender, Nondistended and Normal Bowel Sounds
Genito-urinary: Garcia
Skin: Dry and Other (mottling on bilateral extremities has significantly improved.)
Neuro: Sedated
Data Reviewed
-
Labs: Labs Reviewed by me and Discussed with Physician
--- NOTE | 2025-01-03 12:00 | PTCARENOTE ---
GCS 7 with sedation off.
Sinus tach. Remains on Phenylephrine. BP via right radial a-line.
Lungs CTA. No sputum when suctioned via ETT.
OG tube placed. No BMs.
Thermister garcia d/c'd. Condom cath in place.
Received one unit platelets this am.
All other assessments unchanged.
[2025-01-03 12:21] LABS: INR 1.68; PT 20.0 Sec (11.4-14.6)
[2025-01-03 12:22] LABS: APTT 40.6 Sec (23.4-35.0)
[2025-01-03 12:28] LABS: Fibrinogen 798 MG/DL (199-459)
[2025-01-03 12:40] LABS: LDH 323 U/L (120-246); Uric Acid 2.1 mg/dl (3.5-8.5)
--- NOTE | 2025-01-03 13:10 | W.PN.INTV ---
Today's Communication / Plan
Recommendations
- Initiate tube feeding
- Trial of Precedex and wean off fentanyl, goal to minimize sedation while ensuring ventilator synchrony
- SCDs for DVT prophylaxis
- IV PPI for GI prophylaxis
Assessment
-
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 Patient quite delirious during my
evaluation and unable to provide any meaningful history. Information mostly obtained from patient's at bedside as well as review of records. Reportedly over the last 24 hours patient has been slightly getting more confused and noted
fever last night and this morning he appeared to be very confused. She does not report any cough, chills, vomiting diarrhea, hemoptysis or hematemesis. She reports a known history of hemorrhoids and occasional small-volume blood per rectum. No
lucy bloody diarrhea reported. No sick contacts reported. Patient has been on chemotherapy for AML and reportedly last dose about 2 weeks ago. Patient has prior history of alcoholism and heavy smoking which he stopped about 8 to 9 months ago and
currently not actively drinking per patient's . In the emergency room patient was noted to be septic with elevated lactate, neutropenia, high-grade fever. Patient was given 30 mL/kg fluid resuscitation and was started on broad-spectrum
antibiotics. In view of tachycardia, encephalopathy, elevated lactate, patient was admitted to ICU and waitstaff consultation was requested for further input.
01/03 overview: Current infusion Isael-Synephrine at 100, fentanyl at 50 mics per hour, D5 normal saline at 100. Blood gas 7.40 /, volume assist-control 500/25/40%/5. Currently MAP is 72, saturating 100%.
#1. Septic shock with Strep Pneumoniae with neutropenia and lactic acidosis
- 30 mL/kg IV fluid resuscitation in the emergency room
- Continue broad-spectrum antibiotics, vancomycin and Rocephin. Resumed acyclovir. Fungal cultures have stayed negative, off voriconazole now
- Infectious disease and oncology consultation
- CT chest abdomen pelvis reviewed no significant acute change compared to last imaging
- Improving serial lactate
- Continue maintenance IV fluids
- Continue phenylephrine to keep MAP above 65. Central line and arterial line placed 01/02.
#2. Acute respiratory failure with severe encephalopathy 01/02
- Patient noted to be persistently encephalopathic
- 01/02, patient emergently intubated in view of severe encephalopathy and inability to protect airway along with septic shock, rapid sequence intubation, mechanically ventilated since
- MRI brain suggestive of multiple areas suspicious for embolic infarct. Neurology service on case. In view of septic shock and bacteremia, septic emboli with underlying infective endocarditis also in differential diagnosis.
- Patient has severe coagulopathy with thrombocytopenia, not a candidate for antiplatelet or antithrombotic therapy for now
- Continue telemetry monitoring, echocardiogram
- Continue telemetry to monitor for any atrial fibrillation/atrial flutter
- 2D echo unremarkable. Will eventually need KELLIE. Cardiology consult
#3. Rhabdomyolysis, severe.
- Suspect rhabdomyolysis related to voriconazole and Lipitor therapy together.
- Lipitor has been on hold, CK level went up to 10,000, subsequently declining
- Continue IV fluids, nephrology service on case, CK and sodium level both improving.
#4. Hyponatremia, likely symptomatic
- Suspect hypovolemic hyponatremia considering decreased chloride as well as urine sodium of 14
- Sodium responded well to saline resuscitation, fluids now switched to D5/NS, management per nephrology service
#5. Acute metabolic encephalopathy/hyperactive delirium
- Multiple strokes noted on MRI, which are contributing to encephalopathy in addition to severe metabolic derangements.
- Patient was quite agitated in the ICU pulling on tubes, required restraints on admission 01/01
- Progressively more encephalopathy, obtunded on 01/02, needed to be intubated for airway protection
- Continue high-dose thiamine with prior history of alcoholism
- Eliquis has been placed on hold in case lumbar puncture needs to be pursued in future. Patient is very coagulopathic for safe lumbar puncture
#6. Bilateral pulmonary nodular opacities, some cavitary
- Differential diagnosis include infection, inflammation like GPA versus malignancy
- S/p IR guided biopsy 12/2024, pathology results are pending
- Cultures have stayed negative in the past
- Continue broad-spectrum antibiotic, await final pathology results
- ANCA pending
- Prior history of asbestos exposure however would not explain parenchymal nodules. Suspected prior granulomatous disease.
- History of [id number] smoking history, no formal diagnosis of COPD or asthma.
- Now that patient is intubated, sent tracheal cultures. Hold off bronchoscopy and BAL for now, considering patient has positive blood cultures.
#7. 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
- Has been on chemotherapy, follows up with [facility] and [facility]
- Hematology/Oncology consult
- Status post blood transfusions, platelet transfusion, keep platelet count above 10K unless active bleeding noted in which case will need to aim for a higher target.
#8. SUZIE PE, diagnosed 11/2024
- Patient is very coagulopathic with severe thrombocytopenia requiring transfusions as well as elevated INR
- Continue to hold Eliquis, s/p vitamin K IV
- Lower extremity duplex this admission without any DVT. CT chest with contrast reviewed without any large central pulmonary embolism, can monitor off anticoagulation for now
- Depending upon clinical course, if unable to resume anticoagulation in near future, will need to consider placement of IVC filter
Other medical diagnoses:
- Mucositis
- H/o Thrush
DVT prophylaxis, SCDs for now. Hold Eliquis in view of anemia and mild hematochezia.
Critical Care time 48 mins -- The patient is admitted for acute critical illness for the treatment of vital organ failure and/or prevention of further life-threatening conditions. Total care includes time spent in review of history, physical exam,
medications, hemodynamic/ventilator parameters, laboratory data, imaging and discussion with house staff, pharmacy, respiratory therapy, anode machine operator, and nursing.
Discussed with patient's at bedside
Data:
MRI brain 12/2024: Multiple foci of restricted diffusion involving the bifrontal white matter as well as the bilateral cerebellar hemispheres which likely represents acute/subacute infarctions. The right cerebellar hemisphere infarction is
associated with mild surrounding edema as well as a small focus of intrinsic T1 shortening which likely represents hemorrhagic conversion. Given the multi vascular territory this may be embolic in nature. An underlying right cerebellar lesion or
small vascular malformations considered unlikely although a 12 week follow-up MRI brain should be considered.
ECHO 12/2024: 1. Normal size left ventricle with normal wall thickness and global hypokinesis, EF 39%.
2. Thickened mitral leaflets with moderate mitral regurgitation and normal left atrium.
3. Aortic sclerosis without stenosis or regurgitation.
4. Normal right heart, pulmonary artery systolic pressure is 39 mmHg.
5. No cardiac source of embolism is identified.
6. There are no prior studies available for comparison.
US LE 12/2024: No DVT noted
CT C/A/P 12/2024: Bilateral pulmonary nodular parenchymal opacities again seen some of which with central cavitation and overall prominence of the pulmonary interstitium again seen, somewhat similar to prior study with at least one new subcentimeter
opacity in the right upper lobe. Again, some of several differential diagnostic possibilities again include atypical infection, septic pulmonary emboli, Bandar's granulomatosis and less likely metastases.
Small anterior pericardial effusion.
Fluid-filled dilated stomach and fluid-filled thoracic esophagus.
Fluid-filled loops of small bowel, nonspecific, cannot exclude enteritis.
Subjective Dataa
Subjective Data
Date of Service:
Date of Service: January 03, 2025
Subjective:
Patient currently intubated, mechanically ventilated, continues to be encephalopathy,
Review of Systems
General: Unobtainable - Pat Unresp
Objective Data
Data Reviewed
Vital Signs / I&O / Oxygen:
Vital Signs
Temp Pulse Resp BP Pulse Ox
99.8 F 108 28 95/64 100
01/03/25 07:20 01/03/25 07:00 01/03/25 07:00 01/02/25 19:52 01/03/25 12:03
Intake and Output
01/02/25 01/03/25 01/04/25
06:59 06:59 06:59
Intake Total 6070.0 / 6337.5 5342.0 / 5533.0 1175 / 1175
Output Total 2090 / 2315 2270 / 2360 360 / 360
Balance 3980.0 / 4022.5 3072.0 / 3173.0 815 / 815
SaO2 [A/C] 100
SaO2 100
Nasal Cannula flow liters per 4
minute
Physical Exam
HEENT: Normocephalic
Cardiovascular: S1-S2
Respiratory: Clear
GI: Soft and Non Distended
Neurology: Other (Unresponsive)
Skin: Other (Lower extremity livedo reticularis improving)
Labs/Micro/Reports
Lab Data
01/03/25 09:02
Laboratory Results
01/02/25 01/02/25 01/03/25
07:56 14:01 03:01
PT
INR
APTT
pH Cancelled 7.41 7.42
pCO2 Cancelled 30 L 31 L
pO2 Cancelled 91 184 H
HCO3 Cancelled 19.0 L 20.1 L
O2 Delivery Level Cancelled
01/03/25
11:58
PT 20.0 H
INR 1.68
APTT 40.6 H
pH
pCO2
pO2
HCO3
O2 Delivery Level
Microbiology
01/01/25 12:41 Blood/Venous Blood Culture - Preliminary
No Growth in 48 hours- Final report to follow
01/01/25 08:16 Blood/Venous Blood Culture - Preliminary
Streptococcus pneumoniae
01/01/25 08:16 Blood/Venous Gram Stain - Final
01/01/25 11:44 Blood/Venous Blood Culture - Preliminary
No Growth in 48 hours- Final report to follow
01/01/25 20:00 Urine Urine Culture - Final
NO GROWTH
01/03/25 03:51 Sputum Gram Stain - Preliminary
01/01/25 08:17 Blood/Venous Blood Culture - Preliminary
Streptococcus pneumoniae
01/01/25 08:17 Blood/Venous Gram Stain - Final
01/01/25 17:32 Nose MRSA Screen - Final
No Methicillin Resistant Staphylococcus aureus isolated.
01/01/25 08:31 Urine Urine Culture - Final
NO GROWTH
01/01/25 08:17 Nasal Swab Influenza Types A & B (ISIAH) - Final
Negative for Influenza A & B, NAAT
Negative results must be combined with clinical observations
and patient history.
Nucleic Acid Amplification test (NAAT)performed on the
[employer] platform.
--- NOTE | 2025-01-03 13:42 | EEG.RPT ---
Electroencephalogram Report
Recording
Date of EE01/03/25
Type of EEG: Routine
Length of EEG recordin minutes
Done with Video Recording: Yes
Patient Status: Inpatient
Recording Conditions: Awake, Drowsy and Asleep
Hyperventilation Performed: No
Photic Stimulation Performed: Yes
Report
LESS THAN 1 HOUR REPORT
LESS THAN 1 HOUR EEG INTERPRETATION:
Mildly abnormal EEG for age due to mild diffuse bihemispheric slowing
CLINICAL CORRELATION:
This study was suggestive of mild diffuse cortical dysfunction without focal abnormality. No seizures were recorded.
Clinical correlation is advised.
METHODS:
A 21 channel digitized electroencephalogram (EEG) was performed at the bedside in the ICU. The 10/20 international system of electrode placement was used with ECG and lateral/vertical eye movements recorded. [employer] quantitative EEG analysis
software was utilized.
QUALITY OF STUDY:
Fair
ELECTROENCEPHALOGRAPHER IMPRESSION(S):
Background
Low amplitude poorly organized anterior-posterior voltage gradient of mixed beta and theta activity, non-variable, bursts of generalized non-rhythmic theta activity noted
There were no significant asymmetries of background activity noted.
Sleep
Stage I sleep present
Photic Stimulation
Failed to activate the record
ECG
Normal sinus rhythm
Abnormal EEG Activity
None
[2025-01-03 14:51] LABS: Hematocrit 20.0 % (39.0-52.0); Hemoglobin 6.9 g/dL (13.0-18.0); Mean Corp Hgb Conc. 34.5 g/dL (33.0-37.0); Mean Corpuscular Volume 83.0 fL (80.0-94.0); Nucleated Red Blood Cells % 0 % (-); Platelet Count 5 10^3/uL (130-400); Red Cell Dist. Width 16.7 % (11.5-14.5)
--- NOTE | 2025-01-03 16:00 | PTCARENOTE ---
One unit PRBC infusing at this time.
Weaning Phenylephrine.
Pt has not voided since garcia d/c'd. Bladder scan 500ml. Discussed with Dr Leone. Will not replace garcia or straight cath at this time d/t low platelets. Unit of platelets ordered and awaiting from [facility].
All other assessments unchanged.
[2025-01-03] MEDS: PRECEDEX 100 IV (16:14)
[2025-01-03 20:31] LABS: Hematocrit 22.3 % (39.0-52.0); Hemoglobin 7.7 g/dL (13.0-18.0); Mean Corp Hgb Conc. 34.5 g/dL (33.0-37.0); Mean Corpuscular Volume 83.2 fL (80.0-94.0); Platelet Count 8 10^3/uL (130-400); Red Cell Dist. Width 16.3 % (11.5-14.5)
[2025-01-03 20:37] LABS: ALT (SGPT) 52 U/L (0-50); AST (SGOT) 95 U/L (17-59); Albumin 1.9 g/dl (3.5-5.0); Alkaline Phosphatase 58 U/L (38-126); Blood Urea Nitrogen 11 mg/dl (9-20); Calcium 6.9 mg/dl (8.4-10.2); Carbon Dioxide 19 mmol/L (22-30); Chloride 110 mmol/L (98-107); Estimated Creatinine Clearance > 125 ml/min; Glucose 104 mg/dl (70-99); Potassium 3.3 mmol/L (3.5-5.1); Sodium 133 mmol/L (135-145); Total Protein 4.2 g/dl (6.3-8.2); eGFR > 60.00
--- NOTE | 2025-01-03 21:20 | PTCARENOTE ---
Handoff report received from off going RN. Patient received in bed on mechanical ventilation. Pt's on Neosynephrine at 120 mcg/min, Precedex at 0.3 mcg/kg/hr, and D5-1/2NS at 100 ml/hr. GCS 7. Precedex placed on hold for neuro assessment. Patient
furrows his brows to pain. Does not follow commands. Sinus rhythm on the monitor. Lungs are CTA. ETT #8 & 24 at the lip on vent setting AC +5/25/500/40%. OGT in place with osmolite 1.2 at 20 ml/hr. Nugent catheter is draining mary alice urine. Right
knee and left thigh are with scattered rash. Right subclavian TLC and left arm # 20 g are patent. Right radial Bella zeroed. Labs drawn and sent. Precedex titrated to 0.2 mcg/kg/hr.
--- NOTE | 2025-01-03 23:00 | PTCARENOTE ---
2245- I unit of platelet transfused. KCL 40 meq IV for potassium of 3.3.
--- NOTE | 2025-01-04 00:07 | PTCARENOTE ---
Precedex placed on hold for neuro assessment. Pt bites on ETT and frowns with painful stimuli. does not follow commands. turns and repositioning continued.
[2025-01-04] MEDS: SUBLIMAZE 50 MCG IV (00:56)
[2025-01-04 01:01] LABS: Hematocrit 21.9 % (39.0-52.0); Hemoglobin 7.6 g/dL (13.0-18.0); Mean Corp Hgb Conc. 34.7 g/dL (33.0-37.0); Mean Corpuscular Volume 82.3 fL (80.0-94.0); Platelet Count 7 10^3/uL (130-400); Red Cell Dist. Width 16.2 % (11.5-14.5)
--- NOTE | 2025-01-04 01:32 | PTCARENOTE ---
One unit of platelet ordered. master automotive glass technician called and stated that Platelet may need to be ordered from [place], and will updated if there are changes.
[2025-01-04 02:55] VITALS: BP 109/54
--- NOTE | 2025-01-04 03:03 | PTCARENOTE ---
1 unit of platelet transfusing.
[2025-01-04 03:16] VITALS: BP 103/52
[2025-01-04 03:32] VITALS: BP 102/52
--- NOTE | 2025-01-04 04:19 | PTCARENOTE ---
reassessed patient. No changes from the previous assessment. Patient cleansed and linens changed.
[2025-01-04 05:22] LABS: B.E. -6.2 mmol/L; HCO3 17.7 mmol/L (21-28); O2 Saturation % 100.0 % (94-98); PCO2 28 mmHg (35-48); PO2 145 mmHg (83-108)
[2025-01-04 05:23] LABS: O2 Therapy VENT
[2025-01-04] MEDS: D5/0.9% SODIUM CHLORIDE 1000 IV (05:23)
[2025-01-04] MEDS: NEO-SYNEPHRINE 250 IV ×3 (05:24→21:11)
[2025-01-04 05:36] LABS: Hematocrit 21.6 % (39.0-52.0); Hemoglobin 7.4 g/dL (13.0-18.0); Mean Corp Hgb Conc. 34.3 g/dL (33.0-37.0); Mean Corpuscular Volume 82.8 fL (80.0-94.0); Platelet Count 13 10^3/uL (130-400); Red Cell Dist. Width 16.3 % (11.5-14.5)
[2025-01-04 05:49] LABS: Blood Urea Nitrogen 13 mg/dl (9-20); Calcium 7.1 mg/dl (8.4-10.2); Carbon Dioxide 18 mmol/L (22-30); Chloride 114 mmol/L (98-107); Estimated Creatinine Clearance > 125 ml/min; Glucose 112 mg/dl (70-99); Potassium 3.6 mmol/L (3.5-5.1); Sodium 135 mmol/L (135-145); eGFR > 60.00
[2025-01-04 06:00] VITALS: BMI 24.0
[2025-01-04] MEDS: KCL 100 IV (06:15)
--- NOTE | 2025-01-04 06:22 | PTCARENOTE ---
Calcium gluconate and KCL riders ordered.
[2025-01-04] MEDS: CALCIUM GLUCONATE 130 MG IV (06:30)
[2025-01-04] MEDS: THIAMINE INJECTION 255 MG IV ×3 (07:51→23:52)
[2025-01-04] MEDS: ZOVIRAX INJECTION 108 MG IV ×2 (07:51→19:43)
[2025-01-04] MEDS: MIRALAX 17 GRAMS TUBE (07:58)
[2025-01-04] MEDS: PROTONIX IV 40 MG IV (07:58)
[2025-01-04] MEDS: NSS (PRESERVATIVE FREE) 10 ML IV (07:59)
--- NOTE | 2025-01-04 08:14 | W.PN.NEPH.PH ---
Today's Communication / Plan
-
DC IV fluids
Follow electrolytes and CPK level
20 mg IV Lasix provide
Maintain pressor support to keep MAP 65 or greater
Assessment/Plan
-
IMP:
Neutropenic fever with severe sepsis and lactic acidosis
Gram-positive bacteremia in setting of neutropenia
Acute respiratory failure
Acute on chronic Hyponatremia
Acute metabolic encephalopathy/ delirium
Rhabdomyolysis
Pancytopenia
Bilateral pulmonary nodular opacities, some cavitary
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
SUZIE PE, diagnosed 11/2024
HLD
Hyponatremia
Elevated LFTs
Plan:
A/w AMS, fever-sepsis
Acute on chr hyponatremia-suspect multifactorial
underlying SIADH , high free water intake+sepsis
U osmo 449, U na low 13
sodium at 135 this am -acceptable correction , will reduce rate of IVFs, weights up, cpk less then 1000
Replete potassium PRN
Metabolic acidosis persists
DC IV fluids as tube feeds now on
Will provide 20 mg IV lasix for edema and rising weights
Nonoliguric via Garcia
maintain pressor to keep MAP>65
cr seem stable at 0.5
hypocalcemia-keep prn IV riders,
now intubated this am as he remains obtunded
Maintain pressor support to keep MAP at 65 or greater
abx per ID- strep pneumo bacteremia, neutropenic fever
prn transfusion for anemia, monitor thrombocytopenia
s/p MRI of head : Acute and subacute infarctions throughout bilateral cerebral hemispheres
Patient critically ill on vent support for respiratory failure and pressor support in the setting of sepsis and hemodynamic instability
d/w ICU and nursing
CC time spent 31min
-
-
Date of Service: January 04, 2025
CC / HPI / ROS
-
Chief Complaint:
Hypoantremia
History of Present Illness:
sodium at 135 this am
intubated for AMS and hypoxia
cr normal, k low side
marisol improving to 7.1
Requiring pressor support in setting of hemodynamic instability
Review of Systems:
intubated, not responding
non oliguric with garcia, wt is up
Labs
-
Labs:
Sodium 135 mmol/L (135-145) 01/04/25 05:08
Potassium 3.6 mmol/L (3.5-5.1) 01/04/25 05:08
Chloride 114 mmol/L (98-107) H 01/04/25 05:08
Carbon Dioxide 18 mmol/L (22-30) L 01/04/25 05:08
BUN 13 mg/dl (9-20) 01/04/25 05:08
Creatinine 0.5 mg/dL (0.7-1.3) L 01/04/25 05:08
eGFR > 60.00 01/04/25 05:08
Glucose 112 mg/dl (70-99) H 01/04/25 05:08
Calcium 7.1 mg/dl (8.4-10.2) L 01/04/25 05:08
Phosphorus 2.6 mg/dl (2.5-4.5) 01/01/25 11:26
Albumin 1.9 g/dl (3.5-5.0) L 01/03/25 20:01
Physical Exam
-
Vital Signs:
Vital Signs
Temp Pulse Resp BP Pulse Ox
99.5 F 78 31 102/52 100
01/04/25 07:35 01/04/25 08:00 01/04/25 08:00 01/04/25 03:32 01/04/25 08:07
Cardiovascular:: Regular rate and rhythm (tachy)
Respiratory:: Bilateral: Coarse
Lung Excursion:: Abnormal
Abdomen:: Nontender and Soft
Extremity Edema:: None: Bilateral:
Garcia Catheter: Yes
Other Findings::
livido reticularis noted in LEs
General: Intubated and poorly responsive
--- NOTE | 2025-01-04 09:04 | W.PN.ID1 ---
Date of Service
Date of Service: January 04, 2025
Today's Communication
Continue antibiotics. Continue with supportive measures.
Assessment / Plan
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
# Invasive Streptococcus pneumoniae bacteremia
# Severe sepsis.
. Fever - trending down
# Severe rhabdomyolysis
. Likely triggered by infection
# Severe hyponatremia - improving
# Change in mental status continues to decline
. multifactorial, including possible Strep pneumo meningoencephalitis
. Head CT: Crescentic-shaped lesion in the right cerebellum, cannot exclude evolving nonhemorrhagic infarct or less likely mass.
# VDRF - 01/02 intubated for airway protection
# Recent findings of bilateral pulm nodular opacities, some with central cavitation
. 12/23 CT guided lung biopsy cultures negative for bacteria; AFB and fungal cultures negative to date.
Path pending - specimen sent to [place], per pathologist
- Unsafe for LP with severe thrombocytopenia
- repeat blood cx's neg to date.
- Ucx neg. Covid neg
- Sputum cx pending
- MRI (01/03/25): multiple abnormal foci likely represent acute/subacute infarctions, with possible hemorrhagic conversion insomnia. Suspect embolic in nature.
- Continue ceftriaxone 2g IV q12. Vancomycin discontinued as isolate susceptible to ceftriaxone
- Trend temperature, CK, electrolytes.
- Patient remains critically ill in ICU.
- Overall prognosis extremely guarded
����������������������������������������������������������
Chief Complaint
-: Clinical Sepsis and Bacteremia
Subjective / Review of Systems
Patient seen and examined. Remains on vent at this time.
Vital Signs / Physical Exam
Vital Signs
Vital Signs
Temp Pulse Resp BP Pulse Ox
99.5 F 78 31 102/52 100
01/04/25 07:35 01/04/25 08:00 01/04/25 08:00 01/04/25 03:32 01/04/25 08:07
Physical Exam
Constitutional: Comfortable, Acutely Ill and Non-toxic
Head: Normocephalic
Eyes: Sclera Anicteric and Other (mild icterus)
Cardiovascular: Regular Rate and S1/S2 (tachycardic); Negative Murmur
Pulmonary: Clear (anteriorly) and Other (ET tube in place to vent)
Gastrointestinal: Soft, Non Tender, Non Distended and Normal Bowel Sounds
Genito-Urinary: Nugent and Clear Urine
Extremities: Negative Edema, Cyanosis, Erythema or Splinter Hemorrhage
Skin: Rash (Right knee and left thigh stable)
Neurological: Other (Sedated)
Lines: Port (RCW no erythema)
Objective Data
Lab Data
Lab Results
01/04/25 05:08
PT 20.0 Sec (11.4-14.6) H 01/03/25 11:58
INR 1.68 01/03/25 11:58
APTT 40.6 Sec (23.4-35.0) H 01/03/25 11:58
Estimated Creat Clear > 125 ml/min 01/04/25 05:08
Lactic Acid 1.6 mmol/L (0.7-2.0) 01/03/25 03:01
Total Bilirubin 2.6 mg/dl (0.2-1.3) H 01/03/25 20:01
AST 95 U/L (17-59) H 01/03/25 20:01
ALT 52 U/L (0-50) H 01/03/25 20:01
Alkaline Phosphatase 58 U/L (38-126) 01/03/25 20:01
Most recent labs reviewed.
Micro Results:
01/03/25 17:12 Respiratory Culture - Pending
Tracheal Aspirate Gram Stain - Preliminary
01/03/25 17:12 Fungal Smear - Pending
Sputum Fungal Culture - Preliminary
Culture in progress.
Positive cultures are reported as soon as detected.
Final report to follow in four to five weeks.
01/02/25 17:08 Blood Culture - Preliminary
Blood/Venous No Growth in 24 hours- Final report to follow
01/01/25 12:41 Blood Culture - Preliminary
Blood/Venous No Growth in 48 hours- Final report to follow
01/01/25 08:16 Blood Culture - Preliminary
Blood/Venous Streptococcus pneumoniae
Gram Stain - Final
01/01/25 11:44 Blood Culture - Preliminary
Blood/Venous No Growth in 48 hours- Final report to follow
01/01/25 20:00 Urine Culture - Final
Urine NO GROWTH
01/03/25 03:51 Respiratory Culture - Pending
Sputum Gram Stain - Preliminary
01/01/25 08:17 Blood Culture - Preliminary
Blood/Venous Streptococcus pneumoniae
Gram Stain - Final
01/01/25 17:32 MRSA Screen - Final
Nose No Methicillin Resistant Staphylococcus aureus isolated.
01/01/25 08:31 Urine Culture - Final
Urine NO GROWTH
01/01/25 08:17 Influenza Types A & B (ISIAH) - Final
Nasal Swab Negative for Influenza A & B, NAAT
Negative results must be combined with clinical observations
and patient history.
Nucleic Acid Amplification test (NAAT)performed on the
[employer] platform.
Imaging:
01/01/25 CT C/A/P: Bilateral pulmonary nodular parenchymal opacities again seen some of which with central cavitation and overall prominence of the pulmonary interstitium again seen, somewhat similar to prior study with at least one new
subcentimeter opacity in the right upper lobe. Again, some of several differential diagnostic possibilities again include atypical infection, septic pulmonary emboli, Bandar's granulomatosis and less likely metastases. Small anterior pericardial
effusion. Fluid-filled dilated stomach and fluid-filled thoracic esophagus. Fluid-filled loops of small bowel, nonspecific, cannot exclude enteritis.
01/02/[address]: Crescentic-shaped focus of decreased attenuation in the right cerebellum, cannot exclude evolving nonhemorrhagic infarct or less likely mass.
01/03/25 CXR: Redemonstration of fine reticular pulmonary opacities bilaterally along with superimposed heterogeneous opacities in the mid to upper right lung and upper left lung. Findings could represent pulmonary edema, hypersensitivity
pneumonitis, or severe viral pneumonia
[2025-01-04] MEDS: STERILE WATER FOR INJECTION 20 ML IV ×2 (09:47→22:00)
[2025-01-04] MEDS: ROCEPHIN 2000 MG IV ×2 (09:47→22:00)
[2025-01-04] MEDS: SENNA SYRUP 8.8 MG TUBE ×2 (09:47→19:43)
[2025-01-04] MEDS: PRECEDEX 100 IV (10:05)
[2025-01-04] MEDS: REFRESH EYE DROPS (PF) 1 DROPS OPHTH (10:05)
--- NOTE | 2025-01-04 10:09 | W.PN.ONC ---
Today's Communication / Plan
-
CT Chest/Abd/Pelvis: Bilateral pulmonary nodular parenchymal opacities again seen
Continue supportive, ventilator care
Blood cx with strep pneumoniae, antibiotics as per ID
Path results from lung biopsy from 12/23 pending
Continue to monitor transfusion need
Hold Venetoclex 100mg once able to tolerate PO
No role for transfer to tertiary center as there is no therapeutic intervention for underlying AML and he is receiving ICU level care
Impression
Impression
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
Neutropenic fever with sepsis and lactic acidosis
Rhabdomyolysis
Recent PE
Severe hyponatremia
Bilateral pulmonary nodular opacities
Plan
Plan
Subjective/Objective
Subjective/Objective
Patient sedated and intubated
Vital Signs:
Vital Signs
Temp Pulse Resp BP Pulse Ox
99.5 F 78 31 102/52 100
01/04/25 07:35 01/04/25 08:00 01/04/25 08:00 01/04/25 03:32 01/04/25 08:07
physical exam unchanged
Lab Results:
Laboratory Data
WBC 0.1 10^3/uL (4.8-10.8) L* 01/04/25 05:08
Hgb 7.4 g/dL (13.0-18.0) L 01/04/25 05:08
Plt Count 13 10^3/uL (130-400) L* D 01/04/25 05:08
PT 20.0 Sec (11.4-14.6) H 01/03/25 11:58
INR 1.68 01/03/25 11:58
APTT 40.6 Sec (23.4-35.0) H 01/03/25 11:58
eGFR > 60.00 01/04/25 05:08
--- NOTE | 2025-01-04 10:10 | W.PN.INTV ---
Today's Communication / Plan
Recommendations
- Advance tube feeding to goal
- Continue MiraLAX, add Senokot
Assessment
-
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 Patient quite delirious during my
evaluation and unable to provide any meaningful history. Information mostly obtained from patient's at bedside as well as review of records. Reportedly over the last 24 hours patient has been slightly getting more confused and noted
fever last night and this morning he appeared to be very confused. She does not report any cough, chills, vomiting diarrhea, hemoptysis or hematemesis. She reports a known history of hemorrhoids and occasional small-volume blood per rectum. No
lucy bloody diarrhea reported. No sick contacts reported. Patient has been on chemotherapy for AML and reportedly last dose about 2 weeks ago. Patient has prior history of alcoholism and heavy smoking which he stopped about 8 to 9 months ago and
currently not actively drinking per patient's . In the emergency room patient was noted to be septic with elevated lactate, neutropenia, high-grade fever. Patient was given 30 mL/kg fluid resuscitation and was started on broad-spectrum
antibiotics. In view of tachycardia, encephalopathy, elevated lactate, patient was admitted to ICU and manufacturing shift supervisor consultation was requested for further input.
01/04 overview: Current infusion Isael-Synephrine at 80, Precedex at 0.3. MAP of 70. Heart rate 77. 7.40 06/18/145 on 500/25/40%/5. Patient breathing at 29 to 30/min. No endotracheal tube secretions noted. Tolerating tube feeding.
#1. Septic shock with Strep Pneumoniae Bacteremia with neutropenia and lactic acidosis
- 30 mL/kg IV fluid resuscitation in the emergency room
- Currently on ceftriaxone, infectious disease service on case. Resumed acyclovir. Fungal cultures have stayed negative, off voriconazole now
- Suspect pulmonary source of strep pneumoniae bacteremia
- CT chest abdomen pelvis reviewed no significant acute change compared to last imaging
- Improving serial lactate
- Continue maintenance IV fluids
- Continue phenylephrine to keep MAP above 65. Central line and arterial line placed 01/02.
#2. Acute respiratory failure with severe encephalopathy 01/02
- Patient currently on Precedex at 0.3. Withdraws to stimulation. No meaningful communication yet.
- 01/02, patient emergently intubated in view of severe encephalopathy and inability to protect airway along with septic shock, rapid sequence intubation, mechanically ventilated since
- MRI brain suggestive of multiple areas suspicious for embolic infarct. Neurology service on case. In view of septic shock and bacteremia, septic emboli with underlying infective endocarditis also in differential diagnosis.
- Patient has severe coagulopathy with thrombocytopenia, not a candidate for antiplatelet or antithrombotic therapy for now
- Continue telemetry monitoring, echocardiogram
- Continue telemetry to monitor for any atrial fibrillation/atrial flutter
- 2D echo unremarkable. Will eventually need KELLIE. Cardiology consult
#3. Rhabdomyolysis, severe.
- Suspect rhabdomyolysis related to voriconazole and Lipitor therapy together.
- Lipitor has been on hold, CK level went up to 10,000, subsequently declining
- Significant positive fluid balance, IV fluids discontinued 01/04. Patient is positive for 0.9 L.
#4. Hyponatremia, likely symptomatic
- Suspect hypovolemic hyponatremia considering decreased chloride as well as urine sodium of 14
- Improved, 135 this morning.
#5. Acute metabolic encephalopathy/Multifocal CVA
- Multiple strokes noted on MRI, which are contributing to encephalopathy in addition to severe metabolic derangements.
- Patient was quite agitated in the ICU pulling on tubes, required restraints on admission 01/01
- Progressively more encephalopathy, obtunded on 01/02, needed to be intubated for airway protection
- Continue high-dose thiamine with prior history of alcoholism
- Eliquis has been placed on hold in case lumbar puncture needs to be pursued in future. Patient is very coagulopathic for safe lumbar puncture
#6. Bilateral pulmonary nodular opacities, some cavitary
- Differential diagnosis include infection, inflammation like GPA versus malignancy
- S/p IR guided biopsy 12/2024, pathology results are pending
- Cultures have stayed negative in the past
- Continue broad-spectrum antibiotic, await final pathology results
- ANCA pending
- Prior history of asbestos exposure however would not explain parenchymal nodules. Suspected prior granulomatous disease.
- History of [id number] smoking history, no formal diagnosis of COPD or asthma.
- Now that patient is intubated, sent tracheal cultures. Hold off bronchoscopy and BAL for now, considering patient has positive blood cultures.
#7. 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
- Has been on chemotherapy, follows up with [facility] and [facility]
- Hematology/Oncology consult
- Status post blood transfusions, platelet transfusion, keep platelet count above 10K unless active bleeding noted in which case will need to aim for a higher target.
#8. SUZIE PE, diagnosed 11/2024
- Patient is very coagulopathic with severe thrombocytopenia requiring transfusions as well as elevated INR
- Continue to hold Eliquis, s/p vitamin K IV
- Lower extremity duplex this admission without any DVT. CT chest with contrast reviewed without any large central pulmonary embolism, can monitor off anticoagulation for now
- Depending upon clinical course, if unable to resume anticoagulation in near future, will need to consider placement of IVC filter
Other medical diagnoses:
- Mucositis
- H/o Thrush
DVT prophylaxis, SCDs for now. Hold Eliquis in view of anemia and mild hematochezia.
Critical Care time 45 mins -- The patient is admitted for acute critical illness for the treatment of vital organ failure and/or prevention of further life-threatening conditions. Total care includes time spent in review of history, physical exam,
medications, hemodynamic/ventilator parameters, laboratory data, imaging and discussion with house staff, pharmacy, respiratory therapy, director [employer], and nursing.
Discussed with patient's at bedside
Data:
MRI brain 12/2024: Multiple foci of restricted diffusion involving the bifrontal white matter as well as the bilateral cerebellar hemispheres which likely represents acute/subacute infarctions. The right cerebellar hemisphere infarction is
associated with mild surrounding edema as well as a small focus of intrinsic T1 shortening which likely represents hemorrhagic conversion. Given the multi vascular territory this may be embolic in nature. An underlying right cerebellar lesion or
small vascular malformations considered unlikely although a 12 week follow-up MRI brain should be considered.
ECHO 12/2024: 1. Normal size left ventricle with normal wall thickness and global hypokinesis, EF 39%.
2. Thickened mitral leaflets with moderate mitral regurgitation and normal left atrium.
3. Aortic sclerosis without stenosis or regurgitation.
4. Normal right heart, pulmonary artery systolic pressure is 39 mmHg.
5. No cardiac source of embolism is identified.
6. There are no prior studies available for comparison.
US LE 12/2024: No DVT noted
CT C/A/P 12/2024: Bilateral pulmonary nodular parenchymal opacities again seen some of which with central cavitation and overall prominence of the pulmonary interstitium again seen, somewhat similar to prior study with at least one new subcentimeter
opacity in the right upper lobe. Again, some of several differential diagnostic possibilities again include atypical infection, septic pulmonary emboli, Bandar's granulomatosis and less likely metastases.
Small anterior pericardial effusion.
Fluid-filled dilated stomach and fluid-filled thoracic esophagus.
Fluid-filled loops of small bowel, nonspecific, cannot exclude enteritis.
Subjective Dataa
Subjective Data
Date of Service:
Date of Service: January 04, 2025
Subjective:
Patient currently intubated, mechanically ventilated, on low-dose Precedex.
Review of Systems
General: Unobtainable - Pat Unresp
Objective Data
Data Reviewed
Vital Signs / I&O / Oxygen:
Vital Signs
Temp Pulse Resp BP Pulse Ox
99.5 F 78 31 102/52 100
01/04/25 07:35 01/04/25 08:00 01/04/25 08:00 01/04/25 03:32 01/04/25 08:07
Intake and Output
01/03/25 01/04/25 01/05/25
06:59 06:59 06:59
Intake Total 5342.0 / 5533.0 5823.6 / 6208.0 1190.6 / 1190.6
Output Total 2270 / 2360 1514 / 1514 185 / 185
Balance 3072.0 / 3173.0 4309.6 / 4694.0 1005.6 / 1005.6
SaO2 [A/C] 99
SaO2 100
Nasal Cannula flow liters per 4
minute
Physical Exam
General: Respiratory Distress
HEENT: Normocephalic
Cardiovascular: S1-S2
Respiratory: Clear
GI: Soft and Non Distended
Neurology: Other (Withdraws to pain)
Skin: Other (Lower extremity livedo reticularis improving)
Labs/Micro/Reports
Lab Data
01/04/25 05:08
Laboratory Results
01/03/25 01/04/25
11:58 05:08
PT 20.0 H
INR 1.68
APTT 40.6 H
pH 7.41
pCO2 28 L
pO2 145 H
HCO3 17.7 L
O2 Delivery Level Vent
Microbiology
01/01/25 08:17 Blood/Venous Blood Culture - Final
Streptococcus pneumoniae
01/01/25 08:17 Blood/Venous Gram Stain - Final
01/01/25 08:16 Blood/Venous Blood Culture - Final
Streptococcus pneumoniae
01/01/25 08:16 Blood/Venous Gram Stain - Final
01/03/25 17:12 Tracheal Aspirate Gram Stain - Preliminary
01/03/25 17:12 Sputum Fungal Culture - Preliminary
Culture in progress.
Positive cultures are reported as soon as detected.
Final report to follow in four to five weeks.
01/02/25 17:08 Blood/Venous Blood Culture - Preliminary
No Growth in 24 hours- Final report to follow
01/01/25 12:41 Blood/Venous Blood Culture - Preliminary
No Growth in 48 hours- Final report to follow
01/01/25 11:44 Blood/Venous Blood Culture - Preliminary
No Growth in 48 hours- Final report to follow
01/01/25 20:00 Urine Urine Culture - Final
NO GROWTH
01/03/25 03:51 Sputum Gram Stain - Preliminary
01/01/25 17:32 Nose MRSA Screen - Final
No Methicillin Resistant Staphylococcus aureus isolated.
01/01/25 08:31 Urine Urine Culture - Final
NO GROWTH
01/01/25 08:17 Nasal Swab Influenza Types A & B (ISIAH) - Final
Negative for Influenza A & B, NAAT
Negative results must be combined with clinical observations
and patient history.
Nucleic Acid Amplification test (NAAT)performed on the
[employer] platform.
[2025-01-04] MEDS: LASIX 20 MG IV (10:49)
[2025-01-04 12:46] LABS: Hematocrit 22.4 % (39.0-52.0); Hemoglobin 7.7 g/dL (13.0-18.0); Mean Corp Hgb Conc. 34.4 g/dL (33.0-37.0); Mean Corpuscular Volume 82.7 fL (80.0-94.0); Platelet Count 7 10^3/uL (130-400); Red Cell Dist. Width 16.5 % (11.5-14.5)
--- NOTE | 2025-01-04 13:15 | PTCARENOTE ---
Phenylephrine dose titrated up per protocol. Remains on Precedex gtt. Did not titrate up tube feed d/t high residuals. All other assessments unchanged.
--- NOTE | 2025-01-04 14:38 | W.PN.HOSP.TC ---
Addendum entered and electronically signed by Darlene Cano MD 01/04/25 15:27:
I saw and evaluated the patient independently. I reviewed the resident�s note and agree with findings and plan as documented by Dr. Toledo.
GENERAL: critically ill male obtunded and now intubated
HEENT: NC/AT--intubated
HEART: regular rate and rhythm, +S1, +S2, tachycardic
LUNGS : clear to auscultation bilaterally
ABDOM: soft, nontender, nondistended, + bowel sounds
EXT: no cyanosis, clubbing, or edema--mottling improved--right foot colder than left but no cyanosis
NEUROLOGIC: obtunded
: garcia
intubated 01/02
A-line 01/02
septic shock with Strep pneumoniae bacteremia due to neutropenic fever with toxic metabolic encephalopathy and lactic acidosis (metabolic acidosis continues with HCO3 18)--was here last admission with presumed fungal PNA--still neutropenic---must
keep in mind possibility of meningitis/encephalitis and endocarditis with severe immunosuppression--apprec ID, warehouse person---stop IVF, cont pressors-- vanco stopped due to isolate sensitivities--cont ceftriaxone/acyclovir (change to IV as no oral
access)--urgent echo TTE neg for endocarditis--cannot do LIZZY as platelet count 5K, not anticoagulation or surgery candidate for valve replacement--cannot do LP for same reason--repeat blood cultures neg since 01/02--apprec ID
acute hypoxemic resp failure with toxic metabolic encephalopathy--intubated 01/02--apprec warehouse person--supportive care--head CT with evolving cerebellar CVA per radiology, brain MRI positive for Multiple foci of restricted diffusion involving the
bifrontal white matter as well as the bilateral cerebellar hemispheres which likely represents acute/subacute infarctions (probable septic emboli)--apprec neuro--cannot use antiplatelet agents, anticoagulation, do LIZZY or LP
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
care--eliquis on hold--no role for transfer to tertiary center per onc at this time
Rhabdomyolysis --Elevated CPK most likely due to statin/voriconazole combo--bilateral leg tenderness, US neg for DVT--trend CPK, improved--apprec renal
temperature varient between feet--concern for embolism to right leg vs clot (DIC?)--labs to date have been negative--check arterial US but again cannot do much--follow DIC labs
Severe hypovolemic Hyponatremia (level improved to 135)--SIADH with increased free water intake per pt , plus sepsis--apprec renal
Hypocalcemia--would replete
Tumor lysis prevention (not hyperuricemia, in fact, uric acid has been low all along)--cont allopurinol--trend LDH and uric acid
Recent left upper lobe PE--hold on Eliquis for now--ronn if MS does not improve and LP or other procedure needed
Hyperlipidemia-- Hold statins due to increased AST/ALT
code status--Full code
DVT proph --SCD's as US neg for DVT
prognosis guarded at best--advised pt to notify family of critical situation--updated 01/03 with MRI brain results and inability to diagnose or treat infarcts due to cell counts
Total Critical Care Time 40 minutes. I was immediately available to the patient and staff. I personally examined, reviewed labs, diagnostic images/reports, interpretations, treatment plans, discussed patient care with other providers and family
or caregivers (if patient is unable to make decisions), entered orders as appropriate and documented the medical record.
Original Note:
Today's Communication/Plan
-
- continue antibiotics, trend labs, tranfuse blood/ platelets as needed.
Assessment / Plan
Assessment / Plan
Septic shock due to strep pneumo bacteremia in the setting of neutropenic fever
Acute hypoxemic respiratory failure
Increased work of breathing tachypneic:
- patient is acutely confused, lethargic, weak, with fever and chills on admission, 2 of the 4 sepsis criteria were met on SIRS.30 mL/kg IV fluid resuscitation in the emergency room, then normal saline continuous infusion.
- Lactic acid on admission was 4.8 trending down to 1.6 most recent. Continue to trend lactic acid.
- Infectious disease, neurology, and oncology were consulted
- on 01/02 patient was awake but not alert or oriented, tachypneic, tachycardic, febrile, and with mottling on bilateral lower extremities. He meets the 3 criteria for septic shock.
- patient intubated
- First blood culture shows streptococcus pneumoniae repeat blood cultures negative , and urine cultures negative ( less likely a genitourinary source of sepsis), tracheal culture this morning pending. Continue ceftriaxone to cover most gram
positives and gram negatives, and Vancomycin to be continued for MRSA
- Continued Acyclovir as per ID recommendations. Consulted ID regarding further medication management for a potential fungal source of sepsis. Was on meropenem but that dc'd. fungal culture is still pending. Cant use voriconazole as it might
have interacted with statins and contributed to his rhabdomyolysis.
- Iv fluids d5/NS discontinued as sodium has normalized today
- continue on propofol and fentanyl for sedation and pain control, phenylephrine to maintain MAP over 65.
- TTE echocardiogram ordered to check for a septic source from bacteria in the heart valves such as in bacterial endocarditis negative, however lizzy pending (01/02)
- Chest x rays ordered. Bilateral interstitial and possible alveolar opacities, edema versus pneumonia most likely. We are covering with ceftriaxone. Vancomycin stopped due to isolate being suspectible to ceftriaxone.
- Lactic acid 1.6 and normalized.
- Also suspect there could be a hemolytic components to his shock due to stagnant hemoglobin levels despite multiple blood tranfusions, a elevated bilirubin, and decreased platelet count. Have consulted with heme/onc. Ordered LDH levels.
- Will consider a lumbar puncture to rule out sepsis source from CSF. He is on empiric antibiotics. however, he is not hemodynamically stable yet and has altered consciousness, along with severely low platelet count, needs platelets of >50k.
- MRI shows Multiple foci of restricted diffusion involving the bifrontal white matter as well as the bilateral cerebellar hemispheres which likely represents acute/subacute infarctions. LIZZY recc to look for cardiac cause possible an emboli.
consulted cardiology in regards to performing procedure however due to the thrombocytopenia (<10), they did not want to attempt LIZZY. We also cannot anticoagulate patient as he cannot be on aspirin/ plavix due to bleed risk.
- Trend CPK, CMP, CBC, uric acid check LDH
- Will consider a potential transfer to another institution.
- 20 mg iv lasix given to kirille patient today for edema and rising weights
Poikilothermia of the right lower extremity:
- The right lower extremity on touch is noticeably cooler than the left lower extremity. No color change or pulselessness. Ordered arterial Doppler of the lower extremities , awaiting results.
- DD is acute arterial occlusion due to embolism vs thrombosis from AML, vs DIC. Will get a fibrinogen level tomm.
- cannot use heparin in case of occlusion due to bleeding risk
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
Acute anemia in the setting on his AML
Pancytopenia:
- Oncology consulted
- held patients Venclexta for now,
- Patient has had 4 units of cmv negative irradiated leukoreduced blood
- WBC is 0.1, hgb7.7, platelet count is 7 ( no active signs of bleeding, 1 unit platelet ordered today), absolute nuetrophils/ lymphs/ mono= 0, patient is on empiric antibiotic coverage and fungal coverage, temperature is 100.2.
- Patient hgb is 7.7 today after 4 total units of blood since admission, no active signs of bleeding.
- Held eliquis
Elevated CPK most likely due to rhabdomyolysis caused by likely statin/voriconazole combo:
- on physical exam, patient states he has bilateral lower extremity muscle tenderness in his legs. Tenderness to palpation on physical examination.
- Urine analysis positive for blood but not RBC's.
- Initiated aggressive fluid therapy.
- CPK is 996 trending down, continue iv fluid therapy
Severe hypovolemic Hyponatremia :
- Consulted nephrology
- patient is confused, disoriented, and weak.
- Multifactorial due to underlying SIADH, high free water intake and sepsis.
- Suspect hypovolemic hyponatremia with urine sodium of 13 and normal urine osmololaity
- Trend BMP every 4 hours and adjust IV fluids accordingly
- Today levels are 135, continue to trend BMP
Tumour lysis prevention:
- on most recent discharge, patients uric acid level was 1.9, today his uric acid level is 2.1.
- trend LDH and uric acid level
SUZIE PE:
- Diagnosed on previous admission and patient was started on eliquis 5 mg bid
- Patients vitals are stable, CT chest with contrast negative for PE
- Holding Eliquis due to bleeding risk
- Placed on SCD's as DVT ppx in the ICU
Hyperlipidemia:
- Hold statins due to increased AST/ALT
Full code
DVT ppx: SCD's
Anticipated Discharge: 24 - 48 hours
Subjective/Interval History
-
Date of Service: January 04, 2025
No acute overnight events.
Patient is intubated with phenylephrine, fentanyl, propofol and a feeding tube.
Objective Data
-
Labs:
Laboratory Results
01/04/25 01/04/25
05:08 12:12
WBC 0.1 L* 0.2 L*
Hgb 7.4 L 7.7 L
Hct 21.6 L 22.4 L
Plt Count 13 L* D 7 L* D
HCO3 17.7 L
Sodium 135
Potassium 3.6
Chloride 114 H
Carbon Dioxide 18 L
BUN 13
Creatinine 0.5 L
Glucose 112 H
Calcium 7.1 L
Vital Signs:
Vital Signs
Temp Pulse Resp BP Pulse Ox
100.2 F 83 27 102/52 100
01/04/25 11:42 01/04/25 14:00 01/04/25 14:00 01/04/25 03:32 01/04/25 14:00
I&O
01/03/25 01/04/25 01/05/25
06:59 06:59 06:59
Intake Total 5342.0 / 5533.0 5823.6 / 6208.0 1500.2 / 1500.2
Output Total 2270 / 2360 1514 / 1514 915 / 915
Balance 3072.0 / 3173.0 4309.6 / 4694.0 585.2 / 585.2
Review of Systems
-
Unable to obtain full review of systems at this time due to: Patient Intubation
Physical Exam
-
General: Intubated
Respiratory: Rhonchi (heard on right side on chest. )
Cardiac: Tachycardic
GI: Soft, Nontender, Nondistended and Normal Bowel Sounds
Genito-urinary: Garcia
Musculoskeletal: Other (There is significant poikilothermia of the right lower extremity when compared to the left )
Skin: Dry and Other (mottling on bilateral extremities has significantly improved.)
Neuro: Sedated
Data Reviewed
-
Diagnostic Radiology: Report Reviewed by me and Discussed with Physician
CT Scan: Report Reviewed by me and Discussed with Physician
MRI: Report Reviewed by me and Discussed with Physician
Labs: Labs Reviewed by me and Discussed with Physician
[2025-01-04] MEDS: TYLENOL 650 MG PO ×2 (16:19→23:42)
--- NOTE | 2025-01-04 17:09 | PTCARENOTE ---
All assessments unchanged. Family at bedside.
[2025-01-04 20:25] VITALS: BP 115/51
[2025-01-04 20:42] VITALS: BP 126/56
[2025-01-04 20:55] VITALS: BP 124/55
--- NOTE | 2025-01-04 21:09 | PTCARENOTE ---
Assumed care of patient from off going RN. Dual RN bilateral thigh rash assessment completed. Thr posterior right thigh is red, warm and blanchable more than the left thigh. Right thigh is also more edematous than the left. Rt foot digits are cooler
than the left foot. Pulses to DPs are palpable. Precedex placed on hold for neuro assessment- as noted on the neuro flowsheet. Pt shots his eyes tight, but does not follow command. Movement with left leg is > right leg. Pt gums the ETT. NSR on the
monitor with HR in the 60s. Temp 100. # 8 ETT is 24 at the lip. Vent setting at AC 500/+25/+5/40%. OGT assessed. Pt's tube feed residual of 275 ml. Nugent catheter is intact. Platelet transfused. Right radial Arterial line zeroed. PIV.
[2025-01-04 22:40] LABS: Hematocrit 21.6 % (39.0-52.0); Hemoglobin 7.6 g/dL (13.0-18.0); Mean Corp Hgb Conc. 35.2 g/dL (33.0-37.0); Mean Corpuscular Volume 82.8 fL (80.0-94.0); Platelet Count 8 10^3/uL (130-400); Red Cell Dist. Width 16.5 % (11.5-14.5)
[2025-01-05] VITALS (13 sets, daily range): BP systolic 93–128; BP diastolic 42–80; BMI 24.8
--- NOTE | 2025-01-05 00:34 | PTCARENOTE ---
Patient has temp of 100.4 F. Skin is warm to the touch. right thigh remains warm, red, and blanchable. Temperature is rising. room temp decreased.
Tube feed residuals assessed and was 200 ml of milky/gutierrez TF. Tylenol administered via OGT. Sheet removed and ice packs placed to bilateral groins. Platelets to be ordered per photo lab technician.
--- NOTE | 2025-01-05 02:16 | PTCARENOTE ---
One unit of Platelet transfused.
[2025-01-05 04:34] LABS: Hematocrit 23.3 % (39.0-52.0); Hemoglobin 8.1 g/dL (13.0-18.0); Mean Corp Hgb Conc. 34.8 g/dL (33.0-37.0); Mean Corpuscular Volume 83.2 fL (80.0-94.0); Platelet Count 7 10^3/uL (130-400); Red Cell Dist. Width 16.4 % (11.5-14.5)
[2025-01-05 04:38] LABS: Fibrinogen 814 MG/DL (199-459)
[2025-01-05] MEDS: NEO-SYNEPHRINE 250 IV ×3 (04:46→17:17)
[2025-01-05] MEDS: PRECEDEX 100 IV (04:46)
--- NOTE | 2025-01-05 04:59 | PTCARENOTE ---
Temp has resolved to 99.6 F. Intermittent sinus luma on the monitor with HR 59. -ANTHROPOLOGY INSTRUCTOR made aware of the lab results. Patient cleansed and linens changed.
[2025-01-05 05:03] LABS: Blood Urea Nitrogen 17 mg/dl (9-20); Calcium 7.7 mg/dl (8.4-10.2); Carbon Dioxide 18 mmol/L (22-30); Chloride 116 mmol/L (98-107); Estimated Creatinine Clearance > 125 ml/min; Glucose 92 mg/dl (70-99); LDH 290 U/L (120-246); Potassium 3.4 mmol/L (3.5-5.1); Sodium 138 mmol/L (135-145); Triglycerides 127 mg/dl (10-149); eGFR > 60.00
[2025-01-05] MEDS: KCL 100 IV ×2 (05:58→22:59)
[2025-01-05] MEDS: SENNA SYRUP 8.8 MG TUBE ×2 (07:43→19:57)
[2025-01-05] MEDS: PROTONIX IV 40 MG IV (07:43)
[2025-01-05] MEDS: NSS (PRESERVATIVE FREE) 10 ML IV (07:43)
[2025-01-05] MEDS: MIRALAX 17 GRAMS TUBE (07:43)
[2025-01-05] MEDS: ZOVIRAX INJECTION 108 MG IV ×2 (07:43→19:57)
--- NOTE | 2025-01-05 07:45 | W.PN.NEPH.PH ---
Today's Communication / Plan
-
Maintain pressor support to keep MAP 65 or greater
As needed electrolyte infusion
40 mg IV Lasix for expanding volume
Assessment/Plan
-
IMP:
Neutropenic fever with severe sepsis and lactic acidosis
Gram-positive bacteremia in setting of neutropenia
Acute respiratory failure
Acute on chronic Hyponatremia
Acute metabolic encephalopathy/ delirium
Rhabdomyolysis
Pancytopenia
Bilateral pulmonary nodular opacities, some cavitary
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
SUZIE PE, diagnosed 11/2024
HLD
Hyponatremia
Elevated LFTs
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
Plan:
A/w AMS, fever-sepsis
Acute on chr hyponatremia-suspect multifactorial
underlying SIADH , high free water intake+sepsis
U osmo 449, U na low 13
sodium at 138 this am
Replete potassium PRN
Metabolic acidosis persists ~18
DC IV fluids as tube feeds now on
Will provide 40mg IV lasix for edema and rising weights
Nonoliguric via Garcia
maintain pressor to keep MAP>65
cr seem stable at 0.5
hypocalcemia-keep prn IV riders,
now intubated this am as he remains obtunded
Maintain pressor support to keep MAP at 65 or greater
abx per ID- strep pneumo bacteremia, neutropenic fever
prn transfusion for anemia, monitor thrombocytopenia
s/p MRI of head : Acute and subacute infarctions throughout bilateral cerebral hemispheres
Patient critically ill on vent support for respiratory failure and pressor support in the setting of sepsis and hemodynamic instability
d/w ICU and nursing
CC time spent 31min
-
-
Date of Service: January 05, 2025
CC / HPI / ROS
-
Chief Complaint:
Hypoantremia
History of Present Illness:
sodium at 135 this am
intubated for AMS and hypoxia
cr normal, k low side
marisol improving to 7.1
Requiring pressor support in setting of hemodynamic instability
Review of Systems:
intubated, not responding
non oliguric with garcia, wt is up
Labs
-
Labs:
Sodium 138 mmol/L (135-145) 01/05/25 04:01
Potassium 3.4 mmol/L (3.5-5.1) L 01/05/25 04:01
Chloride 116 mmol/L (98-107) H 01/05/25 04:01
Carbon Dioxide 18 mmol/L (22-30) L 01/05/25 04:01
BUN 17 mg/dl (9-20) 01/05/25 04:01
Creatinine 0.6 mg/dL (0.7-1.3) L 01/05/25 04:01
eGFR > 60.00 01/05/25 04:01
Glucose 92 mg/dl (70-99) 01/05/25 04:01
Calcium 7.7 mg/dl (8.4-10.2) L 01/05/25 04:01
Phosphorus 2.6 mg/dl (2.5-4.5) 01/01/25 11:26
Albumin 1.9 g/dl (3.5-5.0) L 01/03/25 20:01
Physical Exam
-
Vital Signs:
Vital Signs
Temp Pulse Resp BP Pulse Ox
99.5 F 61 32 116/51 99
01/05/25 07:22 01/05/25 06:00 01/05/25 06:00 01/05/25 02:13 01/05/25 06:00
Cardiovascular:: Regular rate and rhythm
Respiratory:: Bilateral: Coarse
Lung Excursion:: Normal
Abdomen:: Nontender and Soft
Bowel Sounds:: Decreased
Extremity Edema:: +1: Bilateral:
Garcia Catheter: Yes
Other Findings::
GEN: non responsive on vent
HEENT: ET tube
[2025-01-05] MEDS: THIAMINE INJECTION 255 MG IV ×3 (08:27→23:08)
--- NOTE | 2025-01-05 08:48 | W.PN.ID1 ---
Date of Service
Date of Service: January 05, 2025
Today's Communication
Continue ceftriaxone. Restart vancomycin. Patient for CT of pelvis and right thigh.
Assessment / Plan
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
# Invasive Streptococcus pneumoniae bacteremia
# Severe sepsis.
. Fever - trending down
# Severe rhabdomyolysis
. Likely triggered by infection
# Severe hyponatremia - improving
# Change in mental status
. multifactorial, including possible Strep pneumo meningoencephalitis
. Head CT: Crescentic-shaped lesion in the right cerebellum, cannot exclude evolving nonhemorrhagic infarct or less likely mass.
# VDRF - 01/02 intubated for airway protection
# Recent findings of bilateral pulm nodular opacities, some with central cavitation
. 12/23 CT guided lung biopsy cultures negative for bacteria; AFB and fungal cultures negative to date.
Path pending - specimen sent to [place], per pathologist
# Right thigh edema; ?lymphedema ?infection
- Unsafe for LP with severe thrombocytopenia
- repeat blood cx's neg to date.
- Ucx neg. Covid neg
- Sputum cx pending
- MRI (01/03/25): multiple abnormal foci likely represent acute/subacute infarctions, with possible hemorrhagic conversion insomnia. Suspect embolic in nature.
- Continue ceftriaxone 2g IV q12. Given finding of right thigh swelling, will reinitiate vancomycin
- Case discussed with Critical Care. CT to be ordered of thigh and pelvis to assess for abnormalities.
- Trend temperature, CK, electrolytes.
- Patient remains critically ill, on vent, in ICU.
- Overall prognosis extremely guarded
����������������������������������������������������������
Chief Complaint
-: Clinical Sepsis and Bacteremia
Subjective / Review of Systems
Patient seen and examined. No significant change overnight. Remains on vent. Nursing has noted some swelling of the dependent portion of the right thigh, with mild underlying erythema.
Vital Signs / Physical Exam
Vital Signs
Vital Signs
Temp Pulse Resp BP Pulse Ox
99.7 F (rectal) 80 33 110/50 98
01/05/25 08:26 01/05/25 08:26 01/05/25 08:26 01/05/25 08:26 01/05/25 08:00
Physical Exam
Constitutional: Acutely Ill and Non-toxic
Head: Normocephalic
Eyes: Sclera Anicteric
Oropharyngeal: Other (ET tube in place.)
Cardiovascular: Regular Rate and S1/S2 (tachycardic); Negative Murmur
Pulmonary: Clear (anteriorly) and Other (ET tube in place to vent)
Gastrointestinal: Soft, Non Tender, Non Distended and Normal Bowel Sounds
Genito-Urinary: Nugent and Clear Urine
Extremities: Edema (dependent portion right thigh); Negative Cyanosis, Erythema (right thigh; mild) or Splinter Hemorrhage
Skin: Rash (Right knee and left thigh stable)
Neurological: Other (Sedated)
Lines: Port (RCW no erythema)
Objective Data
Lab Data
Lab Results
01/05/25 04:01
WBC : 0.3
PT 20.0 Sec (11.4-14.6) H 01/03/25 11:58
INR 1.68 01/03/25 11:58
APTT 40.6 Sec (23.4-35.0) H 01/03/25 11:58
Estimated Creat Clear > 125 ml/min 01/05/25 04:01
Lactic Acid 1.6 mmol/L (0.7-2.0) 01/03/25 03:01
Total Bilirubin 2.6 mg/dl (0.2-1.3) H 01/03/25 20:01
AST 95 U/L (17-59) H 01/03/25 20:01
ALT 52 U/L (0-50) H 01/03/25 20:01
Alkaline Phosphatase 58 U/L (38-126) 01/03/25 20:01
Most recent labs reviewed.
Micro Results:
01/02/25 17:08 Blood Culture - Preliminary
Blood/Venous No Growth in 48 hours- Final report to follow
01/01/25 12:41 Blood Culture - Preliminary
Blood/Venous No Growth in 72 hours- Final report to follow
01/01/25 11:44 Blood Culture - Preliminary
Blood/Venous No Growth in 72 hours- Final report to follow
01/03/25 17:12 Respiratory Culture - Preliminary
Tracheal Aspirate NO GROWTH
Gram Stain - Preliminary
01/03/25 03:51 Respiratory Culture - Preliminary
Sputum NO GROWTH
Gram Stain - Preliminary
01/01/25 08:17 Blood Culture - Final
Blood/Venous Streptococcus pneumoniae
Gram Stain - Final
01/01/25 08:16 Blood Culture - Final
Blood/Venous Streptococcus pneumoniae
Gram Stain - Final
01/03/25 17:12 Fungal Smear - Pending
Sputum Fungal Culture - Preliminary
Culture in progress.
Positive cultures are reported as soon as detected.
Final report to follow in four to five weeks.
01/01/25 20:00 Urine Culture - Final
Urine NO GROWTH
01/01/25 17:32 MRSA Screen - Final
Nose No Methicillin Resistant Staphylococcus aureus isolated.
01/01/25 08:31 Urine Culture - Final
Urine NO GROWTH
01/01/25 08:17 Influenza Types A & B (ISIAH) - Final
Nasal Swab Negative for Influenza A & B, NAAT
Negative results must be combined with clinical observations
and patient history.
Nucleic Acid Amplification test (NAAT)performed on the
M2G platform.
Imaging:
01/01/25 CT C/A/P: Bilateral pulmonary nodular parenchymal opacities again seen some of which with central cavitation and overall prominence of the pulmonary interstitium again seen, somewhat similar to prior study with at least one new
subcentimeter opacity in the right upper lobe. Again, some of several differential diagnostic possibilities again include atypical infection, septic pulmonary emboli, Bandar's granulomatosis and less likely metastases. Small anterior pericardial
effusion. Fluid-filled dilated stomach and fluid-filled thoracic esophagus. Fluid-filled loops of small bowel, nonspecific, cannot exclude enteritis.
01/02/[address]: Crescentic-shaped focus of decreased attenuation in the right cerebellum, cannot exclude evolving nonhemorrhagic infarct or less likely mass.
01/03/25 CXR: Redemonstration of fine reticular pulmonary opacities bilaterally along with superimposed heterogeneous opacities in the mid to upper right lung and upper left lung. Findings could represent pulmonary edema, hypersensitivity
pneumonitis, or severe viral pneumonia
--- NOTE | 2025-01-05 09:37 | W.PN.INTV ---
Today's Communication / Plan
Recommendations
- CT with contrast, right lower extremity for posterior thigh erythema
- Switch to pressure control ventilation 04/10. Follow-up ABG and chest x-ray in a.m.
Assessment
-
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 Patient quite delirious during my
evaluation and unable to provide any meaningful history. Information mostly obtained from patient's at bedside as well as review of records. Reportedly over the last 24 hours patient has been slightly getting more confused and noted
fever last night and this morning he appeared to be very confused. She does not report any cough, chills, vomiting diarrhea, hemoptysis or hematemesis. She reports a known history of hemorrhoids and occasional small-volume blood per rectum. No
lucy bloody diarrhea reported. No sick contacts reported. Patient has been on chemotherapy for AML and reportedly last dose about 2 weeks ago. Patient has prior history of alcoholism and heavy smoking which he stopped about 8 to 9 months ago and
currently not actively drinking per patient's . In the emergency room patient was noted to be septic with elevated lactate, neutropenia, high-grade fever. Patient was given 30 mL/kg fluid resuscitation and was started on broad-spectrum
antibiotics. In view of tachycardia, encephalopathy, elevated lactate, patient was admitted to ICU and mock up assembler consultation was requested for further input.
01/05 overview: Current infusion Isael-Synephrine at 120, Precedex at 0.3. MAP of 68. Heart rate82. No endotracheal secretions, tolerating tube feeding. Currently on volume assist, 500/22/40%/5, respiratory rate consistently in mid 30s.
Saturating 99%.
#1. Septic shock with Strep Pneumoniae Bacteremia with neutropenia and lactic acidosis
- 30 mL/kg IV fluid resuscitation in the emergency room
- Currently on ceftriaxone, infectious disease service on case. Resumed acyclovir. Fungal cultures have stayed negative, off voriconazole now
- Suspect pulmonary source of strep pneumoniae bacteremia
- CT chest abdomen pelvis reviewed no significant acute change compared to last imaging
- Improved serial lactate
- Continue phenylephrine to keep MAP above 65. Central line and arterial line placed 01/02.
- 01/05, Increased redness posterior right thigh noted, vancomycin resumed, CT with contrast right lower extremity ordered.
#2. Acute respiratory failure with severe encephalopathy 01/02
- Patient currently on Precedex at 0.3. Withdraws to stimulation. Briefly opens eyes, appears little more responsive. Patient develops ventilator asynchrony and is requiring a low-dose Precedex, continue to wean as tolerated
- 01/02, patient was emergently intubated in view of severe encephalopathy and inability to protect airway along with septic shock, rapid sequence intubation, mechanically ventilated since
- MRI brain suggestive of multiple areas suspicious for embolic infarct. Neurology service on case. In view of septic shock and bacteremia, septic emboli with underlying infective endocarditis also in differential diagnosis.
- Patient has severe coagulopathy with thrombocytopenia, not a candidate for antiplatelet or antithrombotic therapy for now
- Continue telemetry to monitor for any atrial fibrillation/atrial flutter
- 2D echo unremarkable. Will eventually need KELLIE. Cardiology consult
- 01/05. Patient becomes very tachypneic on ASV. Not ready for SBT yet. Persistent tachypnea. Switched to pressure control ventilation 16 x 5, 40% FiO2, 5 of PEEP.
#3. Rhabdomyolysis, severe.
- Suspect rhabdomyolysis related to voriconazole and Lipitor therapy together.
- Lipitor has been on hold, CK level went up to 10,000, subsequently declining
- Significant positive fluid balance, IV fluids discontinued 01/04.
- Diuresis initiated 01/05
#4. Hyponatremia, likely symptomatic
- Suspect hypovolemic hyponatremia considering decreased chloride as well as urine sodium of 14
- Improved
#5. Acute metabolic encephalopathy/Multifocal CVA
- Multiple strokes noted on MRI, which are contributing to encephalopathy in addition to severe metabolic derangements.
- Patient was quite agitated in the ICU pulling on tubes, required restraints on admission 01/01
- Progressively more encephalopathy, obtunded on 01/02, needed to be intubated for airway protection
- Continue high-dose thiamine with prior history of alcoholism
- Eliquis has been placed on hold in case lumbar puncture needs to be pursued in future. Patient is very coagulopathic for safe lumbar puncture
- 01/05, patient appears to be more awake today, opened eyes, briefly made eye contact.
#6. Bilateral pulmonary nodular opacities, some cavitary
- Differential diagnosis include infection, inflammation like GPA versus malignancy
- S/p IR guided biopsy 12/2024, pathology results are pending
- Cultures have stayed negative in the past
- Continue broad-spectrum antibiotic, await final pathology results
- ANCA pending
- Prior history of asbestos exposure however would not explain parenchymal nodules. Suspected prior granulomatous disease.
- History of [id number] smoking history, no formal diagnosis of COPD or asthma.
- Now that patient is intubated, sent tracheal cultures. Hold off bronchoscopy and BAL for now, considering patient has positive blood cultures.
#7. 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
- Has been on chemotherapy, follows up with [facility] and [facility]
- Hematology/Oncology consult
- Status post blood transfusions, platelet transfusion, keep platelet count above 10K unless active bleeding noted in which case will need to aim for a higher target.
#8. SUZIE PE, diagnosed 11/2024
- Patient is very coagulopathic with severe thrombocytopenia requiring transfusions as well as elevated INR
- Continue to hold Eliquis, s/p vitamin K IV
- Lower extremity duplex this admission without any DVT. CT chest with contrast reviewed without any large central pulmonary embolism, can monitor off anticoagulation for now
- Depending upon clinical course, if unable to resume anticoagulation in near future, will need to consider placement of IVC filter
Other medical diagnoses:
- Mucositis
- H/o Thrush
DVT prophylaxis, SCDs for now. Hold Eliquis in view of anemia and mild hematochezia.
Critical Care time 47 mins -- The patient is admitted for acute critical illness for the treatment of vital organ failure and/or prevention of further life-threatening conditions. Total care includes time spent in review of history, physical exam,
medications, hemodynamic/ventilator parameters, laboratory data, imaging and discussion with house staff, pharmacy, respiratory therapy, contract technical writer, and nursing.
Discussed with patient's at bedside
Data:
MRI brain 12/2024: Multiple foci of restricted diffusion involving the bifrontal white matter as well as the bilateral cerebellar hemispheres which likely represents acute/subacute infarctions. The right cerebellar hemisphere infarction is
associated with mild surrounding edema as well as a small focus of intrinsic T1 shortening which likely represents hemorrhagic conversion. Given the multi vascular territory this may be embolic in nature. An underlying right cerebellar lesion or
small vascular malformations considered unlikely although a 12 week follow-up MRI brain should be considered.
ECHO 12/2024: 1. Normal size left ventricle with normal wall thickness and global hypokinesis, EF 39%.
2. Thickened mitral leaflets with moderate mitral regurgitation and normal left atrium.
3. Aortic sclerosis without stenosis or regurgitation.
4. Normal right heart, pulmonary artery systolic pressure is 39 mmHg.
5. No cardiac source of embolism is identified.
6. There are no prior studies available for comparison.
US LE 12/2024: No DVT noted
CT C/A/P 12/2024: Bilateral pulmonary nodular parenchymal opacities again seen some of which with central cavitation and overall prominence of the pulmonary interstitium again seen, somewhat similar to prior study with at least one new subcentimeter
opacity in the right upper lobe. Again, some of several differential diagnostic possibilities again include atypical infection, septic pulmonary emboli, Bandar's granulomatosis and less likely metastases.
Small anterior pericardial effusion.
Fluid-filled dilated stomach and fluid-filled thoracic esophagus.
Fluid-filled loops of small bowel, nonspecific, cannot exclude enteritis.
Subjective Dataa
Subjective Data
Date of Service:
Date of Service: January 05, 2025
Subjective:
Patient currently intubated, mechanically ventilated and encephalopathic
Review of Systems
General: Unobtainable - Pat Unresp
Objective Data
Data Reviewed
Vital Signs / I&O / Oxygen:
Vital Signs
Temp Pulse Resp BP Pulse Ox
99.7 F 80 33 110/50 100
01/05/25 08:26 01/05/25 08:26 01/05/25 08:26 01/05/25 08:26 01/05/25 08:38
Intake and Output
01/04/25 01/05/25 01/06/25
06:59 06:59 06:59
Intake Total 5823.6 / 6208.0 4039.6 / 4126.0 603.8 / 603.8
Output Total 1514 / 1514 1848 / 1848 125 / 125
Balance 4309.6 / 4694.0 2191.6 / 2278.0 478.8 / 478.8
SaO2 [A/C] 99
SaO2 100
Nasal Cannula flow liters per 4
minute
Physical Exam
General: Respiratory Distress
HEENT: Normocephalic
Cardiovascular: S1-S2
Respiratory: Clear
GI: Soft and Non Distended
Neurology: Other (Withdraws to pain, opens eyes, made brief eye contact.)
Skin: Other (Lower extremity livedo reticularis improving. Developing redness in posterior thigh on the right side.)
Labs/Micro/Reports
Lab Data
01/05/25 04:01
Microbiology
01/02/25 17:08 Blood/Venous Blood Culture - Preliminary
No Growth in 48 hours- Final report to follow
01/01/25 12:41 Blood/Venous Blood Culture - Preliminary
No Growth in 72 hours- Final report to follow
01/01/25 11:44 Blood/Venous Blood Culture - Preliminary
No Growth in 72 hours- Final report to follow
01/03/25 17:12 Tracheal Aspirate Respiratory Culture - Preliminary
NO GROWTH
01/03/25 17:12 Tracheal Aspirate Gram Stain - Preliminary
01/03/25 03:51 Sputum Respiratory Culture - Preliminary
NO GROWTH
01/03/25 03:51 Sputum Gram Stain - Preliminary
01/01/25 08:17 Blood/Venous Blood Culture - Final
Streptococcus pneumoniae
01/01/25 08:17 Blood/Venous Gram Stain - Final
01/01/25 08:16 Blood/Venous Blood Culture - Final
Streptococcus pneumoniae
01/01/25 08:16 Blood/Venous Gram Stain - Final
01/03/25 17:12 Sputum Fungal Culture - Preliminary
Culture in progress.
Positive cultures are reported as soon as detected.
Final report to follow in four to five weeks.
01/01/25 20:00 Urine Urine Culture - Final
NO GROWTH
01/01/25 17:32 Nose MRSA Screen - Final
No Methicillin Resistant Staphylococcus aureus isolated.
01/01/25 08:31 Urine Urine Culture - Final
NO GROWTH
--- NOTE | 2025-01-05 09:44 | PHA.VAN.IN ---
Assessment
- Assessment
Renal Function: Appears similar to baseline
Maximum Temperature: 101.2
Minimum Temperature: 99.7
Concomitant Antimicrobials: Ceftriaxone
History of invasive streptococcus pneumoniae bacteremia
- Previous Dosing Experience
Previous Regimen: Vanc 1500mg load, Vanc 1000mg IV q12H
Date of Regimen: 01/01/25 to 01/04/25
Provided Trough of: 15 (predicted)
Provided AUC of: 578 (predicted)
Patient's SCR is: Similar to previous dosing experience
Patient's weight is: Elevated compared to previous dosing experience
AUC Dosing Plan
- Dosing Variables
Dosing Weight (kg): 78.5
Dosing CrCl (ml/min): 125
Vd coefficient (L/kg): 0.7
- Empiric Dosing
Initial / Loading Dose: Vanc 2000mg
Maintenance Regimen: Vanc 1000mg IV q8H
Estimated AUC (mcg*h/mL): 532.15
Estimated Peak (mcg*h/mL): 31.43
Estimated Trough (mcg/ml): 14.74
Estimated Half Life (H): 6.4
Dosing q8H. Patient has good renal function and cancer patients have increased Vanco clearance Pharmacotherapy Apr 2020; 40 (12); 1192 to 1200
- Monitoring
No levels ordered at this time: Order levels after 01/06 2200 dose
Pharmacokinetics Vancomycin I
- -
Patient Age: 59
Patient Sex: Male
Vancomycin Day #: 1
Indication: Skin And Soft Tissue
Requesting Provider: Reddy
Pertinent Antimicrobial Allergies:
penicillins - unknown
Height / Weight:
Height 5 ft 10 in
Actual Weight 78.5 kg
IBW in k
Adjusted BW in k.2
Pertinent Past Medical History: AML.
- Vital Signs / Lab Results
Temp Pulse Resp BP Pulse Ox
99.7 F 80 33 110/50 100
01/05/25 08:26 01/05/25 08:26 01/05/25 08:26 01/05/25 08:26 01/05/25 08:38
Lab Results - Hematology
01/02/25 01/03/25 01/03/25
09:22 03:01 14:08
WBC 0.1 L* 0.1 L* Cancelled
01/03/25 01/03/25 01/04/25
14:34 20:01 00:24
WBC 0.1 L* 0.1 L* 0.1 L*
01/04/25 01/04/25 01/04/25
05:08 12:12 22:14
WBC 0.1 L* 0.2 L* 0.2 L*
01/05/25
04:01
WBC 0.3 L*
Lab Results - Chemistry
01/02/25 01/02/25 01/02/25
09:23 09:23 09:23
BUN 17 16
Creatinine 0.6 L 0.7
Estimated Creat Clear > 125
Albumin
01/02/25 01/02/25 01/02/25
09:23 13:00 13:30
BUN Cancelled Cancelled
Creatinine Cancelled Cancelled
Estimated Creat Clear 112 Cancelled Cancelled
Albumin 2.4 L
01/02/25 01/02/25 01/02/25
14:01 16:00 17:00
BUN 15 Cancelled Cancelled
Creatinine 0.6 L Cancelled Cancelled
Estimated Creat Clear > 125 Cancelled Cancelled
Albumin
01/02/25 01/02/25 01/02/25
17:08 20:00 21:00
BUN 15 Cancelled Cancelled
Creatinine 0.6 L Cancelled Cancelled
Estimated Creat Clear > 125 Cancelled Cancelled
Albumin
01/02/25 01/03/25 01/03/25
22:30 03:01 09:02
BUN 14 13 10
Creatinine 0.6 L 0.6 L 0.6 L
Estimated Creat Clear > 125 > 125 > 125
Albumin 2.1 L
01/03/25 01/04/25 01/05/25
20:01 05:08 04:01
BUN 11 13 17
Creatinine 0.5 L 0.5 L 0.6 L
Estimated Creat Clear > 125 > 125 > 125
Albumin 1.9 L
01/02/25 01/03/25
09:22 03:01
Lactic Acid Cancelled 1.6
Microbiology Results
01/02/25 17:08 Blood Culture - Preliminary
Blood/Venous No Growth in 48 hours- Final report to follow
01/01/25 12:41 Blood Culture - Preliminary
Blood/Venous No Growth in 72 hours- Final report to follow
01/01/25 11:44 Blood Culture - Preliminary
Blood/Venous No Growth in 72 hours- Final report to follow
01/03/25 17:12 Respiratory Culture - Preliminary
Tracheal Aspirate NO GROWTH
Gram Stain - Preliminary
01/03/25 03:51 Respiratory Culture - Preliminary
Sputum NO GROWTH
Gram Stain - Preliminary
01/01/25 08:17 Blood Culture - Final
Blood/Venous Streptococcus pneumoniae
Gram Stain - Final
01/01/25 08:16 Blood Culture - Final
Blood/Venous Streptococcus pneumoniae
Gram Stain - Final
01/03/25 17:12 Fungal Culture - Preliminary
Sputum Culture in progress.
Positive cultures are reported as soon as detected.
Final report to follow in four to five weeks.
01/01/25 20:00 Urine Culture - Final
Urine NO GROWTH
01/01/25 17:32 MRSA Screen - Final
Nose No Methicillin Resistant Staphylococcus aureus isolated.
[2025-01-05] MEDS: SUBLIMAZE 50 MCG IV ×2 (10:15→15:11)
[2025-01-05] MEDS: VANCOCIN 540 MG IV (10:48)
[2025-01-05] MEDS: STERILE WATER FOR INJECTION 20 ML IV ×2 (10:58→21:04)
[2025-01-05] MEDS: ROCEPHIN 2000 MG IV ×2 (10:59→21:04)
[2025-01-05] MEDS: REFRESH EYE DROPS (PF) 1 DROPS OPHTH (10:59)
[2025-01-05 11:38] LABS: Serine Protease-3, IgG 0 AU/mL (0-19)
[2025-01-05 11:47] LABS: Hematocrit 21.6 % (39.0-52.0); Hemoglobin 7.5 g/dL (13.0-18.0); Mean Corp Hgb Conc. 34.7 g/dL (33.0-37.0); Mean Corpuscular Volume 83.4 fL (80.0-94.0); Platelet Count 6 10^3/uL (130-400); Red Cell Dist. Width 16.7 % (11.5-14.5)
--- NOTE | 2025-01-05 12:00 | PTCARENOTE ---
Pt opening eyes and making eye contact. Does not follow commands. Precedex off. Remains on Phenylephrine. All assessments unchanged.
[2025-01-05 12:26] LABS: B.E. -4.4 mmol/L; HCO3 19.0 mmol/L (21-28); O2 Saturation % 100.0 % (94-98); PCO2 28 mmHg (35-48); PO2 151 mmHg (83-108)
[2025-01-05] MEDS: LASIX 40 MG IV (14:17)
--- NOTE | 2025-01-05 16:01 | W.PN.HOSP.TC ---
Addendum entered and electronically signed by Darlene Cano MD 01/05/25 17:13:
I saw and evaluated the patient independently. I reviewed the resident�s note and agree with findings and plan as documented by Dr. Toledo.
GENERAL: critically ill male obtunded and now intubated
HEENT: NC/AT--intubated
HEART: regular rate and rhythm, +S1, +S2, tachycardic
LUNGS : clear to auscultation bilaterally
ABDOM: soft, nontender, nondistended, + bowel sounds
EXT: no cyanosis, clubbing, or edema--mottling improved--both feet cool--red swollen inner right thigh
NEUROLOGIC: opened eyes today but not following commands
: garcia
intubated 01/02
A-line 01/02
septic shock with Strep pneumoniae bacteremia due to neutropenic fever with toxic metabolic encephalopathy and lactic acidosis (metabolic acidosis continues with HCO3 18)--was here last admission with presumed fungal PNA--still neutropenic---must
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
to IV as no oral access)--urgent echo TTE neg for endocarditis--cannot do LIZZY as platelet count 5K, not anticoagulation or surgery candidate for valve replacement--cannot do LP for same reason--repeat blood cultures neg since 01/02--apprec ID
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
bifrontal white matter as well as the bilateral cerebellar hemispheres which likely represents acute/subacute infarctions (probable septic emboli)--apprec neuro--cannot use antiplatelet agents, anticoagulation, do LIZZY or LP
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
care--eliquis on hold--no role for transfer to tertiary center per onc at this time
Rhabdomyolysis --Elevated CPK most likely due to statin/voriconazole combo--bilateral leg tenderness, US neg for DVT--trend CPK, improved--apprec renal
temperature variant between feet resolved but now red swollen inner thigh--concern for embolism to right leg vs clot (DIC?)--labs to date have been negative--arterial US pending and CT scan with volume overload, no abscess or nec fasc but again
cannot do much--follow DIC labs
Severe hypovolemic Hyponatremia (level improved to 135)--SIADH with increased free water intake per pt , plus sepsis--apprec renal
Hypocalcemia--would replete
Tumor lysis prevention (not hyperuricemia, in fact, uric acid has been low all along)--cont allopurinol--trend LDH and uric acid
Recent left upper lobe PE--hold on Eliquis for now--ronn if MS does not improve and LP or other procedure needed
Hyperlipidemia-- Hold statins due to increased AST/ALT
code status--Full code
DVT proph --SCD's as US neg for DVT
prognosis guarded at best--advised pt to notify family of critical situation--updated 01/03 with MRI brain results and inability to diagnose or treat infarcts due to cell counts--son at bedside 01/05
Total Critical Care Time 33 minutes. I was immediately available to the patient and staff. I personally examined, reviewed labs, diagnostic images/reports, interpretations, treatment plans, discussed patient care with other providers and family
or caregivers (if patient is unable to make decisions), entered orders as appropriate and documented the medical record.
Original Note:
Today's Communication/Plan
-
- continue antibiotics, trend labs, tranfuse blood/ platelets as needed, observe new erythema on thigh
Assessment / Plan
Assessment / Plan
Septic shock due to strep pneumo bacteremia in the setting of neutropenic fever
Acute hypoxemic respiratory failure
Increased work of breathing tachypneic
Third spacing:
- patient is acutely confused, lethargic, weak, with fever and chills on admission, 2 of the 4 sepsis criteria were met on SIRS.30 mL/kg IV fluid resuscitation in the emergency room, then normal saline continuous infusion.
- Lactic acid on admission was 4.8 trending down to 1.6 most recent.
- Infectious disease, neurology, and oncology were consulted
- on 01/02 patient was awake but not alert or oriented, tachypneic, tachycardic, febrile, and with mottling on bilateral lower extremities. He meets the 3 criteria for septic shock.
- patient intubated
- First blood culture shows streptococcus pneumoniae repeat blood cultures negative , and urine cultures negative ( less likely a genitourinary source of sepsis), tracheal culture this morning pending. Continue ceftriaxone to cover most gram
positives and gram negatives, and Vancomycin to be continued for MRSA
- Continued Acyclovir as per ID recommendations. Consulted ID regarding further medication management for a potential fungal source of sepsis. Was on meropenem but that dc'd. fungal culture is still pending. Cant use voriconazole as it might
have interacted with statins and contributed to his rhabdomyolysis.
- Iv fluids d5/NS discontinued as sodium has normalized today
- continue on propofol and fentanyl for sedation and pain control, phenylephrine to maintain MAP over 65.
- TTE echocardiogram ordered to check for a septic source from bacteria in the heart valves such as in bacterial endocarditis negative, however lizzy pending (01/02)
- Chest x rays ordered. Bilateral interstitial and possible alveolar opacities, edema versus pneumonia most likely. We are covering with ceftriaxone. Vancomycin stopped due to isolate being suspectible to ceftriaxone.
- Lactic acid 1.6 and normalized.
- Also suspect there could be a hemolytic components to his shock due to stagnant hemoglobin levels despite multiple blood tranfusions, a elevated bilirubin, and decreased platelet count. Have consulted with heme/onc. Ordered LDH levels.
- Will consider a lumbar puncture to rule out sepsis source from CSF. He is on empiric antibiotics. however, he is not hemodynamically stable yet and has altered consciousness, along with severely low platelet count, needs platelets of >50k.
- MRI shows Multiple foci of restricted diffusion involving the bifrontal white matter as well as the bilateral cerebellar hemispheres which likely represents acute/subacute infarctions. LIZZY recc to look for cardiac cause possible an emboli.
consulted cardiology in regards to performing procedure however due to the thrombocytopenia (<10), they did not want to attempt LIZZY. We also cannot anticoagulate patient as he cannot be on aspirin/ plavix due to bleed risk.
- Trend CPK, CMP, CBC, uric acid check LDH
- Will consider a potential transfer to another institution.
- 40 mg iv lasix given to diurese patient today for edema and rising weights ( 78.5 kg today compared to 76 yesterday)
- CT right lower extremity shows No focal fluid collections to suggest an abscess are noted. There is diffuse increased density to the soft tissues and musculature of the right thigh suggesting volume overload or third spacing. The imaged osseous
structures are notable destruction. Patient is being diuresed as per nephro, was given 40 mg iv lasix.
Erythema of right inner thigh:
- CT scan negative for necrotizing fascitis
- Patient on empiric antibiotics. continue to monitor for increase in redness and growth.
Poikilothermia of the right lower extremity ( 01/04/25):
- The right lower extremity on touch is noticeably cooler than the left lower extremity. No color change or pulselessness. Ordered arterial Doppler of the lower extremities , awaiting results.
- DD is acute arterial occlusion due to embolism vs thrombosis from AML, vs DIC. Will get a fibrinogen level tomm.
- cannot use heparin in case of occlusion due to bleeding risk
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
Acute anemia in the setting on his AML
Pancytopenia:
- Oncology consulted
- held patients Venclexta for now,
- Patient has had 4 units of cmv negative irradiated leukoreduced blood
- WBC is 0.2, hgb7.5, platelet count is 6 ( no active signs of bleeding, 2 unit platelet ordered today), absolute nuetrophils/ lymphs/ mono= 0, patient is on empiric antibiotic coverage and fungal coverage, temperature is 100.2.
- Patient hgb is 7.7 today after 4 total units of blood since admission, no active signs of bleeding.
- Held eliquis
Elevated CPK most likely due to rhabdomyolysis caused by likely statin/voriconazole combo:
- on physical exam, patient states he has bilateral lower extremity muscle tenderness in his legs. Tenderness to palpation on physical examination.
- Urine analysis positive for blood but not RBC's.
- Initiated aggressive fluid therapy.
- CPK is 335 trending down, continue iv fluid therapy
Severe hypovolemic Hyponatremia :
- Consulted nephrology
- patient is confused, disoriented, and weak.
- Multifactorial due to underlying SIADH, high free water intake and sepsis.
- Suspect hypovolemic hyponatremia with urine sodium of 13 and normal urine osmololaity
- Trend BMP every 4 hours
- Today levels are 138, continue to trend BMP
Tumour lysis prevention:
- on most recent discharge, patients uric acid level was 1.9, today his uric acid level is 2.1.
- trend LDH and uric acid level
SUZIE PE:
- Diagnosed on previous admission and patient was started on eliquis 5 mg bid
- Patients vitals are stable, CT chest with contrast negative for PE
- Holding Eliquis due to bleeding risk
- Placed on SCD's as DVT ppx in the ICU
Hyperlipidemia:
- Hold statins due to increased AST/ALT
Full code
DVT ppx: SCD's
Anticipated Discharge: 24 - 48 hours
Subjective/Interval History
-
Date of Service: January 05, 2025
overnight events- on changing patient gown, nurse observed a red erythematous ' rash' extending from knee to top of inner portion of right thigh.
Patient is intubated with phenylephrine, fentanyl, propofol and a feeding tube.
Objective Data
-
Labs:
Laboratory Results
01/05/25 01/05/25 01/05/25
04:01 11:10 12:16
WBC 0.3 L* 0.2 L*
Hgb 8.1 L 7.5 L
Hct 23.3 L 21.6 L
Plt Count 7 L* 6 L*
HCO3 19.0 L
Sodium 138
Potassium 3.4 L
Chloride 116 H
Carbon Dioxide 18 L
BUN 17
Creatinine 0.6 L
Glucose 92
Calcium 7.7 L
01/05/25 01/05/25
14:00 22:00
WBC Pending Pending
Hgb Pending Pending
Hct Pending Pending
Plt Count Pending Pending
HCO3
Sodium
Potassium
Chloride
Carbon Dioxide
BUN
Creatinine
Glucose
Calcium
Vital Signs:
Vital Signs
Temp Pulse Resp BP Pulse Ox
98.6 F 105 41 110/50 99
01/05/25 15:29 01/05/25 15:00 01/05/25 15:00 01/05/25 08:26 01/05/25 15:24
I&O
01/04/25 01/05/25 01/06/25
06:59 06:59 06:59
Intake Total 5823.6 / 6208.0 4039.6 / 4126.0 2015. / 2014.2
Output Total 1514 / 1514 1848 / 1848 1365 / 1365
Balance 4309.6 / 4694.0 2191.6 / 2278.0 650.2 / 650.2
Review of Systems
-
Unable to obtain full review of systems at this time due to: Patient Intubation
Physical Exam
-
General: Intubated
Respiratory: Rhonchi (heard on right side on chest. )
Cardiac: Tachycardic
GI: Soft, Nontender, Nondistended and Normal Bowel Sounds
Genito-urinary: Garcia
Skin: Dry and Other (mottling on bilateral extremities has significantly improved.)
Neuro: Sedated
Data Reviewed
-
CT Scan: Report Reviewed by me and Discussed with Physician
Labs: Labs Reviewed by me and Discussed with Physician
--- NOTE | 2025-01-05 16:09 | PTCARENOTE ---
Addendum entered by Silvana Francis RN 01/05/25 16:18:
Awaiting platelets from [facility]
Original Note:
Pt opens eyes and makes eye contact. Does not follow commands. Respiratory rate 42 and labored. PRN Fentanyl bolus given. Precedex restarted. Good urine output (see I&Os). >1L OU within 2hrs of receiving IV Lasix. All other assessments
unchanged.
--- NOTE | 2025-01-05 18:12 | PTCARENOTE ---
Pt continued to be tachypneic in 40s with precedex restarted. BP drop with Fentanyl bolus therefore no additional boluses given. Now maxed on Phenylephrine. BP 106/48 (67). SpO2 drop to 74%, RR 40-50, HR 100-110 with repositioning. Increased to
100% FiO2. INSPECTOR [employer] WAFER called to room. Dr Leone notified. Vent setting adjustments made. SpO2 96-99% RR 32-36 at this time on APV cmv 16/500/5/40%
--- NOTE | 2025-01-05 18:36 | PTCARENOTE ---
2 units Platelets transfused this shift per order.
[2025-01-05 19:29] LABS: B.E. -3.9 mmol/L; HCO3 19.5 mmol/L (21-28); O2 Saturation % 100.0 % (94-98); PCO2 28 mmHg (35-48); PO2 125 mmHg (83-108)
[2025-01-05 19:42] LABS: Hematocrit 23.2 % (39.0-52.0); Hemoglobin 7.9 g/dL (13.0-18.0); Mean Corp Hgb Conc. 34.1 g/dL (33.0-37.0); Mean Corpuscular Volume 83.5 fL (80.0-94.0); Platelet Count 7 10^3/uL (130-400); Red Cell Dist. Width 16.7 % (11.5-14.5)
[2025-01-05] MEDS: PITRESSIN 100 IV (19:57)
--- NOTE | 2025-01-05 20:00 | PTCARENOTE ---
assumed care, pt able to follow commands, wiggled his toes and attempted to squeeze my fingers, able to track voice, PERRLA 3, Sinus on the monitor, + radials weak pedals, +3 UE, +2 right thigh, B/L scds, R rad A-line zeroed, Lungs clear throughout,
ETT #8 24 @ lip, APV 16/500/5/40%, tachypneic, BSx4 hypoactive, TF 60ml c 25ml H2O flush, OGT 63cm, Nugent c mary alice output penial edema, skin flushed and warm afebrile, Rash on right thigh and left lower leg, prophylactic sacral and heel foams, R
subclavian TL, 24G L wrist, Dex, Isael and Vaso gtts per worklist, safe environment maintained, otherwise refer to documentation.
[2025-01-05] MEDS: VANCOCIN 200 IV (21:04)
[2025-01-05] MEDS: NEO-SYNEPHRINE 1% 260 MG IV (21:54)
[2025-01-05 22:15] LABS: Hematocrit 21.4 % (39.0-52.0); Hemoglobin 7.3 g/dL (13.0-18.0); Mean Corp Hgb Conc. 34.1 g/dL (33.0-37.0); Mean Corpuscular Volume 83.6 fL (80.0-94.0); Platelet Count 6 10^3/uL (130-400); Red Cell Dist. Width 16.7 % (11.5-14.5)
[2025-01-05 22:33] LABS: Blood Urea Nitrogen 19 mg/dl (9-20); Calcium 7.3 mg/dl (8.4-10.2); Carbon Dioxide 22 mmol/L (22-30); Chloride 114 mmol/L (98-107); Estimated Creatinine Clearance > 125 ml/min; Glucose 155 mg/dl (70-99); Potassium 3.3 mmol/L (3.5-5.1); Sodium 139 mmol/L (135-145); eGFR > 60.00
--- NOTE | 2025-01-06 00:16 | PTCARENOTE ---
systems reviewed, transfused platelets, repleted potassium, Isael double concentrated, pt did not follow commands like assessed from previous neuro check, WD to pain, otherwise refer to documentation.
[2025-01-06] MEDS: SUBLIMAZE 25 MCG IV ×2 (03:02→08:30)
[2025-01-06 03:41] LABS: B.E. -3.3 mmol/L; HCO3 20.6 mmol/L (21-28); O2 Saturation % 100.0 % (94-98); PCO2 31 mmHg (35-48); PO2 154 mmHg (83-108)
[2025-01-06 03:46] VITALS: BMI 25.6
[2025-01-06 03:52] LABS: Hematocrit 21.7 % (39.0-52.0); Hemoglobin 7.3 g/dL (13.0-18.0); Mean Corp Hgb Conc. 33.6 g/dL (33.0-37.0); Mean Corpuscular Volume 84.4 fL (80.0-94.0); Platelet Count 5 10^3/uL (130-400); Red Cell Dist. Width 16.5 % (11.5-14.5)
[2025-01-06 04:15] LABS: Blood Urea Nitrogen 18 mg/dl (9-20); Calcium 7.6 mg/dl (8.4-10.2); Carbon Dioxide 23 mmol/L (22-30); Chloride 116 mmol/L (98-107); Estimated Creatinine Clearance > 125 ml/min; Glucose 144 mg/dl (70-99); Magnesium 1.7 mg/dl (1.6-2.3); Potassium 3.5 mmol/L (3.5-5.1); Sodium 141 mmol/L (135-145); eGFR > 60.00
--- NOTE | 2025-01-06 04:27 | PTCARENOTE ---
systems reviewed, labs sent, CHG bath, Plt 5 RADIUS GRINDER notified, Lab called and they need to be ordered, x2 platelets ordered and will transfuse upon arrival, otherwise refer to documentation
[2025-01-06] MEDS: VANCOCIN 200 IV ×3 (04:58→21:33)
[2025-01-06] MEDS: PITRESSIN 100 IV ×2 (05:01→15:07)
[2025-01-06] MEDS: MAGNESIUM SULFATE 50 IV (06:07)
--- NOTE | 2025-01-06 07:49 | W.PN.INTV ---
Today's Communication / Plan
Recommendations
Transition to a volume-cycled ventilation
Repeat ABG later p.m.
Receiving multiple packs of platelets, repeat platelets later today
Continue tube feeds
Follow-up for bowel movement
Attempted to contact her , no answer. Will try again later today
Extremely poor prognosis moving forward
Appreciate any input from oncology team and palliative care team to help determine goals of care
Assessment
-
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 Patient quite delirious during my
evaluation and unable to provide any meaningful history. Information mostly obtained from patient's at bedside as well as review of records. Reportedly over the last 24 hours patient has been slightly getting more confused and noted
fever last night and this morning he appeared to be very confused. She does not report any cough, chills, vomiting diarrhea, hemoptysis or hematemesis. She reports a known history of hemorrhoids and occasional small-volume blood per rectum. No
lucy bloody diarrhea reported. No sick contacts reported. Patient has been on chemotherapy for AML and reportedly last dose about 2 weeks ago. Patient has prior history of alcoholism and heavy smoking which he stopped about 8 to 9 months ago and
currently not actively drinking per patient's . In the emergency room patient was noted to be septic with elevated lactate, neutropenia, high-grade fever. Patient was given 30 mL/kg fluid resuscitation and was started on broad-spectrum
antibiotics. In view of tachycardia, encephalopathy, elevated lactate, patient was admitted to ICU and pretzel twister consultation was requested for further input.
01/05 overview: Current infusion Isael-Synephrine at 160, vasopressin, Precedex at 0.3. No endotracheal secretions, tolerating tube feeding. Currently on pressure control t, 500/16/40%/5, respiratory rate consistently in mid 30s. Saturating 99%.
#1. Septic shock with Strep Pneumoniae Bacteremia with neutropenia and lactic acidosis
- 30 mL/kg IV fluid resuscitation in the emergency room
- Currently on ceftriaxone, infectious disease service on case. Resumed acyclovir. Fungal cultures have stayed negative, off voriconazole now
- Suspect pulmonary source of strep pneumoniae bacteremia
- CT chest abdomen pelvis reviewed no significant acute change compared to last imaging
- Improved serial lactate
- Continue phenylephrine to keep MAP above 65. Central line and arterial line placed 01/02. Now remains on vasopressin and phenylephrine increased to 160
- 01/05, Increased redness posterior right thigh noted, vancomycin resumed, CT with contrast right lower extremity ordered. Doppler pending
#2. Acute respiratory failure with severe encephalopathy 01/02
- Patient currently on Precedex at 0.3. Withdraws to stimulation. Briefly opens eyes, appears little more responsive. Patient develops ventilator asynchrony and is requiring a low-dose Precedex, continue to wean as tolerated, fentanyl as needed
- 01/02, patient was emergently intubated in view of severe encephalopathy and inability to protect airway along with septic shock, rapid sequence intubation, mechanically ventilated since
- MRI brain suggestive of multiple areas suspicious for embolic infarct. Neurology service on case. In view of septic shock and bacteremia, septic emboli with underlying infective endocarditis also in differential diagnosis.
- Patient has severe coagulopathy with thrombocytopenia, not a candidate for antiplatelet or antithrombotic therapy for now
- Continue telemetry to monitor for any atrial fibrillation/atrial flutter
- 2D echo unremarkable. Will eventually need KELLIE. Cardiology consult will be deferred to primary service given multisystem organ failure, extremely poor prognosis. Not sure whether findings of endocarditis will help change analyst at this time
- 01/05. Patient becomes very tachypneic on ASV. Not ready for SBT yet. Persistent tachypnea. Switched to pressure control ventilation 16 x 5, 40% FiO2, 5 of PEEP. Will change back to volume-cycled and assess, target ventilation around 14
L/min. ABG as able
#3. Rhabdomyolysis, severe.
- Suspect rhabdomyolysis related to voriconazole and Lipitor therapy together.
- Lipitor has been on hold, CK level went up to 10,000, subsequently declining
- Significant positive fluid balance, IV fluids discontinued 08/16.
- Diuresis initiated 01/05, remains positive fluid balance
#4. Hyponatremia, likely symptomatic
- Suspect hypovolemic hyponatremia considering decreased chloride as well as urine sodium of 14
- Improved
#5. Acute metabolic encephalopathy/Multifocal CVA
- Multiple strokes noted on MRI, which are contributing to encephalopathy in addition to severe metabolic derangements.
- Patient was quite agitated in the ICU pulling on tubes, required restraints on admission 01/01
- Progressively more encephalopathy, obtunded on 01/02, needed to be intubated for airway protection
- Continue high-dose thiamine with prior history of alcoholism, decrease dosing per protocol
- Eliquis has been placed on hold in case lumbar puncture needs to be pursued in future. Patient is very coagulopathic for safe lumbar puncture
- 01/06, patient remains unresponsive to me, occasionally opens eyes to nursing
- Depending on clinical status, may require repeat brain imaging given severe thrombocytopenia and possibly of progressive lesions
#6. Bilateral pulmonary nodular opacities, some cavitary
- Differential diagnosis include infection, inflammation like GPA versus malignancy
- S/p IR guided biopsy 12/2024, pathology results are pending
- Cultures have stayed negative in the past
- Continue broad-spectrum antibiotic, await final pathology results
- ANCA normal
- Prior history of asbestos exposure however would not explain parenchymal nodules. Suspected prior granulomatous disease.
- History of [id number] smoking history, no formal diagnosis of COPD or asthma.
- Now that patient is intubated, tracheal cultures negative to date
#7. 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
- Has been on chemotherapy, follows up with [facility] and [facility]
- Hematology/Oncology consult
- Status post blood transfusions, platelet transfusion, keep platelet count above 10K unless active bleeding noted in which case will need to aim for a higher target.
- Prognosis appears to be poor from critical care standpoint given multisystem organ dysfunction in the setting of multiple brain lesions, severe pancytopenia requiring multiple platelet transfusions
- Oncology has been consulted per primary service. Appreciate any discussion with family regarding goals of care
#8. SUZIE PE, diagnosed 11/2024
- Patient is very coagulopathic with severe thrombocytopenia requiring transfusions as well as elevated INR
- Continue to hold Eliquis, s/p vitamin K IV
- Lower extremity duplex this admission without any DVT. CT chest with contrast reviewed without any large central pulmonary embolism, can monitor off anticoagulation for now
- Depending upon clinical course, if unable to resume anticoagulation in near future, will need to consider placement of IVC filter
Other medical diagnoses:
- Mucositis
- H/o Thrush
DVT prophylaxis, SCDs for now. Hold Eliquis in view of anemia and mild hematochezia.
Critical Care time 45 mins -- The patient is admitted for acute critical illness for the treatment of vital organ failure and/or prevention of further life-threatening conditions. Total care includes time spent in review of history, physical exam,
medications, hemodynamic/ventilator parameters, laboratory data, imaging and discussion with house staff, pharmacy, respiratory therapy, dye maker, and nursing.
Attempted to call patient's by phone 01/06, no answer. Will try later today
Data:
MRI brain 12/2024: Multiple foci of restricted diffusion involving the bifrontal white matter as well as the bilateral cerebellar hemispheres which likely represents acute/subacute infarctions. The right cerebellar hemisphere infarction is
associated with mild surrounding edema as well as a small focus of intrinsic T1 shortening which likely represents hemorrhagic conversion. Given the multi vascular territory this may be embolic in nature. An underlying right cerebellar lesion or
small vascular malformations considered unlikely although a 12 week follow-up MRI brain should be considered.
ECHO 12/2024: 1. Normal size left ventricle with normal wall thickness and global hypokinesis, EF 39%.
2. Thickened mitral leaflets with moderate mitral regurgitation and normal left atrium.
3. Aortic sclerosis without stenosis or regurgitation.
4. Normal right heart, pulmonary artery systolic pressure is 39 mmHg.
5. No cardiac source of embolism is identified.
6. There are no prior studies available for comparison.
US LE 12/2024: No DVT noted
CT C/A/P 12/2024: Bilateral pulmonary nodular parenchymal opacities again seen some of which with central cavitation and overall prominence of the pulmonary interstitium again seen, somewhat similar to prior study with at least one new subcentimeter
opacity in the right upper lobe. Again, some of several differential diagnostic possibilities again include atypical infection, septic pulmonary emboli, Bandar's granulomatosis and less likely metastases.
Small anterior pericardial effusion.
Fluid-filled dilated stomach and fluid-filled thoracic esophagus.
Fluid-filled loops of small bowel, nonspecific, cannot exclude enteritis.
Subjective Dataa
Subjective Data
Date of Service:
Date of Service: January 06, 2025
Subjective:
Patient remains critically ill, ventilator dependent, on pressure control ventilation, on pressors. Patient does open eyes occasion but presently is unresponsive. Receiving fentanyl as needed and remains on Precedex. Severe thrombocytopenia noted
despite multiple transfusions
Objective Data
Data Reviewed
Vital Signs / I&O / Oxygen:
Vital Signs
Temp Pulse Resp BP Pulse Ox
98.3 F 88 32 110/50 100
01/06/25 07:15 01/06/25 07:00 01/06/25 07:00 01/05/25 20:50 01/06/25 07:00
Intake and Output
01/05/25 01/06/25 01/07/25
06:59 06:59 06:59
Intake Total 4039.6 / 4126.0 5660.6 / 5722.2 61.6 / 61.6
Output Total 1848 / 1848 3470 / 3590 120 / 120
Balance 2191.6 / 2278.0 2190.6 / 2132.2 -58.4 / -58.4
SaO2 [APV] 100
SaO2 [A/C] 99
SaO2 100
Nasal Cannula flow liters per 4
minute
Physical Exam
General: Respiratory Distress (Intermittently overbreathing the ventilator)
HEENT: Normocephalic and Other (Right lid lag)
Cardiovascular: S1-S2, Regular Rhythm, Murmur (n), Rub (n) and Peripheral Edema (tr)
Respiratory: Clear, Wheeze (n), Crackles (n), Rhonchi (few) and ET Tube
GI: Soft and Non Distended
Neurology: Other (Remains unresponsive for me. Occasionally opens eyes for nursing)
Skin: Other (Lower extremity livedo reticularis improving. Developing redness in posterior thigh on the right side.)
Labs/Micro/Reports
Lab Data
01/06/25 03:30
01/06/25 03:30
Laboratory Results
01/05/25 01/05/25 01/06/25
12:16 19:17 03:30
pH 7.44 7.45 7.43
pCO2 28 L 28 L 31 L
pO2 151 H 125 H 154 H
HCO3 19.0 L 19.5 L 20.6 L
O2 Delivery Level
Microbiology
01/02/25 17:08 Blood/Venous Blood Culture - Preliminary
No Growth in 72 hours- Final report to follow
01/01/25 12:41 Blood/Venous Blood Culture - Preliminary
No Growth in 4 days- Final report to follow
01/01/25 11:44 Blood/Venous Blood Culture - Preliminary
No Growth in 4 days- Final report to follow
01/03/25 17:12 Tracheal Aspirate Respiratory Culture - Final
NO GROWTH
01/03/25 17:12 Tracheal Aspirate Gram Stain - Final
01/03/25 03:51 Sputum Respiratory Culture - Final
NO GROWTH
01/03/25 03:51 Sputum Gram Stain - Final
01/01/25 08:17 Blood/Venous Blood Culture - Final
Streptococcus pneumoniae
01/01/25 08:17 Blood/Venous Gram Stain - Final
01/01/25 08:16 Blood/Venous Blood Culture - Final
Streptococcus pneumoniae
01/01/25 08:16 Blood/Venous Gram Stain - Final
01/03/25 17:12 Sputum Fungal Culture - Preliminary
Culture in progress.
Positive cultures are reported as soon as detected.
Final report to follow in four to five weeks.
01/01/25 20:00 Urine Urine Culture - Final
NO GROWTH
01/01/25 17:32 Nose MRSA Screen - Final
No Methicillin Resistant Staphylococcus aureus isolated.
--- NOTE | 2025-01-06 08:00 | PTCARENOTE ---
Assumed care from previous RN at 07:15, pt unresponsive on the ventilator, not following any commands. Pt does chew on toothbrush during oral care, seems to flinch slightly to deep pain stimuli. +corneals. Sinus on the monitor, + radials weak
pedals, +3 UE, +2 right thigh, B/L scds, R rad A-line zeroed, correlating with non invasive bp cuff. Lungs clear throughout, ETT #8 was advanced 2 cm per ordnance technician to 25 @ lip on the left side, vent settings adjusted as per orders to AC
22/500/5/40%, tachypneic. Pt did require Fent bolus 25 mcg, for vent asychrony. bp tolerated. BSx4 hypoactive, TF 60ml c 25ml H2O flush, bag changed and tubing replaced. OGT 63cm, Garcia with orange/mary alice output penile and scrotal edema noted,
garcia care provided. skin flushed and warm. Temp prior to first pack of platelets 101.3, medicated with PRN MD Rudolph notified, no further orders at this time. Rash on right thigh and left lower leg, prophylactic sacral and heel foams, R
subclavian TL, 24G L wrist, Dex, Isael and Vaso gtts per worklist, Mag rider infusing, safe environment maintained, otherwise please refer to worklist for all documentation.
--- NOTE | 2025-01-06 08:19 | W.PN.HOSP.TC ---
Today's Communication/Plan
-
- continue antibiotics, trend labs, tranfuse blood/ platelets as needed, observe new erythema on thigh
Assessment / Plan
Assessment / Plan
Septic shock due to strep pneumo bacteremia in the setting of neutropenic fever
Acute hypoxemic respiratory failure
Increased work of breathing tachypneic
Third spacing:
- patient is acutely confused, lethargic, weak, with fever and chills on admission, 2 of the 4 sepsis criteria were met on SIRS.30 mL/kg IV fluid resuscitation in the emergency room, then normal saline continuous infusion.
- Lactic acid on admission was 4.8 trending down to 1.6 most recent.
- Infectious disease, neurology, and oncology were consulted
- on 01/02 patient was awake but not alert or oriented, tachypneic, tachycardic, febrile, and with mottling on bilateral lower extremities. He meets the 3 criteria for septic shock.
- patient intubated, vasopressin added due to negligable effect on HR compared to other pressors
- First blood culture shows streptococcus pneumoniae repeat blood cultures negative , and urine cultures negative ( less likely a genitourinary source of sepsis), tracheal culture this morning pending. Continue ceftriaxone to cover most gram
positives and gram negatives, and Vancomycin to be continued for MRSA
- Continued Acyclovir as per ID recommendations. Consulted ID regarding further medication management for a potential fungal source of sepsis. Was on meropenem but that dc'd. fungal culture is still pending. Cant use voriconazole as it might
have interacted with statins and contributed to his rhabdomyolysis.
- Iv fluids d5/NS discontinued as sodium has normalized today
- continue on propofol and fentanyl for sedation and pain control, phenylephrine to maintain MAP over 65.
- TTE echocardiogram ordered to check for a septic source from bacteria in the heart valves such as in bacterial endocarditis negative, however lizzy pending (01/02)
- Chest x rays ordered. Bilateral interstitial and possible alveolar opacities, edema versus pneumonia most likely. We are covering with ceftriaxone. Vancomycin stopped due to isolate being suspectible to ceftriaxone.
- Lactic acid 1.6 and normalized.
- Also suspect there could be a hemolytic components to his shock due to stagnant hemoglobin levels despite multiple blood tranfusions, a elevated bilirubin, and decreased platelet count. Have consulted with heme/onc. Ordered LDH levels.
- Will consider a lumbar puncture to rule out sepsis source from CSF. He is on empiric antibiotics. however, he is not hemodynamically stable yet and has altered consciousness, along with severely low platelet count, needs platelets of >50k.
- MRI shows Multiple foci of restricted diffusion involving the bifrontal white matter as well as the bilateral cerebellar hemispheres which likely represents acute/subacute infarctions. LIZZY recc to look for cardiac cause possible an emboli.
consulted cardiology in regards to performing procedure however due to the thrombocytopenia (<10), they did not want to attempt LIZZY. We also cannot anticoagulate patient as he cannot be on aspirin/ plavix due to bleed risk.
- Trend CPK, CMP, CBC, uric acid check LDH
- Will consider a potential transfer to another institution.
- 40 mg iv lasix given to diurese patient today for edema and rising weights ( 78.5 kg today compared to 76 yesterday)
- CT right lower extremity shows No focal fluid collections to suggest an abscess are noted. There is diffuse increased density to the soft tissues and musculature of the right thigh suggesting volume overload or third spacing. The imaged osseous
structures are notable destruction. Patient is being diuresed as per nephro, was given 40 mg iv lasix.
Erythema of right inner thigh:
- CT scan negative for necrotizing fascitis
- Patient on empiric antibiotics. continue to monitor for increase in redness and growth.
Poikilothermia of the right lower extremity ( 01/04/25):
- The right lower extremity on touch is noticeably cooler than the left lower extremity. No color change or pulselessness. Ordered arterial Doppler of the lower extremities , awaiting results.
- DD is acute arterial occlusion due to embolism vs thrombosis from AML, vs DIC. Will get a fibrinogen level tomm.
- cannot use heparin in case of occlusion due to bleeding risk
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
Acute anemia in the setting on his AML
Pancytopenia:
- Oncology consulted
- held patients Venclexta for now,
- Patient has had 4 units of cmv negative irradiated leukoreduced blood
- WBC is 0.2, hgb7.3, platelet count is 5 ( no active signs of bleeding, 2 unit platelet ordered today), absolute nuetrophils/ lymphs/ mono= 0, patient is on empiric antibiotic coverage and fungal coverage, temperature is 100.2.
- Patient hgb is 7.3 today after 4 total units of blood since admission, no active signs of bleeding.
- Held eliquis
Elevated CPK most likely due to rhabdomyolysis caused by likely statin/voriconazole combo:
- on physical exam, patient states he has bilateral lower extremity muscle tenderness in his legs. Tenderness to palpation on physical examination.
- Urine analysis positive for blood but not RBC's.
- Initiated aggressive fluid therapy.
- CPK is 335 trending down, continue iv fluid therapy
Severe hypovolemic Hyponatremia :
- Consulted nephrology
- patient is confused, disoriented, and weak.
- Multifactorial due to underlying SIADH, high free water intake and sepsis.
- Suspect hypovolemic hyponatremia with urine sodium of 13 and normal urine osmololaity
- Trend BMP every 4 hours
- Today levels are 138, continue to trend BMP
Tumour lysis prevention:
- on most recent discharge, patients uric acid level was 1.9, today his uric acid level is 2.1.
- trend LDH and uric acid level
SUZIE PE:
- Diagnosed on previous admission and patient was started on eliquis 5 mg bid
- Patients vitals are stable, CT chest with contrast negative for PE
- Holding Eliquis due to bleeding risk
- Placed on SCD's as DVT ppx in the ICU
Hyperlipidemia:
- Hold statins due to increased AST/ALT
Full code
DVT ppx: SCD's
Anticipated Discharge: 24 - 48 hours
Subjective/Interval History
-
Date of Service: January 06, 2025
overnight events- on changing patient gown, nurse observed a red erythematous ' rash' extending from knee to top of inner portion of right thigh.
Patient is intubated with vasopressin, phenylephrine, fentanyl, propofol and a feeding tube.
Objective Data
-
Labs:
Laboratory Results
01/05/25 01/06/25
22:04 03:30
WBC 0.2 L* 0.2 L*
Hgb 7.3 L 7.3 L
Hct 21.4 L 21.7 L
Plt Count 6 L* 5 L*
HCO3 20.6 L
Sodium 139 141
Potassium 3.3 L 3.5
Chloride 114 H 116 H
Carbon Dioxide 22 23
BUN 19 18
Creatinine 0.5 L 0.6 L
Glucose 155 H 144 H
Calcium 7.3 L 7.6 L
Vital Signs:
Vital Signs
Temp Pulse Resp BP Pulse Ox
98.3 F 88 32 110/50 100
01/06/25 07:15 01/06/25 07:00 01/06/25 07:00 01/05/25 20:50 01/06/25 07:00
I&O
01/05/25 01/06/25 01/07/25
06:59 06:59 06:59
Intake Total 4039.6 / 4126.0 5660.6 / 5722.2 61.6 / 61.6
Output Total 1848 / 1848 3470 / 3590 120 / 120
Balance 2191.6 / 2278.0 2190.6 / 2132.2 -58.4 / -58.4
Review of Systems
-
Unable to obtain full review of systems at this time due to: Patient Intubation
Physical Exam
-
General: Intubated
Respiratory: Rhonchi (heard on right side on chest. )
Cardiac: Tachycardic
GI: Soft, Nontender, Nondistended and Normal Bowel Sounds
Genito-urinary: Nugent
Skin: Dry and Other (mottling on bilateral extremities has significantly improved, erythematous rash on inner side of right thigh)
Neuro: Sedated
Data Reviewed
-
Labs: Labs Reviewed by me and Discussed with Physician
[2025-01-06] MEDS: SENNA SYRUP 8.8 MG TUBE ×2 (08:31→19:09)
[2025-01-06] MEDS: TYLENOL 650 MG PO (08:31)
[2025-01-06] MEDS: NSS (PRESERVATIVE FREE) 10 ML IV (08:31)
[2025-01-06] MEDS: MIRALAX 17 GRAMS TUBE (08:31)
[2025-01-06] MEDS: PROTONIX IV 40 MG IV (08:31)
[2025-01-06] MEDS: ZOVIRAX INJECTION 108 MG IV ×2 (08:32→19:08)
[2025-01-06] MEDS: NEO-SYNEPHRINE 1% 260 MG IV ×2 (08:32→19:09)
[2025-01-06] MEDS: THIAMINE INJECTION 255 MG IV (08:32)
[2025-01-06 08:38] VITALS: BP 99/46
[2025-01-06] MEDS: PRECEDEX 100 IV ×2 (08:46→21:44)
[2025-01-06 08:56] VITALS: BP 108/48
--- NOTE | 2025-01-06 08:58 | W.PN.UPDATE ---
Update Note
Progress Note Update
I saw and evaluated the patient. I reviewed the resident�s note and agree with findings and plan as documented in the resident�s note.
Gen: NAD, appears chronically ill
CV: RRR, +S1/S2, no m/r/g.
Resp: CTAB anteriorly, no rales, wheezes, or rhonchi.
Abd: +BS, soft, NT, minimal distention
Skin: No rashes. 3+ B/L UE edema.
Neuro: sedated
01/02/25 17:08 Blood/Venous Blood Culture - Preliminary
No Growth in 72 hours- Final report to follow
01/01/25 12:41 Blood/Venous Blood Culture - Preliminary
No Growth in 4 days- Final report to follow
01/01/25 11:44 Blood/Venous Blood Culture - Preliminary
No Growth in 4 days- Final report to follow
01/03/25 17:12 Tracheal Aspirate Respiratory Culture - Final
NO GROWTH
01/03/25 17:12 Tracheal Aspirate Gram Stain - Final
01/03/25 03:51 Sputum Respiratory Culture - Final
NO GROWTH
01/03/25 03:51 Sputum Gram Stain - Final
01/01/25 08:17 Blood/Venous Blood Culture - Final
Streptococcus pneumoniae
01/01/25 08:17 Blood/Venous Gram Stain - Final
01/01/25 08:16 Blood/Venous Blood Culture - Final
Streptococcus pneumoniae
01/01/25 08:16 Blood/Venous Gram Stain - Final
01/03/25 17:12 Sputum Fungal Culture - Preliminary
Culture in progress.
Positive cultures are reported as soon as detected.
Final report to follow in four to five weeks.
01/01/25 20:00 Urine Urine Culture - Final
NO GROWTH
01/01/25 17:32 Nose MRSA Screen - Final
No Methicillin Resistant Staphylococcus aureus isolated.
01/01/25 08:31 Urine Urine Culture - Final
NO GROWTH
01/01/25 08:17 Nasal Swab Influenza Types A & B (ISIAH) - Final
Negative for Influenza A & B, NAAT
Negative results must be combined with clinical observations
and patient history.
Nucleic Acid Amplification test (NAAT)performed on the
[employer] platform.
CXR 01/06/25: Patchy bilateral parenchymal opacities, most likely representing bilateral pneumonia. Fairly stable appearance from most recent radiograph.
CT RLE 01/05/25: Findings suggesting severe volume overload or third spacing. No definitive abscess identified. Mild right hip osteoarthritis.
MRI brain 01/03/25: Multiple foci of restricted diffusion involving the bifrontal white matter as well as the bilateral cerebellar hemispheres which likely represents acute/subacute infarctions. The right cerebellar hemisphere infarction is
associated with mild surrounding edema as well as a small focus of intrinsic T1 shortening which likely represents hemorrhagic conversion. Given the multi vascular territory this may be embolic in nature. An underlying right cerebellar lesion or
small vascular malformations considered unlikely although a 12 week follow-up MRI brain should be considered.
CT C/A/P 01/01/25: Overall limited study as a result of lack of oral contrast and some beam hardening artifact from the patient's bilateral upper extremities. Bilateral pulmonary nodular parenchymal opacities again seen some of which with central
cavitation and overall prominence of the pulmonary interstitium again seen, somewhat similar to prior study with at least one new subcentimeter opacity in the right upper lobe. Again, some of several differential diagnostic possibilities again
include atypical infection, septic pulmonary emboli, Bandar's granulomatosis and less likely metastases. Small anterior pericardial effusion. Fluid-filled dilated stomach and fluid-filled thoracic esophagus. Fluid-filled loops of small bowel,
nonspecific, cannot exclude enteritis.
B/L LE U/S: No evidence of deep venous thrombosis of the lower extremities bilaterally.
Septic shock due to B/L PNA:
-noting that definitive source cannot be determined as further investigation is limited by severe thrombocytopenia. Patient cannot have KELLIE/LP and also would not be a valve replacement candidate for this reason.
-Strep pneumoniae bacteremia
-neutropenic fever
-acute metabolic encephalopathy
-lactic acidosis, now resolved
-s/p 6L NS on admission followed by maintenance IVFs, now off IVFs
-cont Vanco/Rocephin/Acyclovir as per ID
-remains pancytopenic/neutropenic
-cont vasopressors, currently on Isael/vasopressin
Acute hypoxemic respiratory failure:
-with acute toxic metabolic encephalopathy
-intubated 01/02/25
-MRI brain above, suspect acute/subacute infarctions represent septic emboli
-neuro saw in c/s, unable to work up or tx further with severe thrombocytopenia (see above)
Acute AML:
-with severe pancytopenia and neutropenic fever
-ONC following, no role for transfer to tertiary center
-had recent induction chemo which was held on admission
-pt had been supported with CMV NEG/irradiated/leukoreduced blood products (pRBCs/plts/ffp)
Acute Rhabdomyolysis:
-elevated CPK most likely due to statin/voriconazole combo
-resolved with IVFs
-never had CAROLINE
Severe hypovolemic Hyponatremia:
-now resolved
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
Other problems:
Hypocalcemia
Hypokalemia, resolved
Recent SUZIE PE: Cannot anticoagulate with severe thrombocytopenia
HLD: holding statin with rhabdomyolysis and transaminitis
FULL/SCDs
Overall care appears futile. Will c/s palliative care.
Total critical care time spent = 46 min
[2025-01-06 09:05] VITALS: BP 109/47; BP 110/49
[2025-01-06 09:23] VITALS: BP 113/52
[2025-01-06 09:33] VITALS: BP 108/51
--- NOTE | 2025-01-06 09:35 | PTCARENOTE ---
2 packs Platelets transfused, see TAR for times. Pt tolerated with no s/s transfusion reaction. US tech at bedside to complete LE US at this time. Plan discussed in rounds with fish fryer Dr. Puckett.
--- NOTE | 2025-01-06 09:38 | PHA.VAN.FU ---
Vancomycin Assessment / Plan
- Assessment
Renal Function: Stable
WBC's are: Trending Down (0.2)
In the past 24 hrs, patient has been: Febrile (101.3 on 01/06 am)
Concomitant Antimicrobials: ceftriaxone
- Dosing Plan
Continue: vancomycin 1000 mg Q8H
- Monitoring Plan
Peak Level: 01/07 01:00
Trough Level: 01/07 05:30
- Follow Up
Pharmacy will continue to follow.
Vancomycin Follow UP
- -
Patient Age: 59
Patient Sex: Male
Vancomycin Day #: 2
Indication: Skin And Soft Tissue
Requesting Provider: Reddy
Pertinent Antimicrobial Allergies:
penicillins - unknown
Height / Weight:
Height 5 ft 10 in
Actual Weight 80.8 kg
IBW in k
Adjusted BW in k.2
Pertinent Past Medical History: AML.
- Vital Signs / Lab Results
Temp Pulse Resp BP Pulse Ox
100.2 F 99 28 108/51 100
01/06/25 09:33 01/06/25 09:33 01/06/25 09:33 01/06/25 09:33 01/06/25 09:05
Lab Results - Hematology
01/03/25 01/03/25 01/03/25
14:08 14:34 20:01
WBC Cancelled 0.1 L* 0.1 L*
01/04/25 01/04/25 01/04/25
00:24 05:08 12:12
WBC 0.1 L* 0.1 L* 0.2 L*
01/04/25 01/05/25 01/05/25
22:14 04:01 11:10
WBC 0.2 L* 0.3 L* 0.2 L*
01/05/25 01/05/25 01/06/25
19:17 22:04 03:30
WBC 0.3 L* 0.2 L* 0.2 L*
Lab Results - Chemistry
01/03/25 01/03/25 01/04/25
09:02 20:01 05:08
BUN 10 11 13
Creatinine 0.6 L 0.5 L 0.5 L
Estimated Creat Clear > 125 > 125 > 125
Albumin 1.9 L
01/05/25 01/05/25 01/06/25
04:01 22:04 03:30
BUN 17 19 18
Creatinine 0.6 L 0.5 L 0.6 L
Estimated Creat Clear > 125 > 125 > 125
Albumin
Microbiology Results
01/02/25 17:08 Blood Culture - Preliminary
Blood/Venous No Growth in 72 hours- Final report to follow
01/01/25 12:41 Blood Culture - Preliminary
Blood/Venous No Growth in 4 days- Final report to follow
01/01/25 11:44 Blood Culture - Preliminary
Blood/Venous No Growth in 4 days- Final report to follow
01/03/25 17:12 Respiratory Culture - Final
Tracheal Aspirate NO GROWTH
Gram Stain - Final
01/03/25 03:51 Respiratory Culture - Final
Sputum NO GROWTH
Gram Stain - Final
01/01/25 08:17 Blood Culture - Final
Blood/Venous Streptococcus pneumoniae
Gram Stain - Final
01/01/25 08:16 Blood Culture - Final
Blood/Venous Streptococcus pneumoniae
Gram Stain - Final
[2025-01-06] MEDS: ROCEPHIN 2000 MG IV ×2 (09:56→21:34)
[2025-01-06] MEDS: STERILE WATER FOR INJECTION 20 ML IV ×2 (09:56→21:34)
[2025-01-06 10:23] VITALS: BP 128/70
--- NOTE | 2025-01-06 10:50 | W.PN.NEPH.PH ---
Today's Communication / Plan
-
Continue supportive care
AM labs
Agree with palliative care consult
Assessment/Plan
-
IMP:
Neutropenic fever with severe sepsis and lactic acidosis
Gram-positive bacteremia in setting of neutropenia
Acute respiratory failure
Acute on chronic Hyponatremia
Acute metabolic encephalopathy/ delirium
Rhabdomyolysis
Pancytopenia
Bilateral pulmonary nodular opacities, some cavitary
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
SUZIE PE, diagnosed 11/2024
HLD
Hyponatremia
Elevated LFTs
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
Plan:
A/w AMS, fever-sepsis
Acute on chr hyponatremia-suspect multifactorial
underlying SIADH , high free water intake+sepsis
U osmo 449, U na low 13
Nonoliguric via Garcia
maintain pressor to keep MAP>65
cr seem stable at 0.5
hypocalcemia-keep prn IV riders,
now intubated this am as he remains obtunded
Maintain pressor support to keep MAP at 65 or greater
abx per ID- strep pneumo bacteremia, neutropenic fever
prn transfusion for anemia, monitor thrombocytopenia
s/p MRI of head : Acute and subacute infarctions throughout bilateral cerebral hemispheres
Patient critically ill on vent support for respiratory failure and pressor support in the setting of sepsis and hemodynamic instability
d/w ICU and nursing
CC time spent 31min
-
-
Date of Service: January 06, 2025
CC / HPI / ROS
-
Chief Complaint:
Hypoantremia
History of Present Illness:
sodium at 135 this am
intubated for AMS and hypoxia
cr normal, k low side
marisol improving to 7.1
Requiring pressor support in setting of hemodynamic instability
Review of Systems:
intubated, not responding
non oliguric with garcia, wt is up
Labs
-
Labs:
WBC 0.2 10^3/uL (4.8-10.8) L* 01/06/25 03:30
RBC 2.57 10^6/uL (4.70-6.10) L 01/06/25 03:30
Hgb 7.3 g/dL (13.0-18.0) L 01/06/25 03:30
Hct 21.7 % (39.0-52.0) L 01/06/25 03:30
Sodium 141 mmol/L (135-145) 01/06/25 03:30
Potassium 3.5 mmol/L (3.5-5.1) 01/06/25 03:30
Chloride 116 mmol/L (98-107) H 01/06/25 03:30
Carbon Dioxide 23 mmol/L (22-30) 01/06/25 03:30
BUN 18 mg/dl (9-20) 01/06/25 03:30
Creatinine 0.6 mg/dL (0.7-1.3) L 01/06/25 03:30
eGFR > 60.00 01/06/25 03:30
Glucose 144 mg/dl (70-99) H 01/06/25 03:30
Calcium 7.6 mg/dl (8.4-10.2) L 01/06/25 03:30
Phosphorus 2.6 mg/dl (2.5-4.5) 01/01/25 11:26
Albumin 1.9 g/dl (3.5-5.0) L 01/03/25 20:01
Physical Exam
-
Vital Signs:
Vital Signs
Temp Pulse Resp BP Pulse Ox
100.2 F 86 29 128/70 100
01/06/25 09:33 01/06/25 10:23 01/06/25 10:23 01/06/25 10:23 01/06/25 10:23
--- NOTE | 2025-01-06 11:17 | W.CON.PAL ---
Consultation
-
Date/Time Consultation Requested: 01/06
Date/Time Consultation Performed: 01/06
Requesting Provider: Collins Juárez
Performing Provider: Cami Black
Reason for Consult: Goals of Care Discussion
Primary Diagnosis: AML, sepsis
Reason for Admission
Illness Course/HPI
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
Upon admission vitals were HR- 125, RR- 30, Temp- 105, and BP 131/74. His labs on admission were wbc of 0.2, hemoglobin of 6.6, absolute neutrophil count of 0.1, platelet count of 63, sodium 118, lactic acid of 4.8, creatinine of 0.8. Mild rhabdo.
Head CT with concern for acute infarct. Chest CT with PNA. Blood cultures with invasive Strep pneumoniae bacteremia and on ABX.
Course is c/b worsening mental status requiring intubation for airway protection. Also with worsening pancytopenia, platelets of 5, hgb 7.3 after transfusion x4. Concern for ?encephalitis, unable to do LP due to platelet count. Also would ideally
have KELLIE but unable to do due to platelets as well. Continuing supportive care at this time. Per onc, no role for transfer to tertiary care center as there is no therapeutic intervention for his AML.
Per chart review, teams have had conversations with patients about grave prognosis. Other family currently vacationing in [place] and ?possibly coming back. Remains full code.
Consult for GOC.
Seen at bedside this AM. No family present. Patient is intubated, unresponsive on pressors. Currently on precedex.
Pain & Symptom Assessment
Patient Symptoms
Patient Symptoms: Other (intubated sedated )
Objective Data
-
Objective Data:
Vital Signs
Temp Pulse Resp BP Pulse Ox
100.2 F 86 29 128/70 100
01/06/25 09:33 01/06/25 10:23 01/06/25 10:23 01/06/25 10:23 01/06/25 10:23
Laboratory Results
01/06/25 03:30
PT 20.0 Sec (11.4-14.6) H 01/03/25 11:58
INR 1.68 01/03/25 11:58
APTT 40.6 Sec (23.4-35.0) H 01/03/25 11:58
Total Protein 4.2 g/dl (6.3-8.2) L 01/03/25 20:01
Albumin 1.9 g/dl (3.5-5.0) L 01/03/25 20:01
Urine Color Yellow 01/01/25 20:00
Urine Clarity Slightly cloudy (Clear) 01/01/25 20:00
Urine pH 6.0 (5.0-9.0) 01/01/25 20:00
Ur Specific [place] 1.015 (<1.030) 01/01/25 20:00
Urine Ketones Negative (Negative) 01/01/25 20:00
Urine Bilirubin Negative (Negative) 01/01/25 20:00
Palliative Performance Scale
Palliative Performance Scale:
PPS Level Ambulation Activity & Evidence of Disease Self Care Intake Conscious Level
100% Full Normal Activity & Work; Full Intake Full
No Evidence of Disease
90% Full Normal Activity & Work; Full Normal Full
Some Evidence of Disease
80% Full Normal Activity with Effort Full Normal or Full
Some Evidence of Disease Reduced
70% Reduced Unable Normal Job/Work Full Normal or Full
Significant Disease Reduced
60% Reduced Unable Hobby/Housework Occasional Normal or Full or Confusion
Significant Disease Assistance Reduced
50% Mainly Sit/Lie Unable to do Any Work Considerable Normal or Full or Confusion
Extensive Disease Assistance Req'd Reduced
40% Mainly in Bed Unable to do Most Activity Mainly Assistance Normal or Full or Drowsy;
Extensive Disease Reduced +/- Confusion
30% Totally Bed Unable to do Any Activity Total Care Normal or Full or Drowsy;
Bound Extensive Disease Reduced +/- Confusion
20% Totally Bed Bound Unable to do Any Activity Total Care Minimal to Full or Drowsy;
Extensive Disease Sips +/- Confusion
10% Totally Bed Bound Unable to do Any Activity Total Care Mouth Care Drowsy or Coma;
Extensive Disease Only +/- Confusion
0%
PPS Score Level:
Palliative Performance Score Response
Palliative Performance Score Response: 10%
Physical Exam
-
General: Intubated and Appears Chronically Ill
Cardiac: Regular Rhythm
GI: Soft
Skin: Warm
Neuro: Other (intubated )
Psych: Other
precedex
Assessment / Plan
-
Assessment/Plan:
59 year old M with MDS transformed to AML, with strep pneumonaie bacteremia and pancytopenia. Intubated on pressors.
- no family at bedside at time of visit
- attempted to call , no answer
- review of chart from this PM - team spoke with family at bedside who want no aggressive measures and DNR but do not want to transition to comfort care at this time. Awaiting 2 other family members before making further decisions.
Care Reviewed
Data Reviewed
EKG Tracings: Report Reviewed
Chest X ray: Report Reviewed
Radiology procedure: Report Reviewed
Medical Tests: I reviewed
Reviewed with: Patient and Physician
[2025-01-06 12:17] LABS: B.E. -0.8 mmol/L; HCO3 23.1 mmol/L (21-28); O2 Saturation % 99.4 % (94-98); PCO2 34 mmHg (35-48); PO2 161 mmHg (83-108)
[2025-01-06 12:18] LABS: O2 Therapy Ac 22/500/5/40
--- NOTE | 2025-01-06 13:47 | W.PN.ID1 ---
Date of Service
Date of Service: January 06, 2025
Today's Communication
Continue ceftriaxone and Vancomycin.
Assessment / Plan
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
. ANC 0, plt 5
# Invasive Streptococcus pneumoniae bacteremia
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
. Acute change in mental status without improvement
. MRI brain multiple abnormal foci likely represent acute/subacute infarctions, with possible hemorrhagic conversion insomnia. Suspect embolic in nature.
. Unsafe for KELLIE.
. Unsafe for LP with severe thrombocytopenia
. Of note, IE due to Strep pneumoniae is rare, but there are several case reports.
# Severe sepsis.
. fever trending down
# VDRF
. Sputum cx x 2 negative
. Fungal cx pending
# Rash on BLE leg
. CT no abscess
# s/p Severe rhabdomyolysis
. Likely triggered by infection +/- vori/statin combo
# Severe hyponatremia improving
# Recent findings of bilateral pulm nodular opacities, some with central cavitation
. 12/23 CT guided lung biopsy cultures negative for bacteria; AFB and fungal cultures negative to date.
Path pending - specimen sent to [place], per pathologist
Recommendations:
-Continue ceftriaxone 2g IV q12 (HIDE HOUSE SUPERVISOR dose)
- Continue IV vancomycin for now.
- Patient remains critically ill, on vent, in ICU.
- Overall prognosis extremely poor.
����������������������������������������������������������
Chief Complaint
-: Clinical Sepsis and Bacteremia
Subjective / Review of Systems
Unresponsive on vent.
Vital Signs / Physical Exam
Vital Signs
Vital Signs
Temp Pulse Resp BP Pulse Ox
99.9 F 88 27 128/70 100
01/06/25 12:49 01/06/25 12:30 01/06/25 12:30 01/06/25 10:23 01/06/25 12:34
Physical Exam
Constitutional: Acutely Ill
Head: Normocephalic
Eyes: Sclera Anicteric
Oropharyngeal: Other (ET tube in place.)
Cardiovascular: Regular Rate and S1/S2 (tachycardic); Negative Murmur
Pulmonary: Clear (anteriorly) and Other (ET tube in place to vent)
Gastrointestinal: Soft, Non Tender, Non Distended and Normal Bowel Sounds
Genito-Urinary: Nugent and Clear Urine
Extremities: Edema (dependent portion right thigh); Negative Cyanosis or Splinter Hemorrhage
Skin: Rash (right thigh medial and posterior; Left posadas)
Neurological: Other (Sedated)
Lines: Port (RCW no erythema)
Objective Data
Lab Data
Lab Results
01/06/25 03:30
PT 20.0 Sec (11.4-14.6) H 01/03/25 11:58
INR 1.68 01/03/25 11:58
APTT 40.6 Sec (23.4-35.0) H 01/03/25 11:58
Estimated Creat Clear > 125 ml/min 01/06/25 03:30
Lactic Acid 1.6 mmol/L (0.7-2.0) 01/03/25 03:01
Total Bilirubin 2.6 mg/dl (0.2-1.3) H 01/03/25 20:01
AST 95 U/L (17-59) H 01/03/25 20:01
ALT 52 U/L (0-50) H 01/03/25 20:01
Alkaline Phosphatase 58 U/L (38-126) 01/03/25 20:01
Most recent labs reviewed.
Micro Results:
01/01/25 12:41 Blood Culture - Final
Blood/Venous No Growth - Final Report
01/01/25 11:44 Blood Culture - Final
Blood/Venous No Growth - Final Report
01/02/25 17:08 Blood Culture - Preliminary
Blood/Venous No Growth in 72 hours- Final report to follow
01/03/25 17:12 Respiratory Culture - Final
Tracheal Aspirate NO GROWTH
Gram Stain - Final
01/03/25 03:51 Respiratory Culture - Final
Sputum NO GROWTH
Gram Stain - Final
01/01/25 08:17 Blood Culture - Final
Blood/Venous Streptococcus pneumoniae
Gram Stain - Final
01/01/25 08:16 Blood Culture - Final
Blood/Venous Streptococcus pneumoniae
Gram Stain - Final
01/03/25 17:12 Fungal Smear - Pending
Sputum Fungal Culture - Preliminary
Culture in progress.
Positive cultures are reported as soon as detected.
Final report to follow in four to five weeks.
01/01/25 20:00 Urine Culture - Final
Urine NO GROWTH
01/01/25 17:32 MRSA Screen - Final
Nose No Methicillin Resistant Staphylococcus aureus isolated.
01/01/25 08:31 Urine Culture - Final
Urine NO GROWTH
01/01/25 08:17 Influenza Types A & B (ISIAH) - Final
Nasal Swab Negative for Influenza A & B, NAAT
Negative results must be combined with clinical observations
and patient history.
Nucleic Acid Amplification test (NAAT)performed on the
[employer] platform.
Imaging:
01/01/25 CT C/A/P: Bilateral pulmonary nodular parenchymal opacities again seen some of which with central cavitation and overall prominence of the pulmonary interstitium again seen, somewhat similar to prior study with at least one new
subcentimeter opacity in the right upper lobe. Again, some of several differential diagnostic possibilities again include atypical infection, septic pulmonary emboli, Bandar's granulomatosis and less likely metastases. Small anterior pericardial
effusion. Fluid-filled dilated stomach and fluid-filled thoracic esophagus. Fluid-filled loops of small bowel, nonspecific, cannot exclude enteritis.
01/02/[address]: Crescentic-shaped focus of decreased attenuation in the right cerebellum, cannot exclude evolving nonhemorrhagic infarct or less likely mass.
01/03/25 CXR: Redemonstration of fine reticular pulmonary opacities bilaterally along with superimposed heterogeneous opacities in the mid to upper right lung and upper left lung. Findings could represent pulmonary edema, hypersensitivity
pneumonitis, or severe viral pneumonia
01/03/25 Brain MRI: Multiple foci of restricted diffusion involving the bifrontal white matter as well as the bilateral cerebellar hemispheres which likely represents acute/subacute infarctions. The right cerebellar hemisphere infarction is
associated with mild surrounding edema as well as a small focus of intrinsic T1 shortening which likely represents hemorrhagic conversion. Given the multi vascular territory this may be embolic in nature
01/05/[address]: Findings suggesting severe volume overload or third spacing. No definitive abscess identified.
Care Review
Plan reviewed with: Nurse
--- NOTE | 2025-01-06 14:10 | PTCARENOTE ---
Due to low platelet count, order for dulcolax suppository clarified, per Dr. Puckett, will adjust medication route.
--- NOTE | 2025-01-06 16:13 | PTCARENOTE ---
was updated by phone by Dr. Juárez at approx 13:00, states she is planning to come to hospital to see patient. Dr. Puckett will update her at bedside when she arrives. Several other family members in and out to visit patient. Emotional support
provided to family.
--- NOTE | 2025-01-06 16:30 | W.PN.UPDATE ---
Update Note
Progress Note Update
I met with , son and [id number] at bedside
Updated clinical situation at length, clinical course at length
Patient requiring 2 pressors, less responsive than over the weekend
Despite multiple platelet transfusions, platelets remain 5
Family ( and son) had made it clear that they do not want to be aggressive. They do not want any CPR, no chest compressions, no shock.
However, they are not ready to transition to comfort at this time
Waiting for additional family (2 daughters)
Son made clear at the bedside that no decisions will be made regarding withdrawal of care or comfort at this time. Pt acknowledged this.
Family is aware of poor prognosis and would like to take time to make any additional decisions
Patient is DNR
Reviewed with critical care nursing
Continue supportive care for now
All questions answered
--- NOTE | 2025-01-06 16:41 | PTCARENOTE ---
Pt now DNR status per and family. Bracelet applied.
--- NOTE | 2025-01-06 16:45 | CM ---
Vent, platelets today, IV/Rocephin. Poor prognosis. Discharge POC: TBD.
--- NOTE | 2025-01-06 16:54 | PTCARENOTE ---
Platelet count drawn and sent to lab at this time.
[2025-01-06 17:19] LABS: Platelet Count 6 10^3/uL (130-400)
--- NOTE | 2025-01-06 17:19 | PTCARENOTE ---
Critical platelet count result 6 communicated to physicians. No orders at this time. Family remains at bedside, tearful. Emotional support ongoing.
[2025-01-06] MEDS: REFRESH EYE DROPS (PF) 1 DROPS OPHTH ×2 (17:42→19:57)
--- NOTE | 2025-01-06 17:49 | PTCARENOTE ---
Complete bath performed with CHG wipes, linens changed, face washed, PRN refresh eye gtts administered. Pt tolerated turn without desaturating. and daughter returned to bedside.
[2025-01-06] MEDS: VITAMIN B1 100 MG TUBE (19:09)
--- NOTE | 2025-01-06 20:27 | PTCARENOTE ---
assumed care, pt unable to follow commands, L eye opened and head turned slightly when I called his name, trace movement in the RUE, weak gag, cough and corneal, PERRLA 3, Sinus on the monitor, + radials weak pedals, +3 UE, +2 right thigh, B/L
scds, R rad A-line zeroed, Lungs diminished slightly coarse @ bases, ETT #8 25 @ lip, AC 22/500/5/40%, tachypneic, BSx4 hypoactive firm, TF 60ml c 25ml H2O flush, 450 residuals CRIMINAL JUSTICE PROFESSOR made aware and TF on hold, OGT 63cm, Nugent c mary alice output penial and
scrotal edema, skin flushed and warm afebrile, Rash on right thigh and left lower leg, prophylactic sacral and heel foams, R subclavian TL, 24G L wrist, Dex, Isael and Vaso gtts per worklist, safe environment maintained, family @ bedside and emotional
support provided, otherwise refer to documentation.
[2025-01-07] MEDS: PITRESSIN 100 IV ×3 (00:11→23:00)
--- NOTE | 2025-01-07 00:26 | PTCARENOTE ---
systems reviewed, labs sent, gtts per worklist, no changes from previous assessment, otherwise refer to documentation .
[2025-01-07] MEDS: NEO-SYNEPHRINE 1% 260 MG IV ×2 (05:38→20:14)
[2025-01-07 05:43] LABS: Hematocrit 19.8 % (39.0-52.0); Hemoglobin 6.8 g/dL (13.0-18.0); Mean Corp Hgb Conc. 34.3 g/dL (33.0-37.0); Mean Corpuscular Volume 84.6 fL (80.0-94.0); Platelet Count 6 10^3/uL (130-400); Red Cell Dist. Width 17.0 % (11.5-14.5)
[2025-01-07 05:46] LABS: Blood Urea Nitrogen 22 mg/dl (9-20); Calcium 7.4 mg/dl (8.4-10.2); Carbon Dioxide 24 mmol/L (22-30); Chloride 113 mmol/L (98-107); Estimated Creatinine Clearance > 125 ml/min; Glucose 77 mg/dl (70-99); Magnesium 2.0 mg/dl (1.6-2.3); Potassium 3.4 mmol/L (3.5-5.1); Sodium 141 mmol/L (135-145); eGFR > 60.00
--- NOTE | 2025-01-07 05:57 | PTCARENOTE ---
systems reviewed, labs sent, CHG bath, Hgb 6.8 DATA INPUT CLERK notified no new orders, 0200 residuals checked for 200ml TF restarted, otherwise refer to documentation
[2025-01-07 06:00] VITALS: BMI 25.7
[2025-01-07] MEDS: VANCOCIN 200 IV (06:02)
[2025-01-07] MEDS: KCL 100 IV (06:13)
--- NOTE | 2025-01-07 07:14 | PHA.VAN.FU ---
Vancomycin Assessment / Plan
- Assessment
Renal Function: Stable
WBC's are: Stable
In the past 24 hrs, patient has been: Afebrile
Concomitant Antimicrobials: ceftriaxone
- Assessment - Therapeutic Drug Monitoring
Extrapolated Cmax (mcg/mL): 26.3
Peak level was drawn: Appropriately (drawn ~1.55H after the END of infusion)
Extrapolated Cmin (mcg/mL): 16.4
Trough Drawn: Appropriately
Levels were drawn: At steady state
Calculated AUC (mcg*h/mL): 505
Calculated ke: 0.0672
Calculated half life (H): 10.3
Calculated Vd (L): 88.44
Calculated Vanc CL (ml/min): 99.03
- Dosing Plan
Adjust Regimen to: 1250mg q12h
- Monitoring Plan
No level(s) ordered at this time: consider within next few days
- Follow Up
Pharmacy will continue to follow.
Vancomycin Follow UP
- -
Patient Age: 59
Patient Sex: Male
Vancomycin Day #: 3
Indication: Skin And Soft Tissue
Requesting Provider: Dr. Blakely
Pertinent Antimicrobial Allergies:
penicillins - unknown
Height / Weight:
Height 5 ft 10 in
Actual Weight 81.4 kg
IBW in k
Adjusted BW in k.2
Pertinent Past Medical History: AML
- Vital Signs / Lab Results
Temp Pulse Resp BP Pulse Ox
99.1 F 75 28 128/70 100
01/07/25 03:35 01/07/25 06:00 01/07/25 06:00 01/06/25 10:23 01/07/25 06:00
Lab Results - Hematology
01/04/25 01/04/25 01/05/25
12:12 22:14 04:01
WBC 0.2 L* 0.2 L* 0.3 L*
01/05/25 01/05/25 01/05/25
11:10 19:17 22:04
WBC 0.2 L* 0.3 L* 0.2 L*
01/06/25 01/07/25
03:30 05:08
WBC 0.2 L* 0.3 L*
Lab Results - Chemistry
01/05/25 01/05/25 01/06/25
04:01 22:04 03:30
BUN 17 19 18
Creatinine 0.6 L 0.5 L 0.6 L
Estimated Creat Clear > 125 > 125 > 125
01/07/25
05:08
BUN 22 H
Creatinine 0.5 L
Estimated Creat Clear > 125
Microbiology Results
01/02/25 17:08 Blood Culture - Preliminary
Blood/Venous No Growth in 4 days- Final report to follow
01/03/25 17:12 Fungal Culture - Preliminary
Sputum Culture in progress.
Positive cultures are reported as soon as detected.
Final report to follow in four to five weeks.
01/01/25 12:41 Blood Culture - Final
Blood/Venous No Growth - Final Report
01/01/25 11:44 Blood Culture - Final
Blood/Venous No Growth - Final Report
01/03/25 17:12 Respiratory Culture - Final
Tracheal Aspirate NO GROWTH
Gram Stain - Final
01/03/25 03:51 Respiratory Culture - Final
Sputum NO GROWTH
Gram Stain - Final
Therapeutic Drug Monitoring
Vancomycin Peak 23.7 ug/ml (18-26) 01/07/25 00:06
Vancomycin Trough 16.9 ug/ml (5-20) 01/07/25 05:08
--- NOTE | 2025-01-07 07:39 | W.PN.INTV ---
Today's Communication / Plan
Recommendations
Seizure activity this morning noted, self resolved
Valium as needed moving forward
No further transfusions at this time. This was reviewed with , and she does not want any further transfusions
Comfort is a priority moving forward
Continue with supportive care, await decision on primarily comfort/withdrawal of care
Assessment
-
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 Patient quite delirious during my
evaluation and unable to provide any meaningful history. Information mostly obtained from patient's at bedside as well as review of records. Reportedly over the last 24 hours patient has been slightly getting more confused and noted
fever last night and this morning he appeared to be very confused. She does not report any cough, chills, vomiting diarrhea, hemoptysis or hematemesis. She reports a known history of hemorrhoids and occasional small-volume blood per rectum. No
lucy bloody diarrhea reported. No sick contacts reported. Patient has been on chemotherapy for AML and reportedly last dose about 2 weeks ago. Patient has prior history of alcoholism and heavy smoking which he stopped about 8 to 9 months ago and
currently not actively drinking per patient's . In the emergency room patient was noted to be septic with elevated lactate, neutropenia, high-grade fever. Patient was given 30 mL/kg fluid resuscitation and was started on broad-spectrum
antibiotics. In view of tachycardia, encephalopathy, elevated lactate, patient was admitted to ICU and meat cutting teacher consultation was requested for further input.
01/07 overview: Current infusion Isael-Synephrine at 120, vasopressin, Precedex at 0.3. No endotracheal secretions, significant residuals noted. Tube feeds, bowel movement pending. Currently on a volume-cycled ventilation, 500/22/40%/5.
Seizure-like activity noted this morning, spontaneously resolved
#1. Septic shock with Strep Pneumoniae Bacteremia with neutropenia and lactic acidosis
- 30 mL/kg IV fluid resuscitation in the emergency room
- Currently on ceftriaxone, infectious disease service on case. Resumed acyclovir. Fungal cultures have stayed negative, off voriconazole now
- Suspect pulmonary source of strep pneumoniae bacteremia
- CT chest abdomen pelvis reviewed no significant acute change compared to last imaging
- Improved serial lactate
- Continue phenylephrine to keep MAP above 65. Central line and arterial line placed 01/02. Now remains on vasopressin and phenylephrine increased to 160
- 01/05, Increased redness posterior right thigh noted, vancomycin resumed, CT with contrast right lower extremity ordered. Arterial study unremarkable
#2. Acute respiratory failure with severe encephalopathy 01/02
- Patient currently on Precedex at 0.3. Withdraws to stimulation. Briefly opens eyes, appears little more responsive. Patient develops ventilator asynchrony and is requiring a low-dose Precedex, continue to wean as tolerated, fentanyl as needed
- 01/02, patient was emergently intubated in view of severe encephalopathy and inability to protect airway along with septic shock, rapid sequence intubation, mechanically ventilated since
- MRI brain suggestive of multiple areas suspicious for embolic infarct. Neurology service on case. In view of septic shock and bacteremia, septic emboli with underlying infective endocarditis also in differential diagnosis.
- Patient has severe coagulopathy with thrombocytopenia, not a candidate for antiplatelet or antithrombotic therapy for now
- Continue telemetry to monitor for any atrial fibrillation/atrial flutter
- 2D echo unremarkable. Will eventually need KELLIE. Cardiology consult will be deferred to primary service given multisystem organ failure, extremely poor prognosis. Not sure whether findings of endocarditis will help change release manager at this time
- Patient transitioned to volume cycle ventilation 01/06. ABG with adequate ventilation, oxygenation. No changes at this time
#3. Rhabdomyolysis, severe.
- Suspect rhabdomyolysis related to voriconazole and Lipitor therapy together.
- Lipitor has been on hold, CK level went up to 10,000, subsequently declining
- Significant positive fluid balance, IV fluids discontinued 01/04.
- Diuresis initiated 01/05, remains positive fluid balance
#4. Hyponatremia, likely symptomatic
- Suspect hypovolemic hyponatremia considering decreased chloride as well as urine sodium of 14
- Improved
#5. Acute metabolic encephalopathy/Multifocal CVA
- Multiple strokes noted on MRI, which are contributing to encephalopathy in addition to severe metabolic derangements.
- Patient was quite agitated in the ICU pulling on tubes, required restraints on admission 01/01
- Progressively more encephalopathy, obtunded on 01/02, needed to be intubated for airway protection
- Continue high-dose thiamine with prior history of alcoholism, decrease dosing per protocol
- Eliquis has been placed on hold in case lumbar puncture needs to be pursued in future. Patient is very coagulopathic for safe lumbar puncture
- Patient remains unresponsive since 01/06. Seizure-like cavity morning of 01/07, spontaneously resolved, given 2 mg of Ativan
- Unfortunately, clinical status is approaching futility at this time. Reviewed with by phone 01/07 in a.m.. Would like to hold off on further transfusions at this time
- Comfort will be a priority moving forward while awaiting family decision on timing of withdrawal of care
#6. Bilateral pulmonary nodular opacities, some cavitary
- Differential diagnosis include infection, inflammation like GPA versus malignancy
- S/p IR guided biopsy 12/2024, pathology results are pending
- Cultures have stayed negative in the past, positive mold as of 01/06. ID following. Other cultures negative for fungal organism
- Continue broad-spectrum antibiotic, await final pathology results
- ANCA normal
- Prior history of asbestos exposure however would not explain parenchymal nodules. Suspected prior granulomatous disease.
- History of [id number] smoking history, no formal diagnosis of COPD or asthma.
- Now that patient is intubated, tracheal cultures negative to date
#7. 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
- Has been on chemotherapy, follows up with [facility] and [facility]
- Hematology/Oncology consult
- Status post blood transfusions, platelet transfusion, keep platelet count above 10K unless active bleeding noted in which case will need to aim for a higher target.
- Prognosis appears to be poor from critical care standpoint given multisystem organ dysfunction in the setting of multiple brain lesions, severe pancytopenia requiring multiple platelet transfusions
- Oncology has been consulted per primary service. Appreciate any discussion with family regarding goals of care
#8. SUZIE PE, diagnosed 11/2024
- Patient is very coagulopathic with severe thrombocytopenia requiring transfusions as well as elevated INR
- Continue to hold Eliquis, s/p vitamin K IV
- Lower extremity duplex this admission without any DVT. CT chest with contrast reviewed without any large central pulmonary embolism, can monitor off anticoagulation for now
- Depending upon clinical course, if unable to resume anticoagulation in near future, will need to consider placement of IVC filter. However at this time further intervention may be considered futile
- Await decision on withdrawal of care
Other medical diagnoses:
- Mucositis
- H/o Thrush
DVT prophylaxis, SCDs for now. Hold Eliquis in view of anemia and mild hematochezia.
Critical Care time 35 mins -- The patient is admitted for acute critical illness for the treatment of vital organ failure and/or prevention of further life-threatening conditions. Total care includes time spent in review of history, physical exam,
medications, hemodynamic/ventilator parameters, laboratory data, imaging and discussion with house staff, pharmacy, respiratory therapy, basketball scout, and nursing.
Updated at length by phone 01/07 in a.m. regarding seizure activity and worsening anemia. Decision was made to hold off on further transfusions. Family will be arriving later today.
suggested that withdrawal of care decision will be made later today
Data:
MRI brain 12/2024: Multiple foci of restricted diffusion involving the bifrontal white matter as well as the bilateral cerebellar hemispheres which likely represents acute/subacute infarctions. The right cerebellar hemisphere infarction is
associated with mild surrounding edema as well as a small focus of intrinsic T1 shortening which likely represents hemorrhagic conversion. Given the multi vascular territory this may be embolic in nature. An underlying right cerebellar lesion or
small vascular malformations considered unlikely although a 12 week follow-up MRI brain should be considered.
ECHO 12/2024: 1. Normal size left ventricle with normal wall thickness and global hypokinesis, EF 39%.
2. Thickened mitral leaflets with moderate mitral regurgitation and normal left atrium.
3. Aortic sclerosis without stenosis or regurgitation.
4. Normal right heart, pulmonary artery systolic pressure is 39 mmHg.
5. No cardiac source of embolism is identified.
6. There are no prior studies available for comparison.
US LE 12/2024: No DVT noted
CT C/A/P 12/2024: Bilateral pulmonary nodular parenchymal opacities again seen some of which with central cavitation and overall prominence of the pulmonary interstitium again seen, somewhat similar to prior study with at least one new subcentimeter
opacity in the right upper lobe. Again, some of several differential diagnostic possibilities again include atypical infection, septic pulmonary emboli, Bandar's granulomatosis and less likely metastases.
Small anterior pericardial effusion.
Fluid-filled dilated stomach and fluid-filled thoracic esophagus.
Fluid-filled loops of small bowel, nonspecific, cannot exclude enteritis.
Subjective Dataa
Subjective Data
Date of Service:
Date of Service: January 07, 2025
Subjective:
Patient remains critically ill, ventilator dependent, on 2 pressors. Had episode of seizure-like activity this morning, spontaneously resolved. 2 mg Ativan provided. Secretions minimal. Unfortunate neurological status without improvement.
Thrombocytopenia and anemia continue. Transfusion ordered this morning, pending
Objective Data
Data Reviewed
Vital Signs / I&O / Oxygen:
Vital Signs
Temp Pulse Resp BP Pulse Ox
98 F 73 28 128/70 100
01/07/25 07:16 01/07/25 07:30 01/07/25 07:30 01/06/25 10:23 01/07/25 07:30
Intake and Output
01/06/25 01/07/25 01/08/25
06:59 06:59 06:59
Intake Total 5660.6 / 5807.2 4342.2 / 4461.4 119.2 / 119.2
Output Total 3470 / 3590 2210 / 2340 130 / 130
Balance 2190.6 / 2217.2 2132.2 / 2121.4 -10.8 / -10.8
SaO2 [APV] 100
SaO2 [A/C] 100
SaO2 100
Nasal Cannula flow liters per 4
minute
Physical Exam
General: Comfortable
HEENT: Normocephalic and Other (Right lid lag)
Cardiovascular: S1-S2, Regular Rhythm, Murmur (n), Rub (n) and Peripheral Edema (tr)
Respiratory: Clear, Wheeze (n), Crackles (n), Rhonchi (few), Non-Labored Respirations, Crepitus (n) and ET Tube
GI: Soft and Non Distended
Neurology: Unresponsive and Other (Remains unresponsive for me. )
Skin: Other (Lower extremity rash, right greater than left)
Labs/Micro/Reports
Lab Data
01/07/25 05:08
01/07/25 05:08
Laboratory Results
01/06/25
12:03
pH 7.44
pCO2 34 L
pO2 161 H
HCO3 23.1
O2 Delivery Level Ac 22/500/5/40
Microbiology
01/02/25 17:08 Blood/Venous Blood Culture - Preliminary
No Growth in 4 days- Final report to follow
01/03/25 17:12 Sputum Fungal Culture - Preliminary
Culture in progress.
Positive cultures are reported as soon as detected.
Final report to follow in four to five weeks.
01/01/25 12:41 Blood/Venous Blood Culture - Final
No Growth - Final Report
01/01/25 11:44 Blood/Venous Blood Culture - Final
No Growth - Final Report
01/03/25 17:12 Tracheal Aspirate Respiratory Culture - Final
NO GROWTH
01/03/25 17:12 Tracheal Aspirate Gram Stain - Final
01/03/25 03:51 Sputum Respiratory Culture - Final
NO GROWTH
01/03/25 03:51 Sputum Gram Stain - Final
01/01/25 08:17 Blood/Venous Blood Culture - Final
Streptococcus pneumoniae
01/01/25 08:17 Blood/Venous Gram Stain - Final
01/01/25 08:16 Blood/Venous Blood Culture - Final
Streptococcus pneumoniae
01/01/25 08:16 Blood/Venous Gram Stain - Final
--- NOTE | 2025-01-07 07:44 | W.PN.HOSP.TC ---
Today's Communication/Plan
-
- continue antibiotics, trend labs, tranfuse blood/ platelets as needed, observe new erythema on thigh
Assessment / Plan
Assessment / Plan
Patient is now DNR after product safety head discussed with family.
Septic shock due to strep pneumo bacteremia in the setting of neutropenic fever
Acute hypoxemic respiratory failure
Increased work of breathing tachypneic
Third spacing:
- patient is acutely confused, lethargic, weak, with fever and chills on admission, 2 of the 4 sepsis criteria were met on SIRS.30 mL/kg IV fluid resuscitation in the emergency room, then normal saline continuous infusion.
- Lactic acid on admission was 4.8 trending down to 1.6 most recent.
- Infectious disease, neurology, and oncology were consulted
- on 01/02 patient was awake but not alert or oriented, tachypneic, tachycardic, febrile, and with mottling on bilateral lower extremities. He meets the 3 criteria for septic shock.
- patient intubated, vasopressin added due to negligable effect on HR compared to other pressors
- First blood culture shows streptococcus pneumoniae repeat blood cultures negative , and urine cultures negative ( less likely a genitourinary source of sepsis), tracheal culture this morning pending. Continue ceftriaxone to cover most gram
positives and gram negatives, and Vancomycin to be continued for MRSA
- Continued Acyclovir as per ID recommendations. Consulted ID regarding further medication management for a potential fungal source of sepsis. Was on meropenem but that dc'd. fungal culture is still pending. Cant use voriconazole as it might
have interacted with statins and contributed to his rhabdomyolysis.
- Iv fluids d5/NS discontinued as sodium has normalized today
- continue on propofol and fentanyl for sedation and pain control, phenylephrine to maintain MAP over 65.
- TTE echocardiogram ordered to check for a septic source from bacteria in the heart valves such as in bacterial endocarditis negative, however lizzy pending (01/02)
- Chest x rays ordered. Bilateral interstitial and possible alveolar opacities, edema versus pneumonia most likely. We are covering with ceftriaxone. Vancomycin stopped due to isolate being suspectible to ceftriaxone.
- Will consider a lumbar puncture to rule out sepsis source from CSF. He is on empiric antibiotics. however, he is not hemodynamically stable yet and has altered consciousness, along with severely low platelet count, needs platelets of >50k.
- MRI shows Multiple foci of restricted diffusion involving the bifrontal white matter as well as the bilateral cerebellar hemispheres which likely represents acute/subacute infarctions. LIZZY recc to look for cardiac cause possible an emboli.
consulted cardiology in regards to performing procedure however due to the thrombocytopenia (<10), they did not want to attempt LIZZY. We also cannot anticoagulate patient as he cannot be on aspirin/ plavix due to bleed risk.
- Trend CPK, CMP, CBC, uric acid check LDH
- Will consider a potential transfer to another institution.
- Lasix protocol as per nephro given to kirille patient for edema and rising weights ( 81.4 kg today compared to 80.3 yesterday)
- CT right lower extremity shows No focal fluid collections to suggest an abscess are noted. There is diffuse increased density to the soft tissues and musculature of the right thigh suggesting volume overload or third spacing. The imaged osseous
structures are notable destruction.
Erythema of right inner thigh:
- CT scan negative for necrotizing fascitis
- Patient on empiric antibiotics. continue to monitor for increase in redness and growth.
Poikilothermia of the right lower extremity ( 01/04/25):
- The right lower extremity on touch is noticeably cooler than the left lower extremity. No color change or pulselessness. Ordered arterial Doppler of the lower extremities , awaiting results.
- DD is acute arterial occlusion due to embolism vs thrombosis from AML, vs DIC. Will get a fibrinogen level tomm.
- cannot use heparin in case of occlusion due to bleeding risk
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
Acute anemia in the setting on his AML
Pancytopenia:
- Oncology consulted
- held patients Venclexta for now,
- Patient has had 4 units of cmv negative irradiated leukoreduced blood
- WBC is 0.2, hgb6.8 ( 1 unit given today, 5 units total, platelet count is 6 ( total 11 unit of platelets ordered since admission ), absolute nuetrophils/ lymphs/ mono= 0, patient is on empiric antibiotic coverage and fungal coverage, temperature
is 100.2.
- Held eliquis
Elevated CPK most likely due to rhabdomyolysis caused by likely statin/voriconazole combo:
- on physical exam, patient states he has bilateral lower extremity muscle tenderness in his legs. Tenderness to palpation on physical examination.
- Urine analysis positive for blood but not RBC's.
- Initiated aggressive fluid therapy.
- most recent CPK is 335 trending down
Severe hypovolemic Hyponatremia :
- Consulted nephrology
- patient is confused, disoriented, and weak.
- Multifactorial due to underlying SIADH, high free water intake and sepsis.
- Suspect hypovolemic hyponatremia with urine sodium of 13 and normal urine osmololaity
- Trend BMP every 4 hours
- Today levels are 138, continue to trend BMP
Tumour lysis prevention:
- on most recent discharge, patients uric acid level was 1.9, today his uric acid level is 2.1.
- trend LDH and uric acid level
SUZIE PE:
- Diagnosed on previous admission and patient was started on eliquis 5 mg bid
- Patients vitals are stable, CT chest with contrast negative for PE
- Holding Eliquis due to bleeding risk
- Placed on SCD's as DVT ppx in the ICU
Hyperlipidemia:
- Hold statins due to increased AST/ALT
Full code
DVT ppx: SCD's
Anticipated Discharge: 24 - 48 hours
Subjective/Interval History
-
Date of Service: January 07, 2025
Patient is intubated with vasopressin, phenylephrine, fentanyl, propofol and a feeding tube.
Objective Data
-
Labs:
Laboratory Results
01/07/25
05:08
WBC 0.3 L*
Hgb 6.8 L*
Hct 19.8 L*
Plt Count 6 L*
Sodium 141
Potassium 3.4 L
Chloride 113 H
Carbon Dioxide 24
BUN 22 H
Creatinine 0.5 L
Glucose 77
Calcium 7.4 L
Vital Signs:
Vital Signs
Temp Pulse Resp BP Pulse Ox
98 F 73 28 128/70 100
01/07/25 07:16 01/07/25 07:30 01/07/25 07:30 01/06/25 10:23 01/07/25 07:40
I&O
01/06/25 01/07/25 01/08/25
06:59 06:59 06:59
Intake Total 5660.6 / 5807.2 4342.2 / 4461.4 119.2 / 119.2
Output Total 3470 / 3590 2210 / 2340 130 / 130
Balance 2190.6 / 2217.2 2132.2 / 2121.4 -10.8 / -10.8
Review of Systems
-
Unable to obtain full review of systems at this time due to: Patient Intubation
Physical Exam
-
General: Intubated
Cardiac: Regular Rhythm and S1/S2
GI: Soft, Nontender, Nondistended and Normal Bowel Sounds
Genito-urinary: Nugent
Skin: Dry and Other (mottling on bilateral extremities has significantly improved, erythematous rash on inner side of right thigh)
Neuro: Sedated
Data Reviewed
-
Labs: Labs Reviewed by me and Discussed with Physician
--- NOTE | 2025-01-07 08:00 | PTCARENOTE ---
Pt rec'd from night RN, unresponsive, unable to follow commands, cough and -corneal,pupils 3 mm, sluggish, Sinus on the monitor, + radials weak pedals, +3 UE, +2 right thigh, B/L scds, R rad A-line leveled and zeroed, correlating with non invasive
cuff. Lungs diminished ETT #8 25 @ lip, AC 22/500/5/40%, tachypneic, BSx4 hypoactive firm, TF 60ml c 25ml H2O flush, OGT 63cm, Nugent c mary alice output penial and scrotal edema, skin flushed and warm afebrile, Rash on right thigh and left lower leg,
prophylactic sacral and heel foams, R subclavian TL, 24G L wrist, Dex, Isael and Vaso gtts per worklist, safe environment maintained.
--- NOTE | 2025-01-07 08:40 | W.PN.ONC ---
Today's Communication / Plan
-
see A/P
Impression
Impression
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
Neutropenic fever with sepsis and lactic acidosis
Rhabdomyolysis
Recent PE
Severe hyponatremia
Bilateral pulmonary nodular opacities
Plan
Plan
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
#Neutropenic fever with sepsis and lactic acidosis
#Acute metabolic encephalopathy
#Hyponatremia
- CT Chest/Abd/Pelvis 01/01: Bilateral pulmonary nodular parenchymal opacities again seen, Fluid-filled loops of small bowel, nonspecific, limited study as a result of lack of oral contrast
- Continue supportive, ventilator care
- Blood cx with strep pneumoniae, antibiotics as per ID
- S/p IR guided biopsy 12/2024, pathology results are pending
- patient is critically ill and prognosis seems poor: today wbc 0.3, Hb 6.8 (post 4 Irr/leuk-re CMV neg rbc), plt 6 (post 11 transfusions)
- As per microscopist, GOC discussions were conducted with family deciding for non-aggressive measures but not ready for transition to comfort care at this time
- Hold on Venetoclax currently due to pt unable to tolerate PO and ongoing goals of care discussions
Subjective/Objective
Subjective/Objective
Vital Signs:
Vital Signs
Temp Pulse Resp BP Pulse Ox
98 F 73 28 128/70 100
01/07/25 07:16 01/07/25 07:30 01/07/25 07:30 01/06/25 10:23 01/07/25 08:00
Lab Results:
Laboratory Data
WBC 0.3 10^3/uL (4.8-10.8) L* 01/07/25 05:08
Hgb 6.8 g/dL (13.0-18.0) L* 01/07/25 05:08
Plt Count 6 10^3/uL (130-400) L* 01/07/25 05:08
PT 20.0 Sec (11.4-14.6) H 01/03/25 11:58
INR 1.68 01/03/25 11:58
APTT 40.6 Sec (23.4-35.0) H 01/03/25 11:58
eGFR > 60.00 01/07/25 05:08
--- NOTE | 2025-01-07 08:52 | W.PN.ID1 ---
Date of Service
Date of Service: January 07, 2025
Today's Communication
Continue ceftriaxone and Vanco for now.
See below.
Assessment / Plan
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
. ANC 0, plt 5 (despite plt transfusion)
#Recent findings of bilateral pulm nodular opacities, some with central cavitation (12/18 - 12/25 hospitalization)
. serum Aspergillus galactomannan antigen was negative (low sensitivity)
. beta-d glucan assay (fungitell) was negative (low sensitivity)
. 12/23/24 CT guided lung biopsy cultures negative for bacteria; AFB neg to date.
Fungal smear negative. Fungal cx turned +mold late on 01/06/25 -> ? colonization vs invasive (awaiting path)
. 12/23/24 CT guided lung biopsy still pending. Reached out to pathologist again regarding result, specimen currently at [facility].
. Of note pt was recently started on empiric Voriconazole 200mg po bid, after lung bx ( 12/23/24 -01/01/250, while awaiting for cx and path result.
Voriconazole and atorvastatin dc'd 01/01 this admission due to severe rhabdo, elevated LFT's.
. At this time, will hold off on resuming antifungal, likely futile at this point, and not source of acute decompensation.
Will await family final decision on goals of care. Pt may transition to comfort care soon.
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
# Seizure today
-Continue ceftriaxone 2g IV q12 (LOAN REVIEW MANAGER dose)
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
# Seizure today
. Acute change in mental status, no improvement
. MRI brain multiple abnormal foci likely represent acute/subacute infarctions, with possible hemorrhagic conversion. Suspect embolic in nature.
. Unsafe for KELLIE.
. Unsafe for LP with severe thrombocytopenia
. Of note, IE due to Strep pneumoniae is rare, but there are several case reports.
# Severe sepsis.
. fever trending down
# VDRF
. Sputum aerobic cx (from ET) x 2 negative
. Fungal smear and cx (from ET) negative to date
# Rash on BLE leg
. CT no abscess
- Continue empiric IV vancomycin for now.
# s/p Severe rhabdomyolysis, resolving
. Likely triggered by infection +/- vori/statin combo
Patient remains critically ill, on vent, in ICU.
Overall prognosis extremely poor.
����������������������������������������������������������
Chief Complaint
-: Clinical Sepsis and Bacteremia
Subjective / Review of Systems
Seizure-like activity this am.
Vital Signs / Physical Exam
Vital Signs
Vital Signs
Temp Pulse Resp BP Pulse Ox
98 F 73 28 128/70 100
01/07/25 07:16 01/07/25 07:30 01/07/25 07:30 01/06/25 10:23 01/07/25 08:00
Physical Exam
Constitutional: Acutely Ill
Cardiovascular: Regular Rate and S1/S2
Gastrointestinal: Soft, Non Tender, Non Distended and Normal Bowel Sounds
Extremities: Edema (anasarca)
Skin: Rash (right posterior thigh pink erythema)
Neurological: Other (unresponsive)
Lines: Port (no erythema)
Objective Data
Lab Data
Lab Results
01/07/25 05:08
01/07/25 05:08
PT 20.0 Sec (11.4-14.6) H 01/03/25 11:58
INR 1.68 01/03/25 11:58
APTT 40.6 Sec (23.4-35.0) H 01/03/25 11:58
Estimated Creat Clear > 125 ml/min 01/07/25 05:08
Lactic Acid 1.6 mmol/L (0.7-2.0) 01/03/25 03:01
Total Bilirubin 2.6 mg/dl (0.2-1.3) H 01/03/25 20:01
AST 95 U/L (17-59) H 01/03/25 20:01
ALT 52 U/L (0-50) H 01/03/25 20:01
Alkaline Phosphatase 58 U/L (38-126) 01/03/25 20:01
Most recent labs reviewed.
Micro Results:
01/02/25 17:08 Blood Culture - Preliminary
Blood/Venous No Growth in 4 days- Final report to follow
01/03/25 17:12 Fungal Smear - Pending
Sputum Fungal Culture - Preliminary
Culture in progress.
Positive cultures are reported as soon as detected.
Final report to follow in four to five weeks.
01/01/25 12:41 Blood Culture - Final
Blood/Venous No Growth - Final Report
01/01/25 11:44 Blood Culture - Final
Blood/Venous No Growth - Final Report
01/03/25 17:12 Respiratory Culture - Final
Tracheal Aspirate NO GROWTH
Gram Stain - Final
01/03/25 03:51 Respiratory Culture - Final
Sputum NO GROWTH
Gram Stain - Final
01/01/25 08:17 Blood Culture - Final
Blood/Venous Streptococcus pneumoniae
Gram Stain - Final
01/01/25 08:16 Blood Culture - Final
Blood/Venous Streptococcus pneumoniae
Gram Stain - Final
01/01/25 20:00 Urine Culture - Final
Urine NO GROWTH
01/01/25 17:32 MRSA Screen - Final
Nose No Methicillin Resistant Staphylococcus aureus isolated.
01/01/25 08:31 Urine Culture - Final
Urine NO GROWTH
01/01/25 08:17 Influenza Types A & B (ISIAH) - Final
Nasal Swab Negative for Influenza A & B, NAAT
Negative results must be combined with clinical observations
and patient history.
Nucleic Acid Amplification test (NAAT)performed on the
[employer] platform.
Imaging:
01/01/25 CT C/A/P: Bilateral pulmonary nodular parenchymal opacities again seen some of which with central cavitation and overall prominence of the pulmonary interstitium again seen, somewhat similar to prior study with at least one new
subcentimeter opacity in the right upper lobe. Again, some of several differential diagnostic possibilities again include atypical infection, septic pulmonary emboli, Bandar's granulomatosis and less likely metastases. Small anterior pericardial
effusion. Fluid-filled dilated stomach and fluid-filled thoracic esophagus. Fluid-filled loops of small bowel, nonspecific, cannot exclude enteritis.
01/02/[address]: Crescentic-shaped focus of decreased attenuation in the right cerebellum, cannot exclude evolving nonhemorrhagic infarct or less likely mass.
01/03/25 CXR: Redemonstration of fine reticular pulmonary opacities bilaterally along with superimposed heterogeneous opacities in the mid to upper right lung and upper left lung. Findings could represent pulmonary edema, hypersensitivity
pneumonitis, or severe viral pneumonia
01/03/25 Brain MRI: Multiple foci of restricted diffusion involving the bifrontal white matter as well as the bilateral cerebellar hemispheres which likely represents acute/subacute infarctions. The right cerebellar hemisphere infarction is
associated with mild surrounding edema as well as a small focus of intrinsic T1 shortening which likely represents hemorrhagic conversion. Given the multi vascular territory this may be embolic in nature
01/05/[address]: Findings suggesting severe volume overload or third spacing. No definitive abscess identified.
Care Review
Plan reviewed with: Physician (Dr. Puckett)
[2025-01-07] MEDS: ATIVAN 2 MG IV (08:56)
[2025-01-07] MEDS: ZOVIRAX INJECTION 108 MG IV ×2 (09:04→20:14)
[2025-01-07] MEDS: REFRESH EYE DROPS (PF) 1 DROPS OPHTH ×2 (09:04→12:50)
--- NOTE | 2025-01-07 09:21 | PTCARENOTE ---
Pt turned and repositioned, back rubbed, lotion applied, pt began with rhythmic twitching of head and arms, Drs. Puckett and Andres at bedside, orders for stat 2 mg Ativan rec'd and administered. Kristen was updated by phone by Dr. Puckett. Plan
discussed in grand rounds with care team, no further blood products to be given. Tube feeds stopped due to high residuals as per Dr. Puckett, +3-4 generalized anasarca noted. Safe environment continues.
[2025-01-07] MEDS: NSS (PRESERVATIVE FREE) 10 ML IV (09:30)
[2025-01-07] MEDS: MIRALAX 17 GRAMS TUBE (09:30)
[2025-01-07] MEDS: SENNA SYRUP 8.8 MG TUBE ×2 (09:31→20:13)
[2025-01-07] MEDS: PROTONIX IV 40 MG IV (09:31)
[2025-01-07] MEDS: PRECEDEX 100 IV ×2 (09:31→23:40)
[2025-01-07] MEDS: VITAMIN B1 100 MG TUBE ×2 (09:31→20:13)
[2025-01-07 09:42] VITALS: BP 132/57
--- NOTE | 2025-01-07 10:16 | W.PN.UPDATE ---
Update Note
Progress Note Update
I saw and evaluated the patient. I reviewed the resident�s note and agree with findings and plan as documented in the resident�s note.
Intubated/sedated. Had a seizure this AM, ativan given, seizure activity resolved.
Gen: NAD, appears chronically ill
CV: remains RRR, +S1/S2, no m/r/g.
Resp: remains CTAB anteriorly, no rales, wheezes, or rhonchi.
Abd: +BS, soft, NT, minimal distention
Skin: L medial thigh erythema. 3+ B/L UE edema.
Neuro: sedated
01/02/25 17:08 Blood/Venous Blood Culture - Preliminary
No Growth in 4 days- Final report to follow
01/03/25 17:12 Sputum Fungal Culture - Preliminary
Culture in progress.
Positive cultures are reported as soon as detected.
Final report to follow in four to five weeks.
01/01/25 12:41 Blood/Venous Blood Culture - Final
No Growth - Final Report
01/01/25 11:44 Blood/Venous Blood Culture - Final
No Growth - Final Report
01/03/25 17:12 Tracheal Aspirate Respiratory Culture - Final
NO GROWTH
01/03/25 17:12 Tracheal Aspirate Gram Stain - Final
01/03/25 03:51 Sputum Respiratory Culture - Final
NO GROWTH
01/03/25 03:51 Sputum Gram Stain - Final
01/01/25 08:17 Blood/Venous Blood Culture - Final
Streptococcus pneumoniae
01/01/25 08:17 Blood/Venous Gram Stain - Final
01/01/25 08:16 Blood/Venous Blood Culture - Final
Streptococcus pneumoniae
01/01/25 08:16 Blood/Venous Gram Stain - Final
01/01/25 20:00 Urine Urine Culture - Final
NO GROWTH
01/01/25 17:32 Nose MRSA Screen - Final
No Methicillin Resistant Staphylococcus aureus isolated.
01/01/25 08:31 Urine Urine Culture - Final
NO GROWTH
01/01/25 08:17 Nasal Swab Influenza Types A & B (ISIAH) - Final
Negative for Influenza A & B, NAAT
Negative results must be combined with clinical observations
and patient history.
Nucleic Acid Amplification test (NAAT)performed on the
[employer] platform.
CXR 01/06/25: Patchy bilateral parenchymal opacities, most likely representing bilateral pneumonia. Fairly stable appearance from most recent radiograph.
CT RLE 01/05/25: Findings suggesting severe volume overload or third spacing. No definitive abscess identified. Mild right hip osteoarthritis.
MRI brain 01/03/25: Multiple foci of restricted diffusion involving the bifrontal white matter as well as the bilateral cerebellar hemispheres which likely represents acute/subacute infarctions. The right cerebellar hemisphere infarction is
associated with mild surrounding edema as well as a small focus of intrinsic T1 shortening which likely represents hemorrhagic conversion. Given the multi vascular territory this may be embolic in nature. An underlying right cerebellar lesion or
small vascular malformations considered unlikely although a 12 week follow-up MRI brain should be considered.
CT C/A/P 01/01/25: Overall limited study as a result of lack of oral contrast and some beam hardening artifact from the patient's bilateral upper extremities. Bilateral pulmonary nodular parenchymal opacities again seen some of which with central
cavitation and overall prominence of the pulmonary interstitium again seen, somewhat similar to prior study with at least one new subcentimeter opacity in the right upper lobe. Again, some of several differential diagnostic possibilities again
include atypical infection, septic pulmonary emboli, Bandar's granulomatosis and less likely metastases. Small anterior pericardial effusion. Fluid-filled dilated stomach and fluid-filled thoracic esophagus. Fluid-filled loops of small bowel,
nonspecific, cannot exclude enteritis.
B/L LE U/S: No evidence of deep venous thrombosis of the lower extremities bilaterally.
Septic shock due to B/L PNA:
-noting that definitive source cannot be determined as further investigation is limited by severe thrombocytopenia. Patient cannot have KELLIE/LP and also would not be a valve replacement candidate for this reason.
-Strep pneumoniae bacteremia
-neutropenic fever
-acute metabolic encephalopathy
-lactic acidosis, now resolved
-s/p 6L NS on admission followed by maintenance IVFs, now off IVFs
-cont Vanco/Rocephin/Acyclovir as per ID
-remains pancytopenic/neutropenic/febrile
-cont vasopressors, currently on Isael/vasopressin
Acute hypoxemic respiratory failure:
-with acute toxic metabolic encephalopathy
-intubated 01/02/25
Acute/subacute CVAs:
-MRI brain above, suspect acute/subacute infarctions represent septic emboli
-neuro saw in c/s, unable to work up or tx further with severe thrombocytopenia (see above)
-seizure this AM likely due to septic embolie
Acute AML:
-with severe pancytopenia and neutropenic fever
-ONC following, no role for transfer to tertiary center
-had recent induction chemo which was held on admission
-pt had been supported with CMV NEG/irradiated/leukoreduced blood products (pRBCs/plts/ffp)
Acute Rhabdomyolysis:
-elevated CPK most likely due to statin/voriconazole combo
-resolved with IVFs
-never had CAROLINE
Severe hypovolemic Hyponatremia:
-now resolved
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
Other problems:
Hypocalcemia
Hypokalemia, replete
Recent SUZIE PE: Cannot anticoagulate with severe thrombocytopenia
HLD: holding statin with rhabdomyolysis and transaminitis
DNR/SCDs
Care at this time is futile. Palliative care and community worker following.
Total critical care time spent = 32 min
[2025-01-07] MEDS: ROCEPHIN 2000 MG IV ×2 (10:24→21:44)
[2025-01-07] MEDS: STERILE WATER FOR INJECTION 20 ML IV ×2 (10:24→21:44)
--- NOTE | 2025-01-07 11:14 | W.PN.NEPH.PH ---
Today's Communication / Plan
-
Signed off
Assessment/Plan
-
IMP:
Neutropenic fever with severe sepsis and lactic acidosis
Gram-positive bacteremia in setting of neutropenia
Acute respiratory failure
Acute on chronic Hyponatremia
Acute metabolic encephalopathy/ delirium
Rhabdomyolysis
Pancytopenia
Bilateral pulmonary nodular opacities, some cavitary
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
SUZIE PE, diagnosed 11/2024
HLD
Hyponatremia
Elevated LFTs
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
Plan:
A/w AMS, fever-sepsis
Acute on chr hyponatremia-suspect multifactorial
underlying SIADH , high free water intake+sepsis
U osmo 449, U na low 13
Nonoliguric via Garcia
maintain pressor to keep MAP>65
cr seem stable at 0.5
hypocalcemia-keep prn IV riders,
now intubated this am as he remains obtunded
Maintain pressor support to keep MAP at 65 or greater
abx per ID- strep pneumo bacteremia, neutropenic fever
prn transfusion for anemia, monitor thrombocytopenia
s/p MRI of head : Acute and subacute infarctions throughout bilateral cerebral hemispheres
Patient critically ill on vent support for respiratory failure and pressor support in the setting of sepsis and hemodynamic instability
d/w ICU and nursing
Sodium stable
Will sign off
-
-
Date of Service: January 07, 2025
CC / HPI / ROS
-
Chief Complaint:
Hypoantremia
History of Present Illness:
sodium at 135 this am
intubated for AMS and hypoxia
cr normal, k low side
marisol improving to 7.1
Requiring pressor support in setting of hemodynamic instability
Review of Systems:
intubated, not responding
non oliguric with garcia, wt is up
Labs
-
Labs:
WBC 0.3 10^3/uL (4.8-10.8) L* 01/07/25 05:08
RBC 2.34 10^6/uL (4.70-6.10) L 01/07/25 05:08
Hgb 6.8 g/dL (13.0-18.0) L* 01/07/25 05:08
Hct 19.8 % (39.0-52.0) L* 01/07/25 05:08
Plt Count 6 10^3/uL (130-400) L* 01/07/25 05:08
Sodium 141 mmol/L (135-145) 01/07/25 05:08
Potassium 3.4 mmol/L (3.5-5.1) L 01/07/25 05:08
Chloride 113 mmol/L (98-107) H 01/07/25 05:08
Carbon Dioxide 24 mmol/L (22-30) 01/07/25 05:08
BUN 22 mg/dl (9-20) H 01/07/25 05:08
Creatinine 0.5 mg/dL (0.7-1.3) L 01/07/25 05:08
eGFR > 60.00 01/07/25 05:08
Glucose 77 mg/dl (70-99) 01/07/25 05:08
Calcium 7.4 mg/dl (8.4-10.2) L 01/07/25 05:08
Phosphorus 2.6 mg/dl (2.5-4.5) 01/01/25 11:26
Albumin 1.9 g/dl (3.5-5.0) L 01/03/25 20:01
Physical Exam
-
Vital Signs:
Vital Signs
Temp Pulse Resp BP Pulse Ox
98 F 72 25 132/57 100
01/07/25 07:16 01/07/25 10:00 01/07/25 10:00 01/07/25 09:42 01/07/25 10:00
Respiratory:: Bilateral: Coarse
Lung Excursion:: Normal
Abdomen:: Soft
Bowel Sounds:: Decreased
Extremity Edema:: +1: Bilateral:
--- NOTE | 2025-01-07 15:09 | PTCARENOTE ---
ETT migrated out approx slightly -tube mera changed, tube moved to right side of mouth, confirmed placement is at 25 mo at the lip.
--- NOTE | 2025-01-07 16:35 | PTCARENOTE ---
Family arrived in room, nursing update provided. Requesting to speak with networking technician. Dr. Puckett notified via TT. Pt agreeable to resaw tailer visit for emotional support. Industrial Chemist contacted to reach complaint evaluation supervisor resaw tailer.
--- NOTE | 2025-01-07 16:49 | W.PN.UPDATE ---
Update Note
Progress Note Update
Met with family at their request. , daughter and [id number] present
Family was updated with regards to clinical course including seizure activity this morning, lack of responsiveness over the last 24 hours, worsening mental status, persistent pancytopenia.
Family has decided on withdrawal of care on 01/08
Reviewed process of comfort measures, withdrawal of care at length.
Reviewed with and daughter that primary goal is to assure comfort to the best of our ability
No further testing will be done moving forward
Once family decides on timing of withdrawal of care, all medications will be discontinued.
Will assess comfort on spontaneous breathing mode and pursue extubation, with comfort being primary goal
All questions answered
Reviewed with CCN
--- NOTE | 2025-01-07 16:58 | PTCARENOTE ---
Plan reviewed with Dr. Puckett after he met with family. Will withdraw care tomorrow, timing TBD based on arrival of other family members. For now, medications to continue as ordered, however, no more lab testing to be done. Comfort of patient is
priority going forward.
[2025-01-07] MEDS: VANCOCIN 275 MG IV (17:04)
[2025-01-07] MEDS: TYLENOL 650 MG PO (20:28)
--- NOTE | 2025-01-07 20:53 | PTCARENOTE ---
Received pt from previous RN. Pt is unresponsive, weak gag, pupils b/l 3 sluggish, neuro checks Q4 (see worklist). NSR on the monitor. ETT #8 at 25 cm, AC 22/500/40%/5. OG @ 63 cm, abd firm/round, hypoactive. Nugent in place for I&O, scrotal edema.
Dex, Isael and vaso gtts maintained (see worklist). Mouth care provided. [place] zeroed and transduced. Safe environment maintained.
[2025-01-07] MEDS: PITRESSIN IV (21:44)
--- NOTE | 2025-01-08 00:22 | PTCARENOTE ---
Systems reviewed, no new changes in assessment. Gtts maintained (see worklist). Safe environment maintained.
--- NOTE | 2025-01-08 02:50 | DOWNTIME ---
There was a [employer] Client Taper Operator Downtime on 01/08/2025 from 0100 to 01/08/2025 at 0235. Downtime documentation of patient's care, including medication administrations, has been reconciled in the electronic record per guidelines. Refer to the
patient's paper chart under the miscellaneous tab to see printed paper medication records and downtime forms.
[2025-01-08 03:36] VITALS: BMI 26.0
--- NOTE | 2025-01-08 03:37 | PTCARENOTE ---
Systems reviewed, no new changes in assessment. Dex, tr and vaso maintained (see worklist). Safe environment maintained.
[2025-01-08] MEDS: VANCOCIN 275 MG IV (05:39)
--- NOTE | 2025-01-08 06:51 | W.PN.INTV ---
Today's Communication / Plan
Recommendations
Patient remains unresponsive with sedation vacation
Fentanyl, diazepam for comfort
Eventual withdrawal of care later today once family arrives
Assessment
-
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 Patient quite delirious during my
evaluation and unable to provide any meaningful history. Information mostly obtained from patient's at bedside as well as review of records. Reportedly over the last 24 hours patient has been slightly getting more confused and noted
fever last night and this morning he appeared to be very confused. She does not report any cough, chills, vomiting diarrhea, hemoptysis or hematemesis. She reports a known history of hemorrhoids and occasional small-volume blood per rectum. No
lucy bloody diarrhea reported. No sick contacts reported. Patient has been on chemotherapy for AML and reportedly last dose about 2 weeks ago. Patient has prior history of alcoholism and heavy smoking which he stopped about 8 to 9 months ago and
currently not actively drinking per patient's . In the emergency room patient was noted to be septic with elevated lactate, neutropenia, high-grade fever. Patient was given 30 mL/kg fluid resuscitation and was started on broad-spectrum
antibiotics. In view of tachycardia, encephalopathy, elevated lactate, patient was admitted to ICU and director of early childhood education consultation was requested for further input.
01/08 overview: Await withdrawal of care
#1. Septic shock with Strep Pneumoniae Bacteremia with neutropenia and lactic acidosis
- 30 mL/kg IV fluid resuscitation in the emergency room
- Currently on ceftriaxone, infectious disease service on case. Resumed acyclovir. Fungal cultures have stayed negative, off voriconazole now
- Suspect pulmonary source of strep pneumoniae bacteremia
- CT chest abdomen pelvis reviewed no significant acute change compared to last imaging
- Improved serial lactate
- Continue phenylephrine to keep MAP above 65. Central line and arterial line placed 01/02. Now remains on vasopressin and phenylephrine increased to 160
- 01/05, Increased redness posterior right thigh noted, vancomycin resumed, CT with contrast right lower extremity ordered. Arterial study unremarkable
- Persistent fevers noted. Plan for withdrawal of care later today
#2. Acute respiratory failure with severe encephalopathy 01/02
- Patient currently on Precedex at 0.3. Withdraws to stimulation. Briefly opens eyes, appears little more responsive. Patient develops ventilator asynchrony and is requiring a low-dose Precedex, continue to wean as tolerated, fentanyl as needed
- 01/02, patient was emergently intubated in view of severe encephalopathy and inability to protect airway along with septic shock, rapid sequence intubation, mechanically ventilated since
- MRI brain suggestive of multiple areas suspicious for embolic infarct. Neurology service on case. In view of septic shock and bacteremia, septic emboli with underlying infective endocarditis also in differential diagnosis.
- Patient has severe coagulopathy with thrombocytopenia, not a candidate for antiplatelet or antithrombotic therapy for now
- Continue telemetry to monitor for any atrial fibrillation/atrial flutter
- 2D echo unremarkable. Will eventually need KELLIE. Cardiology consult will be deferred to primary service given multisystem organ failure, extremely poor prognosis. Not sure whether findings of endocarditis will help change person at this time
- Patient transitioned to volume cycle ventilation 01/06. ABG with adequate ventilation, oxygenation. No changes at this time
- Family has decided on withdrawal of care, await later today
#3. Rhabdomyolysis, severe.
- Suspect rhabdomyolysis related to voriconazole and Lipitor therapy together.
- Lipitor has been on hold, CK level went up to 10,000, subsequently declining
- Significant positive fluid balance, IV fluids discontinued 01/04.
- Diuresis initiated 01/05, remains positive fluid balance
- Family has decided on withdrawal of care, await later today
#4. Hyponatremia, likely symptomatic
- Suspect hypovolemic hyponatremia considering decreased chloride as well as urine sodium of 14
- Family has decided on withdrawal of care, await later today
#5. Acute metabolic encephalopathy/Multifocal CVA
- Multiple strokes noted on MRI, which are contributing to encephalopathy in addition to severe metabolic derangements.
- Patient was quite agitated in the ICU pulling on tubes, required restraints on admission 01/01
- Progressively more encephalopathy, obtunded on 01/02, needed to be intubated for airway protection
- Continue high-dose thiamine with prior history of alcoholism, decrease dosing per protocol
- Eliquis has been placed on hold in case lumbar puncture needs to be pursued in future. Patient is very coagulopathic for safe lumbar puncture
- Patient remains unresponsive since 01/06. Seizure-like cavity morning of 01/07, spontaneously resolved, given 2 mg of Ativan
- Unfortunately, clinical status is approaching futility at this time. Reviewed with by phone 01/07 in a.m.. Would like to hold off on further transfusions at this time
- Family has decided on withdrawal of care, await later today
#6. Bilateral pulmonary nodular opacities, some cavitary
- Differential diagnosis include infection, inflammation like GPA versus malignancy
- S/p IR guided biopsy 12/2024, pathology results are pending
- Cultures have stayed negative in the past, positive mold as of 01/06. ID following. Other cultures negative for fungal organism
- Continue broad-spectrum antibiotic, await final pathology results
- ANCA normal
- Prior history of asbestos exposure however would not explain parenchymal nodules. Suspected prior granulomatous disease.
- History of [id number] smoking history, no formal diagnosis of COPD or asthma.
- Now that patient is intubated, tracheal cultures negative to date
- Family has decided on withdrawal of care, await later today
#7. 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
- Has been on chemotherapy, follows up with [facility] and [facility]
- Hematology/Oncology consult
- Status post blood transfusions, platelet transfusion, keep platelet count above 10K unless active bleeding noted in which case will need to aim for a higher target.
- Prognosis appears to be poor from critical care standpoint given multisystem organ dysfunction in the setting of multiple brain lesions, severe pancytopenia requiring multiple platelet transfusions
- Family has decided on withdrawal of care, await later today
#8. SUZIE PE, diagnosed 11/2024
- Patient is very coagulopathic with severe thrombocytopenia requiring transfusions as well as elevated INR
- Continue to hold Eliquis, s/p vitamin K IV
- Lower extremity duplex this admission without any DVT. CT chest with contrast reviewed without any large central pulmonary embolism, can monitor off anticoagulation for now
- Depending upon clinical course, if unable to resume anticoagulation in near future, will need to consider placement of IVC filter. However at this time further intervention may be considered futile
- Family has decided on withdrawal of care, await later today
Patient evaluated off Precedex. Remains unresponsive
Patient evaluated on CPAP. Tachypnea worsens, respiratory rate in the 40s
Initiate fentanyl drip, diazepam as needed for anxiety/agitation in anticipation of withdrawal of care
Await family arrival
Other medical diagnoses:
- Mucositis
- H/o Thrush
DVT prophylaxis, SCDs for now. Hold Eliquis in view of anemia and mild hematochezia.
Critical Care time 35 mins -- The patient is admitted for acute critical illness for the treatment of vital organ failure and/or prevention of further life-threatening conditions. Total care includes time spent in review of history, physical exam,
medications, hemodynamic/ventilator parameters, laboratory data, imaging and discussion with house staff, pharmacy, respiratory therapy, director business intelligence, and nursing.
Updated at length by phone 01/07 in a.m. regarding seizure activity and worsening anemia. Decision was made to hold off on further transfusions. Family will be arriving later today.
suggested that withdrawal of care decision will be made later today
Data:
MRI brain 12/2024: Multiple foci of restricted diffusion involving the bifrontal white matter as well as the bilateral cerebellar hemispheres which likely represents acute/subacute infarctions. The right cerebellar hemisphere infarction is
associated with mild surrounding edema as well as a small focus of intrinsic T1 shortening which likely represents hemorrhagic conversion. Given the multi vascular territory this may be embolic in nature. An underlying right cerebellar lesion or
small vascular malformations considered unlikely although a 12 week follow-up MRI brain should be considered.
ECHO 12/2024: 1. Normal size left ventricle with normal wall thickness and global hypokinesis, EF 39%.
2. Thickened mitral leaflets with moderate mitral regurgitation and normal left atrium.
3. Aortic sclerosis without stenosis or regurgitation.
4. Normal right heart, pulmonary artery systolic pressure is 39 mmHg.
5. No cardiac source of embolism is identified.
6. There are no prior studies available for comparison.
US LE 12/2024: No DVT noted
CT C/A/P 12/2024: Bilateral pulmonary nodular parenchymal opacities again seen some of which with central cavitation and overall prominence of the pulmonary interstitium again seen, somewhat similar to prior study with at least one new subcentimeter
opacity in the right upper lobe. Again, some of several differential diagnostic possibilities again include atypical infection, septic pulmonary emboli, Bandar's granulomatosis and less likely metastases.
Small anterior pericardial effusion.
Fluid-filled dilated stomach and fluid-filled thoracic esophagus.
Fluid-filled loops of small bowel, nonspecific, cannot exclude enteritis.
Subjective Dataa
Subjective Data
Date of Service:
Date of Service: January 08, 2025
Subjective:
Unfortunately, patient remains critically ill. Remains unresponsive. Precedex was off earlier today, all sedation off. With this, patient remains unresponsive. Remains on phenylephrine and vasopressin
Objective Data
Data Reviewed
Vital Signs / I&O / Oxygen:
Vital Signs
Temp Pulse Resp BP Pulse Ox
99.8 F 75 19 132/57 99
01/08/25 03:36 01/08/25 06:30 01/08/25 06:30 01/07/25 09:42 01/08/25 06:30
Intake and Output
01/06/25 01/07/25 01/08/25
06:59 06:59 06:59
Intake Total 5660.6 / 5807.2 4342.2 / 4486.4 1946.8 / 1946.8
Output Total 3470 / 3590 2210 / 2340 2330 / 2330
Balance 2190.6 / 2217.2 2132.2 / 2146.4 -383.2 / -383.2
SaO2 [APV] 100
SaO2 [A/C] 100
SaO2 99
Nasal Cannula flow liters per 4
minute
Physical Exam
General: Comfortable
HEENT: Normocephalic and Other (Right lid lag)
Cardiovascular: S1-S2, Regular Rhythm, Murmur (n), Rub (n) and Peripheral Edema (tr)
Respiratory: Clear, Wheeze (n), Crackles (n), Rhonchi (few), Crepitus (n), ET Tube and Other (Tachypneic when transition to CPAP off of Precedex)
GI: Soft and Non Distended
Neurology: Unresponsive (Remains unresponsive off of sedation) and Other (Remains unresponsive for me. )
Skin: Other (Lower extremity rash, right greater than left)
Labs/Micro/Reports
Lab Data
01/07/25 05:08
01/07/25 05:08
Microbiology
01/02/25 17:08 Blood/Venous Blood Culture - Final
No Growth - Final Report
01/03/25 17:12 Sputum Fungal Culture - Preliminary
Culture in progress.
Positive cultures are reported as soon as detected.
Final report to follow in four to five weeks.
01/01/25 12:41 Blood/Venous Blood Culture - Final
No Growth - Final Report
01/01/25 11:44 Blood/Venous Blood Culture - Final
No Growth - Final Report
01/03/25 17:12 Tracheal Aspirate Respiratory Culture - Final
NO GROWTH
01/03/25 17:12 Tracheal Aspirate Gram Stain - Final
01/03/25 03:51 Sputum Respiratory Culture - Final
NO GROWTH
01/03/25 03:51 Sputum Gram Stain - Final
[2025-01-08] MEDS: NSS (PRESERVATIVE FREE) 10 ML IV (07:46)
[2025-01-08] MEDS: VITAMIN B1 100 MG TUBE (07:46)
[2025-01-08] MEDS: MIRALAX 17 GRAMS TUBE (07:46)
[2025-01-08] MEDS: SENNA SYRUP 8.8 MG TUBE (07:46)
[2025-01-08] MEDS: ZOVIRAX INJECTION 108 MG IV (07:47)
[2025-01-08] MEDS: PROTONIX IV 40 MG IV (07:47)
--- NOTE | 2025-01-08 07:55 | W.PN.UPDATE ---
Update Note
Progress Note Update
I saw and evaluated the patient. I reviewed the resident�s note and agree with findings and plan as documented in the resident�s note.
Intubated/sedated.
Gen: NAD, appears chronically ill
CV: continues to remain RRR, +S1/S2, no m/r/g.
Resp: continues to remain CTAB anteriorly, no rales, wheezes, or rhonchi.
Abd: hypoactive BS, soft, NT, ND
Skin: 3+ B/L UE edema.
Neuro: sedated
01/02/25 17:08 Blood/Venous Blood Culture - Final
No Growth - Final Report
01/03/25 17:12 Sputum Fungal Culture - Preliminary
Culture in progress.
Positive cultures are reported as soon as detected.
Final report to follow in four to five weeks.
01/01/25 12:41 Blood/Venous Blood Culture - Final
No Growth - Final Report
01/01/25 11:44 Blood/Venous Blood Culture - Final
No Growth - Final Report
01/03/25 17:12 Tracheal Aspirate Respiratory Culture - Final
NO GROWTH
01/03/25 17:12 Tracheal Aspirate Gram Stain - Final
01/03/25 03:51 Sputum Respiratory Culture - Final
NO GROWTH
01/03/25 03:51 Sputum Gram Stain - Final
01/01/25 08:17 Blood/Venous Blood Culture - Final
Streptococcus pneumoniae
01/01/25 08:17 Blood/Venous Gram Stain - Final
01/01/25 08:16 Blood/Venous Blood Culture - Final
Streptococcus pneumoniae
01/01/25 08:16 Blood/Venous Gram Stain - Final
01/01/25 20:00 Urine Urine Culture - Final
NO GROWTH
01/01/25 17:32 Nose MRSA Screen - Final
No Methicillin Resistant Staphylococcus aureus isolated.
01/01/25 08:31 Urine Urine Culture - Final
NO GROWTH
01/01/25 08:17 Nasal Swab Influenza Types A & B (ISIAH) - Final
Negative for Influenza A & B, NAAT
Negative results must be combined with clinical observations
and patient history.
Nucleic Acid Amplification test (NAAT)performed on the
[employer] platform.
CXR 01/06/25: Patchy bilateral parenchymal opacities, most likely representing bilateral pneumonia. Fairly stable appearance from most recent radiograph.
CT RLE 01/05/25: Findings suggesting severe volume overload or third spacing. No definitive abscess identified. Mild right hip osteoarthritis.
MRI brain 01/03/25: Multiple foci of restricted diffusion involving the bifrontal white matter as well as the bilateral cerebellar hemispheres which likely represents acute/subacute infarctions. The right cerebellar hemisphere infarction is
associated with mild surrounding edema as well as a small focus of intrinsic T1 shortening which likely represents hemorrhagic conversion. Given the multi vascular territory this may be embolic in nature. An underlying right cerebellar lesion or
small vascular malformations considered unlikely although a 12 week follow-up MRI brain should be considered.
CT C/A/P 01/01/25: Overall limited study as a result of lack of oral contrast and some beam hardening artifact from the patient's bilateral upper extremities. Bilateral pulmonary nodular parenchymal opacities again seen some of which with central
cavitation and overall prominence of the pulmonary interstitium again seen, somewhat similar to prior study with at least one new subcentimeter opacity in the right upper lobe. Again, some of several differential diagnostic possibilities again
include atypical infection, septic pulmonary emboli, Bandar's granulomatosis and less likely metastases. Small anterior pericardial effusion. Fluid-filled dilated stomach and fluid-filled thoracic esophagus. Fluid-filled loops of small bowel,
nonspecific, cannot exclude enteritis.
B/L LE U/S: No evidence of deep venous thrombosis of the lower extremities bilaterally.
Septic shock due to B/L PNA:
-noting that definitive source cannot be determined as further investigation is limited by severe thrombocytopenia. Patient cannot have KELLIE/LP and also would not be a valve replacement candidate for this reason.
-Strep pneumoniae bacteremia
-neutropenic fever
-acute metabolic encephalopathy
-lactic acidosis, now resolved
-s/p 6L NS on admission followed by maintenance IVFs, now off IVFs
-cont Vanco/Rocephin/Acyclovir as per ID
-remains pancytopenic/neutropenic/febrile
-cont vasopressors, currently on Isael/vasopressin
Acute hypoxemic respiratory failure:
-with acute toxic metabolic encephalopathy
-intubated 01/02/25
Acute/subacute CVAs:
-MRI brain above, suspect acute/subacute infarctions represent septic emboli
-neuro saw in c/s, unable to work up or tx further with severe thrombocytopenia (see above)
-seizure 01/07/25AM likely due to septic emboli
Acute AML:
-with severe pancytopenia and neutropenic fever
-ONC following, no role for transfer to tertiary center
-had recent induction chemo which was held on admission
-pt had been supported with CMV NEG/irradiated/leukoreduced blood products (pRBCs/plts/ffp)
Acute Rhabdomyolysis:
-elevated CPK most likely due to statin/voriconazole combo
-resolved with IVFs
-never had CAROLINE
Severe hypovolemic Hyponatremia:
-now resolved
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
Other problems:
Hypocalcemia
Hypokalemia, replete
Recent SUZIE PE: Cannot anticoagulate with severe thrombocytopenia
HLD: holding statin with rhabdomyolysis and transaminitis
Patient is for withdrawal of care today.
DNR/SCDs
Total critical care time spent = 32 min
--- NOTE | 2025-01-08 09:11 | W.PN.HOSP.TC ---
Today's Communication/Plan
-
- continue antibiotics, trend labs, pts family plans on withdrawing care
Assessment / Plan
Assessment / Plan
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 Futhur testing will be dc'd. As per family wishes and cell assembly pinner note, they will withdraw care today on 01/08/2025. Depending on timing of withdrawing care, all medications will be dc'd and
patient will be extubated after spontaneous breathing trial.
Septic shock due to strep pneumo bacteremia in the setting of neutropenic fever
Acute hypoxemic respiratory failure
Increased work of breathing tachypneic
Third spacing:
- patient is acutely confused, lethargic, weak, with fever and chills on admission, 2 of the 4 sepsis criteria were met on SIRS.30 mL/kg IV fluid resuscitation in the emergency room, then normal saline continuous infusion.
- Lactic acid on admission was 4.8 trending down to 1.6 most recent.
- Infectious disease, neurology, and oncology were consulted
- on 01/02 patient was awake but not alert or oriented, tachypneic, tachycardic, febrile, and with mottling on bilateral lower extremities. He meets the 3 criteria for septic shock.
- patient intubated, vasopressin added due to negligable effect on HR compared to other pressors
- First blood culture shows streptococcus pneumoniae repeat blood cultures negative , and urine cultures negative ( less likely a genitourinary source of sepsis), tracheal culture this morning pending. Continue ceftriaxone to cover most gram
positives and gram negatives, and Vancomycin to be continued for MRSA
- Continued Acyclovir as per ID recommendations. Consulted ID regarding further medication management for a potential fungal source of sepsis. Was on meropenem but that dc'd. fungal culture is still pending. Cant use voriconazole as it might
have interacted with statins and contributed to his rhabdomyolysis.
- Iv fluids d5/NS discontinued as sodium has normalized today
- continue on propofol and fentanyl for sedation and pain control, phenylephrine to maintain MAP over 65.
- TTE echocardiogram ordered to check for a septic source from bacteria in the heart valves such as in bacterial endocarditis negative, however lizzy pending (01/02)
- Chest x rays ordered. Bilateral interstitial and possible alveolar opacities, edema versus pneumonia most likely. We are covering with ceftriaxone. Vancomycin stopped due to isolate being suspectible to ceftriaxone.
- Will consider a lumbar puncture to rule out sepsis source from CSF. He is on empiric antibiotics. however, he is not hemodynamically stable yet and has altered consciousness, along with severely low platelet count, needs platelets of >50k.
- MRI shows Multiple foci of restricted diffusion involving the bifrontal white matter as well as the bilateral cerebellar hemispheres which likely represents acute/subacute infarctions. LIZZY recc to look for cardiac cause possible an emboli.
consulted cardiology in regards to performing procedure however due to the thrombocytopenia (<10), they did not want to attempt LIZZY. We also cannot anticoagulate patient as he cannot be on aspirin/ plavix due to bleed risk.
- Trend CPK, CMP, CBC, uric acid check LDH
- Lasix protocol as per nephro given to kirille patient for edema and rising weights ( 81.4 kg today compared to 80.3 yesterday)
- CT right lower extremity shows No focal fluid collections to suggest an abscess are noted. There is diffuse increased density to the soft tissues and musculature of the right thigh suggesting volume overload or third spacing. The imaged osseous
structures are notable destruction.
Erythema of right inner thigh:
- CT scan negative for necrotizing fascitis
- Patient on empiric antibiotics. continue to monitor for increase in redness and growth.
Poikilothermia of the right lower extremity ( 01/04/25):
- The right lower extremity on touch is noticeably cooler than the left lower extremity. No color change or pulselessness. Ordered arterial Doppler of the lower extremities , awaiting results.
- DD is acute arterial occlusion due to embolism vs thrombosis from AML, vs DIC. Will get a fibrinogen level tomm.
- cannot use heparin in case of occlusion due to bleeding risk
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
Acute anemia in the setting on his AML
Pancytopenia:
- Oncology consulted
- held patients Venclexta for now,
- Patient has had 4 units of cmv negative irradiated leukoreduced blood
- most recent WBC is 0.2, hgb6.8 platelet count is 6 ( total 11 unit of platelets ordered since admission ), absolute nuetrophils/ lymphs/ mono= 0, patient is on empiric antibiotic coverage and fungal coverage, temperature is 102.6
- Held eliquis
Elevated CPK most likely due to rhabdomyolysis caused by likely statin/voriconazole combo:
- on physical exam, patient states he has bilateral lower extremity muscle tenderness in his legs. Tenderness to palpation on physical examination.
- Urine analysis positive for blood but not RBC's.
- Initiated aggressive fluid therapy.
- most recent CPK is 335 trending down
Severe hypovolemic Hyponatremia :
- Consulted nephrology
- patient is confused, disoriented, and weak.
- Multifactorial due to underlying SIADH, high free water intake and sepsis.
- Suspect hypovolemic hyponatremia with urine sodium of 13 and normal urine osmololaity
- Trend BMP every 4 hours
- Today levels are 138, continue to trend BMP
Tumour lysis prevention:
- on most recent discharge, patients uric acid level was 1.9, today his uric acid level is 2.1.
- trend LDH and uric acid level
SUZIE PE:
- Diagnosed on previous admission and patient was started on eliquis 5 mg bid
- Patients vitals are stable, CT chest with contrast negative for PE
- Holding Eliquis due to bleeding risk
- Placed on SCD's as DVT ppx in the ICU
Hyperlipidemia:
- Hold statins due to increased AST/ALT
Full code
DVT ppx: SCD's
Anticipated Discharge: Today
Subjective/Interval History
-
Date of Service: January 08, 2025
Patient is intubated with vasopressin, phenylephrine, dexmedetomidine.
Objective Data
-
Labs:
Laboratory Results
01/08/25
07:52
WBC Cancelled
Hgb Cancelled
Hct Cancelled
Plt Count Cancelled
Sodium Cancelled
Potassium Cancelled
Chloride Cancelled
Carbon Dioxide Cancelled
BUN Cancelled
Creatinine Cancelled
Glucose Cancelled
Calcium Cancelled
Total Bilirubin Cancelled
AST Cancelled
ALT Cancelled
Alkaline Phosphatase Cancelled
Vital Signs:
Vital Signs
Temp Pulse Resp BP Pulse Ox
102.6 F H 82 20 132/57 99
01/08/25 08:00 01/08/25 08:30 01/08/25 08:30 01/07/25 09:42 01/08/25 08:30
I&O
01/07/25 01/08/25 01/09/25
06:59 06:59 06:59
Intake Total 4342.2 / 4486.4 1946.8 / 1981.0 202.6 / 202.6
Output Total 2210 / 2340 2330 / 2330 365 / 365
Balance 2132.2 / 2146.4 -383.2 / -349.0 -162.4 / -162.4
Review of Systems
-
Unable to obtain full review of systems at this time due to: Patient Intubation
Physical Exam
-
General: Intubated
Cardiac: Regular Rhythm and S1/S2
GI: Soft, Nontender, Nondistended and Normal Bowel Sounds
Genito-urinary: Nugent
Skin: Dry and Other (mottling on bilateral extremities has significantly improved, erythematous rash on inner side of right thigh)
Neuro: Sedated
Data Reviewed
-
Labs: Labs Reviewed by me and Discussed with Physician
--- NOTE | 2025-01-08 09:47 | PHA.VAN.FU ---
Vancomycin Assessment / Plan
- Assessment
Renal Function: No New Labs Today
In the past 24 hrs, patient has been: Febrile
Concomitant Antimicrobials: ceftriaxone
- Dosing Plan
Continue: 1250mg q12h
- Monitoring Plan
No level(s) ordered at this time: consider within next few days as pt approaches steady state
- Follow Up
Pharmacy will continue to follow.
Vancomycin Follow UP
- -
Patient Age: 59
Patient Sex: Male
Vancomycin Day #: 4
Indication: Skin And Soft Tissue
Requesting Provider: Dr. Blakely
Pertinent Antimicrobial Allergies:
penicillins - unknown
Height / Weight:
Height 5 ft 10 in
Actual Weight 82.2 kg
IBW in k
Adjusted BW in k.2
Pertinent Past Medical History: AML
- Vital Signs / Lab Results
Temp Pulse Resp BP Pulse Ox
102.6 F H 82 20 132/57 99
01/08/25 08:00 01/08/25 08:30 01/08/25 08:30 01/07/25 09:42 01/08/25 08:30
Lab Results - Hematology
01/05/25 01/05/25 01/05/25
11:10 19:17 22:04
WBC 0.2 L* 0.3 L* 0.2 L*
01/06/25 01/07/25 01/08/25
03:30 05:08 07:52
WBC 0.2 L* 0.3 L* Cancelled
Lab Results - Chemistry
01/05/25 01/06/25 01/07/25
22:04 03:30 05:08
BUN 19 18 22 H
Creatinine 0.5 L 0.6 L 0.5 L
Estimated Creat Clear > 125 > 125 > 125
Albumin
01/08/25
07:52
BUN Cancelled
Creatinine Cancelled
Estimated Creat Clear Cancelled
Albumin Cancelled
Microbiology Results
01/02/25 17:08 Blood Culture - Final
Blood/Venous No Growth - Final Report
01/03/25 17:12 Fungal Culture - Preliminary
Sputum Culture in progress.
Positive cultures are reported as soon as detected.
Final report to follow in four to five weeks.
01/01/25 12:41 Blood Culture - Final
Blood/Venous No Growth - Final Report
01/01/25 11:44 Blood Culture - Final
Blood/Venous No Growth - Final Report
Therapeutic Drug Monitoring
Vancomycin Peak 23.7 ug/ml (18-26) 01/07/25 00:06
Vancomycin Trough 16.9 ug/ml (5-20) 01/07/25 05:08
[2025-01-08] MEDS: NEO-SYNEPHRINE 1% 260 MG IV (10:02)
[2025-01-08] MEDS: PITRESSIN 100 IV (10:02)
[2025-01-08] MEDS: ROCEPHIN 2000 MG IV (11:34)
[2025-01-08] MEDS: STERILE WATER FOR INJECTION 20 ML IV (11:34)
[2025-01-08] MEDS: VALIUM INJECTION 10 MG IV ×2 (13:31→16:26)
[2025-01-08] MEDS: SUBLIMAZE 80 MCG IV (13:31)
[2025-01-08] MEDS: SUBLIMAZE 100 IV (13:32)
--- NOTE | 2025-01-08 13:42 | PTCARENOTE ---
Fentanyl gtt started for comfort measures. Remains on Phenylephrine and Vasopressin at this time. Awaiting family to extubate.
--- NOTE | 2025-01-08 15:20 | CM ---
Remains intubated. Plan for withdrawal of care today when family arrives.
--- NOTE | 2025-01-08 16:37 | PTCARENOTE ---
1 kg off per HD nurse. BROCK neurovascular check WNL. Palpable radial pulse. Ambulates with steady gait. Good appetite for breakfast and lunch.
[2025-01-08] MEDS: SUBLIMAZE 100 MCG IV ×2 (16:48→17:15)
--- NOTE | 2025-01-08 17:11 | RESPNOTE ---
patient extubated at this time for comfort measures per MD order. family at bedside.
--- NOTE | 2025-01-08 17:23 | PTCARENOTE ---
Extubated to room air. PRN Fentanyl and Valium per order. BP 75/30 off pressors. Family at bedside.
--- NOTE | 2025-01-08 17:45 | PTCARENOTE ---
Addendum entered by Shandra Lazo RN 01/08/25 18:08:
1758, no HR, no respirations, unresponsive.
Original Note:
Assumed care, patient received on comfort care. On Fentanyl gtt, BP low. Agonal breathing. Family at bedside. At 1751, notable drop in HR, BP and worsening sats. Patient at 1758. Dr. Juárez notified. Emotional support and encouragement provided
to family. Family advised to stay as long as needed.
--- NOTE | 2025-01-08 18:10 | W.PN.DEATH ---
Pronouncement of
-
Called to see patient to pronounce.
No spontaneous heart tones or respirations noted.
Patient not responsive to verbal stimuli.
Patient is pronounced .
Time of : 17:58
Date of : 01/08/25
Cause of : Septic shock due to Strep Pneumoniae Bacteremia with neutropenia
Family Notified: Yes
--- NOTE | 2025-01-08 18:30 | W.DCSUMMARY ---
Discharge Summary
Discharge Data
Date of Admission: 01/01/25
Date of Discharge: 01/08/25
-
Pending Results: No
Hospital Course
Discharging Physician : Dr. Walter Juárez and Dr. Dc Toledo
Disposition : (time of 17:58)
Primary care physician : Dr. Renea Hagen
Principal Discharge diagnosis : Septic shock due strep pneumoniae bacteremia with neutropenia and lactic acidosis, acute respiratory failure with severe encephalopathy, severe rhabdomyolysis, hyponatremia, acute metabolic encephalopathy/multifocal
CVA, history of MDS with recent transformation to AML and pancytopenia, left upper lobe pulmonary embolism
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
emergency room for an acute change in mental status, fever, chills, confusion since 5 am this morning. Since his discharge from the hospital on last admission, he has been at baseline. She does not report any cough vomiting diarrhea, hemoptysis or
hematemesis. No lucy bloody diarrhea reported. No sick contacts reported.
Patient has been on Venclexta and azacitidine therapy for AML and reportedly last dose about 2 weeks ago. Patient last saw Dr. Mead his oncologist yesterday who suggested he stay on same dose of Venclexta that he was discharged on from previous
admission.
Patient has prior history of alcoholism and heavy smoking which he stopped about 8 to 9 months ago and currently not actively drinking per patient's .
In the emergency room patient vitals were HR- 125, RR- 30, Temp- 105, and BP 131/74. His labs on admission were wbc of 0.2, hemoglobin of 6.6, absolute neutrophil count of 0.1, platelet count of 63, sodium 118, lactic acid of 4.8, creatinine of 0.8.
Chest CT, head CT, xray, and EKG ordered. Cultures ordered and fluid with lactated ringers started. IV push Cefepime ordered as well.
Problem #1: Septic shock due to strep pneumoniae bacteremia with neutropenia and lactic acidosis
-patient is acutely confused, lethargic, weak, with fever and chills on admission, 2 of the 4 sepsis criteria were met on SIRS.30 mL/kg IV fluid resuscitation in the emergency room, then normal saline continuous infusion. On 01/02/2025 patient was
awake but not alert or oriented, tachypneic, tachycardic, febrile, met criteria for septic shock. Infectious disease, neurology, oncology were consulted. Patient intubated and vasopressin initiated along with propofol, fentanyl, phenylephrine,
Dexmedetomidine. First blood culture shows streptococcal pneumonia repeat blood cultures negative, urine cultures negative, tracheal cultures negative. We started patient on ceftriaxone to cover most gram-positive's and gram tubes and vancomycin
was made but then later. Acyclovir was continued as per infectious disease recommendations. Patient was also placed on IV fluids specifically D5/NS but that was discontinued at sodium had normalized. TTE echocardiogram ordered to check for septic
source from bacteria and heart valves which was negative. Chest x-ray is ordered and showed bilateral interstitial and alveolar opacities, edema versus pneumonia most likely, covering with empiric ceftriaxone. For he is not hemodynamically stable
throughout course of hospital stay and his altered consciousness along with severely low platelet count and to do a lumbar puncture we need platelet count more than 50K. MRI showed multiple low foci of restricted diffusion involving the bifrontal
white matter as well as the bilateral cerebellar hemispheres which likely represents acute/subacute infarctions. In order to follow-up on the MRI scan KELLIE was recommended look for cardiac cause possibly an emboli however cardiology do not want to
perform this procedure as he had a severely low platelet count of less than 10K which indicated severe thrombocytopenia. We could also not anticoagulate patient as he could not be on aspirin/Plavix due to bleed risk. CT right lower extremity
performed to check for necrotizing fasciitis and showed no fluid collections to suggest an abscess but there is diffuse increased density to the soft tissues and musculature of the right thigh suggesting volume overload with third spacing, so we
have started patient on Lasix protocol as per nephro. Patient's family decided on 01/07/2025 that they did not want to further continue care and this was discussed with , daughter, [id number] present. They decided to withdraw care on
01/08/2025. No further testing done moving forward from this date. Patient's time of is 17: 58.
Problem #2: Erythema of right inner thigh
- CT scan negative for necrotizing fasciitis, patient on empiric antibiotics.
Problem #3: Poikilothermia of the right lower extremity (01/04/2025 ):
- Right lower extremity is noticeably cooler than left lower extremity. No color change or pulselessness ordered arterial Doppler of lower extremities, no significant stenosis seen. Cannot use heparin in case of occlusion due to bleeding risk.
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
-Oncology was consulted and based on the recommendation held patient's Venclexta. Patient had multiple units of CMV negative irradiated leukoreduced blood. Patient also had multiple units of platelets transfused throughout his stay. Absolute
neutrophil/lymphs/monocyte equals 0. Patient is on empiric antibiotic coverage and fungal coverage. Held Eliquis due to bleeding risk.
Problem #5: Elevated CPK most likely due to rhabdomyolysis caused by likely statin/voriconazole combo
-On admission physical examination patient stated bilateral lower extremity muscle tenderness legs. Tenderness to palpation on physical examination. Urinalysis positive for blood but not RBCs. Initiated aggressive fluid therapy. CPK trended down
from more than 10,000 to 335 on most recent.
Problem #6: Severe hypovolemic hyponatremia:
- Probably multifactorial due to underlying SIADH, high free water intake and sepsis. Consulted nephrology. Patient is confused/disoriented/weak. BMP was trended every 4 hours.
Problem #7: Left upper lobe pulmonary embolism:
- Diagnosed on previous admission patient was started on Eliquis 5 Mg twice daily. Holding Eliquis this admission due to bleeding risk. Place patient on SCDs as DVT prophylax in the ICU.
Problem #8: Hyperlipidemia
- Hold statins due to increased AST/ALT
Important imaging findings :
Chest/abdomen/pelvis CT 01/01/2025:
IMPRESSION:
Overall limited study as a result of lack of oral contrast and some beam hardening artifact from the patient's bilateral upper extremities.
Bilateral pulmonary nodular parenchymal opacities again seen some of which with central cavitation and overall prominence of the pulmonary interstitium again seen, somewhat similar to prior study with at least one new subcentimeter opacity in the
right upper lobe. Again, some of several differential diagnostic possibilities again include atypical infection, septic pulmonary emboli, Bandar's granulomatosis and less likely metastases.
Small anterior pericardial effusion.
Fluid-filled dilated stomach and fluid-filled thoracic esophagus.
Fluid-filled loops of small bowel, nonspecific, cannot exclude enteritis.
Peripheral vascular ultrasound 01/01/2025:
-IMPRESSION: No evidence of deep venous thrombosis of the lower extremities bilaterally.
Head CT 01/02/2025:
IMPRESSION:
Crescentic-shaped focus of decreased attenuation in the right cerebellum, cannot exclude evolving nonhemorrhagic infarct or less likely mass.
Brain MRI on 01/03/2025
IMPRESSION:
Multiple foci of restricted diffusion involving the bifrontal white matter as well as the bilateral cerebellar hemispheres which likely represents acute/subacute infarctions. The right cerebellar hemisphere infarction is associated with mild
surrounding edema as well as a small focus of intrinsic T1 shortening which likely represents hemorrhagic conversion. Given the multi vascular territory this may be embolic in nature. An underlying right cerebellar lesion or small vascular
malformations considered unlikely although a 12 week follow-up MRI brain should be considered.
Extremity arterial study on 01/06/2025
IMPRESSION:
RIGHT LOWER EXTREMITY: Arterial duplex examination reveals monophasic waveforms in the common femoral artery suggesting the possibility of iliac inflow disease. Multiphasic waveforms are identified in the profunda femoral artery. Monophasic
waveforms are identified in the superficial femoral artery and popliteal artery. No focal velocity elevations are identified throughout the right lower extremity to suggest significant stenosis.
LEFT LOWER EXTREMITY: Arterial duplex examination reveals monophasic waveforms in the common femoral artery suggesting the possibility of iliac inflow disease. Multiphasic waveforms are identified in the profunda femoral artery. Monophasic
waveforms are identified in the superficial femoral artery and popliteal artery. No focal velocity elevations are identified throughout the left lower extremity to suggest significant stenosis.
Chest x-ray on 01/06/2025:
IMPRESSION:
Patchy bilateral parenchymal opacities, most likely representing bilateral pneumonia. Fairly stable appearance from most recent radiograph.
Procedure findings :
Discharge Plan
-
Patient Disposition:
Referrals:
Renea Hagen PA [Family Provider, [facility]]
Prescriptions:
No Action
atorvastatin 10 mg Tablet
10 mg PO QPM
ondansetron HCl 4 mg Tablet
4 mg PO Q8HPRN PRN (Reason: nausea)
acyclovir 400 mg Tablet
400 mg PO BID
allopurinol 300 mg Tablet
300 mg PO DAILY Qty: 30 0RF
voriconazole 200 mg Tablet
200 mg PO BID Qty: 60 0RF
Eliquis 5 mg tablet
5 mg PO BID Qty: 73 0RF
Rx Instructions:
10mg BID for 13 doses unit 12/31/24 then 5mg BID thereafter
acetaminophen [Tylenol] 325 mg Tablet
650 mg PO Q6HPRN PRN (Reason: fever)
Venclexta 100 mg Tablet
100 mg PO DAILY
Discharge Date and Time
Print Language: GRENADIAN
--- NOTE | 2025-01-08 18:39 | PTCARENOTE ---
[facility] notified. Patient not suitable for donation. [place] [facility]. No belongings noted in patient room. No dentures. Patient [place] [facility]
--- NOTE | 2025-01-10 09:24 | CM ---
Patient at 17:58 on 01/08/25.
== END 2025-01-08 17:58 | disposition expired | DRG 870 ==
LOC: ICU 10:38
PROVIDERS: Internal Medicine Critical Care Medicine; Internal Medicine Infectious Disease; Nurse Practitioner Acute Care; Nurse Practitioner Family; Nurse Practitioner Primary Care; Specialist; ADMITTING PHYSICIAN Internal Medicine; ATTENDING PHYSICIAN Internal Medicine; CONSULT PHYSICIAN Internal Medicine; CONSULT PHYSICIAN Internal Medicine Infectious Disease; CONSULT PHYSICIAN Psychiatry & Neurology Neurology; EMERGENCY PHYSICIAN Emergency Medicine; FAMILY PHYSICIAN Physician Assistant Medical; OTHER PHYSICIAN Internal Medicine Hematology & Oncology
PROC: 30233N1 Transfusion of Nonautologous Red Blood Cells into Peripheral Vein, Percutaneous Approach (ICD-10-PCS; 2025-01-01)
PROC: 30233R1 Transfusion of Nonautologous Platelets into Peripheral Vein, Percutaneous Approach (ICD-10-PCS; 2025-01-02)
PROC: 03HY32Z Insertion of Monitoring Device into Upper Artery, Percutaneous Approach (ICD-10-PCS; 2025-01-02)
PROC: 02HV33Z Insertion of Infusion Device into Superior Vena Cava, Percutaneous Approach (ICD-10-PCS; 2025-01-02)
PROC: 30233K1 Transfusion of Nonautologous Frozen Plasma into Peripheral Vein, Percutaneous Approach (ICD-10-PCS; 2025-01-02)
PROC: 0BH17EZ Insertion of Endotracheal Airway into Trachea, Via Natural or Artificial Opening (ICD-10-PCS; 2025-01-02)
PROC: 5A1955Z Respiratory Ventilation, Greater than 96 Consecutive Hours (ICD-10-PCS; 2025-01-02)
DX: A40.3 Sepsis due to Streptococcus pneumoniae (principal); R65.21 Severe sepsis with septic shock; G92.8 Other toxic encephalopathy; J96.01 Acute respiratory failure with hypoxia; I63.541 Cerebral infarction due to unspecified occlusion or stenosis of right cerebellar artery; J18.8 Other pneumonia, unspecified organism; E87.20 Acidosis, unspecified; D84.89 Other immunodeficiencies; D61.818 Other pancytopenia; C92.00 Acute myeloblastic leukemia, not having achieved remission; M62.82 Rhabdomyolysis; E22.2 Syndrome of inappropriate secretion of antidiuretic hormone; D68.8 Other specified coagulation defects; Z11.52 Encounter for screening for COVID-19; R50.81 Fever presenting with conditions classified elsewhere; D70.9 Neutropenia, unspecified; E86.1 Hypovolemia; Z66 Do not resuscitate; E83.51 Hypocalcemia; F10.21 Alcohol dependence, in remission; E87.6 Hypokalemia; Z77.090 Contact with and (suspected) exposure to asbestos; Z78.1 Physical restraint status; Z79.01 Long term (current) use of anticoagulants; Z79.899 Other long term (current) drug therapy; Z86.711 Personal history of pulmonary embolism; Z87.891 Personal history of nicotine dependence
CPT/HCPCS: 36600; 70450; 70553; 71045; 71260; 73701; 74177; 80048; 80053; 80202; 81003; 81015; 82330; 82550; 82553; 82728; 82805; 82962; 83010; 83516; 83540; 83550; 83605; 83615; 83690; 83735; 83935; 84100; 84300; 84443; 84478; 84550; 85025; 85027; 85049; 85384; 85610; 85730; 86803; 86850; 86900; 86901; 86920; 86922; 87040; 87070; 87077; 87086; 87102; 87154; 87186; 87205; 87206; 87502; 87811; 93005; 93306; 93925; 93970; 94002; 94003; 95816; 96365; 96366; 96375; 99291; A9575; P9047; P9058; P9059; P9073; Q9967